=== PATIENT | female | born 1945 | race African-American/Black ===

== ENCOUNTER 2018-11-27 21:03 | Emergency (ER) | payer OTHER, MEDICARE ==
[2018-11-27 21:52] LABS: Urine Blood 3+ (NEG); Urine Glucose NEGATIVE (NEG); Urine Protein 2+ (NEG); Urine Specific Gravity >1.030 (1.005-1.030); Urine pH 6.5 (5.0-7.0)
[2018-11-27 22:09] LABS: Urine Bacteria <20 /HPF (<20); Urine Culture Reflex Order NOT NEEDED; Urine RBC >50 /HPF (NONE SEEN)
--- NOTE | 2018-11-27 22:34 | ER ---
Nurse's Notes [facility] Name: Clara Bucio Age: 73 yrs Sex: Female : 1945 Arrival Date: 11/27/2018 Time: 21:10 Bed 18 Private MD: Diagnosis: Urinary tract infection, site not specified Presentation: 11/27 21:14 Presenting complaint: Patient states: I have been having urinary frequency and urgency, la1 I accidently peed on myself. It feels like something is pressing on my bladder and I cannot control it. Transition of care: patient was not received from another setting of care. Onset of symptoms was November 27, 2018. Risk Assessment: Do you want to hurt yourself or someone else? Patient reports no desire to harm self or others. Initial Sepsis Screen: Does the patient meet any 2 criteria? No. Patient's initial sepsis screen is negative. Does the patient have a suspected source of infection? No. Patient's initial sepsis screen is negative. Care prior to arrival: None. 21:14 Method Of Arrival: Ambulatory la1 21:14 Acuity: DORINA 3 la1 Historical: - Allergies: 21:14 Codeine; la1 21:14 Sulfa (Sulfonamide Antibiotics); la1 - PMHx: 21:14 Hypertension; Cirrhosis; la1 - Immunization history:: Adult Immunizations up to date. - Social history:: Smoking status: Patient/guardian denies using tobacco. - Ebola Screening: : No symptoms or risks identified at this time. Screenin:20 Abuse screen: Denies threats or abuse. Nutritional screening: No deficits noted. tr5 Tuberculosis screening: No symptoms or risk factors identified. Fall Risk None identified. Assessment: 21:20 General: Appears in no apparent distress. Behavior is calm, cooperative. Pain: tr5 Complains of pain in suprapubic area Pain does not radiate. Quality of pain is described as crampy, pressure, Pain began gradually. Neuro: Level of Consciousness is awake, alert, obeys commands, Oriented to person, place, time, Computer Support Technician are equal bilaterally Moves all extremities. Cardiovascular: Heart tones present Bruits absent Capillary refill < 3 seconds Pulses are all present. Edema is absent. Respiratory: Airway is patent Respiratory effort is even, unlabored, Respiratory pattern is regular, symmetrical. GI: Reports cramping. : Reports cramping, inability to void, urinary frequency. EENT: No signs and/or symptoms were reported regarding the EENT system. Derm: No signs and/or symptoms reported regarding the dermatologic system. Musculoskeletal: Capillary refill < 3 seconds, Range of motion: intact in all extremities. Vital Signs: 21:15 BP 137 / 71; Pulse 75; Resp 16; Temp 98.1; Pulse Ox 98% on R/A; Weight 102.51 kg; la1 Height 5 ft. 7 in. (170.18 cm); 22:20 BP 135 / 72; Pulse 72; Resp 17; Pulse Ox 100% on R/A; tr5 21:15 Body Mass Index 35.40 (102.51 kg, 170.18 cm) la1 ED Course: 21:10 Patient arrived in ED. la1 21:15 Triage completed. la1 21:15 Arm band placed on right wrist. la1 21:16 Jesús Flynn RN is Primary Nurse. tr5 21:20 Fall risk band placed. Placed in gown. tr5 21:39 Cameron Shay PA is PHCP. cp 21:39 Vlad Lyon MD is Attending Physician. cp 21:45 Inserted saline lock: 22 gauge in right antecubital area, using aseptic technique. tr5 23:15 No provider procedures requiring assistance completed. IV discontinued. tr5 Administered Medications: 22:51 Drug: Rocephin 1 grams Route: IV; Rate: per protocol; Site: right antecubital; tr5 23:17 Follow up: Response: No adverse reaction; IV Status: Completed infusion tr5 22:52 Drug: Pyridium 200 mg Route: PO; tr5 22:53 Follow up: Response: Medication administered at discharge. tr5 23:17 Follow up: Response: No adverse reaction tr5 22:58 CANCELLED (Physician Discretion): Rocephin (cefTRIAXone) 1 grams IM once tr5 Outcome: 22:33 Discharge ordered by . cp 23:15 Discharged to home ambulatory. tr5 23:15 Condition: stable 23:15 Discharge instructions given to patient. 23:18 Patient left the ED. tr5 Signatures: Lance Gordillo RN RN la1 Cameron Shay PA PA cp Jesús Flynn RN RN tr5 Corrections: (The following items were deleted from the chart) 22:58 22:54 Rocephin (cefTRIAXone) 1 grams IM in right deltoid tr5 tr5
--- NOTE | 2018-11-27 22:34 | EDPHYS ---
Physician Documentation [facility] Name: Clara Bucio Age: 73 yrs Sex: Female : 1945 Arrival Date: 11/27/2018 Time: 21:10 Bed 18 Private MD: ED Physician Vlad Lyon HPI: 11/27 21:45 This 73 yrs old Black Female presents to ER via Ambulatory with complaints of Urinary cp Incontinence. 21:45 The patient presents with urinary symptoms, dysuria, frequency, incontinence, urgency. cp 21:45 Onset: The symptoms/episode began/occurred today. Associated signs and symptoms: cp Pertinent negatives: diarrhea, fever, nausea, vomiting. Severity of symptoms: in the emergency department the symptoms are unchanged, despite home interventions. Historical: - Allergies: 21:14 Codeine; la1 21:14 Sulfa (Sulfonamide Antibiotics); la1 - PMHx: 21:14 Hypertension; Cirrhosis; la1 - Immunization history:: Adult Immunizations up to date. - Social history:: Smoking status: Patient/guardian denies using tobacco. - Ebola Screening: : No symptoms or risks identified at this time. ROS: 21:55 Constitutional: Negative for body aches, chills, fever, poor PO intake. cp 21:55 Eyes: Negative for injury, pain, redness, and discharge. cp 21:55 Cardiovascular: Negative for chest pain, palpitations. 21:55 Respiratory: Negative for cough, wheezing. 21:55 Abdomen/GI: Positive for abdominal pain, of the suprapubic area, Negative for nausea, vomiting, diarrhea, constipation, black/tarry stool, rectal bleeding. 21:55 Back: Negative for pain at rest, pain with movement. 21:55 : Positive for urinary frequency, bladder incontinence urgency, pain with urinating. 21:55 All other systems are negative. Exam: 22:00 Constitutional: The patient appears in no acute distress, alert, non-diaphoretic, cp non-toxic, well developed, well nourished. 22:00 Head/Face: Normocephalic, atraumatic. cp 22:00 Cardiovascular: Rate: normal. 22:00 Respiratory: the patient does not display signs of respiratory distress, Respirations: normal. 22:00 Abdomen/GI: Inspection: abdomen appears normal, Bowel sounds: active, all quadrants, Palpation: soft, in all quadrants, mild abdominal tenderness, in the suprapubic area, voluntary guarding, is elicited in the suprapubic area. 22:00 Back: pain, is absent. Vital Signs: 21:15 BP 137 / 71; Pulse 75; Resp 16; Temp 98.1; Pulse Ox 98% on R/A; Weight 102.51 kg; la1 Height 5 ft. 7 in. (170.18 cm); 22:20 BP 135 / 72; Pulse 72; Resp 17; Pulse Ox 100% on R/A; tr5 21:15 Body Mass Index 35.40 (102.51 kg, 170.18 cm) la1 MDM: 21:43 Patient medically screened. cp 22:32 Data reviewed: vital signs, nurses notes, lab test result(s). Counseling: I had a cp detailed discussion with the patient and/or guardian regarding: the historical points, exam findings, and any diagnostic results supporting the discharge/admit diagnosis, lab results, to return to the emergency department if symptoms worsen or persist or if there are any questions or concerns that arise at home. 11/27 21:40 Order name: Urine Culture lp1 11/27 21:40 Order name: Urine Microscopic Only; Complete Time: 22:27 cp 11/27 22:31 Interpretation: Normal except: UWBC 20-50; URBC >50. cp 11/27 21:41 Order name: Urine Dipstick--Ancillary (enter results); Complete Time: 22:27 ar5 11/27 22:31 Interpretation: Normal except: USPGR >1.030; UBLD 3+; UPROT 2+; UESTR 3+. cp 11/27 21:40 Order name: Urine Dipstick-Ancillary (obtain specimen); Complete Time: 22:57 lp1 11/27 21:40 Order name: Urine Dipstick-Ancillary (obtain specimen); Complete Time: 22:57 cp Administered Medications: 22:51 Drug: Rocephin 1 grams Route: IV; Rate: per protocol; Site: right antecubital; tr5 23:17 Follow up: Response: No adverse reaction; IV Status: Completed infusion tr5 22:52 Drug: Pyridium 200 mg Route: PO; tr5 22:53 Follow up: Response: Medication administered at discharge. tr5 23:17 Follow up: Response: No adverse reaction tr5 22:58 CANCELLED (Physician Discretion): Rocephin (cefTRIAXone) 1 grams IM once tr5 Disposition: 11/28 03:00 Co-signature as Attending Physician, Vlad Lyon MD. pkl Disposition: 11/27/18 22:33 Discharged to Home. Impression: Urinary tract infection, site not specified. - Condition is Stable. - Discharge Instructions: Urinary Tract Infection, Adult. - Prescriptions for Augmentin 875- 125 mg Oral Tablet - take 1 tablet by ORAL route every 12 hours for 10 days; 20 tablet. Pyridium 200 mg Oral Tablet - take 1 tablet by ORAL route every 8 hours for 2 days; 6 tablet. - Medication Reconciliation Form, Thank You Letter, Antibiotic Education, Prescription Opioid Use form. - Follow up: Private Physician; When: 1 - 2 days; Reason: Worsening of condition. - Problem is new. - Symptoms have improved. Signatures: Dispatcher [employer] EDMS Vlad Lyon MD MD pkl Carmella Bruner RN RN lp1 Lance Gordillo RN RN la1 Cameron Shay PA PA cp Rodriguez, Tommie RN RN tr5 Corrections: (The following items were deleted from the chart) 11/27 22:58 22:31 Rocephin (cefTRIAXone) 1 grams IM once ordered. cp tr5 22:58 22:53 Rocephin (cefTRIAXone) 1 grams IM once given. tr5 tr5 22:58 22:58 Rocephin (cefTRIAXone) 1 grams IM once ordered. tr5 tr5 23:18 22:33 11/27/2018 22:33 Discharged to Home. Impression: Urinary tract infection, site tr5 not specified. Condition is Stable. Forms are Medication Reconciliation Form, Thank You Letter, Antibiotic Education, Prescription Opioid Use. Follow up: Private Physician; When: 1 - 2 days; Reason: Worsening of condition. Problem is new. Symptoms have improved. cp
== END 2018-11-27 23:18 | disposition home or self-care (01) ==
LOC: ER 21:03
DX: N39.0 Urinary tract infection, site not specified (principal); Z88.6 Allergy status to analgesic agent; Z88.2 Allergy status to sulfonamides
CPT/HCPCS: 81003; 81015; 87086; 87088

== ENCOUNTER 2023-12-14 11:34 | Emergency (ER) | payer OTHER ==
--- OUTSIDE RECORDS SUMMARY | 2023-12-14 11:47 | XMS REPORT | Continuity of Care Document ---
Author Name Unknown Address [address] [facility] [place] [address] [facility] Address [address] [facility] [address] [place] [address] Care Team Providers Care Die Hardener Name Role Phone ANIRUDH CHAPARRO Primary Care Physician Unavailab CEDRIC Brumfield Attending Clinician Unavailable ANIRUDH CHAPARRO Attending Clinician Unavailable Pob, [facility] Lab Main Attending Clinician UnavailArmond Ceron MD Attending Clinician [phone] ARMOND MEDINA Attending Clinician Unavailable Anirudh Medina Attending Clinician [phone] Andry Santos Attending Clinician [phone] Unknown, Attending Attending Clinician UnavailANDRY Marks Attending Clinician Unavailable MIKHAIL WU Attending Clinician Unavailable MIKHAIL UW Attending Clinician Unavailable GULSHAN YEE Attending Clinician Unavailable Gulshan Yee PA-C Attending Clinician [phone] ATANASOV, STRAHIL T Attending Clinician UnavailNANCY Bustillos Attending Clinician UnavailNancy Bustillos MD Attending Clinician + [phone] [facility] Sleep Lab Bed Attending Clinician Unavail able Doctor Unassigned, [place] Attending Clinician U Marge Ulrich DO Attending Clinician [phone] Lab, Ang - Db Attending Clinician Unavailable Tito NDIAYE, Cedric Attending Clinician [phone] [facility] Sleep Lab Attending Clinician Unavailkaty Winter MD, Ja Hay Attending Clinician [phone] Nurse, Ang Db Urgent Care Attending Clinician Un available Mariusz NDIAYE, Genevieve Attending Clinician [phone] GENEVIEVE VEE Attending Clinician Unavailable Dilcia Sheikh MD Attending Clinician [phone] DILCIA SHEIKH Attending Clinician UnavailMARGE Ortega Attending Clinician Unavailable MARGE CHAVES Attending Clinician Unavailable DAYA PEÑA Attending Clinician Unavailable Daya Thomas Attending Clinician [phone] Provider, Ang [facility] Urgent [facility] Attending Clinician Unavailable Mary VICTOR, Amador Hunter Attending Clinician Unavailabl e Only, Ang Db Test Attending Clinician UnavailUSMAN Cano Attending Clinician Unavailkaty Alan, [facility] Respiratory Attending Clinician U Usman Prakash MD Attending Clinician [phone] NATY MCKINNEY Attending Clinician UnavailLora Noel MD Attending Clinician [phone] LORA EDWARDS Attending Clinician Unavailable Vaccine, [facility] Family Medicine Attending Clinician Unavailable Roberto Buckner DO Attending Clinician [phone] ROBERTO BUCKNER Attending Clinician Unavail able OSCAR MORFIN Attending Clinician Unavailable Oscar Morfin MD Attending Clinician [phone] BASSAM SORTO Attending Clinician Unavailable Bassam Sorto PA-C Attending Clinician +[phone] Alix Cline RN Attending Clinician Unavailab Gail Mcgrath Attending Clinician + [phone] GAIL HILLIARD Attending Clinician Unavailab Michele Christina MD Attending Clinician + [phone] MICHELE SYED A Attending Clinician Unavaila RADHA Hutton Attending Clinician Unavailable Radha Burgess MD Attending Clinician [phone] Arelis Winston Attending Clinician [phone] Only, Adc Pob2 Test Attending Clinician Unavaila ble Nurse, Adc Pob Immunization Attending Clinician Unavailable Radiology Attending Clinician Unavailable DAYANA BAILEY Attending Clinician Unavailable ARMOND MEDINA Admitting Clinician Unavailable ANIRUDH CHAPARRO Admitting Clinician Unavailable CEDRIC FRANCIS Admitting Clinician Unavailable MARGE CHAVES Admitting Clinician Unavailable Payers Payer Name Policy Type Policy Number Effective Date Expirati on Date Source [employer] MEDICARE ADVANTAGE [id number] 2019 00:00:00 Problems Condition Name Condition Details Condition Category Status Onset Date Resolution Date Last Treatment Date Treating Clinician Comments Source Nocturnal enuresis Nocturnal enuresis Disease Active 2- 00:00: 00 [facility] Chronic heart failure with preserved ejection fraction Chronic heart failure with preserved ejection fraction Disease Active 2022-04 00:00: 00 [facility] Obesity (BMI 30-39.9) Obesity (BMI 30-39.9) Disease Active 2022-04 00:00: 00 [facility] Leg edema Leg edema Disease Active 2022-04 00:00: 00 [facility] VHD (valvular heart disease) VHD (valvular heart disease) Disease Active 2022-04 00:00: 00 [facility] Pulmonary hypertensi on Pulmonary hypertensi on Disease Active 2022-04 00:00: 00 [facility] Osteopenia , unspecifie d location Osteopenia , unspecifie d location Disease Active 12-26 00:00: 00 [facility] Anxiety and depression Anxiety and depression Disease Active 12-26 00:00: 00 [facility] Primary osteoarthr itis involving multiple joints Primary osteoarthr itis involving multiple joints Disease Active 12-26 00:00: 00 [facility] Medicare annual wellness visit, subsequent Medicare annual wellness visit, subsequent Disease Active 0 9-19 00:00: 00 [facility] Prediabete s Prediabete s Disease Active 2-16 00:00: 00 [facility] Coronary artery disease involving [place] coronary artery of [place]ct[place] heart without angina 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 of [place] heart without angina pectoris Disease Active 8-16 00:00: 00 [facility] Nonobstruc tive atheroscle rosis of coronary artery Nonobstruc tive atheroscle rosis of coronary artery Disease Active 8-16 00:00: 00 [facility] Essential hypertensi on Essential hypertensi on Disease Active 16 00:00: 00 [facility] Gastroesop hageal reflux disease without esophagiti s Gastroesop hageal reflux disease without esophagiti s Disease Active 16 00:00: 00 [facility] Biliary cirrhosis Biliary cirrhosis Disease Active 16 00:00: 00 [facility] Arrhythmia Arrhythmia Disease Active 16 00:00: 00 [facility] Coronary artery disease involving [place] coronary artery of [place] heart without angina 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 of [place] heart without angina pectoris Disease Active 16 00:00: 00 [facility] Hiatal hernia Hiatal hernia Disease Active 816 00:00: 00 [facility] Rheumatoid arthritis Rheumatoid arthritis Disease Active 16 00:00: 00 [facility] Allergies, Adverse Reactions, Alerts Allergy Name Allergy Type Status Severity Reaction(s) Onset Date Inactive Date Treating Clinician Comments Source Codeine Propensi ty to adverse reaction s Active Nausea and/or Vomiting 16 00:00: 00 [facility] Sulfa (Sulfona mide Antibiot ics) Propensi ty to adverse reaction s Active Nausea and/or Vomiting 16 00:00: 00 [facility] CODEINE DRUG INGREDI Active N/V 11-22 00:00: 00 [facility] SULFA (SULFONA MIDE ANTIBIOT ICS) Drug Class Active N/V 11-22 00:00: 00 [facility] Sulfa (Sulfona mide Antibiot ics) DA Active SV 12-05 00:00: 00 [facility] codeine DA Active SV 12-05 00:00: 00 [facility] Social History Social Habit Start Date Stop Date Quantity Comments Source Gender identity [facility]coh[facility] beverage intake 2023-08-24 00:00:00 2023-08-24 00:00:00 Lifetime non-drinker (finding) [facility] Alcohol intake 2023-07-25 00:00:00 2023-07-25 00:00:00 Lifetime non-drinker (finding) [facility] Tobacco use and exposure 2023-05-16 00:00:00 2023-05-16 00:00:00 Smokeless tobacco non-user [facility] History of Social function 2022-12-26 00:00:00 2022-12-26 00:00:00 [facility] Exposure to SARS-CoV-2 (event) 2022-08-13 00:00:00 2022-08-23 11:25:00 Not sure [facility] Sex assigned at 1945 00:00:00 1945 00:00:00 [facility] Smoking Status Start Date Stop Date Source Never smoked tobacco [facility] Medications Ordered Medication Name Filled Medication Name Start Date Stop Date Current Medication? Ordering Clinician Indication Dosage Frequency Signature (SIG) Comments Components Source iopamidol (ISOVUE 370-500 mL) injection 85 mL 09-24 16:30: 00 09-24 15:31 :00 No [id number] 85mL 85 mL, Intravenou s, ONCE, 1 dose, On Sun09/25/23 at 1130, Routine [facility] amoxicillin -clavulanat e (AUGMENTIN) 875-125 mg per tablet 08-23 00:00: 00 09-03 04:59 :00 No [id number] 1{tbl} Take 1 tablet by mouth in the morning and 1 tablet in the evening. Do all this for 10 days. [facility] predniSONE 20 mg tablet 08-23 00:00: 00 08-29 04:59 :00 No [id number] 40mg Take 2 tablets by mouth in the morning for 5 days. [facility] Guaifenesin 1,200 mg tablet 08-13 00:00: 00 Yes [id number] 1200mg Take 1 tablet by mouth in the morning and 1 tablet in the evening. [facility] vibegron (GEMTESA) 75 mg Tab 07-12 00:00: 00 Yes [id number] 75mg Take 75 mg by mouth at bedtime. [facility] Nitrofurant oin&Nit. Macrocryst (MACROBID) 100 mg capsule 07-01 00:00: 00 07-09 04:59 :00 No [id number] 100mg Take 1 capsule by mouth in the morning and 1 capsule in the evening. Do all this for 7 days. [facility] amLODIPine 5 mg tablet 06-04 00:00: 00 Yes [id number] 5mg Take 1 tablet by mouth in the morning. [facility] metoprolol succinate XL 100 mg 24 hr tablet 06-04 00:00: 00 Yes [id number] 100mg Take 1 tablet by mouth in the morning. [facility] DULoxetine 20 mg capsule 06-04 00:00: 00 Yes [id number] 40mg Take 2 capsules by mouth in the morning. [facility] amLODIPine 5 mg tablet 05-15 00:00: 00 06-04 00:00 :00 No [id number] 5mg Take 1 tablet by mouth in the morning. MUST BE SEEN FOR FURTHER REFILLS [facility] metoprolol succinate XL 100 mg 24 hr tablet - 00:00: 00 06-04 00:00 :00 No [id number] 100mg Take 1 tablet by mouth in the morning. MUST BE SEEN FOR FURTHER REFILLS [facility] furosemide 20 mg tablet 2022-04- 00:00: 00 06-04 00:00 :00 No [id number] As needed for leg swelling, daily [facility] DULoxetine 60 mg capsule 9-19 00:00: 00 01-04 00:00 :00 No [id number] 60mg Take 1 capsule by mouth in the morning. [facility] furosemide 20 mg tablet 12-06 00:00: 00 02-15 00:00 :00 No [id number] 20mg Take 1 tablet by mouth in the morning. [facility] amLODIPine 5 mg tablet 11-27 00:00: 00 05-13 00:00 :00 No [id number] 5mg Take 1 tablet by mouth in the morning. [facility] metoprolol succinate XL 100 mg 24 hr tablet 11-27 00:00: 00 05-13 00:00 :00 No [id number] 100mg Take 1 tablet by mouth in the morning. [facility] methocarbam oL 500 mg tablet 09-29 00:00: 00 Yes [id number] 500mg Take 1 tablet by mouth 3 (three) times daily as needed for Pain (scale 7-10). [facility] furosemide 20 mg tablet 6- 00:00: 00 12-06 00:00 :00 No [id number] 20mg Take 1 tablet by mouth in the morning. [facility] amLODIPine 5 mg tablet 6-22 00:00: 00 11-27 00:00 :00 No [id number] 5mg Take 1 tablet by mouth in the morning. [facility] metoprolol succinate XL 100 mg 24 hr tablet 6-22 00:00: 00 11-27 00:00 :00 No [id number] 100mg Take 1 tablet by mouth in the morning. [facility] metoprolol succinate XL 100 mg 24 hr tablet 2023-0 4-17 00:00: 00 09-28 00:00 :00 No [id number] 100mg Take 1 tablet by mouth in the morning. [facility] furosemide 20 mg tablet 07-24 00:00: 00 09-28 00:00 :00 No [id number] 20mg Take 1 tablet by mouth in the morning. [facility] amLODIPine 5 mg tablet 07-24 00:00: 09-28 00:00 :00 No [id number] 5mg Take 1 tablet by mouth in the morning. [facility] fludeoxyglu cose F-18 (FDG) injection 10.79 millicurie 06-12 20:00: 00 06-12 18:56 :00 No [id number] 10.79mC i 10.79 millicurie , Intravenou s, ONCE, 1 dose, On Sun06/12/22 at 1400, Routine [facility] fluticasone propion-adolfo meteroL (ADVAIR DISKUS) 250-50 mcg/dose inhalation disk 2021-04 00:00: 00 Yes [id number] 1{puff} Inhale 1 Puff every 12 (twelve) hours. [facility] albuterol 90 mcg/actuati on inhaler 2021-04 00:00: 00 Yes [id number] 2{puff} Inhale 2 Puffs every 6 (six) hours as needed for Wheezing or Shortness of Breath. [facility] doxycycline 100 mg EC tablet 2021-04 00:00: 00 01-21 04:59 :00 No [id number] 100mg Take 1 tablet by mouth in the morning and 1 tablet in the evening. Do all this for 7 days. [facility] mecobalamin , vitamin B12, (B12 ACTIVE) 1,000 mcg Chew 12-26 09:32: 23 Yes Take by mouth. [facility] benzonatate 200 mg capsule 12-26 00:00: 00 12-26 00:00 :00 No [id number] 200mg Take 1 capsule by mouth 3 (three) times daily as needed for Cough. [facility] Cholecalcif jennifer, Vitamin D3, (VITAMIN D3) 125 mcg (5,000 unit) tablet 12-01 10:34: 35 Yes Take by mouth. [facility] magnesium oxide 400 mg magnesium capsule 12-01 10:34: 35 Yes Take by mouth. [facility] DULoxetine 20 mg capsule 12-01 00:00: 00 12-26 00:00 :00 No Take 1 capsule po once daily x 2 weeks then increase to 2 capsules po once daily x 2 weeks then increase to 3 capsules po once daily thereafter [facility] furosemide 20 mg tablet 04-29 00:00: 00 07-24 00:00 :00 No [facility] ursodioL 300 mg capsule 05-17 00:00: 00 Yes 300mg Take 300 mg by mouth 3 (three) times daily. [facility] amLODIPine 5 mg tablet 05-09 00:00: 00 07-24 00:00 :00 No 5mg Take 5 mg by mouth daily. [facility] metoprolol succinate XL 100 mg 24 hr tablet 05-09 00:00: 00 07-24 00:00 :00 No Take by mouth daily. [facility] losartan 100 mg tablet 05-09 00:00: 00 02-15 00:00 :00 No 100mg Take 100 mg by mouth daily. [facility] Immunizations Ordered Immunization Name Filled Immunization Name Date Status Comments Source Influenza Virus Vaccine,quad Im,preserve Free 65+ 2022-01-13 00:00:00 Completed [facility] Influenza Virus Vaccine,quad Im,preserve Free + 2022-01-13 00:00:00 Completed [facility] Influenza Virus Vaccine,quad Im,preserve Free 65+ 2022-01-13 00:00:00 Completed [facility] Influenza Virus Vaccine,quad Im,preserve Free 65+ 2022-01-13 00:00:00 Completed [facility] Influenza Virus Vaccine,quad Im,preserve Free [id number] 00:00:00 Completed [facility] Influenza Virus Vaccine,quad Im,preserve Free 2022-01-13 00:00:00 Completed [facility] Influenza Virus Vaccine,quad Im,preserve Free 2022-01-13 00:00:00 Completed [facility] Influenza Virus Vaccine,quad Im,preserve Free 2022-01-13 00:00:00 Completed [facility] Influenza Virus Vaccine,quad Im,preserve Free 2022-01-13 00:00:00 Completed [facility] Influenza Virus Vaccine,quad Im,preserve Free 2022-01-13 00:00:00 Completed [facility] Influenza Virus Vaccine,quad Im,preserve Free 2022-01-13 00:00:00 Completed [facility] Influenza Virus Vaccine,quad Im,preserve Free 2022-01-13 00:00:00 Completed [facility] Influenza Virus Vaccine,quad Im,preserve Free 2022-01-13 00:00:00 Completed [facility] Influenza Virus Vaccine,quad Im,preserve Free 2022-01-13 00:00:00 Completed [facility] Influenza Virus Vaccine,quad Im,preserve Free 2022-01-13 00:00:00 Completed [facility] Influenza Virus Vaccine,quad Im,preserve Free 2022-01-13 00:00:00 Completed [facility] Influenza Virus Vaccine,quad Im,preserve Free 2022-01-13 00:00:00 Completed [facility] Influenza Virus Vaccine,quad Im,preserve Free 2022-01-13 00:00:00 Completed [facility] Influenza Virus Vaccine,quad Im,preserve Free 2022-01-13 00:00:00 Completed [facility] Influenza Virus Vaccine,quad Im,preserve Free 2022-01-13 00:00:00 Completed [facility] Influenza Virus Vaccine,quad Im,preserve Free 2022-01-13 00:00:00 Completed [facility] Influenza Virus Vaccine,quad Im,preserve Free 2022-01-13 00:00:00 Completed [facility] Influenza Virus Vaccine,quad Im,preserve Free 2022-01-13 00:00:00 Completed [facility] Influenza Virus Vaccine,quad Im,preserve Free 2022-01-13 00:00:00 Completed [facility] Influenza Virus Vaccine,quad Im,preserve Free 2022-01-13 00:00:00 Completed [facility] Influenza Virus Vaccine,quad Im,preserve Free 2022-01-13 00:00:00 Completed [facility] Influenza Virus Vaccine,quad Im,preserve Free 2022-01-13 00:00:00 Completed [facility] Influenza Virus Vaccine,quad Im,preserve Free 2022-01-13 00:00:00 Completed [facility] Influenza Virus Vaccine,quad Im,preserve Free 2022-01-13 00:00:00 Completed [facility] Influenza Virus Vaccine,quad Im,preserve Free 2022-01-13 00:00:00 Completed [facility] Influenza Virus Vaccine,quad Im,preserve Free 2022-01-13 00:00:00 Completed [facility] Influenza Virus Vaccine,quad Im,preserve Free 2022-01-13 00:00:00 Completed [facility] Influenza Virus Vaccine,quad Im,preserve Free 2022-01-13 00:00:00 Completed [facility] Influenza Virus Vaccine,quad Im,preserve Free 2022-01-13 00:00:00 Completed [facility] Influenza Virus Vaccine,quad Im,preserve Free 2022-01-13 00:00:00 Completed [facility] Influenza Virus Vaccine,quad Im,preserve Free 2022-01-13 00:00:00 Completed [facility] Influenza Virus Vaccine,quad Im,preserve Free 2022-01-13 00:00:00 Completed [facility] Influenza Virus Vaccine,quad Im,preserve Free 2022-01-13 00:00:00 Completed [facility] Influenza Virus Vaccine,quad Im,preserve Free 2022-01-13 00:00:00 Completed [facility] Influenza Virus Vaccine,quad Im,preserve Free 2022-01-13 00:00:00 Completed [facility] Influenza Virus Vaccine,quad Im,preserve Free 65+ 2022-01-13 00:00:00 Completed [facility] Influenza Virus Vaccine,quad Im,preserve Free 65+ 2022-01-13 00:00:00 Completed [facility] Influenza Virus Vaccine,quad Im,preserve Free 65+ 2022-01-13 00:00:00 Completed [facility] Influenza Virus Vaccine,quad Im,preserve Free 65+ 2022-01-13 00:00:00 Completed [facility] Influenza Virus Vaccine,quad Im,preserve Free 65+ 2022-01-13 00:00:00 Completed [facility] Influenza Virus Vaccine,quad Im,preserve Free 65+ 2022-01-13 00:00:00 Completed [facility] Influenza Virus Vaccine,quad Im,preserve Free 65+ 2022-01-13 00:00:00 Completed [facility] Influenza Virus Vaccine,quad Im,preserve Free 65+ 2022-01-13 00:00:00 Completed [facility] Influenza Virus Vaccine,quad Im,preserve Free 65+ 2022-01-13 00:00:00 Completed [facility] Influenza Virus Vaccine,quad Im,preserve Free 65+ 2022-01-13 00:00:00 Completed [facility] Influenza Virus Vaccine,quad Im,preserve Free 65+ 2022-01-13 00:00:00 Completed [facility] Influenza Virus Vaccine,quad Im,preserve Free 65+ (FLUAD) 2022-01-13 00:00:00 Completed [facility] Influenza Virus Vaccine,quad Im,preserve Free 65+ (FLUAD) 2022-01-13 00:00:00 Completed [facility] Influenza Virus Vaccine,quad Im,preserve Free 65+ (FLUAD) 2022-01-13 00:00:00 Completed [facility] SARS-COV-2 COVID-19 VACCINE 18 YRS+, BIVALENT 0.5ML, IM, (MODERNA BOOSTER) 2022-01-09 00:00:00 Completed [facility] SARS-COV-2 COVID-19 VACCINE 18 YRS+, BIVALENT 0.5ML, IM, (MODERNA BOOSTER) 2022-01-09 00:00:00 Completed [facility] SARS-COV-2 COVID-19 VACCINE 18 YRS+, BIVALENT 0.5ML, IM, (MODERNA BOOSTER) 2022-01-09 00:00:00 Completed [facility] SARS-COV-2 COVID-19 VACCINE 18 YRS+, BIVALENT 0.5ML, IM, (MODERNA BOOSTER) 2022-01-09 00:00:00 Completed [facility] SARS-COV-2 COVID-19 VACCINE 18 YRS+, BIVALENT 0.5ML, IM, (MODERNA BOOSTER) 2022-01-09 00:00:00 Completed [facility] SARS-COV-2 COVID-19 VACCINE 18 YRS+, BIVALENT 0.5ML, IM, (MODERNA BOOSTER) 2022-01-09 00:00:00 Completed [facility] SARS-COV-2 COVID-19 VACCINE 12 YRS+, BIVALENT 0.5ML, IM, (MODERNA BOOSTER) 2022-01-09 00:00:00 Completed [facility] SARS-COV-2 COVID-19 VACCINE 12 YRS+, BIVALENT 0.5ML, IM, (MODERNA BOOSTER) 2022-01-09 00:00:00 Completed [facility] SARS-COV-2 COVID-19 VACCINE 12 YRS+, BIVALENT 0.5ML, IM, (MODERNA BOOSTER) 2022-01-09 00:00:00 Completed [facility] SARS-COV-2 COVID-19 VACCINE 12 YRS+, BIVALENT 0.5ML, IM, (MODERNA BOOSTER) 2022-01-09 00:00:00 Completed [facility] SARS-COV-2 COVID-19 VACCINE 12 YRS+, BIVALENT 0.5ML, IM, (MODERNA BOOSTER) 2022-01-09 00:00:00 Completed [facility] SARS-COV-2 COVID-19 VACCINE 12 YRS+, BIVALENT 0.5ML, IM, (MODERNA BOOSTER) 2022-01-09 00:00:00 Completed [facility] SARS-COV-2 COVID-19 VACCINE 12 YRS+, BIVALENT 0.5ML, IM, (MODERNA BOOSTER) 2022-01-09 00:00:00 Completed [facility] SARS-COV-2 COVID-19 VACCINE 12 YRS+, BIVALENT 0.5ML, IM, (MODERNA BOOSTER) 2022-01-09 00:00:00 Completed [facility] SARS-COV-2 COVID-19 VACCINE 12 YRS+, BIVALENT 0.5ML, IM, (MODERNA BOOSTER) 2022-01-09 00:00:00 Completed [facility] SARS-COV-2 COVID-19 VACCINE 12 YRS+, BIVALENT 0.5ML, IM, (MODERNA BOOSTER) 2022-01-09 00:00:00 Completed [facility] SARS-COV-2 COVID-19 VACCINE 12 YRS+, BIVALENT 0.5ML, IM, (MODERNA BOOSTER) 2022-01-09 00:00:00 Completed [facility] SARS-COV-2 COVID-19 VACCINE 12 YRS+, BIVALENT 0.5ML, IM, (MODERNA BOOSTER) 2022-01-09 00:00:00 Completed [facility] SARS-COV-2 COVID-19 VACCINE 12 YRS+, BIVALENT 0.5ML, IM, (MODERNA BOOSTER) 2022-01-09 00:00:00 Completed [facility] SARS-COV-2 COVID-19 VACCINE 12 YRS+, BIVALENT 0.5ML, IM, (MODERNA BOOSTER) 2022-01-09 00:00:00 Completed [facility] SARS-COV-2 COVID-19 VACCINE 12 YRS+, BIVALENT 0.5ML, IM, (MODERNA BOOSTER) 2022-01-09 00:00:00 Completed [facility] SARS-COV-2 COVID-19 VACCINE 12 YRS+, BIVALENT 0.5ML, IM, (MODERNA BOOSTER) 2022-01-09 00:00:00 Completed [facility] SARS-COV-2 COVID-19 VACCINE 12 YRS+, BIVALENT 0.5ML, IM, (MODERNA BOOSTER) 2022-01-09 00:00:00 Completed [facility] SARS-COV-2 COVID-19 VACCINE 12 YRS+, BIVALENT 0.5ML, IM, (MODERNA BOOSTER) 2022-01-09 00:00:00 Completed [facility] SARS-COV-2 COVID-19 VACCINE 12 YRS+, BIVALENT 0.5ML, IM, (MODERNA BOOSTER) 2022-01-09 00:00:00 Completed [facility] SARS-COV-2 COVID-19 VACCINE 12 YRS+, BIVALENT 0.5ML, IM, (MODERNA BOOSTER) 2022-01-09 00:00:00 Completed [facility] SARS-COV-2 COVID-19 VACCINE 12 YRS+, BIVALENT 0.5ML, IM, (MODERNA BOOSTER) 2022-01-09 00:00:00 Completed [facility] SARS-COV-2 COVID-19 VACCINE 12 YRS+, BIVALENT 0.5ML, IM, (MODERNA BOOSTER) 2022-01-09 00:00:00 Completed [facility] SARS-COV-2 COVID-19 VACCINE 12 YRS+, BIVALENT 0.5ML, IM, (MODERNA BOOSTER) 2022-01-09 00:00:00 Completed [facility] SARS-COV-2 COVID-19 VACCINE 12 YRS+, BIVALENT 0.5ML, IM, (MODERNA BOOSTER) 2022-01-09 00:00:00 Completed [facility] SARS-COV-2 COVID-19 VACCINE 12 YRS+, BIVALENT 0.5ML, IM, (MODERNA BOOSTER) 2022-01-09 00:00:00 Completed [facility] SARS-COV-2 COVID-19 VACCINE 12 YRS+, BIVALENT 0.5ML, IM, (MODERNA BOOSTER) 2022-01-09 00:00:00 Completed [facility] SARS-COV-2 COVID-19 VACCINE 12 YRS+, BIVALENT 0.5ML, IM, (MODERNA BOOSTER) 2022-01-09 00:00:00 Completed [facility] SARS-COV-2 COVID-19 VACCINE 12 YRS+, BIVALENT 0.5ML, IM, (MODERNA BOOSTER) 2022-01-09 00:00:00 Completed [facility] SARS-COV-2 COVID-19 VACCINE 12 YRS+, BIVALENT 0.5ML, IM, (MODERNA BOOSTER) 2022-01-09 00:00:00 Completed [facility] SARS-COV-2 COVID-19 VACCINE 12 YRS+, BIVALENT 0.5ML, IM, (MODERNA BOOSTER) 2022-01-09 00:00:00 Completed [facility] SARS-COV-2 COVID-19 VACCINE 12 YRS+, BIVALENT 0.5ML, IM, (MODERNA BOOSTER) 2022-01-09 00:00:00 Completed [facility] SARS-COV-2 COVID-19 VACCINE 12 YRS+, BIVALENT 0.5ML, IM, (MODERNA BOOSTER) 2022-01-09 00:00:00 Completed [facility] SARS-COV-2 COVID-19 VACCINE 12 YRS+, BIVALENT 0.5ML, IM, (MODERNA BOOSTER) 2022-01-09 00:00:00 Completed [facility] SARS-COV-2 COVID-19 VACCINE 12 YRS+, BIVALENT 0.5ML, IM, (MODERNA) 2022-01-09 00:00:00 Completed [facility] SARS-COV-2 COVID-19 VACCINE 12 YRS+, BIVALENT 0.5ML, IM, (MODERNA) 2022-01-09 00:00:00 Completed [facility] SARS-COV-2 COVID-19 VACCINE 12 YRS+, BIVALENT 0.5ML, IM, (MODERNA-BLUE TOP) 2022-01-09 00:00:00 Completed [facility] SARS-COV-2 COVID-19 VACCINE 12 YRS+, BIVALENT 0.5ML, IM, (MODERNA-BLUE TOP) 2022-01-09 00:00:00 Completed [facility] SARS-COV-2 COVID-19 VACCINE 12 YRS+, BIVALENT 0.5ML, IM, (MODERNA-BLUE TOP) 2022-01-09 00:00:00 Completed [facility] SARS-COV-2 COVID-19 VACCINE 12 YRS+, BIVALENT 0.5ML, IM, (MODERNA-BLUE TOP) 2022-01-09 00:00:00 Completed [facility] SARS-COV-2 COVID-19 VACCINE 12 YRS+, BIVALENT 0.5ML, IM, (MODERNA-BLUE TOP) 2022-01-09 00:00:00 Completed [facility] SARS-COV-2 COVID-19 VACCINE 12 YRS+, BIVALENT 0.5ML, IM, (MODERNA-BLUE TOP) 2022-01-09 00:00:00 Completed [facility] SARS-COV-2 COVID-19 VACCINE 12 YRS+, BIVALENT 0.5ML, IM, (MODERNA-BLUE TOP) 2022-01-09 00:00:00 Completed [facility] SARS-COV-2 COVID-19 VACCINE 12 YRS+, BIVALENT 0.5ML, IM, (MODERNA-BLUE TOP) 2022-01-09 00:00:00 Completed [facility] SARS-COV-2 COVID-19 VACCINE 12 YRS+, BIVALENT 0.5ML, IM, (MODERNA-BLUE TOP) 2022-01-09 00:00:00 Completed [facility] SARS-COV-2 COVID-19 VACCINE 12 YRS+, BIVALENT 0.5ML, IM, (MODERNA-BLUE TOP) 2022-01-09 00:00:00 Completed [facility] SARS-COV-2 COVID-19 VACCINE 12 YRS+, BIVALENT 0.5ML, IM, (MODERNA-BLUE TOP) 2022-01-09 00:00:00 Completed [facility] SARS-COV-2 COVID-19 VACCINE 12 YRS+, BIVALENT 0.5ML, IM, (MODERNA-BLUE TOP) 2022-01-09 00:00:00 Completed [facility] SARS-COV-2 COVID-19 VACCINE 12 YRS+, BIVALENT 0.5ML, IM, (MODERNA-BLUE TOP) 2022-01-09 00:00:00 Completed [facility] SARS-COV-2 COVID-19 VACCINE 12 YRS+, BIVALENT 0.5ML, IM, (MODERNA-BLUE TOP) 2022-01-09 00:00:00 Completed [facility] SARS-COV-2 COVID-19 VACCINE 12 YRS+, BIVALENT 0.5ML, IM, (MODERNA-BLUE TOP) 2022-01-09 00:00:00 Completed [facility] SARS-COV-2 COVID-19 VACCINE 12 YRS+, BIVALENT 0.5ML, IM, (MODERNA-BLUE TOP) 2022-01-09 00:00:00 Completed [facility] SARS-COV-2 COVID-19 VACCINE 12 YRS+, BIVALENT 0.5ML, IM, (MODERNA-BLUE TOP) 2022-01-09 00:00:00 Completed [facility] Pneumococcal 20 Conjugate, PCV20 (Prevnar 20) 2021-11-21 00:00:00 Completed [facility] Pneumococcal 20 Conjugate, PCV20 (Prevnar 20) 2021-11-21 00:00:00 Completed [facility] Pneumococcal 20 Conjugate, PCV20 (Prevnar 20) 2021-11-21 00:00:00 Completed [facility] Pneumococcal 20 Conjugate, PCV20 (Prevnar 20) 2021-11-21 00:00:00 Completed [facility] Pneumococcal 20 Conjugate, PCV20 (Prevnar 20) 2021-11-21 00:00:00 Completed [facility] Pneumococcal 20 Conjugate, PCV20 (Prevnar 20) 2021-11-21 00:00:00 Completed [facility] Pneumococcal 20 Conjugate, PCV20 (Prevnar 20) 2021-11-21 00:00:00 Completed [facility] Pneumococcal 20 Conjugate, PCV20 (Prevnar 20) 2021-11-21 00:00:00 Completed [facility] Pneumococcal 20 Conjugate, PCV20 (Prevnar 20) 2021-11-21 00:00:00 Completed [facility] Pneumococcal 20 Conjugate, PCV20 (Prevnar 20) 2021-11-21 00:00:00 Completed [facility] Pneumococcal 20 Conjugate, PCV20 (Prevnar 20) 2021-11-21 00:00:00 Completed [facility] Pneumococcal 20 Conjugate, PCV20 (Prevnar 20) 2021-11-21 00:00:00 Completed [facility] Pneumococcal 20 Conjugate, PCV20 (Prevnar 20) 2021-11-21 00:00:00 Completed [facility] Pneumococcal 20 Conjugate, PCV20 (Prevnar 20) 2021-11-21 00:00:00 Completed [facility] Pneumococcal 20 Conjugate, PCV20 (Prevnar 20) 2021-11-21 00:00:00 Completed [facility] Pneumococcal 20 Conjugate, PCV20 (Prevnar 20) 2021-11-21 00:00:00 Completed [facility] Pneumococcal 20 Conjugate, PCV20 (Prevnar 20) 2021-11-21 00:00:00 Completed [facility] Pneumococcal 20 Conjugate, PCV20 (Prevnar 20) 2021-11-21 00:00:00 Completed [facility] Pneumococcal 20 Conjugate, PCV20 (Prevnar 20) 2021-11-21 00:00:00 Completed [facility] Pneumococcal 20 Conjugate, PCV20 (Prevnar 20) 2021-11-21 00:00:00 Completed [facility] Pneumococcal 20 Conjugate, PCV20 (Prevnar 20) 2021-11-21 00:00:00 Completed [facility] Pneumococcal 20 Conjugate, PCV20 (Prevnar 20) 2021-11-21 00:00:00 Completed [facility] Pneumococcal 20 Conjugate, PCV20 (Prevnar 20) 2021-11-21 00:00:00 Completed [facility] Pneumococcal 20 Conjugate, PCV20 (Prevnar 20) 2021-11-21 00:00:00 Completed [facility] Pneumococcal 20 Conjugate, PCV20 (Prevnar 20) 2021-11-21 00:00:00 Completed [facility] Pneumococcal 20 Conjugate, PCV20 (Prevnar 20) 2021-11-21 00:00:00 Completed [facility] Pneumococcal 20 Conjugate, PCV20 (Prevnar 20) 2021-11-21 00:00:00 Completed [facility] Pneumococcal 20 Conjugate, PCV20 (Prevnar 20) 2021-11-21 00:00:00 Completed [facility] Pneumococcal 20 Conjugate, PCV20 (Prevnar 20) 2021-11-21 00:00:00 Completed [facility] Pneumococcal 20 Conjugate, PCV20 (Prevnar 20) 2021-11-21 00:00:00 Completed [facility] Pneumococcal 20 Conjugate, PCV20 (Prevnar 20) 2021-11-21 00:00:00 Completed [facility] Pneumococcal 20 Conjugate, PCV20 (Prevnar 20) 2021-11-21 00:00:00 Completed [facility] Pneumococcal 20 Conjugate, PCV20 (Prevnar 20) 2021-11-21 00:00:00 Completed [facility] Pneumococcal 20 Conjugate, PCV20 (Prevnar 20) 2021-11-21 00:00:00 Completed [facility] Pneumococcal 20 Conjugate, PCV20 (Prevnar 20) 2021-11-21 00:00:00 Completed [facility] Pneumococcal 20 Conjugate, PCV20 (Prevnar 20) 2021-11-21 00:00:00 Completed [facility] Pneumococcal 20 Conjugate, PCV20 (Prevnar 20) 2021-11-21 00:00:00 Completed [facility] Pneumococcal 20 Conjugate, PCV20 (Prevnar 20) 2021-11-21 00:00:00 Completed [facility] Pneumococcal 20 Conjugate, PCV20 (Prevnar 20) 2021-11-21 00:00:00 Completed [facility] Pneumococcal 20 Conjugate, PCV20 (Prevnar 20) 2021-11-21 00:00:00 Completed [facility] Pneumococcal 20 Conjugate, PCV20 (Prevnar 20) 2021-11-21 00:00:00 Completed [facility] Pneumococcal 20 Conjugate, PCV20 (Prevnar 20) 2021-11-21 00:00:00 Completed [facility] Pneumococcal 20 Conjugate, PCV20 (Prevnar 20) 2021-11-21 00:00:00 Completed [facility] Pneumococcal 20 Conjugate, PCV20 (Prevnar 20) 2021-11-21 00:00:00 Completed [facility] Pneumococcal 20 Conjugate, PCV20 (Prevnar 20) 2021-11-21 00:00:00 Completed [facility] Pneumococcal 20 Conjugate, PCV20 (Prevnar 20) 2021-11-21 00:00:00 Completed [facility] Pneumococcal 20 Conjugate, PCV20 (Prevnar 20) 2021-11-21 00:00:00 Completed [facility] Pneumococcal 20 Conjugate, PCV20 (Prevnar 20) 2021-11-21 00:00:00 Completed [facility] Pneumococcal 20 Conjugate, PCV20 (Prevnar 20) 2021-11-21 00:00:00 Completed [facility] Pneumococcal 20 Conjugate, PCV20 (Prevnar 20) 2021-11-21 00:00:00 Completed [facility] Pneumococcal 20 Conjugate, PCV20 (Prevnar 20) 2021-11-21 00:00:00 Completed [facility] Pneumococcal 20 Conjugate, PCV20 (Prevnar 20) 2021-11-21 00:00:00 Completed [facility] Pneumococcal 20 Conjugate, PCV20 (Prevnar 20) 2021-11-21 00:00:00 Completed [facility] Pneumococcal 20 Conjugate, PCV20 (Prevnar 20) 2021-11-21 00:00:00 Completed [facility] Pneumococcal 20 Conjugate, PCV20 (Prevnar 20) 2021-11-21 00:00:00 Completed [facility] Pneumococcal 20 Conjugate, PCV20 (Prevnar 20) 2021-11-21 00:00:00 Completed [facility] Pneumococcal 20 Conjugate, PCV20 (Prevnar 20) 2021-11-21 00:00:00 Completed [facility] Pneumococcal 20 Conjugate, PCV20 (Prevnar 20) 2021-11-21 00:00:00 Completed [facility] Pneumococcal 20 Conjugate, PCV20 (Prevnar 20) 2021-11-21 00:00:00 Completed [facility] Pneumococcal 20 Conjugate, PCV20 (Prevnar 20) 2021-11-21 00:00:00 Completed [facility] Pneumococcal 20 Conjugate, PCV20 (Prevnar 20) 2021-11-21 00:00:00 Completed [facility] Pneumococcal 20 Conjugate, PCV20 (Prevnar 20) 2021-11-21 00:00:00 Completed [facility] Pneumococcal 20 Conjugate, PCV20 (Prevnar 20) 2021-11-21 00:00:00 Completed [facility] Pneumococcal 20 Conjugate, PCV20 (Prevnar 20) 2021-11-21 00:00:00 Completed [facility] SARS-COV-2 COVID-19 MODERNA 0.25ML BOOSTER VACCINE 2021-07-14 00:00:00 Completed [facility] SARS-COV-2 COVID-19 MODERNA 0.25ML BOOSTER VACCINE 2021-07-14 00:00:00 Completed [facility] SARS-COV-2 COVID-19 MODERNA 0.25ML BOOSTER VACCINE 2021-07-14 00:00:00 Completed [facility] SARS-COV-2 COVID-19 MODERNA 0.25ML BOOSTER VACCINE 2021-07-14 00:00:00 Completed [facility] SARS-COV-2 COVID-19 MODERNA 0.25ML BOOSTER VACCINE 2021-07-14 00:00:00 Completed [facility] SARS-COV-2 COVID-19 MODERNA 0.25ML BOOSTER VACCINE 2021-07-14 00:00:00 Completed [facility] SARS-COV-2 COVID-19 MODERNA 0.25ML BOOSTER VACCINE 2021-07-14 00:00:00 Completed [facility] SARS-COV-2 COVID-19 MODERNA 0.25ML BOOSTER VACCINE 2021-07-14 00:00:00 Completed [facility] SARS-COV-2 COVID-19 MODERNA 0.25ML BOOSTER VACCINE 2021-07-14 00:00:00 Completed [facility] SARS-COV-2 COVID-19 MODERNA 0.25ML BOOSTER VACCINE 2021-07-14 00:00:00 Completed [facility] SARS-COV-2 COVID-19 MODERNA 0.25ML BOOSTER VACCINE 2021-07-14 00:00:00 Completed [facility] SARS-COV-2 COVID-19 MODERNA 0.25ML BOOSTER VACCINE 2021-07-14 00:00:00 Completed [facility] SARS-COV-2 COVID-19 MODERNA 0.25ML BOOSTER VACCINE 2021-07-14 00:00:00 Completed [facility] SARS-COV-2 COVID-19 MODERNA 0.25ML BOOSTER VACCINE 2021-07-14 00:00:00 Completed [facility] SARS-COV-2 COVID-19 MODERNA 0.25ML BOOSTER VACCINE 2021-07-14 00:00:00 Completed [facility] SARS-COV-2 COVID-19 MODERNA 0.25ML BOOSTER VACCINE 2021-07-14 00:00:00 Completed [facility] SARS-COV-2 COVID-19 MODERNA 0.25ML BOOSTER VACCINE 2021-07-14 00:00:00 Completed [facility] SARS-COV-2 COVID-19 MODERNA 0.25ML BOOSTER VACCINE 2021-07-14 00:00:00 Completed [facility] SARS-COV-2 COVID-19 MODERNA 0.25ML BOOSTER VACCINE 2021-07-14 00:00:00 Completed [facility] SARS-COV-2 COVID-19 MODERNA 0.25ML BOOSTER VACCINE 2021-07-14 00:00:00 Completed [facility] SARS-COV-2 COVID-19 MODERNA 0.25ML BOOSTER VACCINE 2021-07-14 00:00:00 Completed [facility] SARS-COV-2 COVID-19 MODERNA 0.25ML BOOSTER VACCINE 2021-07-14 00:00:00 Completed [facility] SARS-COV-2 COVID-19 MODERNA 0.25ML BOOSTER VACCINE 2021-07-14 00:00:00 Completed [facility] SARS-COV-2 COVID-19 MODERNA 0.25ML BOOSTER VACCINE 2021-07-14 00:00:00 Completed [facility] SARS-COV-2 COVID-19 MODERNA 0.25ML BOOSTER VACCINE 2021-07-14 00:00:00 Completed [facility] SARS-COV-2 COVID-19 MODERNA 0.25ML BOOSTER VACCINE 2021-07-14 00:00:00 Completed [facility] SARS-COV-2 COVID-19 MODERNA 0.25ML BOOSTER VACCINE 2021-07-14 00:00:00 Completed [facility] SARS-COV-2 COVID-19 MODERNA 0.25ML BOOSTER VACCINE 2021-07-14 00:00:00 Completed [facility] SARS-COV-2 COVID-19 MODERNA 0.25ML BOOSTER VACCINE 2021-07-14 00:00:00 Completed [facility] SARS-COV-2 COVID-19 MODERNA 0.25ML BOOSTER VACCINE 2021-07-14 00:00:00 Completed [facility] SARS-COV-2 COVID-19 MODERNA 0.25ML BOOSTER VACCINE 2021-07-14 00:00:00 Completed [facility] SARS-COV-2 COVID-19 MODERNA 0.25ML BOOSTER VACCINE 2021-07-14 00:00:00 Completed [facility] SARS-COV-2 COVID-19 MODERNA 0.25ML BOOSTER VACCINE 2021-07-14 00:00:00 Completed [facility] SARS-COV-2 COVID-19 MODERNA 0.25ML BOOSTER VACCINE 2021-07-14 00:00:00 Completed [facility] SARS-COV-2 COVID-19 MODERNA 0.25ML BOOSTER VACCINE 2021-07-14 00:00:00 Completed [facility] SARS-COV-2 COVID-19 MODERNA 0.25ML BOOSTER VACCINE 2021-07-14 00:00:00 Completed [facility] SARS-COV-2 COVID-19 MODERNA 0.25ML BOOSTER VACCINE 2021-07-14 00:00:00 Completed [facility] SARS-COV-2 COVID-19 MODERNA 0.25ML BOOSTER VACCINE 2021-07-14 00:00:00 Completed [facility] SARS-COV-2 COVID-19 MODERNA 0.25ML BOOSTER VACCINE 2021-07-14 00:00:00 Completed [facility] SARS-COV-2 COVID-19 MODERNA 0.25ML BOOSTER VACCINE 2021-07-14 00:00:00 Completed [facility] SARS-COV-2 COVID-19 MODERNA 0.25ML BOOSTER VACCINE 2021-07-14 00:00:00 Completed [facility] SARS-COV-2 COVID-19 MODERNA 0.25ML BOOSTER VACCINE 2021-07-14 00:00:00 Completed [facility] SARS-COV-2 COVID-19 MODERNA 0.25ML BOOSTER VACCINE 2021-07-14 00:00:00 Completed [facility] SARS-COV-2 COVID-19 MODERNA 0.25ML BOOSTER VACCINE 2021-07-14 00:00:00 Completed [facility] SARS-COV-2 COVID-19 MODERNA 0.25ML BOOSTER VACCINE 2021-07-14 00:00:00 Completed [facility] SARS-COV-2 COVID-19 MODERNA 0.25ML BOOSTER VACCINE 2021-07-14 00:00:00 Completed [facility] SARS-COV-2 COVID-19 MODERNA 0.25ML BOOSTER VACCINE 2021-07-14 00:00:00 Completed [facility] SARS-COV-2 COVID-19 MODERNA 0.25ML BOOSTER VACCINE 2021-07-14 00:00:00 Completed [facility] SARS-COV-2 COVID-19 MODERNA 0.25ML BOOSTER VACCINE 2021-07-14 00:00:00 Completed [facility] SARS-COV-2 COVID-19 MODERNA 0.25ML BOOSTER VACCINE 2021-07-14 00:00:00 Completed [facility] SARS-COV-2 COVID-19 MODERNA 0.25ML BOOSTER VACCINE 2021-07-14 00:00:00 Completed [facility] SARS-COV-2 COVID-19 MODERNA 0.25ML BOOSTER VACCINE 2021-07-14 00:00:00 Completed [facility] SARS-COV-2 COVID-19 MODERNA 0.25ML BOOSTER VACCINE 2021-07-14 00:00:00 Completed [facility] SARS-COV-2 COVID-19 MODERNA 0.25ML BOOSTER VACCINE 2021-07-14 00:00:00 Completed [facility] SARS-COV-2 COVID-19 MODERNA 0.25ML BOOSTER VACCINE 2021-07-14 00:00:00 Completed [facility] SARS-COV-2 COVID-19 MODERNA 0.25ML BOOSTER VACCINE 2021-07-14 00:00:00 Completed [facility] SARS-COV-2 COVID-19 MODERNA 0.25ML BOOSTER VACCINE 2021-07-14 00:00:00 Completed [facility] SARS-COV-2 COVID-19 MODERNA 0.25ML BOOSTER VACCINE 2021-07-14 00:00:00 Completed [facility] SARS-COV-2 COVID-19 MODERNA 0.25ML BOOSTER VACCINE 2021-07-14 00:00:00 Completed [facility] SARS-COV-2 COVID-19 MODERNA 0.25ML BOOSTER VACCINE 2021-07-14 00:00:00 Completed [facility] SARS-COV-2 COVID-19 MODERNA 0.25ML BOOSTER VACCINE 2021-07-14 00:00:00 Completed [facility] SARS-COV-2 COVID-19 MODERNA 0.25ML BOOSTER VACCINE 2021-07-14 00:00:00 Completed [facility] SARS-COV-2 COVID-19 MODERNA 0.25ML BOOSTER VACCINE 2021-07-14 00:00:00 Completed [facility] SARS-COV-2 COVID-19 MODERNA 0.25ML BOOSTER VACCINE 2021-07-14 00:00:00 Completed [facility] SARS-COV-2 COVID-19 MODERNA 12+ YRS VACCINE 2021-01-24 00:00:00 Completed [facility] SARS-COV-2 COVID-19 MODERNA 12+ YRS VACCINE 2021-01-24 00:00:00 Completed [facility] SARS-COV-2 COVID-19 MODERNA 12+ YRS VACCINE 2021-01-24 00:00:00 Completed [facility] SARS-COV-2 COVID-19 MODERNA 12+ YRS VACCINE 2021-01-24 00:00:00 Completed [facility] SARS-COV-2 COVID-19 MODERNA 12+ YRS VACCINE 2021-01-24 00:00:00 Completed [facility] SARS-COV-2 COVID-19 MODERNA 12+ YRS VACCINE 2021-01-24 00:00:00 Completed [facility] SARS-COV-2 COVID-19 MODERNA 12+ YRS VACCINE 2021-01-24 00:00:00 Completed [facility] SARS-COV-2 COVID-19 MODERNA 12+ YRS VACCINE 2021-01-24 00:00:00 Completed [facility] SARS-COV-2 COVID-19 MODERNA 12+ YRS VACCINE 2021-01-24 00:00:00 Completed [facility] SARS-COV-2 COVID-19 MODERNA 12+ YRS VACCINE 2021-01-24 00:00:00 Completed [facility] SARS-COV-2 COVID-19 MODERNA 12+ YRS VACCINE 2021-01-24 00:00:00 Completed [facility] SARS-COV-2 COVID-19 MODERNA 12+ YRS VACCINE 2021-01-24 00:00:00 Completed [facility] SARS-COV-2 COVID-19 MODERNA 12+ YRS VACCINE 2021-01-24 00:00:00 Completed [facility] SARS-COV-2 COVID-19 MODERNA 12+ YRS VACCINE 2021-01-24 00:00:00 Completed [facility] SARS-COV-2 COVID-19 MODERNA 12+ YRS VACCINE 2021-01-24 00:00:00 Completed [facility] SARS-COV-2 COVID-19 MODERNA 12+ YRS VACCINE 2021-01-24 00:00:00 Completed [facility] SARS-COV-2 COVID-19 MODERNA 12+ YRS VACCINE 2021-01-24 00:00:00 Completed [facility] SARS-COV-2 COVID-19 MODERNA 12+ YRS VACCINE 2021-01-24 00:00:00 Completed [facility] SARS-COV-2 COVID-19 MODERNA 12+ YRS VACCINE 2021-01-24 00:00:00 Completed [facility] SARS-COV-2 COVID-19 MODERNA 12+ YRS VACCINE 2021-01-24 00:00:00 Completed [facility] SARS-COV-2 COVID-19 MODERNA 12+ YRS VACCINE 2021-01-24 00:00:00 Completed [facility] SARS-COV-2 COVID-19 MODERNA 12+ YRS VACCINE 2021-01-24 00:00:00 Completed [facility] SARS-COV-2 COVID-19 MODERNA 12+ YRS VACCINE 2021-01-24 00:00:00 Completed [facility] SARS-COV-2 COVID-19 MODERNA 12+ YRS VACCINE 2021-01-24 00:00:00 Completed [facility] SARS-COV-2 COVID-19 MODERNA 12+ YRS VACCINE 2021-01-24 00:00:00 Completed [facility] SARS-COV-2 COVID-19 MODERNA 12+ YRS VACCINE 2021-01-24 00:00:00 Completed [facility] SARS-COV-2 COVID-19 MODERNA 12+ YRS VACCINE 2021-01-24 00:00:00 Completed [facility] SARS-COV-2 COVID-19 MODERNA 12+ YRS VACCINE 2021-01-24 00:00:00 Completed [facility] SARS-COV-2 COVID-19 MODERNA 12+ YRS VACCINE 2021-01-24 00:00:00 Completed [facility] SARS-COV-2 COVID-19 MODERNA 12+ YRS VACCINE 2021-01-24 00:00:00 Completed [facility] SARS-COV-2 COVID-19 MODERNA 12+ YRS VACCINE 2021-01-24 00:00:00 Completed [facility] SARS-COV-2 COVID-19 MODERNA 12+ YRS VACCINE 2021-01-24 00:00:00 Completed [facility] SARS-COV-2 COVID-19 MODERNA 12+ YRS VACCINE 2021-01-24 00:00:00 Completed [facility] SARS-COV-2 COVID-19 MODERNA 12+ YRS VACCINE 2021-01-24 00:00:00 Completed [facility] SARS-COV-2 COVID-19 MODERNA 12+ YRS VACCINE 2021-01-24 00:00:00 Completed [facility] SARS-COV-2 COVID-19 MODERNA 12+ YRS VACCINE 2021-01-24 00:00:00 Completed [facility] SARS-COV-2 COVID-19 MODERNA 12+ YRS VACCINE 2021-01-24 00:00:00 Completed [facility] SARS-COV-2 COVID-19 MODERNA 12+ YRS VACCINE 2021-01-24 00:00:00 Completed [facility] SARS-COV-2 COVID-19 MODERNA 12+ YRS VACCINE 2021-01-24 00:00:00 Completed [facility] SARS-COV-2 COVID-19 MODERNA 12+ YRS VACCINE 2021-01-24 00:00:00 Completed [facility] SARS-COV-2 COVID-19 MODERNA 12+ YRS VACCINE 2021-01-24 00:00:00 Completed [facility] SARS-COV-2 COVID-19 MODERNA 12+ YRS VACCINE 2021-01-24 00:00:00 Completed [facility] SARS-COV-2 COVID-19 MODERNA 12+ YRS VACCINE 2021-01-24 00:00:00 Completed [facility] SARS-COV-2 COVID-19 MODERNA 12+ YRS VACCINE 2021-01-24 00:00:00 Completed [facility] SARS-COV-2 COVID-19 MODERNA 12+ YRS VACCINE 2021-01-24 00:00:00 Completed [facility] SARS-COV-2 COVID-19 MODERNA 12+ YRS VACCINE 2021-01-24 00:00:00 Completed [facility] SARS-COV-2 COVID-19 MODERNA 12+ YRS VACCINE 2021-01-24 00:00:00 Completed [facility] SARS-COV-2 COVID-19 MODERNA 12+ YRS VACCINE 2021-01-24 00:00:00 Completed [facility] SARS-COV-2 COVID-19 MODERNA 12+ YRS VACCINE 2021-01-24 00:00:00 Completed [facility] SARS-COV-2 COVID-19 MODERNA 12+ YRS VACCINE 2021-01-24 00:00:00 Completed [facility] SARS-COV-2 COVID-19 MODERNA 12+ YRS VACCINE 2021-01-24 00:00:00 Completed [facility] SARS-COV-2 COVID-19 MODERNA 12+ YRS VACCINE 2021-01-24 00:00:00 Completed [facility] SARS-COV-2 COVID-19 MODERNA 12+ YRS VACCINE 2021-01-24 00:00:00 Completed [facility] SARS-COV-2 COVID-19 MODERNA 12+ YRS VACCINE 2021-01-24 00:00:00 Completed [facility] SARS-COV-2 COVID-19 MODERNA 12+ YRS VACCINE 2021-01-24 00:00:00 Completed [facility] SARS-COV-2 COVID-19 MODERNA 12+ YRS VACCINE 2021-01-24 00:00:00 Completed [facility] SARS-COV-2 COVID-19 MODERNA 12+ YRS VACCINE 2021-01-24 00:00:00 Completed [facility] SARS-COV-2 COVID-19 MODERNA 12+ YRS VACCINE 2021-01-24 00:00:00 Completed [facility] SARS-COV-2 COVID-19 MODERNA 12+ YRS VACCINE 2021-01-24 00:00:00 Completed [facility] SARS-COV-2 COVID-19 MODERNA 12+ YRS VACCINE 2021-01-24 00:00:00 Completed [facility] SARS-COV-2 COVID-19 MODERNA 12+ YRS VACCINE 2021-01-24 00:00:00 Completed [facility] SARS-COV-2 COVID-19 MODERNA 12+ YRS VACCINE 2021-01-24 00:00:00 Completed [facility] SARS-COV-2 COVID-19 MODERNA 12+ YRS VACCINE 2021-01-24 00:00:00 Completed [facility] SARS-COV-2 COVID-19 MODERNA 12+ YRS VACCINE 2021-01-24 00:00:00 Completed [facility] Influenza High Dose 2021-01-07 00:00:00 Completed [facility] Influenza High Dose 2021-01-07 00:00:00 Completed [facility] Influenza High Dose 2021-01-07 00:00:00 Completed [facility] Influenza High Dose 2021-01-07 00:00:00 Completed [facility] Influenza High Dose 2021-01-07 00:00:00 Completed [facility] Influenza High Dose 2021-01-07 00:00:00 Completed [facility] Influenza High Dose 2021-01-07 00:00:00 Completed [facility] Influenza High Dose 2021-01-07 00:00:00 Completed [facility] Influenza High Dose 2021-01-07 00:00:00 Completed [facility] Influenza High Dose 2021-01-07 00:00:00 Completed [facility] Influenza High Dose 2021-01-07 00:00:00 Completed [facility] Influenza High Dose 2021-01-07 00:00:00 Completed [facility] Influenza High Dose 2021-01-07 00:00:00 Completed [facility] Influenza High Dose 2021-01-07 00:00:00 Completed [facility] Influenza High Dose 2021-01-07 00:00:00 Completed [facility] Influenza High Dose 2021-01-07 00:00:00 Completed [facility] Influenza High Dose 2021-01-07 00:00:00 Completed [facility] Influenza High Dose 2021-01-07 00:00:00 Completed [facility] Influenza High Dose 2021-01-07 00:00:00 Completed [facility] Influenza High Dose 2021-01-07 00:00:00 Completed [facility] Influenza High Dose 2021-01-07 00:00:00 Completed [facility] Influenza High Dose 2021-01-07 00:00:00 Completed [facility] Influenza High Dose 2021-01-07 00:00:00 Completed [facility] Influenza High Dose 2021-01-07 00:00:00 Completed [facility] Influenza High Dose 2021-01-07 00:00:00 Completed [facility] Influenza High Dose 2021-01-07 00:00:00 Completed [facility] Influenza High Dose 2021-01-07 00:00:00 Completed [facility] Influenza High Dose 2021-01-07 00:00:00 Completed [facility] Influenza High Dose 2021-01-07 00:00:00 Completed [facility] Influenza High Dose 2021-01-07 00:00:00 Completed [facility] Influenza High Dose 2021-01-07 00:00:00 Completed [facility] Influenza High Dose 2021-01-07 00:00:00 Completed [facility] Influenza High Dose 2021-01-07 00:00:00 Completed [facility] Influenza High Dose 2021-01-07 00:00:00 Completed [facility] Influenza High Dose 2021-01-07 00:00:00 Completed [facility] Influenza High Dose 2021-01-07 00:00:00 Completed [facility] Influenza High Dose 2021-01-07 00:00:00 Completed [facility] Influenza High Dose 2021-01-07 00:00:00 Completed [facility] Influenza High Dose 2021-01-07 00:00:00 Completed [facility] Influenza High Dose 2021-01-07 00:00:00 Completed [facility] Influenza High Dose 2021-01-07 00:00:00 Completed [facility] Influenza High Dose 2021-01-07 00:00:00 Completed [facility] Influenza High Dose 2021-01-07 00:00:00 Completed [facility] Influenza High Dose 2021-01-07 00:00:00 Completed [facility] Influenza High Dose 2021-01-07 00:00:00 Completed [facility] Influenza High Dose 2021-01-07 00:00:00 Completed [facility] Influenza High Dose 2021-01-07 00:00:00 Completed [facility] Influenza High Dose 2021-01-07 00:00:00 Completed [facility] Influenza High Dose 2021-01-07 00:00:00 Completed [facility] Influenza High Dose 2021-01-07 00:00:00 Completed [facility] Influenza High Dose 2021-01-07 00:00:00 Completed [facility] Influenza High Dose 2021-01-07 00:00:00 Completed [facility] Influenza High Dose 2021-01-07 00:00:00 Completed [facility] Influenza High Dose 2021-01-07 00:00:00 Completed [facility] Influenza High Dose 2021-01-07 00:00:00 Completed [facility] Influenza High Dose 2021-01-07 00:00:00 Completed [facility] Influenza High Dose 2021-01-07 00:00:00 Completed [facility] Influenza High Dose 2021-01-07 00:00:00 Completed [facility] Influenza High Dose 2021-01-07 00:00:00 Completed [facility] Influenza High Dose 2021-01-07 00:00:00 Completed [facility] Influenza High Dose 2021-01-07 00:00:00 Completed [facility] Influenza High Dose 2021-01-07 00:00:00 Completed [facility] Influenza High Dose 2021-01-07 00:00:00 Completed [facility] Influenza High Dose 2021-01-07 00:00:00 Completed [facility] SARS-COV-2 COVID-19 MODERNA 12+ YRS VACCINE 2020-06-02 00:00:00 Completed [facility] SARS-COV-2 COVID-19 MODERNA 12+ YRS VACCINE 2020-06-02 00:00:00 Completed [facility] SARS-COV-2 COVID-19 MODERNA 12+ YRS VACCINE 2020-06-02 00:00:00 Completed [facility] SARS-COV-2 COVID-19 MODERNA 12+ YRS VACCINE 2020-06-02 00:00:00 Completed [facility] SARS-COV-2 COVID-19 MODERNA 12+ YRS VACCINE 2020-06-02 00:00:00 Completed [facility] SARS-COV-2 COVID-19 MODERNA 12+ YRS VACCINE 2020-06-02 00:00:00 Completed [facility] SARS-COV-2 COVID-19 MODERNA 12+ YRS VACCINE 2020-06-02 00:00:00 Completed [facility] SARS-COV-2 COVID-19 MODERNA 12+ YRS VACCINE 2020-06-02 00:00:00 Completed [facility] SARS-COV-2 COVID-19 MODERNA 12+ YRS VACCINE 2020-06-02 00:00:00 Completed [facility] SARS-COV-2 COVID-19 MODERNA 12+ YRS VACCINE 2020-06-02 00:00:00 Completed [facility] SARS-COV-2 COVID-19 MODERNA 12+ YRS VACCINE 2020-06-02 00:00:00 Completed [facility] SARS-COV-2 COVID-19 MODERNA 12+ YRS VACCINE 2020-06-02 00:00:00 Completed [facility] SARS-COV-2 COVID-19 MODERNA 12+ YRS VACCINE 2020-06-02 00:00:00 Completed [facility] SARS-COV-2 COVID-19 MODERNA 12+ YRS VACCINE 2020-06-02 00:00:00 Completed [facility] SARS-COV-2 COVID-19 MODERNA 12+ YRS VACCINE 2020-06-02 00:00:00 Completed [facility] SARS-COV-2 COVID-19 MODERNA 12+ YRS VACCINE 2020-06-02 00:00:00 Completed [facility] SARS-COV-2 COVID-19 MODERNA 12+ YRS VACCINE 2020-06-02 00:00:00 Completed [facility] SARS-COV-2 COVID-19 MODERNA 12+ YRS VACCINE 2020-06-02 00:00:00 Completed [facility] SARS-COV-2 COVID-19 MODERNA 12+ YRS VACCINE 2020-06-02 00:00:00 Completed [facility] SARS-COV-2 COVID-19 MODERNA 12+ YRS VACCINE 2020-06-02 00:00:00 Completed [facility] SARS-COV-2 COVID-19 MODERNA 12+ YRS VACCINE 2020-06-02 00:00:00 Completed [facility] SARS-COV-2 COVID-19 MODERNA 12+ YRS VACCINE 2020-06-02 00:00:00 Completed [facility] SARS-COV-2 COVID-19 MODERNA 12+ YRS VACCINE 2020-06-02 00:00:00 Completed [facility] SARS-COV-2 COVID-19 MODERNA 12+ YRS VACCINE 2020-06-02 00:00:00 Completed [facility] SARS-COV-2 COVID-19 MODERNA 12+ YRS VACCINE 2020-06-02 00:00:00 Completed [facility] SARS-COV-2 COVID-19 MODERNA 12+ YRS VACCINE 2020-06-02 00:00:00 Completed [facility] SARS-COV-2 COVID-19 MODERNA 12+ YRS VACCINE 2020-06-02 00:00:00 Completed [facility] SARS-COV-2 COVID-19 MODERNA 12+ YRS VACCINE 2020-06-02 00:00:00 Completed [facility] SARS-COV-2 COVID-19 MODERNA 12+ YRS VACCINE 2020-06-02 00:00:00 Completed [facility] SARS-COV-2 COVID-19 MODERNA 12+ YRS VACCINE 2020-06-02 00:00:00 Completed [facility] SARS-COV-2 COVID-19 MODERNA 12+ YRS VACCINE 2020-06-02 00:00:00 Completed [facility] SARS-COV-2 COVID-19 MODERNA 12+ YRS VACCINE 2020-06-02 00:00:00 Completed [facility] SARS-COV-2 COVID-19 MODERNA 12+ YRS VACCINE 2020-06-02 00:00:00 Completed [facility] SARS-COV-2 COVID-19 MODERNA 12+ YRS VACCINE 2020-06-02 00:00:00 Completed [facility] SARS-COV-2 COVID-19 MODERNA 12+ YRS VACCINE 2020-06-02 00:00:00 Completed [facility] SARS-COV-2 COVID-19 MODERNA 12+ YRS VACCINE 2020-06-02 00:00:00 Completed [facility] SARS-COV-2 COVID-19 MODERNA 12+ YRS VACCINE 2020-06-02 00:00:00 Completed [facility] SARS-COV-2 COVID-19 MODERNA 12+ YRS VACCINE 2020-06-02 00:00:00 Completed [facility] SARS-COV-2 COVID-19 MODERNA 12+ YRS VACCINE 2020-06-02 00:00:00 Completed [facility] SARS-COV-2 COVID-19 MODERNA 12+ YRS VACCINE 2020-06-02 00:00:00 Completed [facility] SARS-COV-2 COVID-19 MODERNA 12+ YRS VACCINE 2020-06-02 00:00:00 Completed [facility] SARS-COV-2 COVID-19 MODERNA 12+ YRS VACCINE 2020-06-02 00:00:00 Completed [facility] SARS-COV-2 COVID-19 MODERNA 12+ YRS VACCINE 2020-06-02 00:00:00 Completed [facility] SARS-COV-2 COVID-19 MODERNA 12+ YRS VACCINE 2020-06-02 00:00:00 Completed [facility] SARS-COV-2 COVID-19 MODERNA 12+ YRS VACCINE 2020-06-02 00:00:00 Completed [facility] SARS-COV-2 COVID-19 MODERNA 12+ YRS VACCINE 2020-06-02 00:00:00 Completed [facility] SARS-COV-2 COVID-19 MODERNA 12+ YRS VACCINE 2020-06-02 00:00:00 Completed [facility] SARS-COV-2 COVID-19 MODERNA 12+ YRS VACCINE 2020-06-02 00:00:00 Completed [facility] SARS-COV-2 COVID-19 MODERNA 12+ YRS VACCINE 2020-06-02 00:00:00 Completed [facility] SARS-COV-2 COVID-19 MODERNA 12+ YRS VACCINE 2020-06-02 00:00:00 Completed [facility] SARS-COV-2 COVID-19 MODERNA 12+ YRS VACCINE 2020-06-02 00:00:00 Completed [facility] SARS-COV-2 COVID-19 MODERNA 12+ YRS VACCINE 2020-06-02 00:00:00 Completed [facility] SARS-COV-2 COVID-19 MODERNA 12+ YRS VACCINE 2020-06-02 00:00:00 Completed [facility] SARS-COV-2 COVID-19 MODERNA 12+ YRS VACCINE 2020-06-02 00:00:00 Completed [facility] SARS-COV-2 COVID-19 MODERNA 12+ YRS VACCINE 2020-06-02 00:00:00 Completed [facility] SARS-COV-2 COVID-19 MODERNA 12+ YRS VACCINE 2020-06-02 00:00:00 Completed [facility] SARS-COV-2 COVID-19 MODERNA 12+ YRS VACCINE 2020-06-02 00:00:00 Completed [facility] SARS-COV-2 COVID-19 MODERNA 12+ YRS VACCINE 2020-06-02 00:00:00 Completed [facility] SARS-COV-2 COVID-19 MODERNA 12+ YRS VACCINE 2020-06-02 00:00:00 Completed [facility] SARS-COV-2 COVID-19 MODERNA 12+ YRS VACCINE 2020-06-02 00:00:00 Completed [facility] SARS-COV-2 COVID-19 MODERNA 12+ YRS VACCINE 2020-06-02 00:00:00 Completed [facility] SARS-COV-2 COVID-19 MODERNA 12+ YRS VACCINE 2020-06-02 00:00:00 Completed [facility] SARS-COV-2 COVID-19 MODERNA 12+ YRS VACCINE 2020-06-02 00:00:00 Completed [facility] SARS-COV-2 COVID-19 MODERNA 12+ YRS VACCINE 2020-06-02 00:00:00 Completed [facility] SARS-COV-2 COVID-19 MODERNA 12+ YRS VACCINE 2020-05-05 00:00:00 Completed [facility] SARS-COV-2 COVID-19 MODERNA 12+ YRS VACCINE 2020-05-05 00:00:00 Completed [facility] SARS-COV-2 COVID-19 MODERNA 12+ YRS VACCINE 2020-05-05 00:00:00 Completed [facility] SARS-COV-2 COVID-19 MODERNA 12+ YRS VACCINE 2020-05-05 00:00:00 Completed [facility] SARS-COV-2 COVID-19 MODERNA 12+ YRS VACCINE 2020-05-05 00:00:00 Completed [facility] SARS-COV-2 COVID-19 MODERNA 12+ YRS VACCINE 2020-05-05 00:00:00 Completed [facility] SARS-COV-2 COVID-19 MODERNA 12+ YRS VACCINE 2020-05-05 00:00:00 Completed [facility] SARS-COV-2 COVID-19 MODERNA 12+ YRS VACCINE 2020-05-05 00:00:00 Completed [facility] SARS-COV-2 COVID-19 MODERNA 12+ YRS VACCINE 2020-05-05 00:00:00 Completed [facility] SARS-COV-2 COVID-19 MODERNA 12+ YRS VACCINE 2020-05-05 00:00:00 Completed [facility] SARS-COV-2 COVID-19 MODERNA 12+ YRS VACCINE 2020-05-05 00:00:00 Completed [facility] SARS-COV-2 COVID-19 MODERNA 12+ YRS VACCINE 2020-05-05 00:00:00 Completed [facility] SARS-COV-2 COVID-19 MODERNA 12+ YRS VACCINE 2020-05-05 00:00:00 Completed [facility] SARS-COV-2 COVID-19 MODERNA 12+ YRS VACCINE 2020-05-05 00:00:00 Completed [facility] SARS-COV-2 COVID-19 MODERNA 12+ YRS VACCINE 2020-05-05 00:00:00 Completed [facility] SARS-COV-2 COVID-19 MODERNA 12+ YRS VACCINE 2020-05-05 00:00:00 Completed [facility] SARS-COV-2 COVID-19 MODERNA 12+ YRS VACCINE 2020-05-05 00:00:00 Completed [facility] SARS-COV-2 COVID-19 MODERNA 12+ YRS VACCINE 2020-05-05 00:00:00 Completed [facility] SARS-COV-2 COVID-19 MODERNA 12+ YRS VACCINE 2020-05-05 00:00:00 Completed [facility] SARS-COV-2 COVID-19 MODERNA 12+ YRS VACCINE 2020-05-05 00:00:00 Completed [facility] SARS-COV-2 COVID-19 MODERNA 12+ YRS VACCINE 2020-05-05 00:00:00 Completed [facility] SARS-COV-2 COVID-19 MODERNA 12+ YRS VACCINE 2020-05-05 00:00:00 Completed [facility] SARS-COV-2 COVID-19 MODERNA 12+ YRS VACCINE 2020-05-05 00:00:00 Completed [facility] SARS-COV-2 COVID-19 MODERNA 12+ YRS VACCINE 2020-05-05 00:00:00 Completed [facility] SARS-COV-2 COVID-19 MODERNA 12+ YRS VACCINE 2020-05-05 00:00:00 Completed [facility] SARS-COV-2 COVID-19 MODERNA 12+ YRS VACCINE 2020-05-05 00:00:00 Completed [facility] SARS-COV-2 COVID-19 MODERNA 12+ YRS VACCINE 2020-05-05 00:00:00 Completed [facility] SARS-COV-2 COVID-19 MODERNA 12+ YRS VACCINE 2020-05-05 00:00:00 Completed [facility] SARS-COV-2 COVID-19 MODERNA 12+ YRS VACCINE 2020-05-05 00:00:00 Completed [facility] SARS-COV-2 COVID-19 MODERNA 12+ YRS VACCINE 2020-05-05 00:00:00 Completed [facility] SARS-COV-2 COVID-19 MODERNA 12+ YRS VACCINE 2020-05-05 00:00:00 Completed [facility] SARS-COV-2 COVID-19 MODERNA 12+ YRS VACCINE 2020-05-05 00:00:00 Completed [facility] SARS-COV-2 COVID-19 MODERNA 12+ YRS VACCINE 2020-05-05 00:00:00 Completed [facility] SARS-COV-2 COVID-19 MODERNA 12+ YRS VACCINE 2020-05-05 00:00:00 Completed [facility] SARS-COV-2 COVID-19 MODERNA 12+ YRS VACCINE 2020-05-05 00:00:00 Completed [facility] SARS-COV-2 COVID-19 MODERNA 12+ YRS VACCINE 2020-05-05 00:00:00 Completed [facility] SARS-COV-2 COVID-19 MODERNA 12+ YRS VACCINE 2020-05-05 00:00:00 Completed [facility] SARS-COV-2 COVID-19 MODERNA 12+ YRS VACCINE 2020-05-05 00:00:00 Completed [facility] SARS-COV-2 COVID-19 MODERNA 12+ YRS VACCINE 2020-05-05 00:00:00 Completed [facility] SARS-COV-2 COVID-19 MODERNA 12+ YRS VACCINE 2020-05-05 00:00:00 Completed [facility] SARS-COV-2 COVID-19 MODERNA 12+ YRS VACCINE 2020-05-05 00:00:00 Completed [facility] SARS-COV-2 COVID-19 MODERNA 12+ YRS VACCINE 2020-05-05 00:00:00 Completed [facility] SARS-COV-2 COVID-19 MODERNA 12+ YRS VACCINE 2020-05-05 00:00:00 Completed [facility] SARS-COV-2 COVID-19 MODERNA 12+ YRS VACCINE 2020-05-05 00:00:00 Completed [facility] SARS-COV-2 COVID-19 MODERNA 12+ YRS VACCINE 2020-05-05 00:00:00 Completed [facility] SARS-COV-2 COVID-19 MODERNA 12+ YRS VACCINE 2020-05-05 00:00:00 Completed [facility] SARS-COV-2 COVID-19 MODERNA 12+ YRS VACCINE 2020-05-05 00:00:00 Completed [facility] SARS-COV-2 COVID-19 MODERNA 12+ YRS VACCINE 2020-05-05 00:00:00 Completed [facility] SARS-COV-2 COVID-19 MODERNA 12+ YRS VACCINE 2020-05-05 00:00:00 Completed [facility] SARS-COV-2 COVID-19 MODERNA 12+ YRS VACCINE 2020-05-05 00:00:00 Completed [facility] SARS-COV-2 COVID-19 MODERNA 12+ YRS VACCINE 2020-05-05 00:00:00 Completed [facility] SARS-COV-2 COVID-19 MODERNA 12+ YRS VACCINE 2020-05-05 00:00:00 Completed [facility] SARS-COV-2 COVID-19 MODERNA 12+ YRS VACCINE 2020-05-05 00:00:00 Completed [facility] SARS-COV-2 COVID-19 MODERNA 12+ YRS VACCINE 2020-05-05 00:00:00 Completed [facility] SARS-COV-2 COVID-19 MODERNA 12+ YRS VACCINE 2020-05-05 00:00:00 Completed [facility] SARS-COV-2 COVID-19 MODERNA 12+ YRS VACCINE 2020-05-05 00:00:00 Completed [facility] SARS-COV-2 COVID-19 MODERNA 12+ YRS VACCINE 2020-05-05 00:00:00 Completed [facility] SARS-COV-2 COVID-19 MODERNA 12+ YRS VACCINE 2020-05-05 00:00:00 Completed [facility] SARS-COV-2 COVID-19 MODERNA 12+ YRS VACCINE 2020-05-05 00:00:00 Completed [facility] SARS-COV-2 COVID-19 MODERNA 12+ YRS VACCINE 2020-05-05 00:00:00 Completed [facility] SARS-COV-2 COVID-19 MODERNA 12+ YRS VACCINE 2020-05-05 00:00:00 Completed [facility] SARS-COV-2 COVID-19 MODERNA 12+ YRS VACCINE 2020-05-05 00:00:00 Completed [facility] SARS-COV-2 COVID-19 MODERNA 12+ YRS VACCINE 2020-05-05 00:00:00 Completed [facility] SARS-COV-2 COVID-19 MODERNA 12+ YRS VACCINE 2020-05-05 00:00:00 Completed [facility] Influenza High Dose Quad 2020-01-14 00:00:00 Completed [facility] Influenza High Dose Quad 2020-01-14 00:00:00 Completed [facility] Influenza High Dose Quad 2020-01-14 00:00:00 Completed [facility] Influenza High Dose Quad 2020-01-14 00:00:00 Completed [facility] Influenza High Dose Quad 2020-01-14 00:00:00 Completed [facility] Influenza High Dose Quad 2020-01-14 00:00:00 Completed [facility] Influenza High Dose Quad 2020-01-14 00:00:00 Completed [facility] Influenza High Dose Quad 2020-01-14 00:00:00 Completed [facility] Influenza High Dose Quad 2020-01-14 00:00:00 Completed [facility] Influenza High Dose Quad 2020-01-14 00:00:00 Completed [facility] Influenza High Dose Quad 2020-01-14 00:00:00 Completed [facility] Influenza High Dose Quad 2020-01-14 00:00:00 Completed [facility] Influenza High Dose Quad 2020-01-14 00:00:00 Completed [facility] Influenza High Dose Quad 2020-01-14 00:00:00 Completed [facility] Influenza High Dose Quad 2020-01-14 00:00:00 Completed [facility] Influenza High Dose Quad 2020-01-14 00:00:00 Completed [facility] Influenza High Dose Quad 2020-01-14 00:00:00 Completed [facility] Influenza High Dose Quad 2020-01-14 00:00:00 Completed [facility] Influenza High Dose Quad 2020-01-14 00:00:00 Completed [facility] Influenza High Dose Quad 2020-01-14 00:00:00 Completed [facility] Influenza High Dose Quad 2020-01-14 00:00:00 Completed [facility] Influenza High Dose Quad 2020-01-14 00:00:00 Completed [facility] Influenza High Dose Quad 2020-01-14 00:00:00 Completed [facility] Influenza High Dose Quad 2020-01-14 00:00:00 Completed [facility] Influenza High Dose Quad 2020-01-14 00:00:00 Completed [facility] Influenza High Dose Quad 2020-01-14 00:00:00 Completed [facility] Influenza High Dose Quad 2020-01-14 00:00:00 Completed [facility] Influenza High Dose Quad 2020-01-14 00:00:00 Completed [facility] Influenza High Dose Quad 2020-01-14 00:00:00 Completed [facility] Influenza High Dose Quad 2020-01-14 00:00:00 Completed [facility] Influenza High Dose Quad 2020-01-14 00:00:00 Completed [facility] Influenza High Dose Quad 2020-01-14 00:00:00 Completed [facility] Influenza High Dose Quad 2020-01-14 00:00:00 Completed [facility] Influenza High Dose Quad 2020-01-14 00:00:00 Completed [facility] Influenza High Dose Quad 2020-01-14 00:00:00 Completed [facility] Influenza High Dose Quad 2020-01-14 00:00:00 Completed [facility] Influenza High Dose Quad 2020-01-14 00:00:00 Completed [facility] Influenza High Dose Quad 2020-01-14 00:00:00 Completed [facility] Influenza High Dose Quad 2020-01-14 00:00:00 Completed [facility] Influenza High Dose Quad 2020-01-14 00:00:00 Completed [facility] Influenza High Dose Quad 2020-01-14 00:00:00 Completed [facility] Influenza High Dose Quad 2020-01-14 00:00:00 Completed [facility] Influenza High Dose Quad 2020-01-14 00:00:00 Completed [facility] Influenza High Dose Quad 2020-01-14 00:00:00 Completed [facility] Influenza High Dose Quad 2020-01-14 00:00:00 Completed [facility] Influenza High Dose Quad 2020-01-14 00:00:00 Completed [facility] Influenza High Dose Quad 2020-01-14 00:00:00 Completed [facility] Influenza High Dose Quad 2020-01-14 00:00:00 Completed [facility] Influenza High Dose Quad 2020-01-14 00:00:00 Completed [facility] Influenza High Dose Quad 2020-01-14 00:00:00 Completed [facility] Influenza High Dose Quad 2020-01-14 00:00:00 Completed [facility] Influenza High Dose Quad 2020-01-14 00:00:00 Completed [facility] Influenza High Dose Quad 2020-01-14 00:00:00 Completed [facility] Influenza High Dose Quad 2020-01-14 00:00:00 Completed [facility] Influenza High Dose Quad 2020-01-14 00:00:00 Completed [facility] Influenza High Dose Quad 2020-01-14 00:00:00 Completed [facility] Influenza High Dose Quad 2020-01-14 00:00:00 Completed [facility] Influenza High Dose Quad 2020-01-14 00:00:00 Completed [facility] Influenza High Dose Quad 2020-01-14 00:00:00 Completed [facility] Influenza High Dose Quad 2020-01-14 00:00:00 Completed [facility] Influenza High Dose Quad 2020-01-14 00:00:00 Completed [facility] Influenza High Dose Quad 2020-01-14 00:00:00 Completed [facility] Influenza High Dose Quad 2020-01-14 00:00:00 Completed [facility] Influenza High Dose Quad 2020-01-14 00:00:00 Completed [facility] Pneumococcal Polysaccharide, PPSV23 (PNEUMOVAX) 2019-04-09 00:00:00 Completed [facility] Pneumococcal Polysaccharide, PPSV23 (PNEUMOVAX) 2019-04-09 00:00:00 Completed [facility] Pneumococcal Polysaccharide, PPSV23 (PNEUMOVAX) 2019-04-09 00:00:00 Completed [facility] Pneumococcal Polysaccharide, PPSV23 (PNEUMOVAX) 2019-04-09 00:00:00 Completed [facility] Pneumococcal Polysaccharide, PPSV23 (PNEUMOVAX) 2019-04-09 00:00:00 Completed [facility] Pneumococcal Polysaccharide, PPSV23 (PNEUMOVAX) 2019-04-09 00:00:00 Completed [facility] Pneumococcal Polysaccharide, PPSV23 (PNEUMOVAX) 2019-04-09 00:00:00 Completed [facility] Pneumococcal Polysaccharide, PPSV23 (PNEUMOVAX) 2019-04-09 00:00:00 Completed [facility] Pneumococcal Polysaccharide, PPSV23 (PNEUMOVAX) 2019-04-09 00:00:00 Completed [facility] Pneumococcal Polysaccharide, PPSV23 (PNEUMOVAX) 2019-04-09 00:00:00 Completed [facility] Pneumococcal Polysaccharide, PPSV23 (PNEUMOVAX) 2019-04-09 00:00:00 Completed [facility] Pneumococcal Polysaccharide, PPSV23 (PNEUMOVAX) 2019-04-09 00:00:00 Completed [facility] Pneumococcal Polysaccharide, PPSV23 (PNEUMOVAX) 2019-04-09 00:00:00 Completed [facility] Pneumococcal Polysaccharide, PPSV23 (PNEUMOVAX) 2019-04-09 00:00:00 Completed [facility] Pneumococcal Polysaccharide, PPSV23 (PNEUMOVAX) 2019-04-09 00:00:00 Completed [facility] Pneumococcal Polysaccharide, PPSV23 (PNEUMOVAX) 2019-04-09 00:00:00 Completed [facility] Pneumococcal Polysaccharide, PPSV23 (PNEUMOVAX) 2019-04-09 00:00:00 Completed [facility] Pneumococcal Polysaccharide, PPSV23 (PNEUMOVAX) 2019-04-09 00:00:00 Completed [facility] Pneumococcal Polysaccharide, PPSV23 (PNEUMOVAX) 2019-04-09 00:00:00 Completed [facility] Pneumococcal Polysaccharide, PPSV23 (PNEUMOVAX) 2019-04-09 00:00:00 Completed [facility] Pneumococcal Polysaccharide, PPSV23 (PNEUMOVAX) 2019-04-09 00:00:00 Completed [facility] Pneumococcal Polysaccharide, PPSV23 (PNEUMOVAX) 2019-04-09 00:00:00 Completed [facility] Pneumococcal Polysaccharide, PPSV23 (PNEUMOVAX) 2019-04-09 00:00:00 Completed [facility] Pneumococcal Polysaccharide, PPSV23 (PNEUMOVAX) 2019-04-09 00:00:00 Completed [facility] Pneumococcal Polysaccharide, PPSV23 (PNEUMOVAX) 2019-04-09 00:00:00 Completed [facility] Pneumococcal Polysaccharide, PPSV23 (PNEUMOVAX) 2019-04-09 00:00:00 Completed [facility] Pneumococcal Polysaccharide, PPSV23 (PNEUMOVAX) 2019-04-09 00:00:00 Completed [facility] Pneumococcal Polysaccharide, PPSV23 (PNEUMOVAX) 2019-04-09 00:00:00 Completed [facility] Pneumococcal Polysaccharide, PPSV23 (PNEUMOVAX) 2019-04-09 00:00:00 Completed [facility] Pneumococcal Polysaccharide, PPSV23 (PNEUMOVAX) 2019-04-09 00:00:00 Completed [facility] Pneumococcal Polysaccharide, PPSV23 (PNEUMOVAX) 2019-04-09 00:00:00 Completed [facility] Pneumococcal Polysaccharide, PPSV23 (PNEUMOVAX) 2019-04-09 00:00:00 Completed [facility] Pneumococcal Polysaccharide, PPSV23 (PNEUMOVAX) 2019-04-09 00:00:00 Completed [facility] Pneumococcal Polysaccharide, PPSV23 (PNEUMOVAX) 2019-04-09 00:00:00 Completed [facility] Pneumococcal Polysaccharide, PPSV23 (PNEUMOVAX) 2019-04-09 00:00:00 Completed [facility] Pneumococcal Polysaccharide, PPSV23 (PNEUMOVAX) 2019-04-09 00:00:00 Completed [facility] Pneumococcal Polysaccharide, PPSV23 (PNEUMOVAX) 2019-04-09 00:00:00 Completed [facility] Pneumococcal Polysaccharide, PPSV23 (PNEUMOVAX) 2019-04-09 00:00:00 Completed [facility] Pneumococcal Polysaccharide, PPSV23 (PNEUMOVAX) 2019-04-09 00:00:00 Completed [facility] Pneumococcal Polysaccharide, PPSV23 (PNEUMOVAX) 2019-04-09 00:00:00 Completed [facility] Pneumococcal Polysaccharide, PPSV23 (PNEUMOVAX) 2019-04-09 00:00:00 Completed [facility] Pneumococcal Polysaccharide, PPSV23 (PNEUMOVAX) 2019-04-09 00:00:00 Completed [facility] Pneumococcal Polysaccharide, PPSV23 (PNEUMOVAX) 2019-04-09 00:00:00 Completed [facility] Pneumococcal Polysaccharide, PPSV23 (PNEUMOVAX) 2019-04-09 00:00:00 Completed [facility] Pneumococcal Polysaccharide, PPSV23 (PNEUMOVAX) 2019-04-09 00:00:00 Completed [facility] Pneumococcal Polysaccharide, PPSV23 (PNEUMOVAX) 2019-04-09 00:00:00 Completed [facility] Pneumococcal Polysaccharide, PPSV23 (PNEUMOVAX) 2019-04-09 00:00:00 Completed [facility] Pneumococcal Polysaccharide, PPSV23 (PNEUMOVAX) 2019-04-09 00:00:00 Completed [facility] Pneumococcal Polysaccharide, PPSV23 (PNEUMOVAX) 2019-04-09 00:00:00 Completed [facility] Pneumococcal Polysaccharide, PPSV23 (PNEUMOVAX) 2019-04-09 00:00:00 Completed [facility] Pneumococcal Polysaccharide, PPSV23 (PNEUMOVAX) 2019-04-09 00:00:00 Completed [facility] Pneumococcal Polysaccharide, PPSV23 (PNEUMOVAX) 2019-04-09 00:00:00 Completed [facility] Pneumococcal Polysaccharide, PPSV23 (PNEUMOVAX) 2019-04-09 00:00:00 Completed [facility] Pneumococcal Polysaccharide, PPSV23 (PNEUMOVAX) 2019-04-09 00:00:00 Completed [facility] Pneumococcal Polysaccharide, PPSV23 (PNEUMOVAX) 2019-04-09 00:00:00 Completed [facility] Pneumococcal Polysaccharide, PPSV23 (PNEUMOVAX) 2019-04-09 00:00:00 Completed [facility] Pneumococcal Polysaccharide, PPSV23 (PNEUMOVAX) 2019-04-09 00:00:00 Completed [facility] Pneumococcal Polysaccharide, PPSV23 (PNEUMOVAX) 2019-04-09 00:00:00 Completed [facility] Pneumococcal Polysaccharide, PPSV23 (PNEUMOVAX) 2019-04-09 00:00:00 Completed [facility] Pneumococcal Polysaccharide, PPSV23 (PNEUMOVAX) 2019-04-09 00:00:00 Completed [facility] Pneumococcal Polysaccharide, PPSV23 (PNEUMOVAX) 2019-04-09 00:00:00 Completed [facility] Pneumococcal Polysaccharide, PPSV23 (PNEUMOVAX) 2019-04-09 00:00:00 Completed [facility] Pneumococcal Polysaccharide, PPSV23 (PNEUMOVAX) 2019-04-09 00:00:00 Completed [facility] Pneumococcal Polysaccharide, PPSV23 (PNEUMOVAX) 2019-04-09 00:00:00 Completed [facility] TDAP 2016-12-08 00:00:00 Completed [facility] TDAP 2016-12-08 00:00:00 Completed [facility] TDAP 2016-12-08 00:00:00 Completed [facility] TDAP 2016-12-08 00:00:00 Completed [facility] TDAP 2016-12-08 00:00:00 Completed [facility] TDAP 2016-12-08 00:00:00 Completed [facility] TDAP 2016-12-08 00:00:00 Completed [facility] TDAP 2016-12-08 00:00:00 Completed [facility] TDAP 2016-12-08 00:00:00 Completed [facility] TDAP 2016-12-08 00:00:00 Completed [facility] TDAP 2016-12-08 00:00:00 Completed [facility] TDAP 2016-12-08 00:00:00 Completed [facility] TDAP 2016-12-08 00:00:00 Completed [facility] TDAP 2016-12-08 00:00:00 Completed [facility] TDAP 2016-12-08 00:00:00 Completed [facility] TDAP 2016-12-08 00:00:00 Completed [facility] TDAP 2016-12-08 00:00:00 Completed [facility] TDAP 2016-12-08 00:00:00 Completed [facility] TDAP 2016-12-08 00:00:00 Completed [facility] TDAP 2016-12-08 00:00:00 Completed [facility] TDAP 2016-12-08 00:00:00 Completed [facility] TDAP 2016-12-08 00:00:00 Completed [facility] TDAP 2016-12-08 00:00:00 Completed [facility] TDAP 2016-12-08 00:00:00 Completed [facility] TDAP 2016-12-08 00:00:00 Completed [facility] TDAP 2016-12-08 00:00:00 Completed [facility] TDAP 2016-12-08 00:00:00 Completed [facility] TDAP 2016-12-08 00:00:00 Completed [facility] TDAP 2016-12-08 00:00:00 Completed [facility] TDAP 2016-12-08 00:00:00 Completed [facility] TDAP 2016-12-08 00:00:00 Completed [facility] TDAP 2016-12-08 00:00:00 Completed [facility] TDAP 2016-12-08 00:00:00 Completed [facility] TDAP 2016-12-08 00:00:00 Completed [facility] TDAP 2016-12-08 00:00:00 Completed [facility] TDAP 2016-12-08 00:00:00 Completed [facility] TDAP 2016-12-08 00:00:00 Completed [facility] TDAP 2016-12-08 00:00:00 Completed [facility] TDAP 2016-12-08 00:00:00 Completed [facility] TDAP 2016-12-08 00:00:00 Completed [facility] TDAP 2016-12-08 00:00:00 Completed [facility] TDAP 2016-12-08 00:00:00 Completed [facility] TDAP 2016-12-08 00:00:00 Completed [facility] TDAP 2016-12-08 00:00:00 Completed [facility] TDAP 2016-12-08 00:00:00 Completed [facility] TDAP 2016-12-08 00:00:00 Completed [facility] TDAP 2016-12-08 00:00:00 Completed [facility] TDAP 2016-12-08 00:00:00 Completed [facility] TDAP 2016-12-08 00:00:00 Completed [facility] TDAP 2016-12-08 00:00:00 Completed [facility] TDAP 2016-12-08 00:00:00 Completed [facility] TDAP 2016-12-08 00:00:00 Completed [facility] TDAP 2016-12-08 00:00:00 Completed [facility] TDAP 2016-12-08 00:00:00 Completed [facility] TDAP 2016-12-08 00:00:00 Completed [facility] TDAP 2016-12-08 00:00:00 Completed [facility] TDAP 2016-12-08 00:00:00 Completed [facility] TDAP 2016-12-08 00:00:00 Completed [facility] TDAP 2016-12-08 00:00:00 Completed [facility] TDAP 2016-12-08 00:00:00 Completed [facility] TDAP 2016-12-08 00:00:00 Completed [facility] TDAP 2016-12-08 00:00:00 Completed [facility] TDAP 2016-12-08 00:00:00 Completed [facility] TDAP 2016-12-08 00:00:00 Completed [facility] SARS-COV-2 COVID-19 MODERNA 12+ YRS VACCINE Unknown Completed [facility] SARS-COV-2 COVID-19 MODERNA 12+ YRS VACCINE Unknown Completed [facility] Influenza High Dose Quad Unknown Completed [facility] Pneumococcal Polysaccharide, PPSV23 (PNEUMOVAX) Unknown Completed [facility] TDAP Unknown Completed [facility] SARS-COV-2 COVID-19 MODERNA 12+ YRS VACCINE Unknown Completed [facility] Influenza High Dose Unknown Completed [facility] SARS-COV-2 COVID-19 MODERNA 0.25ML BOOSTER VACCINE Unknown Completed [facility] Pneumococcal 20 Conjugate, PCV20 (Prevnar 20) Unknown Completed [facility] SARS-COV-2 COVID-19 VACCINE 12 YRS+, BIVALENT 0.5ML, IM, (MODERNA-BLUE TOP) Unknown Completed [facility] Influenza Virus Vaccine,quad Im,preserve Free 65+ (FLUAD) Unknown Completed [facility] SARS-COV-2 COVID-19 MODERNA 12+ YRS VACCINE Unknown Completed [facility] SARS-COV-2 COVID-19 MODERNA 12+ YRS VACCINE Unknown Completed [facility] Influenza High Dose Quad Unknown Completed [facility] Pneumococcal Polysaccharide, PPSV23 (PNEUMOVAX) Unknown Completed [facility] TDAP Unknown Completed [facility] SARS-COV-2 COVID-19 MODERNA 12+ YRS VACCINE Unknown Completed [facility] Influenza High Dose Unknown Completed [facility] SARS-COV-2 COVID-19 MODERNA 0.25ML BOOSTER VACCINE Unknown Completed [facility] Pneumococcal 20 Conjugate, PCV20 (Prevnar 20) Unknown Completed [facility] SARS-COV-2 COVID-19 VACCINE 12 YRS+, BIVALENT 0.5ML, IM, (MODERNA-BLUE TOP) Unknown Completed [facility] Influenza Virus Vaccine,quad Im,preserve Free 65+ (FLUAD) Unknown Completed [facility] SARS-COV-2 COVID-19 MODERNA 12+ YRS VACCINE Unknown Completed [facility] SARS-COV-2 COVID-19 MODERNA 12+ YRS VACCINE Unknown Completed [facility] Influenza High Dose Quad Unknown Completed [facility] Pneumococcal Polysaccharide, PPSV23 (PNEUMOVAX) Unknown Completed [facility] TDAP Unknown Completed [facility] SARS-COV-2 COVID-19 MODERNA 12+ YRS VACCINE Unknown Completed [facility] Influenza High Dose Unknown Completed [facility] SARS-COV-2 COVID-19 MODERNA 0.25ML BOOSTER VACCINE Unknown Completed [facility] Pneumococcal 20 Conjugate, PCV20 (Prevnar 20) Unknown Completed [facility] SARS-COV-2 COVID-19 VACCINE 12 YRS+, BIVALENT 0.5ML, IM, (MODERNA-BLUE TOP) Unknown Completed [facility] Influenza Virus Vaccine,quad Im,preserve Free 65+ (FLUAD) Unknown Completed [facility] SARS-COV-2 COVID-19 MODERNA 12+ YRS VACCINE Unknown Completed [facility] SARS-COV-2 COVID-19 MODERNA 12+ YRS VACCINE Unknown Completed [facility] Influenza High Dose Quad Unknown Completed [facility] Pneumococcal Polysaccharide, PPSV23 (PNEUMOVAX) Unknown Completed [facility] TDAP Unknown Completed [facility] SARS-COV-2 COVID-19 MODERNA 12+ YRS VACCINE Unknown Completed [facility] Influenza High Dose Unknown Completed [facility] SARS-COV-2 COVID-19 MODERNA 0.25ML BOOSTER VACCINE Unknown Completed [facility] Pneumococcal 20 Conjugate, PCV20 (Prevnar 20) Unknown Completed [facility] SARS-COV-2 COVID-19 VACCINE 12 YRS+, BIVALENT 0.5ML, IM, (MODERNA-BLUE TOP) Unknown Completed [facility] Influenza Virus Vaccine,quad Im,preserve Free 65+ (FLUAD) Unknown Completed [facility] SARS-COV-2 COVID-19 MODERNA 12+ YRS VACCINE Unknown Completed [facility] SARS-COV-2 COVID-19 MODERNA 12+ YRS VACCINE Unknown Completed [facility] Influenza High Dose Quad Unknown Completed [facility] Pneumococcal Polysaccharide, PPSV23 (PNEUMOVAX) Unknown Completed [facility] TDAP Unknown Completed [facility] SARS-COV-2 COVID-19 MODERNA 12+ YRS VACCINE Unknown Completed [facility] Influenza High Dose Unknown Completed [facility] SARS-COV-2 COVID-19 MODERNA 0.25ML BOOSTER VACCINE Unknown Completed [facility] Pneumococcal 20 Conjugate, PCV20 (Prevnar 20) Unknown Completed [facility] SARS-COV-2 COVID-19 VACCINE 12 YRS+, BIVALENT 0.5ML, IM, (MODERNA-BLUE TOP) Unknown Completed [facility] Influenza Virus Vaccine,quad Im,preserve Free 65+ (FLUAD) Unknown Completed [facility] SARS-COV-2 COVID-19 MODERNA 12+ YRS VACCINE Unknown Completed [facility] SARS-COV-2 COVID-19 MODERNA 12+ YRS VACCINE Unknown Completed [facility] Influenza High Dose Quad Unknown Completed [facility] Pneumococcal Polysaccharide, PPSV23 (PNEUMOVAX) Unknown Completed [facility] TDAP Unknown Completed [facility] SARS-COV-2 COVID-19 MODERNA 12+ YRS VACCINE Unknown Completed [facility] Influenza High Dose Unknown Completed [facility] SARS-COV-2 COVID-19 MODERNA 0.25ML BOOSTER VACCINE Unknown Completed [facility] Pneumococcal 20 Conjugate, PCV20 (Prevnar 20) Unknown Completed [facility] SARS-COV-2 COVID-19 VACCINE 12 YRS+, BIVALENT 0.5ML, IM, (MODERNA-BLUE TOP) Unknown Completed [facility] Influenza Virus Vaccine,quad Im,preserve Free 65+ (FLUAD) Unknown Completed [facility] SARS-COV-2 COVID-19 MODERNA 12+ YRS VACCINE Unknown Completed [facility] SARS-COV-2 COVID-19 MODERNA 12+ YRS VACCINE Unknown Completed [facility] Influenza High Dose Quad Unknown Completed [facility] Pneumococcal Polysaccharide, PPSV23 (PNEUMOVAX) Unknown Completed [facility] TDAP Unknown Completed [facility] SARS-COV-2 COVID-19 MODERNA 12+ YRS VACCINE Unknown Completed [facility] Influenza High Dose Unknown Completed [facility] SARS-COV-2 COVID-19 MODERNA 0.25ML BOOSTER VACCINE Unknown Completed [facility] Pneumococcal 20 Conjugate, PCV20 (Prevnar 20) Unknown Completed [facility] SARS-COV-2 COVID-19 VACCINE 12 YRS+, BIVALENT 0.5ML, IM, (MODERNA-BLUE TOP) Unknown Completed [facility] Influenza Virus Vaccine,quad Im,preserve Free 65+ (FLUAD) Unknown Completed [facility] SARS-COV-2 COVID-19 MODERNA 12+ YRS VACCINE Unknown Completed [facility] SARS-COV-2 COVID-19 MODERNA 12+ YRS VACCINE Unknown Completed [facility] Influenza High Dose Quad Unknown Completed [facility] Pneumococcal Polysaccharide, PPSV23 (PNEUMOVAX) Unknown Completed [facility] TDAP Unknown Completed [facility] SARS-COV-2 COVID-19 MODERNA 12+ YRS VACCINE Unknown Completed [facility] Influenza High Dose Unknown Completed [facility] SARS-COV-2 COVID-19 MODERNA 0.25ML BOOSTER VACCINE Unknown Completed [facility] Pneumococcal 20 Conjugate, PCV20 (Prevnar 20) Unknown Completed [facility] SARS-COV-2 COVID-19 VACCINE 12 YRS+, BIVALENT 0.5ML, IM, (MODERNA-BLUE TOP) Unknown Completed [facility] Influenza Virus Vaccine,quad Im,preserve Free 65+ (FLUAD) Unknown Completed [facility] SARS-COV-2 COVID-19 MODERNA 12+ YRS VACCINE Unknown Completed [facility] SARS-COV-2 COVID-19 MODERNA 12+ YRS VACCINE Unknown Completed [facility] Influenza High Dose Quad Unknown Completed [facility] Pneumococcal Polysaccharide, PPSV23 (PNEUMOVAX) Unknown Completed [facility] TDAP Unknown Completed [facility] SARS-COV-2 COVID-19 MODERNA 12+ YRS VACCINE Unknown Completed [facility] Influenza High Dose Unknown Completed [facility] SARS-COV-2 COVID-19 MODERNA 0.25ML BOOSTER VACCINE Unknown Completed [facility] Pneumococcal 20 Conjugate, PCV20 (Prevnar 20) Unknown Completed [facility] SARS-COV-2 COVID-19 VACCINE 12 YRS+, BIVALENT 0.5ML, IM, (MODERNA-BLUE TOP) Unknown Completed [facility] Influenza Virus Vaccine,quad Im,preserve Free 65+ (FLUAD) Unknown Completed [facility] SARS-COV-2 COVID-19 MODERNA 12+ YRS VACCINE Unknown Completed [facility] SARS-COV-2 COVID-19 MODERNA 12+ YRS VACCINE Unknown Com[facility] [place] Influenza High Dose Quad Unknown Completed [facility] [place] Pneumococcal Polysaccharide, PPSV23 (PNEUMOVAX) Unknown Completed [facility] TDAP Unknown Completed [facility] [place] SARS-COV-2 COVID-19 MODERNA 12+ YRS VACCINE Unknown Completed [facility] [place] Influenza High Dose Unknown Completed [facility] [place] SARS-COV-2 COVID-19 MODERNA 0.25ML BOOSTER VACCINE Unknown Completed [facility] Pneumococcal 20 Conjugate, PCV20 (Prevnar 20) Unknown Completed [facility] [place] SARS-COV-2 COVID-19 VACCINE 12 YRS+, BIVALENT 0.5ML, IM, (MODERNA-BLUE TOP) Unknown Completed [facility] Influenza Virus Vaccine,quad Im,preserve Free 65+ (FLUAD) Unknown Completed [facility] [place] SARS-COV-2 COVID-19 MODERNA 12+ YRS VACCINE Unknown Completed [facility] [place] SARS-COV-2 COVID-19 MODERNA 12+ YRS VACCINE Unknown Completed [facility] [place] Influenza High Dose Quad Unknown Completed [facility] [place] Pneumococcal Polysaccharide, PPSV23 (PNEUMOVAX) Unknown Completed [facility] TDAP Unknown Completed [facility] [place] SARS-COV-2 COVID-19 MODERNA 12+ YRS VACCINE Unknown Completed [facility] [place] Influenza High Dose Unknown Completed [facility] [place] SARS-COV-2 COVID-19 MODERNA 0.25ML BOOSTER VACCINE Unknown Completed [facility] Pneumococcal 20 Conjugate, PCV20 (Prevnar 20) Unknown Completed [facility] [place] SARS-COV-2 COVID-19 VACCINE 12 YRS+, BIVALENT 0.5ML, IM, (MODERNA-BLUE TOP) Unknown Completed [facility] Influenza Virus Vaccine,quad Im,preserve Free 65+ (FLUAD) Unknown Completed [facility] [place] SARS-COV-2 COVID-19 MODERNA 12+ YRS VACCINE Unknown Completed [facility] [place] SARS-COV-2 COVID-19 MODERNA 12+ YRS VACCINE Unknown Completed [facility] [place] Influenza High Dose Quad Unknown Completed [facility] [place] Pneumococcal Polysaccharide, PPSV23 (PNEUMOVAX) Unknown Completed [facility] TDAP Unknown Completed [facility] [place] SARS-COV-2 COVID-19 MODERNA 12+ YRS VACCINE Unknown Completed [facility] [place] Influenza High Dose Unknown Completed [facility] [place] SARS-COV-2 COVID-19 MODERNA 0.25ML BOOSTER VACCINE Unknown Completed [facility] Pneumococcal 20 Conjugate, PCV20 (Prevnar 20) Unknown Completed [facility] [place] SARS-COV-2 COVID-19 VACCINE 12 YRS+, BIVALENT 0.5ML, IM, (MODERNA-BLUE TOP) Unknown Completed [facility] Influenza Virus Vaccine,quad Im,preserve Free 65+ (FLUAD) Unknown Completed [facility] [place] SARS-COV-2 COVID-19 MODERNA 12+ YRS VACCINE Unknown Completed [facility] [place] SARS-COV-2 COVID-19 MODERNA 12+ YRS VACCINE Unknown Completed [facility] [place] Influenza High Dose Quad Unknown Completed [facility] [place] Pneumococcal Polysaccharide, PPSV23 (PNEUMOVAX) Unknown Completed [facility] TDAP Unknown Completed [facility] [place] SARS-COV-2 COVID-19 MODERNA 12+ YRS VACCINE Unknown Completed [facility] [place] Influenza High Dose Unknown Completed [facility] [place] SARS-COV-2 COVID-19 MODERNA 0.25ML BOOSTER VACCINE Unknown Completed [facility] Pneumococcal 20 Conjugate, PCV20 (Prevnar 20) Unknown Completed [facility] [place] SARS-COV-2 COVID-19 VACCINE 12 YRS+, BIVALENT 0.5ML, IM, (MODERNA-BLUE TOP) Unknown Completed [facility] Influenza Virus Vaccine,quad Im,preserve Free 65+ (FLUAD) Unknown Completed [facility] [place] SARS-COV-2 COVID-19 MODERNA 12+ YRS VACCINE Unknown Completed [facility] [place] SARS-COV-2 COVID-19 MODERNA 12+ YRS VACCINE Unknown Completed [facility] [place] Influenza High Dose Quad Unknown Completed [facility] [place] Pneumococcal Polysaccharide, PPSV23 (PNEUMOVAX) Unknown Completed [facility] TDAP Unknown Completed [facility] [place] SARS-COV-2 COVID-19 MODERNA 12+ YRS VACCINE Unknown Completed [facility] [place] Influenza High Dose Unknown Completed [facility] [place] SARS-COV-2 COVID-19 MODERNA 0.25ML BOOSTER VACCINE Unknown Completed [facility] Pneumococcal 20 Conjugate, PCV20 (Prevnar 20) Unknown Completed [facility] [place] SARS-COV-2 COVID-19 VACCINE 12 YRS+, BIVALENT 0.5ML, IM, (MODERNA-BLUE TOP) Unknown Completed [facility] Influenza Virus Vaccine,quad Im,preserve Free 65+ (FLUAD) Unknown Completed [facility] [place] SARS-COV-2 COVID-19 MODERNA 12+ YRS VACCINE Unknown Completed [facility] [place] SARS-COV-2 COVID-19 MODERNA 12+ YRS VACCINE Unknown Completed [facility] [place] Influenza High Dose Quad Unknown Completed [facility] [place] Pneumococcal Polysaccharide, PPSV23 (PNEUMOVAX) Unknown Completed [facility] TDAP Unknown Completed [facility] [place] SARS-COV-2 COVID-19 MODERNA 12+ YRS VACCINE Unknown Completed [facility] [place] Influenza High Dose Unknown Completed [facility] [place] SARS-COV-2 COVID-19 MODERNA 0.25ML BOOSTER VACCINE Unknown Completed [facility] Pneumococcal 20 Conjugate, PCV20 (Prevnar 20) Unknown Completed [facility] [place] SARS-COV-2 COVID-19 VACCINE 12 YRS+, BIVALENT 0.5ML, IM, (MODERNA-BLUE TOP) Unknown Completed [facility] Influenza Virus Vaccine,quad Im,preserve Free 65+ (FLUAD) Unknown Completed [facility] [place] SARS-COV-2 COVID-19 MODERNA 12+ YRS VACCINE Unknown Completed [facility] [place] SARS-COV-2 COVID-19 MODERNA 12+ YRS VACCINE Unknown Completed [facility] [place] Influenza High Dose Quad Unknown Completed [facility] [place] Pneumococcal Polysaccharide, PPSV23 (PNEUMOVAX) Unknown Completed [facility] TDAP Unknown Completed [facility] [place] SARS-COV-2 COVID-19 MODERNA 12+ YRS VACCINE Unknown Completed [facility] [place] Influenza High Dose Unknown Completed [facility] [place] SARS-COV-2 COVID-19 MODERNA 0.25ML BOOSTER VACCINE Unknown Completed [facility] Pneumococcal 20 Conjugate, PCV20 (Prevnar 20) Unknown Completed [facility] [place] SARS-COV-2 COVID-19 VACCINE 12 YRS+, BIVALENT 0.5ML, IM, (MODERNA-BLUE TOP) Unknown Completed [facility] Influenza Virus Vaccine,quad Im,preserve Free 65+ (FLUAD) Unknown Completed [facility] [place] SARS-COV-2 COVID-19 MODERNA 12+ YRS VACCINE Unknown Completed [facility] [place] SARS-COV-2 COVID-19 MODERNA 12+ YRS VACCINE Unknown Completed [facility] [place] Influenza High Dose Quad Unknown Completed [facility] [place] Pneumococcal Polysaccharide, PPSV23 (PNEUMOVAX) Unknown Completed [facility] TDAP Unknown Completed [facility] [place] SARS-COV-2 COVID-19 MODERNA 12+ YRS VACCINE Unknown Completed [facility] [place] Influenza High Dose Unknown Completed [facility] [place] SARS-COV-2 COVID-19 MODERNA 0.25ML BOOSTER VACCINE Unknown Completed [facility] Pneumococcal 20 Conjugate, PCV20 (Prevnar 20) Unknown Completed [facility] [place] SARS-COV-2 COVID-19 VACCINE 12 YRS+, BIVALENT 0.5ML, IM, (MODERNA-BLUE TOP) Unknown Completed [facility] Influenza Virus Vaccine,quad Im,preserve Free 65+ (FLUAD) Unknown Completed [facility] [place] SARS-COV-2 COVID-19 MODERNA 12+ YRS VACCINE Unknown Completed [facility] [place] SARS-COV-2 COVID-19 MODERNA 12+ YRS VACCINE Unknown Completed [facility] [place] Influenza High Dose Quad Unknown Completed [facility] [place] Pneumococcal Polysaccharide, PPSV23 (PNEUMOVAX) Unknown Completed [facility] TDAP Unknown Completed [facility] [place] SARS-COV-2 COVID-19 MODERNA 12+ YRS VACCINE Unknown Completed [facility] [place] Influenza High Dose Unknown Completed [facility] [place] SARS-COV-2 COVID-19 MODERNA 0.25ML BOOSTER VACCINE Unknown Completed [facility] Pneumococcal 20 Conjugate, PCV20 (Prevnar 20) Unknown Completed [facility] [place] SARS-COV-2 COVID-19 VACCINE 12 YRS+, BIVALENT 0.5ML, IM, (MODERNA-BLUE TOP) Unknown Completed [facility] Influenza Virus Vaccine,quad Im,preserve Free 65+ (FLUAD) Unknown Completed [facility] [place] SARS-COV-2 COVID-19 MODERNA 12+ YRS VACCINE Unknown Completed [facility] [place] SARS-COV-2 COVID-19 MODERNA 12+ YRS VACCINE Unknown Completed [facility] [place] Influenza High Dose Quad Unknown Completed [facility] [place] Pneumococcal Polysaccharide, PPSV23 (PNEUMOVAX) Unknown Completed [facility] TDAP Unknown Completed [facility] [place] SARS-COV-2 COVID-19 MODERNA 12+ YRS VACCINE Unknown Completed [facility] [place] Influenza High Dose Unknown Completed [facility] [place] SARS-COV-2 COVID-19 MODERNA 0.25ML BOOSTER VACCINE Unknown Completed [facility] Pneumococcal 20 Conjugate, PCV20 (Prevnar 20) Unknown Completed [facility] [place] SARS-COV-2 COVID-19 VACCINE 12 YRS+, BIVALENT 0.5ML, IM, (MODERNA-BLUE TOP) Unknown Completed [facility] Influenza Virus Vaccine,quad Im,preserve Free 65+ (FLUAD) Unknown Completed [facility] [place] SARS-COV-2 COVID-19 MODERNA 12+ YRS VACCINE Unknown Completed [facility] [place] SARS-COV-2 COVID-19 MODERNA 12+ YRS VACCINE Unknown Completed [facility] [place] Influenza High Dose Quad Unknown Completed [facility] [place] Pneumococcal Polysaccharide, PPSV23 (PNEUMOVAX) Unknown Completed [facility] TDAP Unknown Completed [facility] [place] SARS-COV-2 COVID-19 MODERNA 12+ YRS VACCINE Unknown Completed [facility] [place] Influenza High Dose Unknown Completed [facility] [place] SARS-COV-2 COVID-19 MODERNA 0.25ML BOOSTER VACCINE Unknown Completed [facility] Pneumococcal 20 Conjugate, PCV20 (Prevnar 20) Unknown Completed [facility] [place] SARS-COV-2 COVID-19 VACCINE 12 YRS+, BIVALENT 0.5ML, IM, (MODERNA-BLUE TOP) Unknown Completed [facility] Influenza Virus Vaccine,quad Im,preserve Free 65+ (FLUAD) Unknown Completed [facility] [place] SARS-COV-2 COVID-19 MODERNA 12+ YRS VACCINE Unknown Completed [facility] [place] SARS-COV-2 COVID-19 MODERNA 12+ YRS VACCINE Unknown Completed [facility] [place] Influenza High Dose Quad Unknown Completed [facility] [place] Pneumococcal Polysaccharide, PPSV23 (PNEUMOVAX) Unknown Completed [facility] TDAP Unknown Completed [facility] [place] SARS-COV-2 COVID-19 MODERNA 12+ YRS VACCINE Unknown Completed [facility] [place] Influenza High Dose Unknown Completed [facility] [place] SARS-COV-2 COVID-19 MODERNA 0.25ML BOOSTER VACCINE Unknown Completed [facility] Pneumococcal 20 Conjugate, PCV20 (Prevnar 20) Unknown Completed [facility] [place] SARS-COV-2 COVID-19 VACCINE 12 YRS+, BIVALENT 0.5ML, IM, (MODERNA-BLUE TOP) Unknown Completed [facility] Influenza Virus Vaccine,quad Im,preserve Free 65+ (FLUAD) Unknown Completed [facility] [place] SARS-COV-2 COVID-19 MODERNA 12+ YRS VACCINE Unknown Completed [facility] [place] SARS-COV-2 COVID-19 MODERNA 12+ YRS VACCINE Unknown Completed [facility] [place] Influenza High Dose Quad Unknown Completed [facility] [place] Pneumococcal Polysaccharide, PPSV23 (PNEUMOVAX) Unknown Completed [facility] TDAP Unknown Completed [facility] [place] SARS-COV-2 COVID-19 MODERNA 12+ YRS VACCINE Unknown Completed [facility] [place] Influenza High Dose Unknown Completed [facility] [place] SARS-COV-2 COVID-19 MODERNA 0.25ML BOOSTER VACCINE Unknown Completed [facility] Pneumococcal 20 Conjugate, PCV20 (Prevnar 20) Unknown Completed [facility] [place] SARS-COV-2 COVID-19 VACCINE 12 YRS+, BIVALENT 0.5ML, IM, (MODERNA-BLUE TOP) Unknown Completed [facility] Influenza Virus Vaccine,quad Im,preserve Free 65+ (FLUAD) Unknown Completed [facility] [place] SARS-COV-2 COVID-19 MODERNA 12+ YRS VACCINE Unknown Completed [facility] [place] SARS-COV-2 COVID-19 MODERNA 12+ YRS VACCINE Unknown Completed [facility] [place] Influenza High Dose Quad Unknown Completed [facility] [place] Pneumococcal Polysaccharide, PPSV23 (PNEUMOVAX) Unknown Completed [facility] TDAP Unknown Completed [facility] [place] SARS-COV-2 COVID-19 MODERNA 12+ YRS VACCINE Unknown Completed [facility] [place] Influenza High Dose Unknown Completed [facility] [place] SARS-COV-2 COVID-19 MODERNA 0.25ML BOOSTER VACCINE Unknown Completed [facility] Pneumococcal 20 Conjugate, PCV20 (Prevnar 20) Unknown Completed [facility] [place] SARS-COV-2 COVID-19 VACCINE 12 YRS+, BIVALENT 0.5ML, IM, (MODERNA-BLUE TOP) Unknown Completed [facility] Influenza Virus Vaccine,quad Im,preserve Free 65+ (FLUAD) Unknown Completed [facility] [place] SARS-COV-2 COVID-19 MODERNA 12+ YRS VACCINE Unknown Completed [facility] [place] SARS-COV-2 COVID-19 MODERNA 12+ YRS VACCINE Unknown Completed [facility] [place] Influenza High Dose Quad Unknown Completed [facility] [place] Pneumococcal Polysaccharide, PPSV23 (PNEUMOVAX) Unknown Completed [facility] TDAP Unknown Completed [facility] [place] SARS-COV-2 COVID-19 MODERNA 12+ YRS VACCINE Unknown Completed [facility] [place] Influenza High Dose Unknown Completed [facility] [place] SARS-COV-2 COVID-19 MODERNA 0.25ML BOOSTER VACCINE Unknown Completed [facility] Pneumococcal 20 Conjugate, PCV20 (Prevnar 20) Unknown Completed [facility] [place] SARS-COV-2 COVID-19 VACCINE 12 YRS+, BIVALENT 0.5ML, IM, (MODERNA-BLUE TOP) Unknown Completed [facility] Influenza Virus Vaccine,quad Im,preserve Free 65+ (FLUAD) Unknown Completed [facility] [place] SARS-COV-2 COVID-19 MODERNA 12+ YRS VACCINE Unknown Completed [facility] [place] SARS-COV-2 COVID-19 MODERNA 12+ YRS VACCINE Unknown Completed [facility] [place] Influenza High Dose Quad Unknown Completed [facility] [place] Pneumococcal Polysaccharide, PPSV23 (PNEUMOVAX) Unknown Completed [facility] TDAP Unknown Completed [facility] [place] SARS-COV-2 COVID-19 MODERNA 12+ YRS VACCINE Unknown Completed [facility] [place] Influenza High Dose Unknown Completed [facility] [place] SARS-COV-2 COVID-19 MODERNA 0.25ML BOOSTER VACCINE Unknown Completed [facility] Pneumococcal 20 Conjugate, PCV20 (Prevnar 20) Unknown Completed [facility] [place] SARS-COV-2 COVID-19 VACCINE 12 YRS+, BIVALENT 0.5ML, IM, (MODERNA-BLUE TOP) Unknown Completed [facility] Influenza Virus Vaccine,quad Im,preserve Free 65+ (FLUAD) Unknown Completed [facility] [place] SARS-COV-2 COVID-19 MODERNA 12+ YRS VACCINE Unknown Completed [facility] [place] SARS-COV-2 COVID-19 MODERNA 12+ YRS VACCINE Unknown Completed [facility] [place] Influenza High Dose Quad Unknown Completed [facility] [place] Pneumococcal Polysaccharide, PPSV23 (PNEUMOVAX) Unknown Completed [facility] TDAP Unknown Completed [facility] [place] SARS-COV-2 COVID-19 MODERNA 12+ YRS VACCINE Unknown Completed [facility] [place] Influenza High Dose Unknown Completed [facility] [place] SARS-COV-2 COVID-19 MODERNA 0.25ML BOOSTER VACCINE Unknown Completed [facility] Pneumococcal 20 Conjugate, PCV20 (Prevnar 20) Unknown Completed [facility] [place] SARS-COV-2 COVID-19 VACCINE 12 YRS+, BIVALENT 0.5ML, IM, (MODERNA-BLUE TOP) Unknown Completed [facility] Influenza Virus Vaccine,quad Im,preserve Free 65+ (FLUAD) Unknown Completed [facility] [place] SARS-COV-2 COVID-19 MODERNA 12+ YRS VACCINE Unknown Completed [facility] [place] SARS-COV-2 COVID-19 MODERNA 12+ YRS VACCINE Unknown Completed [facility] [place] Influenza High Dose Quad Unknown Completed [facility] [place] Pneumococcal Polysaccharide, PPSV23 (PNEUMOVAX) Unknown Completed [facility] TDAP Unknown Completed [facility] [place] SARS-COV-2 COVID-19 MODERNA 12+ YRS VACCINE Unknown Completed [facility] [place] Influenza High Dose Unknown Completed [facility] [place] SARS-COV-2 COVID-19 MODERNA 0.25ML BOOSTER VACCINE Unknown Completed [facility] Pneumococcal 20 Conjugate, PCV20 (Prevnar 20) Unknown Completed [facility] [place] SARS-COV-2 COVID-19 VACCINE 12 YRS+, BIVALENT 0.5ML, IM, (MODERNA-BLUE TOP) Unknown Completed [facility] Influenza Virus Vaccine,quad Im,preserve Free 65+ (FLUAD) Unknown Completed [facility] [place] SARS-COV-2 COVID-19 MODERNA 12+ YRS VACCINE Unknown Completed [facility] [place] SARS-COV-2 COVID-19 MODERNA 12+ YRS VACCINE Unknown Completed [facility] [place] Influenza High Dose Quad Unknown Completed [facility] [place] Pneumococcal Polysaccharide, PPSV23 (PNEUMOVAX) Unknown Completed [facility] TDAP Unknown Completed [facility] [place] SARS-COV-2 COVID-19 MODERNA 12+ YRS VACCINE Unknown Completed [facility] [place] Influenza High Dose Unknown Completed [facility] [place] SARS-COV-2 COVID-19 MODERNA 0.25ML BOOSTER VACCINE Unknown Completed [facility] Pneumococcal 20 Conjugate, PCV20 (Prevnar 20) Unknown Completed [facility] [place] SARS-COV-2 COVID-19 VACCINE 12 YRS+, BIVALENT 0.5ML, IM, (MODERNA-BLUE TOP) Unknown Completed [facility] Influenza Virus Vaccine,quad Im,preserve Free 65+ (FLUAD) Unknown Completed [facility] [place] SARS-COV-2 COVID-19 MODERNA 12+ YRS VACCINE Unknown Completed [facility] [place] SARS-COV-2 COVID-19 MODERNA 12+ YRS VACCINE Unknown Completed [facility] [place] Influenza High Dose Quad Unknown Completed [facility] [place] Pneumococcal Polysaccharide, PPSV23 (PNEUMOVAX) Unknown Completed [facility] TDAP Unknown Completed [facility] [place] SARS-COV-2 COVID-19 MODERNA 12+ YRS VACCINE Unknown Completed [facility] [place] Influenza High Dose Unknown Completed [facility] [place] SARS-COV-2 COVID-19 MODERNA 0.25ML BOOSTER VACCINE Unknown Completed [facility] Pneumococcal 20 Conjugate, PCV20 (Prevnar 20) Unknown Completed [facility] [place] SARS-COV-2 COVID-19 VACCINE 12 YRS+, BIVALENT 0.5ML, IM, (MODERNA-BLUE TOP) Unknown Completed [facility] Influenza Virus Vaccine,quad Im,preserve Free 65+ (FLUAD) Unknown Completed [facility] [place] SARS-COV-2 COVID-19 MODERNA 12+ YRS VACCINE Unknown Completed [facility] [place] SARS-COV-2 COVID-19 MODERNA 12+ YRS VACCINE Unknown Completed [facility] [place] Influenza High Dose Quad Unknown Completed [facility] [place] Pneumococcal Polysaccharide, PPSV23 (PNEUMOVAX) Unknown Completed [facility] TDAP Unknown Completed [facility] [place] SARS-COV-2 COVID-19 MODERNA 12+ YRS VACCINE Unknown Completed [facility] [place] Influenza High Dose Unknown Completed [facility] [place] SARS-COV-2 COVID-19 MODERNA 0.25ML BOOSTER VACCINE Unknown Completed [facility] Pneumococcal 20 Conjugate, PCV20 (Prevnar 20) Unknown Completed [facility] [place] SARS-COV-2 COVID-19 VACCINE 12 YRS+, BIVALENT 0.5ML, IM, (MODERNA-BLUE TOP) Unknown Completed [facility] Influenza Virus Vaccine,quad Im,preserve Free 65+ (FLUAD) Unknown Completed [facility] [place] SARS-COV-2 COVID-19 MODERNA 12+ YRS VACCINE Unknown Completed [facility] [place] SARS-COV-2 COVID-19 MODERNA 12+ YRS VACCINE Unknown Completed [facility] [place] Influenza High Dose Quad Unknown Completed [facility] [place] Pneumococcal Polysaccharide, PPSV23 (PNEUMOVAX) Unknown Completed [facility] TDAP Unknown Completed [facility] [place] SARS-COV-2 COVID-19 MODERNA 12+ YRS VACCINE Unknown Completed [facility] [place] Influenza High Dose Unknown Completed [facility] [place] SARS-COV-2 COVID-19 MODERNA 0.25ML BOOSTER VACCINE Unknown Completed [facility] Pneumococcal 20 Conjugate, PCV20 (Prevnar 20) Unknown Completed [facility] [place] SARS-COV-2 COVID-19 VACCINE 12 YRS+, BIVALENT 0.5ML, IM, (MODERNA-BLUE TOP) Unknown Completed [facility] Influenza Virus Vaccine,quad Im,preserve Free 65+ (FLUAD) Unknown Completed [facility] [place] SARS-COV-2 COVID-19 MODERNA 12+ YRS VACCINE Unknown Completed [facility] [place] SARS-COV-2 COVID-19 MODERNA 12+ YRS VACCINE Unknown Completed [facility] [place] Influenza High Dose Quad Unknown Completed [facility] [place] Pneumococcal Polysaccharide, PPSV23 (PNEUMOVAX) Unknown Completed [facility] TDAP Unknown Completed [facility] [place] SARS-COV-2 COVID-19 MODERNA 12+ YRS VACCINE Unknown Completed [facility] [place] Influenza High Dose Unknown Completed [facility] [place] SARS-COV-2 COVID-19 MODERNA 0.25ML BOOSTER VACCINE Unknown Completed [facility] Pneumococcal 20 Conjugate, PCV20 (Prevnar 20) Unknown Completed [facility] [place] SARS-COV-2 COVID-19 VACCINE 12 YRS+, BIVALENT 0.5ML, IM, (MODERNA-BLUE TOP) Unknown Completed [facility] Influenza Virus Vaccine,quad Im,preserve Free 65+ (FLUAD) Unknown Completed [facility] [place] SARS-COV-2 COVID-19 MODERNA 12+ YRS VACCINE Unknown Completed [facility] [place] SARS-COV-2 COVID-19 MODERNA 12+ YRS VACCINE Unknown Completed [facility] [place] Influenza High Dose Quad Unknown Completed [facility] [place] Pneumococcal Polysaccharide, PPSV23 (PNEUMOVAX) Unknown Completed [facility] TDAP Unknown Completed [facility] [place] SARS-COV-2 COVID-19 MODERNA 12+ YRS VACCINE Unknown Completed [facility] [place] Influenza High Dose Unknown Completed [facility] [place] SARS-COV-2 COVID-19 MODERNA 0.25ML BOOSTER VACCINE Unknown Completed [facility] Pneumococcal 20 Conjugate, PCV20 (Prevnar 20) Unknown Completed [facility] [place] SARS-COV-2 COVID-19 VACCINE 12 YRS+, BIVALENT 0.5ML, IM, (MODERNA-BLUE TOP) Unknown Completed [facility] Influenza Virus Vaccine,quad Im,preserve Free 65+ (FLUAD) Unknown Completed [facility] SARS-COV-2 COVID-19 MODERNA 12+ YRS VACCINE Unknown Completed [facility] SARS-COV-2 COVID-19 MODERNA 12+ YRS VACCINE Unknown Completed [facility] Influenza High Dose Quad Unknown Completed [facility] Pneumococcal Polysaccharide, PPSV23 (PNEUMOVAX) Unknown Completed [facility] TDAP Unknown Completed [facility] SARS-COV-2 COVID-19 MODERNA 12+ YRS VACCINE Unknown Completed [facility] Influenza High Dose Unknown Completed [facility] SARS-COV-2 COVID-19 MODERNA 0.25ML BOOSTER VACCINE Unknown Completed [facility] Pneumococcal 20 Conjugate, PCV20 (Prevnar 20) Unknown Completed [facility] SARS-COV-2 COVID-19 VACCINE 12 YRS+, BIVALENT 0.5ML, IM, (MODERNA-BLUE TOP) Unknown Completed [facility] Influenza Virus Vaccine,quad Im,preserve Free 65+ (FLUAD) Unknown Completed [facility] SARS-COV-2 COVID-19 MODERNA 12+ YRS VACCINE Unknown Completed [facility] SARS-COV-2 COVID-19 MODERNA 12+ YRS VACCINE Unknown Completed [facility] Influenza High Dose Quad Unknown Completed [facility] Pneumococcal Polysaccharide, PPSV23 (PNEUMOVAX) Unknown Completed [facility] TDAP Unknown Completed [facility] SARS-COV-2 COVID-19 MODERNA 12+ YRS VACCINE Unknown Completed [facility] Influenza High Dose Unknown Completed [facility] SARS-COV-2 COVID-19 MODERNA 0.25ML BOOSTER VACCINE Unknown Completed [facility] Pneumococcal 20 Conjugate, PCV20 (Prevnar 20) Unknown Completed [facility] SARS-COV-2 COVID-19 VACCINE 12 YRS+, BIVALENT 0.5ML, IM, (MODERNA-BLUE TOP) Unknown Completed [facility] Influenza Virus Vaccine,quad Im,preserve Free 65+ (FLUAD) Unknown Completed [facility] SARS-COV-2 COVID-19 MODERNA 12+ YRS VACCINE Unknown Completed [facility] SARS-COV-2 COVID-19 MODERNA 12+ YRS VACCINE Unknown Completed [facility] Influenza High Dose Quad Unknown Completed [facility] Pneumococcal Polysaccharide, PPSV23 (PNEUMOVAX) Unknown Completed [facility] TDAP Unknown Completed [facility] SARS-COV-2 COVID-19 MODERNA 12+ YRS VACCINE Unknown Completed [facility] Influenza High Dose Unknown Completed [facility] SARS-COV-2 COVID-19 MODERNA 0.25ML BOOSTER VACCINE Unknown Completed [facility] Pneumococcal 20 Conjugate, PCV20 (Prevnar 20) Unknown Completed [facility] SARS-COV-2 COVID-19 VACCINE 12 YRS+, BIVALENT 0.5ML, IM, (MODERNA-BLUE TOP) Unknown Completed [facility] Influenza Virus Vaccine,quad Im,preserve Free 65+ (FLUAD) Unknown Completed [facility] SARS-COV-2 COVID-19 MODERNA 12+ YRS VACCINE Unknown Completed [facility] SARS-COV-2 COVID-19 MODERNA 12+ YRS VACCINE Unknown Completed [facility] Influenza High Dose Quad Unknown Completed [facility] Pneumococcal Polysaccharide, PPSV23 (PNEUMOVAX) Unknown Completed [facility] TDAP Unknown Completed [facility] SARS-COV-2 COVID-19 MODERNA 12+ YRS VACCINE Unknown Completed [facility] Influenza High Dose Unknown Completed [facility] SARS-COV-2 COVID-19 MODERNA 0.25ML BOOSTER VACCINE Unknown Completed [facility] Pneumococcal 20 Conjugate, PCV20 (Prevnar 20) Unknown Completed [facility] SARS-COV-2 COVID-19 VACCINE 12 YRS+, BIVALENT 0.5ML, IM, (MODERNA-BLUE TOP) Unknown Completed [facility] Influenza Virus Vaccine,quad Im,preserve Free 65+ (FLUAD) Unknown Completed [facility] SARS-COV-2 COVID-19 MODERNA 12+ YRS VACCINE Unknown Completed [facility] SARS-COV-2 COVID-19 MODERNA 12+ YRS VACCINE Unknown Completed [facility] Influenza High Dose Quad Unknown Completed [facility] Pneumococcal Polysaccharide, PPSV23 (PNEUMOVAX) Unknown Completed [facility] TDAP Unknown Completed [facility] SARS-COV-2 COVID-19 MODERNA 12+ YRS VACCINE Unknown Completed [facility] Influenza High Dose Unknown Completed [facility] SARS-COV-2 COVID-19 MODERNA 0.25ML BOOSTER VACCINE Unknown Completed [facility] Pneumococcal 20 Conjugate, PCV20 (Prevnar 20) Unknown Completed [facility] SARS-COV-2 COVID-19 VACCINE 12 YRS+, BIVALENT 0.5ML, IM, (MODERNA-BLUE TOP) Unknown Completed [facility] Influenza Virus Vaccine,quad Im,preserve Free 65+ (FLUAD) Unknown Completed [facility] SARS-COV-2 COVID-19 MODERNA 12+ YRS VACCINE Unknown Completed [facility] SARS-COV-2 COVID-19 MODERNA 12+ YRS VACCINE Unknown Completed [facility] Influenza High Dose Quad Unknown Completed [facility] Pneumococcal Polysaccharide, PPSV23 (PNEUMOVAX) Unknown Completed [facility] TDAP Unknown Completed [facility] SARS-COV-2 COVID-19 MODERNA 12+ YRS VACCINE Unknown Completed [facility] Influenza High Dose Unknown Completed [facility] SARS-COV-2 COVID-19 MODERNA 0.25ML BOOSTER VACCINE Unknown Completed [facility] Pneumococcal 20 Conjugate, PCV20 (Prevnar 20) Unknown Completed [facility] SARS-COV-2 COVID-19 VACCINE 12 YRS+, BIVALENT 0.5ML, IM, (MODERNA-BLUE TOP) Unknown Completed [facility] Influenza Virus Vaccine,quad Im,preserve Free 65+ (FLUAD) Unknown Completed [facility] SARS-COV-2 COVID-19 MODERNA 12+ YRS VACCINE Unknown Completed [facility] SARS-COV-2 COVID-19 MODERNA 12+ YRS VACCINE Unknown Completed [facility] Influenza High Dose Quad Unknown Completed [facility] Pneumococcal Polysaccharide, PPSV23 (PNEUMOVAX) Unknown Completed [facility] TDAP Unknown Completed [facility] SARS-COV-2 COVID-19 MODERNA 12+ YRS VACCINE Unknown Completed [facility] Influenza High Dose Unknown Completed [facility] SARS-COV-2 COVID-19 MODERNA 0.25ML BOOSTER VACCINE Unknown Completed [facility] Pneumococcal 20 Conjugate, PCV20 (Prevnar 20) Unknown Completed [facility] SARS-COV-2 COVID-19 VACCINE 12 YRS+, BIVALENT 0.5ML, IM, (MODERNA-BLUE TOP) Unknown Completed [facility] Influenza Virus Vaccine,quad Im,preserve Free 65+ (FLUAD) Unknown Completed [facility] SARS-COV-2 COVID-19 MODERNA 12+ YRS VACCINE Unknown Completed [facility] SARS-COV-2 COVID-19 MODERNA 12+ YRS VACCINE Unknown Completed [facility] Influenza High Dose Quad Unknown Completed [facility] Pneumococcal Polysaccharide, PPSV23 (PNEUMOVAX) Unknown Completed [facility] TDAP Unknown Completed [facility] SARS-COV-2 COVID-19 MODERNA 12+ YRS VACCINE Unknown Completed [facility] Influenza High Dose Unknown Completed [facility] SARS-COV-2 COVID-19 MODERNA 0.25ML BOOSTER VACCINE Unknown Completed [facility] Pneumococcal 20 Conjugate, PCV20 (Prevnar 20) Unknown Completed [facility] SARS-COV-2 COVID-19 VACCINE 12 YRS+, BIVALENT 0.5ML, IM, (MODERNA-BLUE TOP) Unknown Completed [facility] Influenza Virus Vaccine,quad Im,preserve Free 65+ (FLUAD) Unknown Completed [facility] SARS-COV-2 COVID-19 MODERNA 12+ YRS VACCINE Unknown Completed [facility] SARS-COV-2 COVID-19 MODERNA 12+ YRS VACCINE Unknown Completed [facility] Influenza High Dose Quad Unknown Completed [facility] Pneumococcal Polysaccharide, PPSV23 (PNEUMOVAX) Unknown Completed [facility] TDAP Unknown Completed [facility] SARS-COV-2 COVID-19 MODERNA 12+ YRS VACCINE Unknown Completed [facility] Influenza High Dose Unknown Completed [facility] SARS-COV-2 COVID-19 MODERNA 0.25ML BOOSTER VACCINE Unknown Completed [facility] Pneumococcal 20 Conjugate, PCV20 (Prevnar 20) Unknown Completed [facility] SARS-COV-2 COVID-19 VACCINE 12 YRS+, BIVALENT 0.5ML, IM, (MODERNA-BLUE TOP) Unknown Completed [facility] Influenza Virus Vaccine,quad Im,preserve Free 65+ (FLUAD) Unknown Completed [facility] Vital Signs Vital Name Observation Time Observation Value Comments S ource Systolic blood pressure 2023-08-24 22:03:00 122 mm[Hg] [facility] Diastolic blood pressure 2023-08-24 22:03:00 66 mm[Hg] [facility] Heart rate 2023-08-24 22:03:00 68 /min [facility] Body temperature 2023-08-24 22:03:00 36.83 Yaneth [facility] Respiratory rate 2023-08-24 22:03:00 19 /min [facility] Body height 2023-08-24 22:03:00 172.7 cm [facility] Body weight 2023-08-24 22:03:00 101.152 kg [facility] BMI 2023-08-24 22:03:00 33.91 kg/m2 [facility] Oxygen saturation in Arterial blood by Pulse oximetry 2023-08-24 22:03:00 97 /min [facility] Systolic blood pressure 2023-08-14 15:11:00 135 mm[Hg] [facility] Diastolic blood pressure 2023-08-14 15:11:00 76 mm[Hg] [facility] Heart rate 2023-08-14 15:11:00 70 /min [facility] Body temperature 2023-08-14 15:11:00 36.67 Yaneth [facility] Respiratory rate 2023-08-14 15:11:00 18 /min [facility] Body height 2023-08-14 15:11:00 172.7 cm [facility] Body weight 2023-08-14 15:11:00 101.606 kg [facility] BMI 2023-08-14 15:11:00 34.06 kg/m2 [facility] Oxygen saturation in Arterial blood by Pulse oximetry 2023-08-14 15:11:00 93 /min [facility] Systolic blood pressure 2023-07-25 19:11:00 116 mm[Hg] [facility] Diastolic blood pressure 2023-07-25 19:11:00 70 mm[Hg] [facility] Heart rate 2023-07-25 19:11:00 75 /min [facility] Respiratory rate 2023-07-25 19:11:00 18 /min [facility] Body height 2023-07-25 19:11:00 172.7 cm [facility] Body weight 2023-07-25 19:11:00 103.193 kg [facility] BMI 2023-07-25 19:11:00 34.59 kg/m2 [facility] Oxygen saturation in Arterial blood by Pulse oximetry 2023-07-25 19:11:00 93 /min [facility] Systolic blood pressure 2023-07-13 20:29:00 133 mm[Hg] [facility] Diastolic blood pressure 2023-07-13 20:29:00 66 mm[Hg] [facility] Heart rate 2023-07-13 20:29:00 69 /min [facility] Respiratory rate 2023-07-13 20:29:00 18 /min [facility] Body height 2023-07-13 20:29:00 172.7 cm [facility] Body weight 2023-07-13 20:29:00 102.967 kg [facility] BMI 2023-07-13 20:29:00 34.52 kg/m2 [facility] Systolic blood pressure 2023-06-29 21:11:00 126 mm[Hg] [facility] Diastolic blood pressure 2023-06-29 21:11:00 59 mm[Hg] [facility] Heart rate 2023-06-29 21:11:00 72 /min [facility] Body temperature 2023-06-29 21:11:00 36.89 Yaneth [facility] Respiratory rate 2023-06-29 21:11:00 18 /min [facility] Body height 2023-06-29 21:11:00 172.7 cm [facility] Body weight 2023-06-29 21:11:00 103.602 kg [facility] BMI 2023-06-29 21:11:00 34.73 kg/m2 [facility] Systolic blood pressure 2023-06-04 15:11:00 125 mm[Hg] [facility] Diastolic blood pressure 2023-06-04 15:11:00 70 mm[Hg] [facility] Heart rate 2023-06-04 15:11:00 82 /min [facility] Body height 2023-06-04 15:11:00 172.7 cm [facility] Body weight 2023-06-04 15:11:00 104.554 kg [facility] BMI 2023-06-04 15:11:00 35.05 kg/m2 [facility] Oxygen saturation in Arterial blood by Pulse oximetry 2023-06-04 15:11:00 98 /min [facility] Systolic blood pressure 2023-05-16 16:09:00 134 mm[Hg] [facility] Diastolic blood pressure 2023-05-16 16:09:00 67 mm[Hg] [facility] Heart rate 2023-05-16 16:09:00 76 /min [facility] Respiratory rate 2023-05-16 16:09:00 18 /min [facility] Body height 2023-05-16 16:09:00 172.7 cm [facility] Body weight 2023-05-16 16:09:00 105.597 kg [facility] BMI 2023-05-16 16:09:00 35.40 kg/m2 [facility] Oxygen saturation in Arterial blood by Pulse oximetry 2023-05-16 16:09:00 97 /min [facility] Systolic blood pressure 2023-02-15 15:59:00 130 mm[Hg] [facility] Diastolic blood pressure 2023-02-15 15:59:00 63 mm[Hg] [facility] Heart rate 2023-02-15 15:59:00 74 /min [facility] Body height 2023-02-15 15:59:00 172.7 cm [facility] Body weight 2023-02-15 15:59:00 103.647 kg [facility] BMI 2023-02-15 15:59:00 34.74 kg/m2 [facility] Oxygen saturation in Arterial blood by Pulse oximetry 2023-02-15 15:59:00 95 /min [facility] Systolic blood pressure 2023-01-04 21:40:00 129 mm[Hg] [facility] Diastolic blood pressure 2023-01-04 21:40:00 70 mm[Hg] [facility] Heart rate 2023-01-04 21:40:00 68 /min [facility] Body temperature 2023-01-04 21:40:00 36.89 Yaneth [facility] Respiratory rate 2023-01-04 21:40:00 14 /min [facility] Body height 2023-01-04 21:40:00 172.7 cm [facility] Body weight 2023-01-04 21:40:00 102.286 kg [facility] BMI 2023-01-04 21:40:00 34.29 kg/m2 [facility] Oxygen saturation in Arterial blood by Pulse oximetry 2023-01-04 21:40:00 97 /min [facility] Systolic blood pressure 2022-12-26 13:12:00 146 mm[Hg] [facility] Diastolic blood pressure 2022-12-26 13:12:00 74 mm[Hg] [facility] Systolic blood pressure 2022-12-26 13:12:00 146 mm[Hg] [facility] Diastolic blood pressure 2022-12-26 13:12:00 74 mm[Hg] [facility] Heart rate 2022-12-26 13:07:00 69 /min [facility] Body height 2022-12-26 13:07:00 172.7 cm [facility] Body weight 2022-12-26 13:07:00 104.645 kg [facility] BMI 2022-12-26 13:07:00 35.08 kg/m2 [facility] Oxygen saturation in Arterial blood by Pulse oximetry 2022-12-26 13:07:00 97 /min [facility] Heart rate 2022-12-26 13:07:00 69 /min [facility] Body height 2022-12-26 13:07:00 172.7 cm [facility] Body weight 2022-12-26 13:07:00 104.645 kg [facility] BMI 2022-12-26 13:07:00 35.08 kg/m2 [facility] Oxygen saturation in Arterial blood by Pulse oximetry 2022-12-26 13:07:00 97 /min [facility] Systolic blood pressure 2022-11-27 14:56:00 126 mm[Hg] [facility] Diastolic blood pressure 2022-11-27 14:56:00 66 mm[Hg] [facility] Heart rate 2022-11-27 14:56:00 70 /min [facility] Body height 2022-11-27 14:56:00 172.7 cm [facility] Body weight 2022-11-27 14:56:00 102.967 kg [facility] BMI 2022-11-27 14:56:00 34.52 kg/m2 [facility] Oxygen saturation in Arterial blood by Pulse oximetry 2022-11-27 14:56:00 97 /min [facility] Systolic blood pressure 2022-09-29 18:47:00 141 mm[Hg] [facility] Diastolic blood pressure 2022-09-29 18:47:00 76 mm[Hg] [facility] Heart rate 2022-09-29 18:47:00 65 /min [facility] Body temperature 2022-09-29 18:47:00 37.11 Yaneth [facility] Respiratory rate 2022-09-29 18:47:00 20 /min [facility] Body height 2022-09-29 18:47:00 172.7 cm [facility] Body weight 2022-09-29 18:47:00 101.152 kg [facility] BMI 2022-09-29 18:47:00 33.91 kg/m2 [facility] Oxygen saturation in Arterial blood by Pulse oximetry 2022-09-29 18:47:00 98 /min [facility] Systolic blood pressure 2022-09-29 18:19:00 133 mm[Hg] [facility] Diastolic blood pressure 2022-09-29 18:19:00 73 mm[Hg] [facility] Heart rate 2022-09-29 18:19:00 62 /min [facility] Body temperature 2022-09-29 18:19:00 36.33 Yaneth [facility] Respiratory rate 2022-09-29 18:19:00 16 /min [facility] Body weight 2022-09-29 18:19:00 101.152 kg [facility] BMI 2022-09-29 18:19:00 33.91 kg/m2 [facility] Oxygen saturation in Arterial blood by Pulse oximetry 2022-09-29 18:19:00 97 /min [facility] Systolic blood pressure 2022-08-15 14:36:00 117 mm[Hg] [facility] Diastolic blood pressure 2022-08-15 14:36:00 67 mm[Hg] [facility] Heart rate 2022-08-15 14:36:00 67 /min [facility] Body height 2022-08-15 14:36:00 172.7 cm [facility] Body weight 2022-08-15 14:36:00 101.787 kg [facility] BMI 2022-08-15 14:36:00 34.12 kg/m2 [facility] Oxygen saturation in Arterial blood by Pulse oximetry 2022-08-15 14:36:00 94 /min [facility] Systolic blood pressure 2022-06-22 16:28:00 109 mm[Hg] [facility] Diastolic blood pressure 2022-06-22 16:28:00 65 mm[Hg] [facility] Heart rate 2022-06-22 16:28:00 76 /min [facility] Body temperature 2022-06-22 16:28:00 37 Yaneth [facility] Body height 2022-06-22 16:28:00 172.7 cm [facility] Body weight 2022-06-22 16:28:00 101.606 kg [facility] BMI 2022-06-22 16:28:00 34.06 kg/m2 [facility] Oxygen saturation in Arterial blood by Pulse oximetry 2022-06-22 16:28:00 97 /min [facility] Systolic blood pressure 2022-05-26 15:37:00 116 mm[Hg] [facility] Diastolic blood pressure 2022-05-26 15:37:00 70 mm[Hg] [facility] Heart rate 2022-05-26 15:37:00 83 /min [facility] Body height 2022-05-26 15:37:00 172.7 cm [facility] Body weight 2022-05-26 15:37:00 101.878 kg [facility] BMI 2022-05-26 15:37:00 34.15 kg/m2 [facility] Oxygen saturation in Arterial blood by Pulse oximetry 2022-05-26 15:37:00 94 /min [facility] Systolic blood pressure 2022-04-14 15:09:00 138 mm[Hg] [facility] Diastolic blood pressure 2022-04-14 15:09:00 74 mm[Hg] [facility] Heart rate 2022-04-14 15:09:00 72 /min [facility] Respiratory rate 2022-04-14 15:09:00 19 /min [facility] Body height 2022-04-14 15:09:00 172.7 cm [facility] Body weight 2022-04-14 15:09:00 101.969 kg [facility] BMI 2022-04-14 15:09:00 34.18 kg/m2 [facility] Oxygen saturation in Arterial blood by Pulse oximetry 2022-04-14 15:09:00 94 /min [facility] Systolic blood pressure 2022-02-15 21:27:00 111 mm[Hg] [facility] Diastolic blood pressure 2022-02-15 21:27:00 59 mm[Hg] [facility] Heart rate 2022-02-15 21:27:00 75 /min [facility] Body temperature 2022-02-15 21:27:00 37.11 Yaneth [facility] Respiratory rate 2022-02-15 21:27:00 18 /min [facility] Body height 2022-02-15 21:27:00 172.7 cm [facility] Body weight 2022-02-15 21:27:00 101.923 kg [facility] BMI 2022-02-15 21:27:00 34.17 kg/m2 [facility] Oxygen saturation in Arterial blood by Pulse oximetry 2022-02-15 21:27:00 96 /min [facility] Systolic blood pressure 2022-01-13 16:05:00 136 mm[Hg] [facility] Diastolic blood pressure 2022-01-13 16:05:00 69 mm[Hg] [facility] Heart rate 2022-01-13 16:05:00 84 /min [facility] Respiratory rate 2022-01-13 16:05:00 21 /min [facility] Body height 2022-01-13 16:05:00 165.1 cm [facility] Body weight 2022-01-13 16:05:00 102.468 kg [facility] BMI 2022-01-13 16:05:00 37.59 kg/m2 [facility] Oxygen saturation in Arterial blood by Pulse oximetry 2022-01-13 16:05:00 96 /min [facility] Systolic blood pressure 2022-01-12 18:12:00 123 mm[Hg] [facility] Diastolic blood pressure 2022-01-12 18:12:00 74 mm[Hg] [facility] Heart rate 2022-01-12 18:12:00 74 /min [facility] Body temperature 2022-01-12 18:04:00 35.61 Yaneth [facility] Respiratory rate 2022-01-12 18:04:00 16 /min [facility] Body height 2022-01-12 18:04:00 165.3 cm verified ht & wt with Hannah Bruner MA [facility] Body weight 2022-01-12 18:04:00 101.515 kg verified ht & wt with Hannah Bruner MA [facility] BMI 2022-01-12 18:04:00 37.15 kg/m2 [facility] Oxygen saturation in Arterial blood by Pulse oximetry 2022-01-12 18:04:00 98 /min [facility] Systolic blood pressure 2021-12-29 20:00:00 134 mm[Hg] [facility] Diastolic blood pressure 2021-12-29 20:00:00 77 mm[Hg] [facility] Heart rate 2021-12-29 20:00:00 75 /min [facility] Body temperature 2021-12-29 20:00:00 36.83 Yaneth [facility] Body height 2021-12-29 20:00:00 170.2 cm [facility] Body weight 2021-12-29 20:00:00 102.513 kg [facility] BMI 2021-12-29 20:00:00 35.40 kg/m2 [facility] Oxygen saturation in Arterial blood by Pulse oximetry 2021-12-29 20:00:00 95 /min [facility] Systolic blood pressure 2021-12-26 14:40:00 143 mm[Hg] [facility] Diastolic blood pressure 2021-12-26 14:40:00 74 mm[Hg] [facility] Heart rate 2021-12-26 14:32:00 102 /min [facility] Body height 2021-12-26 14:32:00 170.2 cm [facility] Body weight 2021-12-26 14:32:00 103.193 kg [facility] BMI 2021-12-26 14:32:00 35.63 kg/m2 [facility] Oxygen saturation in Arterial blood by Pulse oximetry 2021-12-26 14:32:00 94 /min [facility] Procedures Procedure Date / Time Performed Performing Clinician Source CT ABDOMEN PELVIS W CONTRAST 2023-09-25 15:38:10 Requisition, Paper [facility] HB CREATININE SERUM/BLOOD FOR IMAGING 2023-09-25 15:28:00 Armond Medina [facility] EYAL,POST-VOID RES,US,NON-IMAGING 2023-06-29 00:00:00 Mikhail Wu [facility] POCT URINALYSIS W/O SPECIFIC GRAVITY 2023-06-29 00:00:00 Mikhail Wu [facility] DME/SUPPLY JUSTIFICATION 2023-06-25 05:01:00 Doc tor Unassigned, [place] [facility] US ABDOMEN LIMITED 2023-04-20 19:49:26 Requisition, Pa per [facility] CBC WITH DIFF 2023-04-17 15:40:00 Armond Medina [facility] BI SCREENING TOMOSYNTHESIS BILATERAL 2023-03-15 16:55:53 Shankar [facility]udh [facility] TRANSTHORACIC ECHO (TTE) COMPLETE 2023-03-07 22:25:56 Cedric Francis [facility] INSURANCE CORRESPONDENCE 2023-02-26 06:01:00 Doc tor Unassigned, [place] [facility] XR CHEST 2 VW 2023-01-04 22:20:14 Andry Juárez [facility] POCT MOLECULAR FLU 2023-01-04 22:00:00 Unknown, Attend ing [facility] POCT SARS-COV-2 ANTIGEN (BINAX NOW) 2023-01-04 21:59:00 Andry Juárez [facility] POCT MOLECULAR STREP 2023-01-04 21:57:00 Unknown, Atte nding [facility] CBC WITH DIFF 2022-10-30 14:23:00 [facility] 2022-10-30 05:01:00 Doctor Brock signed, [place] [facility] ASSIGNMENT OF BENEFITS 2022-09-29 22:14:17 Docto r Unassigned, [place] [facility] XR CHEST 2 VW 2022-09-29 21:30:00 Ja Winter [facility] NOTICE OF PRIVACY PRACTICES 2022-09-29 18:33:03 Doctor Unassigned, [place] [facility] CONSENT/REFUSAL FOR DIAGNOSIS AND TREATMENT 2022-09-29 18:31:59 Doctor Unassigned, [place] [facility] US ABDOMEN LIMITED 2022-08-24 16:36:38 Anirudh Chaparro [facility] PATIENT FINANCIAL POLICY 2022-07-24 19:00:26 Doctor Unassigned, [place] [facility] EXTERNAL PROVIDER RECORDS 2022-07-07 05:01:00 Do ctor Unassigned, [place] [facility] POCT GLUCOSE (AUTOMATED) 2022-06-12 18:52:00 Naseem Chaparrohikaty [facility] ASSIGNMENT OF BENEFITS 2022-05-26 15:19:23 Docto r Unassigned, [place] [facility] CT LOW DOSE LUNG NODULE 2022-04-20 20:14:00 Jorge Chaves [facility] EXTERNAL PROVIDER - ADC CARDIOLOGY 2022-02-16 06:01:00 Doctor Unassigned, [place] [facility] PULMONARY FUNCTION TEST (RESULTS) 2022-02-02 19:09:05 Marge Chaves [facility] FLU VACC(),65+YR,0.5 ML,IM,ADJUVANTED,QUAD(FLU AD) 2022-01-13 16:09:02 Marge Chaves [facility] EXTERNAL PROVIDER RECORDS 2022-01-10 05:01:00 Do ctor Unassigned, [place] [facility] SARS-COV-2 COVID-19 VACCINE 18 YRS+, BIVALENT 0.5ML, IM (MODERNA BOOSTER) 2022-01-09 19:46:45 Doctor Unassigned, [place] [facility] AUTHORIZATION TO RELEASE PHI TO [facility] 2021-12-13 05:01:00 Doctor Unassigned, [place] [facility] Encounters Start Date/Time End Date/Time Encounter Type Admission Type Attending Clinicians Care Facility Care Department Encounter ID Source 2024-02-14 10:20:00 2024-02-14 10:20:00 Outpatient CEDRIC JO [facility] [id number] [facility] 2023-12-03 13:30:00 2023-12-03 13:30:00 Outpatient R ANIRUDH CHAPARRO [facility] [id number] [facility] 2023-10-29 10:15:00 2023-10-29 10:30:00 Pull Socket Assembler Visit Pob, Adc Lab Main Armond Medina [facility] NAL BUILD[facility] 1..840.114 350.1.13.10 4.2.7.2.686 [id number] [facility] 2023-10-29 10:15:00 2023-10-29 10:15:00 Outpatient ARMOND HYDE [facility] [id number] [facility] 2023-09-25 09:56:24 2023-09-25 23:59:00 Outpatient ARMOND HYDE [facility] [id number] [facility] 2023-09-25 09:56:24 2023-09-25 23:59:00 Hospital Encounter Armnod Medina [facility] 1.840.114 350.1.13.10 4.2.7.2.686 [id number] [facility] 2023-08-24 00:00:00 2023-08-28 09:15:11 Telephone Daysi Chaparrothia [facility] 1..840.114 350.1.13.10 4.2.7.2.686 [id number] [facility] 2023-08-24 17:00:00 2023-08-24 17:20:00 Urgent Care Andry Juárez Unknown, Attending [facility] 1.2.840.114 350.1.13.10 4.2.7.2.686 [id number] [facility] 2023-08-24 17:00:00 2023-08-24 17:00:00 Outpatient ANDRY PRIETO [facility] [id number] [facility] 2023-08-14 10:00:00 2023-08-14 10:48:09 Outpatient R GULSHAN YEE [facility] [id number] [facility] 2023-08-14 10:00:00 2023-08-14 10:48:09 Urgent Care Gulshan Yee Unknown, Attending [facility] 1.2.840.114 350.1.13.10 4.2.7.2.686 [id number] [facility] 2023-07-25 14:30:00 2023-07-25 14:30:00 Office Visit Nancy Reyes [facility] 1.2.840.114 350.1.13.10 4.2.7.2.686 [id number] [facility] 2023-07-25 14:30:00 2023-07-25 14:23:41 Outpatient R NANCY REYES STRAMTBucky [facility] [id number] [facility] 2023-07-23 00:00:00 2023-07-23 00:00:00 Telephone Bryce Mikhail [facility] 1.2.840.114 350.1.13.10 4.2.7.2.686 [id number] [facility] 2023-07-13 15:00:00 2023-07-13 16:18:54 Outpatient R MIKHAIL WU ELISHA [facility] [id number] [facility] 2023-07-13 15:00:00 2023-07-13 16:18:54 Office Visit Bryce Mikhail [facility] 1.2.840.114 350.1.13.10 4.2.7.2.686 [id number] [facility] 2023-07-04 20:00:00 2023-07-04 22:30:00 Pull Socket Assembler Visit 1, [facility] Sleep Lab Bed Nancy Reyes [facility] 1..114 350.1.13.10 4.2.7.2.686 [id number] [facility] 2023-07-04 20:00:00 2023-07-04 20:00:00 Outpatient R NARDA REYESBucky PEREZJOSEFA JOANAMTBucky [facility] [id number] [facility] 2023-06-29 15:30:00 2023-06-29 17:02:15 Outpatient R MIKHAIL WU [facility] [id number] [facility] 2023-06-29 15:30:00 2023-06-29 17:02:15 Office Visit Mikhail Wu [facility] NAL BUILDING 1..114 350.1.13.10 4.2.7.2.686 [id number] [facility] 2023-06-25 00:00:00 2023-06-25 00:00:00 Orders Only Doctor Unassigned, [place] [facility] 1..114 350.1.13.10 4.2.7.2.686 [id number] [facility] 2023-06-21 00:00:00 2023-06-21 00:00:00 Telephone [facility] 1..114 350.1.13.10 4.2.7.2.686 [id number] [facility] 2023-06-04 10:45:00 2023-06-04 11:00:00 Pull Socket Assembler Visit Lab, [facility] 1.114 350.1.13.10 4.2.7.2.686 [id number] [facility] 2023-06-04 09:30:00 2023-06-04 09:37:19 Outpatient R ANIRUDH CHAPARRO [facility] [id number] [facility] 2023-06-04 09:30:00 2023-06-04 09:37:19 [facility] 1..840.114 350.1.13.10 4.2.7.2.686 [id number] [facility] 2023-05-16 10:00:00 2023-05-16 10:30:00 Office Visit Nancy Reyes [facility] 1..840.114 350.1.13.10 4.2.7.2.686 [id number] [facility] 2023-05-16 10:00:00 2023-05-16 10:28:41 [facility] [id number] [facility] 2023-05-13 00:00:00 2023-05-13 00:00:00 [facility] 1..840.114 350.1.13.10 4.2.7.2.686 [id number] [facility] 2023-04-25 00:00:00 2023-04-25 00:00:00 Telephone Cedric Francis [facility] 1..840.114 350.1.13.10 4.2.7.2.686 [id number] [facility] 2023-04-20 13:16:36 2023-04-20 23:59:00 Outpatient R ARMOND MEDINA [facility] [id number] Univlionel s [facility] 2023-04-20 13:16:36 2023-04-20 23:59:00 Hospital Encounter Armond Medina [facility] 1.2.840.114 350.1.13.10 4.2.7.2.686 [id number] [facility] 2023-04-17 10:00:00 2023-04-17 10:15:00 Pull Socket Assembler Visit Pob, Adc Lab Main Armond Medina [facility] PROF[facility] NAL BUILDING 1.20.114 350.1.13.10 4.2.7.2.686 [id number] [facility] 2023-04-17 09:30:00 2023-04-17 09:45:00 Pull Socket Assembler Visit Karis, Adc Sleep Lab Nancy Reyes [facility] 1.20.114 350.1.13.10 4.2.7.2.686 [id number] [facility] 2023-04-17 09:30:00 2023-04-17 09:30:00 Outpatient R NANCY REYES STRAMTBucky [facility] [id number] [facility] 2023-03-15 10:32:54 2023-03-15 23:59:00 Outpatient R SHANKAR ANIRUDH [facility] [id number] [facility] 2023-03-15 10:20:00 2023-03-15 23:59:00 Hospital Encounter Anirudh Chaparro [facility] 1.2840.114 350.1.13.10 4.2.7.2.686 [id number] [facility] 2023-03-08 00:00:00 2023-03-08 00:00:00 Telephone Cedric Francis [facility] NAL [facility]ILD[facility] 1.2840.114 350.1.13.10 4.2.7.2.686 [id number] [facility] 2023-03-07 15:38:21 2023-03-07 23:59:00 [facility] [id number] 2023-03-07 15:38:21 2023-03-07 23:59:00 Hospital Encounter Tito [facility] BUILDING 1..114 350.1.13.10 4.2.7.2.686 [id number] [facility] 2023-02-26 00:00:00 2023-02-26 00:00:00 Orders Only Doctor Unassigned, [place] [facility] 1.114 350.1.13.10 4.2.7.2.686 [id number] [facility] 2023-02-15 10:00:00 2023-02-15 10:13:20 [facility] [id number] [facility] 2023-02-15 10:00:00 2023-02-15 10:13:20 Office Visit Tito [facility] BUILDING 1.114 350.1.13.10 4.2.7.2.686 [id number] [facility] 2023-01-26 00:00:00 2023-01-26 00:00:00 Telephone [facility] 1..114 350.1.13.10 4.2.7.2.686 [id number] [facility] 2023-01-05 00:00:00 2023-01-05 00:00:00 Telephone [facility] 1.2.114 350.1.13.10 4.2.7.2.686 [id number] [facility] 2023-01-04 17:11:36 2023-01-04 23:59:00 Hospital En[facility] 1.2.840.114 350.1.13.10 4.2.7.2.686 [id number] [facility] 2023-01-04 16:20:00 2023-01-04 17:18:41 Outpatient R ANDRY JUÁREZ [facility] [id number] [facility] 2023-01-04 16:20:00 2023-01-04 17:18:41 Urgent Care Andry Juárez Unknown, Attending [facility] 1.2.840.114 350.1.13.10 4.2.7.2.686 [id number] [facility] 2022-12-30 00:00:00 2022-12-30 00:00:00 [facility]phone [facility] 1.2.840.114 350.1.13.10 4.2.7.2.686 [id number] [facility] 2022-12-26 09:30:00 2022-12-26 09:45:00 Pull Socket Assembler Visit Lab, Mik RobbinsDaysi felicianoCentral [facility] Hospital[facility] 1..840.114 350.1.13.10 4.2.7.2.686 [id number] [facility] 2022-12-26 08:00:00 2022-12-26 09:04:03 Outpatient R ITZELFELIPE ANIRUDH [facility] [id number] [facility] 2022-12-26 08:00:00 2022-12-26 09:04:03 [facility] OFFICE BUILDING 1.84.114 350.1.13.10 4.2.7.2.686 [id number] [facility] 2022-12-06 00:00:00 2022-12-06 00:00:00 Refill TitoCedric [facility] 1..114 350.1.13.10 4.2.7.2.686 [id number] [facility] 2022-11-27 09:30:00 2022-11-27 10:42:27 [facility] [id number] [facility] 2022-11-27 09:30:00 2022-11-27 10:42:27 [facility] 1.84.114 350.1.13.10 4.2.7.2.686 [id number] [facility] 2022-10-30 09:15:00 2022-10-30 09:30:00 Pull Socket Assembler Visit Pob, Adc Lab Main Armond Medina Dionicio [facility] 1.84.114 350.1.13.10 4.2.7.2.686 [id number] [facility] 2022-10-30 09:15:00 2022-10-30 09:15:00 Outpatient R ARMOND MEDINA [facility] [id number] [facility] 2022-10-30 00:00:00 2022-10-30 00:00:00 Orders Only Doctor Unassigned, [place] [facility] 1.84.114 350.1.13.10 4.2.7.2.686 [id number] [facility] 2022-09-29 13:49:00 2022-09-29 17:38:00 Emergency Ja Winter [facility] 1..840.114 350.1.13.10 4.2.7.2.686 [id number] [facility] 2022-09-29 13:00:00 2022-09-29 13:22:43 Nurse Visit Nurse, Mik Kaba [facility] Unknown, Attending Genevieve Vee [facility] 1..840.114 350.1.13.10 4.2.7.2.686 [id number] [facility] 2022-09-29 13:00:00 2022-09-29 13:22:43 Outpatient Elsa VEE [facility] E[facility] [id number] [facility] 2022-09-29 13:00:00 2022-09-29 13:00:00 Outpatient Elsa VEE GENEVIEVE [facility] [id number] [facility] 2022-09-28 00:00:00 2022-09-28 00:00:00 Telephone Cedric Francis [facility] NAL [facility] 1..840.114 350.1.13.10 4.2.7.2.686 [id number] [facility] 2022-08-24 10:47:38 2022-08-24 23:59:00 Outpatient R ARMOND MEDINA [facility] RAD [id number] Univer s [facility] 2022-08-24 10:47:38 2022-08-24 23:59:00 Hospital Encounter Armond Medina Dionicio [facility] 1..840.114 350.1.13.10 4.2.7.2.686 [id number] [facility] 2022-08-23 11:30:00 2022-08-23 11:45:00 Pull Socket Assembler Visit Pob, Adc Lab Main Dilcia Sehikh [facility] NAL BUILD[facility] 1.2.840.114 350.1.13.10 4.2.7.2.686 [id number] [facility] 2022-08-23 11:30:00 2022-08-23 11:30:00 Outpatient DILCIA PETTY [facility] [id number] [facility] 2022-08-23 00:00:00 2022-08-23 00:00:00 Telephone [facility] 1.2.840.114 350.1.13.10 4.2.7.2.686 [id number] [facility] 2022-08-21 10:30:00 2022-08-21 10:45:00 Pull Socket Assembler Visit Pob, Adc Lab Main Armond Medina [facility] 1.2.840.114 350.1.13.10 4.2.7.2.686 [id number] [facility] 2022-08-21 10:30:00 2022-08-21 10:30:00 Outpatient R ADAM ARMOND [facility] [id number] [facility] 2022-08-15 09:30:00 2022-08-15 10:06:38 Outpatient R MARGE CHAVES SHINVLynn [facility] [id number] [facility] 2022-08-15 09:30:00 2022-08-15 10:06:38 Office Visit Marge Chaves [facility] 1.2.840.114 350.1.13.10 4.2.7.2.686 [id number] [facility] 2022-07-24 13:30:00 2022-07-24 13:30:00 Outpatient CEDRIC JO [facility] [id number] [facility] 2022-07-24 00:00:00 2022-07-24 00:00:00 [facility] 1.2840.114 350.1.13.10 4.2.7.2.686 [id number] [facility] 2022-07-24 00:00:00 2022-07-24 00:00:00 Orders Only Doctor Unassigned, [place] [facility] 1.2840.114 350.1.13.10 4.2.7.2.686 [id number] [facility] 2022-07-24 00:00:00 2022-07-24 00:00:00 [facility] 1.2840.114 350.1.13.10 4.2.7.2.686 [id number] [facility] 2022-07-20 00:00:00 2022-07-20 00:00:00 [facility]ill [facility] 1.2840.114 350.1.13.10 4.2.7.2.686 [id number] [facility] 2022-07-07 00:00:00 2022-07-07 00:00:00 Orders Only Doctor Unassigned, [place] [facility] 1.2840.114 350.1.13.10 4.2.7.2.686 [id number] [facility] 2022-06-22 11:30:00 2022-06-22 12:50:10 Outpatient R DAYA PEÑA [facility] [id number] [facility] 2022-06-22 11:30:00 2022-06-22 12:50:10 Office Visit Daya Peña [facility] 1.2840.114 350.1.13.10 4.2.7.2.686 [id number] [facility] 2022-06-22 00:00:00 2022-06-22 00:00:00 [facility] 1.2.840.114 350.1.13.10 4.2.7.2.686 [id number] [facility] 2022-06-15 00:00:00 2022-06-15 00:00:00 Telephone [facility] 1.840.114 350.1.13.10 4.2.7.2.686 [id number] [facility] 2022-06-12 11:57:55 2022-06-12 23:59:00 [facility] [id number] [facility] 2022-06-12 11:57:55 2022-06-12 23:59:00 Hospital Encounter Shankar [facility] 1.840.114 350.1.13.10 4.2.7.2.686 [id number] [facility] 2022-06-12 11:57:27 2022-06-12 23:59:00 Hospital Encounter Shankar [facility] 1.2.840.114 350.1.13.10 4.2.7.2.686 [id number] [facility] 2022-05-31 00:00:00 2022-05-31 00:00:00 Telephone Provider, Mik Kaba [facility] 1.2.840.114 350.1.13.10 4.2.7.2.686 [id number] [facility] 2022-05-31 00:00:00 2022-05-31 00:00:00 Letter (Out) Amador Hernandez [facility] 1.114 350.1.13.10 4.2.7.2.686 [id number] [facility] 2022-05-30 09:15:00 2022-05-30 09:35:50 Outpatient R GENEVIEVE VEE [facility] [id number] [facility] 2022-05-30 09:15:00 2022-05-30 09:30:00 Laboratory Only Only, Ang Db Test Unknown, Attending [facility] 1.84114 350.1.13.10 4.2.7.2.686 [id number] [facility] 2022-05-30 00:00:00 2022-05-30 00:00:00 Telephone Daysi [facility] 1.114 350.1.13.10 4.2.7.2.686 [id number] [facility] 2022-05-26 09:30:00 2022-05-26 10:19:49 Outpatient R DAYSI CHAPARROTHIA [facility] [id number] [facility] 2022-05-26 09:30:00 2022-05-26 10:19:49 Office [facility] 1.84114 350.1.13.10 4.2.7.2.686 [id number] [facility] 2022-05-26 00:00:00 2022-05-26 00:00:00 Orders Only Doctor Unassigned, [place] [facility] 1.114 350.1.13.10 4.2.7.2.686 [id number] [facility] 2022-04-21 00:00:00 2022-04-21 00:00:00 Telephone Jose Raul Chaveslynn [facility] 1.2.840.114 350.1.13.10 4.2.7.2.686 [id number] [facility] 2022-04-20 13:47:57 2022-04-20 23:59:00 Outpatient R [facility] [id number] [facility] 2022-04-20 13:47:57 2022-04-20 23:59:00 Hospital Encounter Tamy Chaveswvlynn [facility] 1.2.840.114 350.1.13.10 4.2.7.2.686 [id number] [facility] 2022-04-14 09:00:00 2022-04-14 09:40:35 Outpatient R CHAVES MARGE CHAVES [facility] [id number] [facility] 2022-04-14 09:00:00 2022-04-14 09:40:35 Office Visit ChavesJose Raullynn [facility] 1.2.840.114 350.1.13.10 4.2.7.2.686 [id number] [facility] 2022-02-16 00:00:00 2022-02-16 00:00:00 Orders Only Doctor Unassigned, [place] [facility] 1.2.840.114 350.1.13.10 4.2.7.2.686 [id number] [facility] 2022-02-15 15:20:00 2022-02-15 15:52:32 [facility]patient R [facility] [id number] [facility] 2022-02-15 15:20:00 2022-02-15 15:52:32 [facility] 1.2.840.114 350.1.13.10 4.2.7.2.686 [id number] [facility] 2022-02-02 14:30:00 2022-02-02 15:34:15 Pull Socket Assembler Visit Therapist, Magdiel Gold Usman Wilfredo [facility] 1.2840.114 350.1.13.10 4.2.7.2.686 [id number] [facility] 2022-02-02 14:30:00 2022-02-02 14:30:00 Outpatient R USMAN GOLD [facility] [id number] [facility] 2022-02-02 00:00:00 2022-02-02 00:00:00 Orders Only Marge Chaves [facility] 1.2840.114 350.1.13.10 4.2.7.2.686 [id number] [facility] 2022-01-30 00:00:00 2022-01-30 00:00:00 Telephone Marge Chaves [facility] 1.2840.114 350.1.13.10 4.2.7.2.686 [id number] [facility] 2022-01-17 14:40:00 2022-01-17 14:40:00 Outpatient R CEDRIC FRANCIS [facility] [id number] [facility] 2022-01-13 11:00:00 2022-01-13 11:28:23 Outpatient R MARGE CHAVES SHINVLynn [facility] [id number] [facility] 2022-01-13 11:00:00 2022-01-13 11:28:23 Office Visit Marge Chaves [facility] 1.2.840.114 350.1.13.10 4.2.7.2.686 [id number] [id number] [facility] 2022-01-12 13:00:00 2022-01-12 14:00:00 Office Visit Lora Edwards BUILDING 1.2.840.114 350.1.13.10 4.2.7.2.686 [id number] [facility] 2022-01-12 13:00:00 2022-01-12 13:00:00 Outpatient LORA RUIZ [facility] [facility] [id number] [facility] 2022-01-12 13:00:00 2022-01-12 13:00:00 Outpatient LORA RUIZ [facility] [id number] [facility] 2022-01-10 00:00:00 2022-01-10 00:00:00 Orders Only Doctor Unassigned, [place] [facility] 1..840.114 350.1.13.10 4.2.7.2.686 [id number] [facility] 2022-01-09 13:00:00 2022-01-09 14:45:30 Imm/Inj Visit Vaccine, Adc Family Medicine Roberto Buckner [facility] 1.2.840.114 350.1.13.10 4.2.7.2.686 [id number] [facility] 2022-01-09 13:00:00 2022-01-09 13:00:00 Outpatient ROBERTO PALMA [facility] [id number] [facility] 2022-01-05 00:00:00 2022-01-05 00:00:00 [facility] 1.2.840.114 350.1.13.10 4.2.7.2.686 [id number] [facility] 2021-12-30 00:00:00 2021-12-30 00:00:00 [facility] 1.2.840.114 350.1.13.10 4.2.7.2.686 [id number] [facility] 2021-12-29 15:30:00 2021-12-29 16:03:37 Outpatient R OSCAR MORFIN [facility] [id number] [facility] 2021-12-29 15:30:00 2021-12-29 16:03:[address] [facility] 1.840.114 350.1.13.10 4.2.7.2.686 [id number] [facility] 2021-12-26 09:30:00 2021-12-26 11:02:10 Outpatient R ANIRUDH CHAPARRO [facility] [id number] [facility] 2021-12-26 09:30:00 2021-12-26 11:02:10 [facility] 1..840.114 350.1.13.10 4.2.7.2.686 [id number] [facility] 2021-12-19 00:00:00 2021-12-19 00:00:00 Telephone [facility] 1..840.114 350.1.13.10 4.2.7.2.686 [id number] [facility] 2021-12-14 13:53:08 2021-12-14 23:59:00 Hospital Encounter Anirudh Chaparro [facility] 1..840.114 350.1.13.10 4.2.7.2.686 [id number] [facility] 2021-12-14 13:52:52 2021-12-14 13:52:52 Outpatient R ANIRUDH CHAPARRO [facility] [id number] [facility] 2021-12-14 13:52:52 2021-12-14 13:52:52 Hospital Encounter Anirudh Chaparro [facility] 1.840.114 350.1.13.10 4.2.7.2.686 [id number] [facility] 2021-12-14 00:00:00 2021-12-14 00:00:00 Outpatient ANIRUDH BRADEN [facility] [id number] [facility] 2021-12-13 00:00:00 2021-12-13 00:00:00 Orders Only Doctor Unassigned, [place] [facility] 1.840.114 350.1.13.10 4.2.7.2.686 [id number] [facility] 2021-12-01 10:15:00 2021-12-01 10:53:32 Outpatient BASSAM JACOBO [facility] [id number] [facility] 2021-12-01 10:15:00 2021-12-01 10:53:32 Office Visit Bassam Sorto [facility] 1.840.114 350.1.13.10 4.2.7.2.686 [id number] [facility] 2021-12-01 10:15:00 2021-12-01 10:15:00 Outpatient BASSAM JACOBO [facility] [id number] [facility] 2021-11-21 11:00:00 2021-11-21 11:15:00 Pull Socket Assembler [facility] 1.840.114 350.1.13.10 4.2.7.2.686 [id number] [facility] 2021-11-21 10:00:00 2021-11-21 10:54:37 Outpatient ANIRUDH BRADEN [facility] [id number] [facility] 2021-11-21 10:00:00 2021-11-21 10:54:37 Office Visit Daysi Chaparrothia [facility] 1.840.114 350.1.13.10 4.2.7.2.686 [id number] [facility] 2021-11-21 10:00:00 2021-11-21 10:00:00 Outpatient R ANIRUDH CHAPARRO [facility] [id number] [facility] 2021-11-14 00:00:00 2021-11-14 00:00:00 Orders Only Doctor Unassigned, [place] [facility] 1.84.114 350.1.13.10 4.2.7.2.686 [id number] [facility] 2021-11-05 00:00:00 2021-11-05 00:00:00 Letter (Out) Alix Cline [facility] 1.84.114 350.1.13.10 4.2.7.2.686 [id number] [facility] 2021-11-04 16:30:00 2021-11-04 16:45:00 Laboratory Only Only, Ang Db Test Gail Hilliard [facility] 1.840.114 350.1.13.10 4.2.7.2.686 [id number] [facility] 2021-11-04 16:30:00 2021-11-04 16:30:00 Outpatient R GAIL HILLIARD [facility] [id number] [facility] 2021-11-04 00:00:00 2021-11-04 00:00:00 Letter (Out) Doctor Unassigned, [place] [facility] 1.84.114 350.1.13.10 4.2.7.2.686 [id number] [facility] 2021-07-14 16:00:00 2021-07-14 16:10:00 Imm/Inj Visit Vaccine, Adc Family Medicine Dudley Roberto [place] [facility] 1.840.114 350.1.13.10 4.2.7.2.686 [id number] [facility] 2021-07-14 16:00:00 2021-07-14 16:00:00 Outpatient R ROBERTO BUCKNER [facility] [id number] [facility] 2021-05-23 10:30:00 2021-05-23 10:45:00 Pull Socket Assembler Visit Lab, Michele Brito [facility] J[facility] 1.840.114 350.1.13.10 4.2.7.2.686 [id number] [facility] 2021-05-23 10:30:00 2021-05-23 10:30:00 Outpatient R KUNAL JUANMARTIN [facility] [id number] [facility] 2021-05-23 10:00:00 2021-05-23 10:24:55 Outpatient R KUNAL JUANMARTIN [facility] [id number] [facility] 2021-05-23 10:00:00 2021-05-23 10:24:55 Office [facility] 1.840.114 350.1.13.10 4.2.7.2.686 [id number] [facility] 2021-05-23 00:00:00 2021-05-23 00:00:00 Orders Only Doctor Unassigned, [place] [facility] 1..840.114 350.1.13.10 4.2.7.2.686 [id number] [facility] 2021-04-16 16:58:00 2021-04-16 21:49:00 Emergency X RADHA BURGESS [facility] ERT [id number] [facility] 2021-04-16 16:58:00 2021-04-16 21:49:00 Emergency Radha Burgess S [facility] 1.2.840.114 350.1.13.10 4.2.7.2.686 [id number] [facility] 2021-04-16 16:00:00 2021-04-16 16:22:38 Outpatient R MARIUSZ GENEVIEVE [facility] [id number] [facility] 2021-04-16 16:00:00 2021-04-16 16:22:38 Urgent Care Arelis Dickey [facility] 1..840.114 350.1.13.10 4.2.7.2.686 [id number] [facility] 2021-04-13 00:00:00 2021-04-13 00:00:00 Telephone Michele Syed [facility] 1.2.840.114 350.1.13.10 4.2.7.2.686 [id number] [facility] 2021-04-11 15:45:00 2021-04-11 15:45:00 Outpatient R ROBERTO BUCKNER [facility] [id number] [facility] 2021-04-11 15:45:00 2021-04-11 15:45:00 Laboratory Only Only, Adc Pob2 Test Roberto Buckner [facility] 1.2.840.114 350.1.13.10 4.2.7.2.686 [id number] [facility] 2021-03-14 00:00:00 2021-03-14 00:00:00 Telephone [facility] 1.2.840.114 350.1.13.10 4.2.7.2.686 [id number] [facility] 2021-03-10 00:00:00 2021-03-10 00:00:00 Case Management Michele Syed [facility] 1.2.840.114 350.1.13.10 4.2.7.2.686 [id number] [facility] 2021-03-08 11:50:00 2021-03-08 23:59:00 Outpatient R MICHELE SYED [facility] [id number] [facility] 2021-03-08 11:50:00 2021-03-08 23:59:00 Hospital Encounter Michele Syed [facility] 1.2.840.114 350.1.13.10 4.2.7.2.686 [id number] [facility] 2021-03-08 11:15:00 2021-03-08 11:59:26 Outpatient R MICHELE SYED [facility] [id number] [facility] 2021-03-08 11:11:33 2021-03-08 11:59:26 Office Visit Mic[facility]ed [facility] 1.2.840.114 350.1.13.10 4.2.7.2.686 [id number] [facility] 2021-01-24 09:40:00 2021-01-24 09:40:00 Outpatient ROBERTO PALMA [facility] [id number] [facility] 2021-01-24 09:38:09 2021-01-24 09:38:16 Imm/Inj Visit Nurse, Magdiel Pob Immunizatio Roberto Rico [facility] 1..840.114 350.1.13.10 4.2.7.2.686 [id number] [facility] 2021-01-04 00:00:00 2021-01-04 00:00:00 Telephone KunalJuan worthingtonchana Katy [facility] Jono?[facility] 1..840.114 350.1.13.10 4.2.7.2.686 [id number] [facility] 2021-01-03 10:19:57 2021-01-03 10:34:57 Pull Socket Assembler Visit Therapist, Usman Ash [facility] 1..840.114 350.1.13.10 4.2.7.2.686 [id number] [facility] 2021-01-03 10:00:00 2021-01-03 10:00:00 Outpatient USMAN TAY [facility] [id number] [facility] 2021-01-03 00:00:00 2021-01-03 00:00:00 Case Management [facility]hele [facility]ed [facility] 1..840.114 350.1.13.10 4.2.7.2.686 [id number] [facility] 2020-12-31 14:00:00 2020-12-31 14:00:00 Outpatient R KUNAL JUANCHANA [facility] [id number] [facility] 2020-12-31 00:00:00 2020-12-31 00:00:00 Orders Only Doctor Unassigned, [place] [facility] 1.84.114 350.1.13.10 4.2.7.2.686 [id number] [facility] 2020-12-08 00:00:00 2020-12-08 00:00:00 Case Management Michele Syed [facility] 1.2.840.114 350.1.13.10 4.2.7.2.686 [id number] [facility] 2020-11-29 09:00:00 2020-11-29 09:00:00 Outpatient R JUAN SYEDTIMMYMARTIN [facility] [id number] [facility] 2020-11-24 00:00:00 2020-11-24 00:00:00 Orders Only Doctor Unassigned, [place] [facility] 1.2840.114 350.1.13.10 4.2.7.2.686 [id number] [facility] 2020-11-22 09:00:00 2020-11-22 09:00:00 Outpatient R JUAN SYEDTIMMYMARTIN [facility] [id number] [facility] 2020-11-02 12:23:40 2020-11-02 23:59:00 Hospital Encounter Unknown, Attending [facility] 1.2840.114 350.1.13.10 4.2.7.2.686 [id number] [facility] 2020-11-02 12:22:53 2020-11-02 12:22:53 Hospital Encounter Unknown, Attending [facility] 1.2840.114 350.1.13.10 4.2.7.2.686 [id number] [facility] 2020-11-02 00:00:00 2020-11-02 00:00:00 Outpatient R [facility] [id number] [facility] 2020-09-15 11:59:28 2020-09-15 23:59:00 Hospital Encounter Radiology [facility] 1.2840.114 350.1.13.10 4.2.7.2.686 [id number] [facility] 2020-09-15 00:00:00 2020-09-15 00:00:00 Outpatient R [facility] [id number] [facility] 2020-09-15 00:00:00 2020-09-15 00:00:00 Orders Only Doctor Unassigned, [place] [facility] 1.2.840.114 350.1.13.10 4.2.7.2.686 [id number] [facility] 2020-06-02 10:20:00 2020-06-02 10:20:00 Outpatient DAYANA BELLE [facility] [id number] [facility] 2020-06-02 10:20:00 2020-06-02 10:18:44 Outpatient DAYANA BELLE [facility] [id number] [facility] 2020-05-05 09:50:00 2020-05-05 09:50:00 Outpatient DAYANA BELLE [facility] [id number] [facility] Results Test Description Test Time Test Comments Results Result Comments Source CT ABDOMEN PELVIS W CONTRAST 22:09:19 ORDERING PHYSICIAN: ARMOND MEDINA CLINICAL HISTORY: Abdominal pain COMPARISON: PET CT 06/12/2022 TECHNIQUE: Helical CT images of the abdomen and pelvis obtained with IVcontrast. CT scan performed according to ALARA (As low as reasonablyachievable) principles. FINDINGS: Heart size is normal. Lower lungs are clear. Liver is fatty infiltrated.Gallbladder , pancreas, spleen, and adrenals are unremarkable. Small hiatalhernia is identified. 1 cm cyst is in the upper pole of the right kidney.There is no hydronephrosis bilaterally. Bladder is unremarkable. Appendixis nonvisualized. Mild mesenteric stranding is identified with prominentmesenteric lymph nodes and upper abdominal lymph nodes, measuring up to 1cm. Emphysema is identified in the lower lungs. There are no acute bonyabnormalities. Multilevel degenerative disc disease is seen in the spine. [facility],US,[id number] 21:26:00* Test Item Value Reference Range Interpretation Comme nts PVR (URINE VOLUME) (test code = 5193) 0 ml 0-100 [facility],POST-VOID RES,US,[id number] 21:26:00* Test Item Value Reference Range Interpretation Comme nts PVR (URINE VOLUME) (test code = 5193) 0 ml 0-100 [facility],POST-VOID RES,US,[id number] 21:26:00* Test Item Value Reference Range Interpretation Comme nts PVR (URINE VOLUME) (test code = 5193) 0 ml 0-100 [facility] w/o Specific [id number] 21:24:00* Test Item Value Reference Range Interpretation Comme nts POCT PH U (test code = 3254) 5 mg/dl 5-8 POCT U LEUK EST (test code = 3263) trace Negative - Negative POCT U NIT (test code = 3262) positive Negative - Negati ve POCT U PROT (test code = 3259) trace Negative - Negat shelby POCT U GLU (test code = 3256) normal Negative - Negati ve POCT U KETONE (test code = 3258) negative Negative - Neg ative POCT U BLD (test code = 3257) 50 Negative - Negati ve [facility] Urinalysis w/o Specific [id number] 21:24:00* Test Item Value Reference Range Interpretation Comme nts POCT PH U (test code = 3254) 5 mg/dl 5-8 POCT U LEUK EST (test code = 3263) trace Negative - Negative POCT U NIT (test code = 3262) positive Negative - Negati ve POCT U PROT (test code = 3259) trace Negative - Negat shelby POCT U GLU (test code = 3256) normal Negative - Negati ve POCT U KETONE (test code = 3258) negative Negative - Neg ative POCT U BLD (test code = 3257) 50 Negative - Negati ve [facility] Urinal[facility] w/o Specific [id number] 21:24:00* Test Item Value Reference Range Interpretation Comme nts POCT PH U (test code = 3254) 5 mg/dl 5-8 POCT U LEUK EST (test code = 3263) trace Negative - Negative POCT U NIT (test code = 3262) positive Negative - Negati ve POCT U PROT (test code = 3259) trace Negative - Negat shelby POCT U GLU (test code = 3256) normal Negative - Negati ve POCT U KETONE (test code = 3258) negative Negative - Neg ative POCT U BLD (test code = 3257) 50 Negative - Negati ve [facility] ABDOMEN [id number] 20:34:50EXAM: US ABDOMEN LIMITED HISTORY: 77 years-old Female with Biliary cirrhosis . TECHNIQUE: Abdomen ultrasound was performed focused on the right upperquadrant. Main portal vein was evaluated with color Doppler imaging.Pipeline Maintenance Supervisor images were obtained for the record. COMPARISON: Ultrasound dated 08/24/2022. FINDINGS: LIVER: Length: 12.7 cm.Parenchyma: Coarse echotexture of the liver with nodular outline is noted.6 mm calcified granuloma seen at the right hepatic lobe.Portal vein: Hepatopetal flow present in the main portal vein with velocityof 42 cm/s. MPV diameter measures 1.2 cm. GALLBLADDER:Contracted gallbladder.Normal gallbladder wall thickness, 3 mm.Negative Sorto's sign.. BILE DUCTS:No intra- or extrahepatic biliary dilatation..Common Duct diameter: 4 mm. PANCREAS: Limited visualization due to shadowing from bowel gas.. SPLEEN:No definite focal lesion. It measures 9.8 cm in craniocaudal dimension. AORTA:Abdominal aorta is normal in caliber where visualized. Diameter of theproximal abdominal aorta is 2.4 cm. IVC:IVC is normal in appearance where visualized. OTHER: None.[facility] with [id number] 15:44:00* Test Item Value Reference Range Interpretation Comme nts WBC (test code = 6690-2) 5.98 See_Comment [Automated [employer]] The system which generated this result transmitted reference range: 4.30 - 11.10 10*3/?L. The reference range was not used to interpret this result as normal/abnormal. RBC (test code = 789-8) 4.24 See_Comment [Automated [employer]] The system which generated this result transmitted reference range: 3.93 - 5.25 10*6/?L. The reference range was not used to interpret this result as normal/abnormal. HGB (test code = 718-7) 12.6 g/dL 11.6-15.0 HCT (test code = 4544-3) 38.5 % 35.7-45.2 MCV (test code = 787-2) 90.8 fL 80.6-95.5 MCH (test code = 785-6) 29.7 pg 25.9-32.8 MCHC (test code = 786-4) 32.7 g/dL 31.6-35.1 RDW-SD (test code = 95680-1) 47.0 fL 39.0-49.9 RDW-CV (test code = 788-0) 14.1 % 12.0-15.5 PLT (test code = 777-3) 155 See_Comment L [Automated messa ge] The system which generated this result transmitted reference range: 166 - 358 10*3/?L. The reference range was not used to interpret this result as normal/abnormal. MPV (test code = 47350-9) 10.5 fL 9.5-12.9 NRBC/100 WBC (test code = 1319948819) 0.0 See_Comment [Automated me ssage] The system which generated this result transmitted reference range: 0.0 - 10.0 /100 WBCs. The reference range was not used to interpret this result as normal/abnormal. NRBC x10^3 (test code = 7145807551) See_Comment [Automated messa ge] The system which generated this result transmitted reference range: 10*3/?L. The reference range was not used to interpret this result as normal/abnormal. GRAN MAT (NEUT) % (test code = 770-8) 50.6 % IMM GRAN % (test code = 5527597904) 0.50 % LYMPH % (test code = 736-9) 34.1 % MONO % (test code = 5905-5) 11.2 % EOS % (test code = 713-8) 2.3 % BASO % (test code = 706-2) 1.3 % GRAN MAT x10^3(ANC) (test code = 3760772466) 3.02 10*3/uL 1.88-7.09 IMM GRAN x10^3 (test code = 3587900113) 0.03 10*3/uL 0.00-0.06 LYMPH x10^3 (test code = 731-0) 2.04 10*3/uL 1.32-3.29 MONO x10^3 (test code = 742-7) 0.67 10*3/uL 0.33-0.92 EOS x10^3 (test code = 711-2) 0.14 10*3/uL 0.03-0.39 BASO x10^3 (test code = 704-7) 0.08 10*3/uL 0.01-0.07 H Lab Interpretation (test code = 71187-6) Abnormal [facility]an[facility] (TTE)2023-03-08 03:27:49* Test Item Value Reference Range Interpretation Comme nts Height (test code = 7702880797) 68 in Weight (test code = 4200468166) 228 lbs Systolic BP (test code = 3104065674) 163 mmHg Diastolic BP (test code = 5136457046) 72 mmHg Heart Rate (test code = 0925495493) 90 bpm BSA (test code = 1908956018) 2.16 m2 LVIDD (test code = 7128991666) 4.80 cm Left Ventricular End Diastolic Volume by Teichholz Method (test code = 1723064) 106.6 mL IVS (test code = 9913863951) 1.36 cm Interventricular Septum Diastolic Thickness by 2D (test code = 9844883) 1.36 cm LVPWD (test code = 6254007143) 1.27 cm PW (test code = 1101758734) 1.27 cm 0.6-1.1 EF(Teich) (test code = 3485170098) 59.80 % LVIDS (test code = 1518197099) 3.30 cm Left Ventricular End Systolic Volume by Teichholz Method (test code = 2450610) 42.9 mL FS (test code = 4858313184) 32 % EF - 2D (test code = 95094434) 59.80 % LVOT diameter (test code = 5988816598) 1.98 cm LVOT area (test code = 8253284017) 3.10 cm2 TR Peak Bunny (test code = 0591111704) 320.8 cm/s Triscuspid Valve Regurgitation Peak Gradient (test code = 0925125568) 41.2 mmHg ACS (test code = 5319933644) 1.83 cm Ao root diam (test code = 3271913387) 3.10 cm Aortic root (test code = 6515351676) 3.1 cm Ao root annulus (test code = 4791145637) 3.1 cm LA size (test code = 8115056544) 5.2 cm Pulmonic Regurgitant End Max Velocity (test code = 2460353454) 125.5 cm/s E wave decelartion time (test code = 9788098468) 0.25 s MV Peak E Bunny (test code = 1973683364) 89.6 cm/s MV Peak A Bunny (test code = 7944857344) 88.0 cm/s E/A ratio (test code = 5366542798) 1.02 ratio MV Prop V (test code = 9978651074) 30.40 cm/s Tapse (test code = 7993461526) 2.8 cm LVOT stroke volume (test code = 1295882106) 88.50 cm3 LVOT peak bunny (test code = 6409668814) 109.0 cm/s LVOT mn grad (test code = 0665512802) 2.2 mmHg AV LVOT peak gradient (test code = 6873915150) 4.8 mmHg LVOT peak VTI (test code = 8278546227) 28.7 cm LV V1 mean (test code = 7883750570) 67.40 cm/s MR max PG (test code = 8899947883) 45.60 mm[Hg] MR max bunny (test code = 1419369149) 337.60 cm/s Mr max bunny (test code = 8976424638) 337.6 m/s AV regurgitation pressure 1/2 time (test code = 2517312106) 490.9 ms AI dec slope (test code = 4194008055) 241.80 cm/s2 AI max bunny (test code = 8700782891) 405.30 cm/s AI max PG (test code = 8955413262) 65.70 mm[Hg] Aortic valve mean velocity (test code = 4377933275) 120.8 cm/s Ao peak bunny (test code = 2141115053) 200.4 cm/s Ao VTI (test code = 2760411345) 47.2 cm AV area by cont VTI (test code = 2181532782) 1.9 cm2 AV area peak bunny (test code = 4184549939) 1.7 cm2 Ao max PG (test code = 5380335830) 16.10 mm[Hg] AV peak gradient (test code = 7900432828) 16.1 mmHg AV valve area (test code = 6537941314) 1.88 cm2 AV mean gradient (test code = 3739616009) 7.1 mmHg LAV(MOD-sp4) (test code = 1634869289) 86.50 mL LA Volume Index (BP) (test code = 0163237491) 42.7 mL/m2 LA volume (BP) (test code = 7805916946) 92.4 mL LAV(MOD-sp2) (test code = 1732707250) 93.80 mL Radiology Study observation (narrative) (test code = 08949-4) FEDERICO (test code = FEDERICO) ?Left?Ventricle: Left ventricle size is normal. Mildly increased wall thickness. Normal wall motion. Normal systolic function with a visually estimated EF of 55 - 60%. There is impaired relaxation. ?Right?Ventricle: Right ventricle size is normal. Normal systolic function. ?Tricuspid?Valve: Mild transvalvular regurgitation. Right ventricular systolic pressure is 40-45 mmHg. ?RA pressure is 0-5 mmHg. ?Aortic?Valve: Mild transvalvular regurgitation. ?Aorta: Mildly enlarged ascending aorta 3.5cm. Left VentricleLeft ventricle size is normal. Mildly increased wall thickness. Normal wall motion. Normal systolic function with a visually estimated EF of 55 - 60%. There is impaired relaxation.Right VentricleRight ventricle size is normal. Normal systolic function.Left AtriumLeft atrium size is normal.Right AtriumRight atrium size is normal.IVC/SVCRA pressure is 0-5 mmHg.Mitral ValveMitral valve structure is grossly normal. Trace transvalvular regurgitation.Tricusp id ValveTricuspid valve structure is grossly normal. Mild transvalvular regurgitation. Right ventricular systolic pressure is 40-45 mmHg. RA pressure is 0-5 mmHg.Aortic ValveTricuspid. Mildly calcified cusps. Mild transvalvular regurgitation.Pulmoni c ValveNot well visualized. Trace transvalvular regurgitation.Ascendi ng AortaMildly enlarged ascending aorta 3.5cm.PericardiumNo pericardial effusion.Study DetailsStudy quality was adequate. A complete echocardiogram was performed using 2D, color flow Doppler and spectral Doppler. The apical, parasternal, subcostal and suprasternal views were obtained. [facility] MOLECULAR [id number] 22:12:19* Test Item Value Reference Range Interpretation Comme nts POCT Molecular FluA (test co de = 16783-0) Negative Negative POCT Molecular FluB (test co de = 92534-1) Negative Negative Lab Interpretation (test cod e = 13882-4) Normal [facility] MOLECULAR [id number] 22:05:27* Test Item Value Reference Range Interpretation Comme nts POCT Molecular Strep (test c ode = 55187-6) Negative Negative Lab Interpretation (test cod e = 88236-5) Normal [facility] SARS-COV-2 ANTIGEN (BINAX NOW)2023-01-04 22:00:00* Test Item Value Reference Range Interpretation Comme nts POCT SARS-COV-2 ANTIGEN (selina t code = 39596-9) Not Detected Not Detected On board controls acceptable with C Line (test code = 3574) Yes [facility] WITH [id number] 14:26:20* Test Item Value Reference Range Interpretation Comme nts WBC (test code = 6690-2) 6.23 See_Comment [Automated [employer]] The system which generated this result transmitted reference range: 4.30 - 11.10 10*3/?L. The reference range was not used to interpret this result as normal/abnormal. RBC (test code = 789-8) 4.31 See_Comment [Automated [employer]] The system which generated this result transmitted reference range: 3.93 - 5.25 10*6/?L. The reference range was not used to interpret this result as normal/abnormal. HGB (test code = 718-7) 12.8 g/dL 11.6-15.0 HCT (test code = 4544-3) 38.6 % 35.7-45.2 MCV (test code = 787-2) 89.6 fL 80.6-95.5 MCH (test code = 785-6) 29.7 pg 25.9-32.8 MCHC (test code = 786-4) 33.2 g/dL 31.6-35.1 RDW-SD (test code = 41938-6) 45.5 fL 39.0-49.9 RDW-CV (test code = 788-0) 13.9 % 12.0-15.5 PLT (test code = 777-3) 149 See_Comment L [Automated messa ge] The system which generated this result transmitted reference range: 166 - 358 10*3/?L. The reference range was not used to interpret this result as normal/abnormal. MPV (test code = 03395-9) 9.7 fL 9.5-12.9 NRBC/100 WBC (test code = 9231892175) 0.0 See_Comment [Automated Hers ssage] The system which generated this result transmitted reference range: 0.0 - 10.0 /100 WBCs. The reference range was not used to interpret this result as normal/abnormal. NRBC x10^3 (test code = 3076108970) See_Comment [Automated messa ge] The system which generated this result transmitted reference range: 10*3/?L. The reference range was not used to interpret this result as normal/abnormal. GRAN MAT (NEUT) % (test code = 770-8) 46.7 % IMM GRAN % (test code = 5318914680) 0.30 % LYMPH % (test code = 736-9) 37.9 % MONO % (test code = 5905-5) 11.1 % EOS % (test code = 713-8) 2.2 % BASO % (test code = 706-2) 1.8 % GRAN MAT x10^3(ANC) (test code = 6147984067) 2.91 10*3/uL 1.88-7.09 IMM GRAN x10^3 (test code = 7205600630) 0.00-0.06 LYMPH x10^3 (test code = 731-0) 2.36 10*3/uL 1.32-3.29 MONO x10^3 (test code = 742-7) 0.69 10*3/uL 0.33-0.92 EOS x10^3 (test code = 711-2) 0.14 10*3/uL 0.03-0.39 BASO x10^3 (test code = 704-7) 0.11 10*3/uL 0.01-0.07 H Lab Interpretation (test code = 40104-6) Abnormal [facility] WITH [id number] 14:26:20* Test Item Value Reference Range Interpretation Comme nts WBC (test code = 6690-2) 6.23 See_Comment [Automated [employer]] The system which generated this result transmitted reference range: 4.30 - 11.10 10*3/?L. The reference range was not used to interpret this result as normal/abnormal. RBC (test code = 789-8) 4.31 See_Comment [Automated [employer]] The system which generated this result transmitted reference range: 3.93 - 5.25 10*6/?L. The reference range was not used to interpret this result as normal/abnormal. HGB (test code = 718-7) 12.8 g/dL 11.6-15.0 HCT (test code = 4544-3) 38.6 % 35.7-45.2 MCV (test code = 787-2) 89.6 fL 80.6-95.5 MCH (test code = 785-6) 29.7 pg 25.9-32.8 MCHC (test code = 786-4) 33.2 g/dL 31.6-35.1 RDW-SD (test code = 75738-7) 45.5 fL 39.0-49.9 RDW-CV (test code = 788-0) 13.9 % 12.0-15.5 PLT (test code = 777-3) 149 See_Comment L [Automated messa ge] The system which generated this result transmitted reference range: 166 - 358 10*3/?L. The reference range was not used to interpret this result as normal/abnormal. MPV (test code = 84333-1) 9.7 fL 9.5-12.9 NRBC/100 WBC (test code = 3770194767) 0.0 See_Comment [Automated Hers ssage] The system which generated this result transmitted reference range: 0.0 - 10.0 /100 WBCs. The reference range was not used to interpret this result as normal/abnormal. NRBC x10^3 (test code = 6764316068) See_Comment [Automated messa ge] The system which generated this result transmitted reference range: 10*3/?L. The reference range was not used to interpret this result as normal/abnormal. GRAN MAT (NEUT) % (test code = 770-8) 46.7 % IMM GRAN % (test code = 4934169473) 0.30 % LYMPH % (test code = 736-9) 37.9 % MONO % (test code = 5905-5) 11.1 % EOS % (test code = 713-8) 2.2 % BASO % (test code = 706-2) 1.8 % GRAN MAT x10^3(ANC) (test code = 0800276119) 2.91 10*3/uL 1.88-7.09 IMM GRAN x10^3 (test code = 3138255032) 0.00-0.06 LYMPH x10^3 (test code = 731-0) 2.36 10*3/uL 1.32-3.29 MONO x10^3 (test code = 742-7) 0.69 10*3/uL 0.33-0.92 EOS x10^3 (test code = 711-2) 0.14 10*3/uL 0.03-0.39 BASO x10^3 (test code = 704-7) 0.11 10*3/uL 0.01-0.07 H Lab Interpretation (test code = 13109-0) [facility] 19:03:26* Test Item Value Reference Range Interpretation Comme nts POCT GLU (test code = 3862789750) 85 mg/dL 70-110 Lab Interpretation (test cod e = 62213-5) [facility]2022-02-02 19:09:05* Test Item Value Reference Range Interpretation Comme nts FVC Actual (test code = 3994) 2.40 L FEV1 Actual (test code = 3993) 1.88 L FEV1/FVC Actual (test code = 3995) 79 % [facility] [place] PELVIS [id number] 08:43:00Patient Name: YUNIELCLARA MORENA Unit No: [id number] EXAMS: CPT CODE: [id number] US PELVIS COMPLETE 75513 Pelvic US performed June 06, 2018. COMPARISON: None. CLINICAL HISTORY: Right lower quadrant pain. Status post hysterectomy 30 years ago. DISCUSSION: Real-time kelley scale sonography performed of the pelvis via the transabdominal and transvaginal approach. The uterus is surgically absent. The ovaries are surgically absent. No focal fluid collection or mass is seen. IMPRESSION: 1. Status post hysterectomy and bilateral oophorectomy at 0843 Reported and signed by: Leanne Shetty MD CC: Eliot Gray III, MD; Ld Jolly MD Technologist: Nalini Hensley RDMS Probe: Trnscrbd D/ (0843) t.WILLIANR.NMG Orig Print D/T: S: 06/06/2018 (0846) [facility] NAME: CLARA BRICE MORENA Radiology Department PHYS: Eliot Shah III, MD [address] : 1945 AGE: 73 SEX: F [place] [address] LOC: Jerica.RAD PHONE #: [phone] EXAM DATE: 06/06/2018 STATUS: REG CLI FAX #: [phone] RAD NO: [id number] Page 1 Signed Report Patient Name: CLARA BRICE Unit No: [id number] EXAMS: CPT CODE: [id number] US PELVIS COMPLETE 40704 (Continued) [facility] NAME:CLARA BRICE MORENA Radiology Department PHYS: Eliot Shah III, MD [address] : 1945 AGE: 73 SEX: F [place] [address] LOC: Jerica.RAD PHONE #: [phone] EXAM DATE: 06/06/2018 STATUS: REG CLI FAX #: [phone] RAD NO: [id number] Page 2 Signed Report- US TRANSVAGINAL [id number] 08:43:00Patient Name: CLARA BRICE Unit No: [id number] EXAMS: CPT CODE: [id number] US TRANSVAGINAL W/PELVIS 09786 Pelvic US performed June 06, 2018. COMPARISON: None. CLINICAL HISTORY: Right lower quadrant pain. Status post hysterectomy 30 years ago. DISCUSSION: Real-time kelley scale sonography performed of the pelvis via the transabdominal and transvaginal approach. The uterus is surgically absent. The ovaries are surgically absent. No focal fluid collection or mass is seen. IMPRESSION: 1. Status post hysterectomy and bilateral oophorectomy at 0843 Reported and signed by: Leanne Shetty MD CC: Eliot Gray III, MD; Ld Jolly MD Technologist: Nalini Hensley RDMS Probe: [id number] Trnscrbd D/ (0843) t.NMG OrigPrint D/T: S: 06/06/2018 (0846) [facility] NAME: CLARA BRICE RadiologyDepartment PHYS: Eliot Shah III, MD [address] : 1945 AGE: 73 SEX: F [place] [address] LOC: MehdiRAD PHONE #: [phone] EXAM DATE: 06/06/2018 STATUS: REG CLI FAX #: [phone] RAD NO: [id number] Page 1 Signed Report Patient Name: CLARA BRICE UnitNo: [id number] EXAMS: CPT CODE: [id number] US TRANSVAGINAL W/PELVIS 70122 (Continued) [facility] NAME: CRISTOPHER BRICEOTHY MORENA Radiology Department PHYS: Eliot Shah III, MD [address] : 1945 AGE: 73 SEX: F [place] [address] LOC: MehdiRAD PHONE #: [phone] EXAM DATE: 06/06/2018 STATUS: REG CLI FAX #: [phone] RAD NO: [id number] Page 2 Signed Report- US ABDOMEN COMPLETE 2018-06-06 08:42:00Patient Name: CLARA BRICE Unit No: [id number] EXAMS: CPT CODE: [id number] US ABDOMEN COMPLETE 85981 US of the abdomen performed June 06, 2018 . CLINICAL HISTORY: Biliary cirrhosis. Rightlower quadrant pain . COMPARISON: None available . DISCUSSION: Real time kelley scale sonography was performed of the abdomen. The liver is normal in size, measuring 13.4 cm. Coarse echogenicity to theliver without focal mass seen. There is no evidence of intra or extra hepatic ductal dilatation. Common bile duct measures 4 mm. No sonographic evidence of cholelithiasis. There is no gallbladder wall thickening or pericholecystic fluid. Gallbladder wall measures 2 mm. The spleen is normal in size and echogenicity, measuring 9.8 cm . The body and proximal tail of the pancreas are sonographically normal in appearance. The remainder is poorly seen due to overlying bowel gas. The visualized portion of the IVC and aorta are within normal limits. The kidneys are sonographically normal in appearance. The right measures 11.1 cm in length and the left measures 10.9 cm. There is no sonographic evidence of hydronephrosis, mass or calculi. IMPRESSION: Slightly coarse echotexture of the liver, otherwise unremarkable ultrasound of the abdomen. at 0842 Reported and signed by: Leanne Shetty MD CC: Eliot Gray III, MD; Ld Jolly MD Technologist: Nalini Hensley RDMS Probe: Trnscrbd D/ (0842) t.AAMIR.NMG Orig Print D/T: S: 06/06/2018 (0845) [facility] NAME: CLARA BRICE Radiology Department PHYS: Eliot Shah III, MD [address] : 1945 AGE: 73 SEX: F [place], [place] [address] ACCT NO: [id number] LOC: MehdiRAD PHONE #: [phone] EXAM DATE: 06/06/2018 STATUS: REG CLI FAX #: [phone] RAD NO: [id number] Page 1 Signed Report Patient Name: CLARA BRICE Unit No: [id number] EXAMS: CPT CODE: [id number] US ABDOMEN COMPLETE 29718 (Continued) [facility] NAME: CLARA BRICE Radiology Department PHYS: Eliot Shah III, MD [address] : 1945 AGE: 73 SEX: F [place], [place] [address] LOC: CHANTAL PHONE #: [phone] EXAM DATE: 06/06/2018 STATUS: REG CLI FAX #: [phone] RAD NO: [id number] Page 2 Signed Report Notes Date/Time Note Provider Source 2023-10-29 10:15:00 Images from the original note were not included. Venipuncture collection performed by clean technique on the left anticubitus. Total of 1 attempts were made. Slight pressure and a bandage/dressing were applied to the site(s). The patient experienced no complications. The following specimens were processed according to instructions and sent to [facility] laboratories per lab order on 10/29/2023 : LT BLUE 1 SST 2 RED LAV 1 PPT DK GREEN (LiHep) DK GREEN (SodH) KELLEY DK BLUE (K2) DK BLUE (S) ACD Blood Culture NIPT/NTD [facility] 2023-08-28 09:14:35 Patient stated that UC already taken care of this Closing encounter Nika Harrison [facility] 2023-08-27 11:15:30 Please assist with scheduling. Thank you DIAT Rebekah Trejo LVN [facility] 2023-08-25 07:24:11 Please f/u in clinic T [facility] 2023-08-24 13:50:28 Please review and advise. - visit 08/14/23 Patient reports cont dry cough, chest congestion, and chest soreness r/t coughing. She has cont to take Mucinex and uses the albuterol via nebulizer as needed. Please review and advise. [facility] 2023-08-24 13:29:41 Clara Brice is a 78 year old female Patient is calling to request chest xray to see if Pneumonia or fluid is present. Please contact when available Sandrine Clayton [facility] 2023-07-23 16:06:01 Spoke with pharmacy. Pharmacy states patient did not greens picker medication. Cost will be 100$. Attempted to contact patient. No answer, VM left. Damon Titus RN 07/23/2023 4:06 PM T [facility] 2023-07-23 16:05:27 Images from the original note were not included. Mikhail Wu MD Collins, Kinsley, RN; P Adc Pob Womens Nurse Recommend Myrbetriq 50 mg if unable to get Gemtessa due to costs. Please send prescription if needed. Pt advised to check bps daily while taking Myrbetriq Thank you! T [facility] 2023-07-13 15:00:00 Addended by: MIKHAIL WU MD on: 07/13/2023 06:08 PM Modules accepted: Orders T [facility] 2023-06-21 10:32:26 Forms from specialty pharmacy received. Placed in MDs inbox folder for review and signature. [facility] 2023-06-04 10:45:00 Images from the original note were not included. Venipuncture collection performed by clean technique on the left anticubitus. Total of 1 attempts were made. Slight pressure and a bandage/dressing were applied to the site(s). The patient experienced no complications. The following specimens were processed according to instructions and sent to [facility] laboratories per lab order on 06/04/2023 : LT BLUE SST 1 RED LAV 2 PPT DK GREEN (LiHep) DK GREEN (SodH) KELLEY DK BLUE (K2) DK BLUE (S) ACD Blood Culture NIPT/NTD [employer] [facility] 2023-05-15 11:22:21 Images from the original note were not included. Notes: Per : Hypertension-her blood pressure has been well controlled based on office readings. Continue metoprolol and amlodipine. Last Refilled: amLODIPine 5 mg tablet Sig: Take 1 tablet by mouth in the morning. Disp: 90 tablet Refills: 1 Start: 05/13/2023 Class: eRX For: Essential hypertension Last ordered: 5 months ago (11/27/2022) by SUSU Solorio Calcium Channel Blockers Pthuny6205/13/2023 09:37 AM Protocol Details Valid encounter within last 12 months metoprolol succinate XL 100 mg 24 hr tablet Sig: Take 1 tablet by mouth in the morning. Disp: 90 tablet Refills: 1 Start: 05/13/2023 Class: eRX For: Essential hypertension Last ordered: 5 months ago (11/27/2022) by SUSU Solorio Cardiovascular: Beta Blockers Mpamif0205/13/2023 09:37 AM Protocol Details Valid encounter within last 12 months Heart rate within normal limits and completed in the last 12 months To be filled at: [facility] [address] Recent Visits Date Type Provider Dept 12/26/22 Office Visit Anene, Anirudh, COMMUNICATIONS BILLING ANALYST [facility] 11/27/22 Office Visit Anirudh Chaparro COMMUNICATIONS BILLING ANALYST [facility] 06/22/22 Office Visit Daya Peña PA [facility] 05/26/22 Office Visit Anirudh Chaparro COMMUNICATIONS BILLING ANALYST [facility] 12/26/21 Office Visit Anirudh Chaparro COMMUNICATIONS BILLING ANALYST [facility] 11/21/21 Office Visit Anirudh Chaparro COMMUNICATIONS BILLING ANALYST [facility] Showing recent visits within past 540 days with a meds authorizing provider and meeting all other requirements Future Appointments Date Type Provider Dept 06/04/23 Appointment Anirudh Chaparro FNP [facility] Showing future appointments within next 150 days with a meds authorizing provider and meeting all other requirements [facility] 2023-04-25 16:37:32 Patient notified of results. She verbalized understanding of results/recommendations via teach back. No further questions or concerns at this time. She is scheduled with Dr. Reyes 05/16/23 [facility] Viji Bishop RN [facility] 2023-04-17 10:00:00 Images from the original note were not included. Venipuncture collection performed by clean technique on the right anticubitus. Total of 1 attempts were made. Slight pressure and a bandage/dressing were applied to the site(s). The patient experienced no complications. The following specimens were processed according to instructions and sent to [facility] laboratories per lab order on 04/17/2023: LT BLUE 1 SST 2 RED LAV 1 PPT DK GREEN (LiHep) DK GREEN (SodH) KELLEY DK BLUE (K2) DK BLUE (S) ACD Blood Culture NIPT/NTD [facility] 2023-02-15 10:00:00 Addended by: CEDRIC FRANCIS MD on: 04/24/2023 04:17 PM Modules accepted: Orders [facility] 2023-01-05 09:01:05 Called patient in regards to XR patient verified by name and informed patient of results. Felix Dietz MA [facility] 2022-12-26 09:30:00 Formatting of this n ote is different from the original. Images from the original note were not included. Venipuncture collection performed by clean technique on the left anticubitus. Total of 1 attempts were made. Slight pressure and a bandage/dressing were applied to the site(s). The patient experienced no complications. The following specimens were processed according to instructions and sent to [facility] laboratories per lab order on 12/26/2022 : LT BLUE SST 2 RED LAV 2 PPT DK GREEN (LiHep) DK GREEN (SodH) KELLEY DK BLUE (K2) DK BLUE (S) ACD Blood Culture NIPT/NTD [facility] 2022-12-06 08:16:05 Formatting of this n ote is different from the original. Images from the original note were not included. Refill approved per cardiology protocol: Cardiovascular: ?Loop Diuretics Passed 12/06/2022 08:13 AM Protocol Details Valid encounter within last 12 months K in normal range and within 180 days Cr in normal range and within 180 days Wandy Alonso MA [facility] 2022-10-30 09:15:00 Formatting of this n ote is different from the original. Images from the original note were not included. Venipuncture collection performed by clean technique on the right anticubitus. Total of 1 attempts were made. Slight pressure and a bandage/dressing were applied to the site(s). The patient experienced no complications. The following specimens were processed according to instructions and sent to [facility] laboratories per lab order on 10/30/2022: LT BLUE SST RED LAV 1 PPT DK GREEN (LiHep) DK GREEN (SodH) KELLEY DK BLUE (K2) DK BLUE (S) ACD Blood Culture NIPT/NTD [facility]
[2023-12-14] MEDS ORDERED: ONDANSETRON 4 MG/2 ML VIAL ONE (12:10)
[2023-12-14] MEDS ORDERED: FENTANYL CITR 100 MCG/2 ML ONE (12:10)
[2023-12-14] MEDS ORDERED: FAMOTIDINE 20 MG/2 ML VIAL IV ONE (12:10)
[2023-12-14] MEDS ORDERED: NA CHLORIDE 0.9% 1,000 ML ONE (12:11)
[2023-12-14 12:34] LABS: Absolute Eosinophils 0.1 K/uL (0-0.5); Absolute Lymphocytes (CBC) 1.8 K/uL (0.7-4.9); Absolute Monocytes 0.8 K/uL (0.1-1.3); Absolute Neutrophil 3.1 K/uL (1.8-8.0); Basophils % 0.6 % (0-1.3); Eosinophils % 1.6 % (0-4.4); Lymphocytes % 30.9 % (15.3-44.8); MCH 29.4 pg (27.0-35.0); MCHC 32.5 g/dL (32.0-36.0); MCV 90.5 fL (80-100); Monocytes % 13.6 % (3.3-12.3); Neutrophils % 53.3 % (41.7-73.7); Nucleated Red Blood Cells % 0.1 % (0-0); Platelets 156 thou/uL (152-406); RBC Red Blood Cell Count 4.42 M/uL (3.86-4.86); Red Cell Distribution Width 13.6 % (12.1-15.2)
[2023-12-14 12:46] LABS: Specific Gravity 1.017 (1.005-1.030); Sqamous Epithelial <5 /HPF (None Seen); Urine Bacteria None Seen /HPF (<20); Urine Bilirubin NEGATIVE (Negative); Urine Blood Negative (Negative); Urine Clarity Turbid (Clear); Urine Color Light-Yellow (Yellow); Urine Culture Reflex Order NOT NEEDED; Urine Glucose NEGATIVE (Negative); Urine Ketones NEGATIVE (Negative); Urine Microscopic Reflex YN ORDER UMIC; Urine Nitrite NEGATIVE (Negative); Urine Protein NEGATIVE (Negative); Urine RBC None Seen /HPF (None Seen); Urine Urobilinogen Normal (Normal); Urine WBC <5 /HPF (<5); Urine Yeast (Budding) Trace /HPF (None Seen); Urine pH 6.5 (5.0-7.0)
[2023-12-14 12:50] LABS: Albumin 3.2 g/dL (3.4-5.0); Albumin/Globulin Ratio 0.8 (1.1-1.8); Bilirubin Total 0.8 mg/dL (0.2-1.0); Protein, Total 7.2 g/dL (6.4-8.2)
--- NOTE | 2023-12-14 14:59 | RAD REPORT ---
EXAM DESCRIPTION: CT - Abdomen Pelvis W Contrast - 12/14/2023 1:47 pm CLINICAL HISTORY: ABD PAIN COMPARISON: Abdomen Pelvis W Contrast dated 11/04/2020; Abdomen Exam Complete dated 01/16/2022; Abd omen Exam Complete dated 07/05/2021 TECHNIQUE: Thin cut axial CT imaging of the abdomen and pelvis was performed following intravenous a dministration of iodinated contrast. Multiplanar reformats were generated and reviewed. All CT scans are performed using dose optimization technique as appropriate and may include automated exposure control or mA/KV adjustment according to patient size. FINDINGS: No suspicious findings in the lung bases. The liver, spleen, adrenal glands, and pancreas show no suspicious findings apart from stable promine nce of the main pancreatic duct measuring up to 5 mm in caliber. Gallbladder and biliary tree are als o without suspicious finding. Symmetric renal function is seen with no hydronephrosis or suspicious renal mass. No dilated bowel loops or bowel wall thickening. No free air, free fluid or fluid collections. Stable mild fat stranding in the central mesentery, nonspecific. No hernia, mass or bulky lymphadenopathy. Status post hysterectomy. The urinary bladder is without significant finding. No suspicious bony findings. Partial lumbarization at S1, with enlargement of the right transverse pr ocess. IMPRESSION: No acute intra-abdominal process. Stable incidental findings as above, including mild prominence of the main pancreatic duct, and nonsp ecific mild fat stranding in the central mesentery.
--- NOTE | 2023-12-14 15:51 | ER ---
Nurse's Notes [facility] Name: Clara Bucio Age: 78 yrs Sex: Female : 1945 Arrival Date: 12/14/2023 Time: 11:34 Bed 13 Private MD: Diagnosis: Abdominal tenderness;Unspecified cirrhosis of liver;Obesity, unspecified;Other cholelithiasis without obstruction-Sludge Presentation: 12/13 11:54 Chief complaint: Patient states: Right sided abdominal pain X 2-3 days. Coronavirus ld1 screen: At this time, the client does not indicate any symptoms associated with coronavirus-19. Ebola Screen: No symptoms or risks identified at this time. Initial Sepsis Screen: Does the patient meet any 2 criteria? No. Patient's initial sepsis screen is negative. Does the patient have a suspected source of infection? No. Patient's initial sepsis screen is negative. Risk Assessment: Do you want to hurt yourself or someone else? Patient reports no desire to harm self or others. Onset of symptoms was December 14, 2023. 11:54 Method Of Arrival: Ambulatory ld1 11:54 Acuity: DORINA 3 ld1 Triage Assessment: 12:00 General: Appears in no apparent distress. uncomfortable, Behavior is calm, cooperative. kj2 Pain: Complains of pain in right side of abdomen Pain does not radiate. 16:15 GI: Abdomen is non-distended. kj2 Historical: - Allergies: 12:00 Codeine; cm10 12:00 Sulfa (Sulfonamide Antibiotics); cm10 - PMHx: 12:00 Cirrhosis; Hypertension; cm10 - Immunization history:: Adult Immunizations up to date. - Infectious Disease History:: Denies. - Family history:: not pertinent. - Social history:: Smoking status: unknown. Screenin:00 [facility] ED Fall Risk Assessment (Adult) History of falling in the last 3 months, kj2 including since admission No falls in past 3 months (0 pts) Confusion or Disorientation No (0 pts) Intoxicated or Sedated No (0 pts) Impaired Gait No (0 pts) Mobility Assist Device Used No (0 pt) Altered Elimination No (0 pt) Score/Fall Risk Level 0 - 2 = Low Risk Maintained a safe environment, Educated pt \T\ family on fall prevention, incl call for assistance when getting out of bed, Hourly rounding (assess needs \T\ fall precautionary measures) done. Abuse screen: Denies threats or abuse. Denies injuries from another. Nutritional screening: No deficits noted. Tuberculosis screening: No symptoms or risk factors identified. Assessment: 15:03 Reassessment: Patient appears in no apparent distress at this time. Patient and/or kj2 family updated on plan of care and expected duration. Pain level reassessed. Patient is alert, oriented x 3, equal unlabored respirations, skin warm/dry/pink. 16:16 GI: Bowel sounds present X 4 quads. Abd is non tender X 4 quads. kj2 Vital Signs: 11:54 Weight 102.06 kg; Height 5 ft. 8 in. ; Pain 8/10; ld1 11:59 BP 160 / 70; Pulse 58; Resp 16; Pulse Ox 100% ; cm10 15:02 BP 139 / 79; Pulse 60; Resp 18; Temp 98; Pulse Ox 100% on R/A; kj2 11:54 Body Mass Index 34.21 (102.06 kg, 172.72 cm) ld1 11:54 Pain Scale: Adult ld1 ED Course: 11:39 Patient arrived in ED. sj2 11:44 Cameron Ferreira MD is Attending Physician. sang 11:54 Triage completed. ld1 12:00 Patient has correct armband on for positive identification. Bed in low position. Call kj2 light in reach. Adult w/ patient. Provided Education on: call light, fall precautions. 12:03 Naty Ribeiro, RN is Primary Nurse. kj2 12:42 Urinalysis w/ reflexes Sent. kj2 13:48 CT Abd/Pelvis - IV Contrast Only In Process Unspecified. EDMS 15:09 Assisted to bathroom. kj2 15:49 US Abdomen Limited In Process Unspecified. EDMS 15:50 Armond Badillo MD is Referral Physician. sang 15:52 Sreedhar Alfred MD is Referral Physician. sang 16:14 No provider procedures requiring assistance completed. IV discontinued, intact, kj2 bleeding controlled, No redness/swelling at site. Pressure dressing applied. 16:16 Arm band placed on. kj2 Administered Medications: 12:25 Drug: fentaNYL (PF) IVP 25 mcg IVP once Route: IVP; Site: right antecubital; kj2 13:00 Follow up: Response: No adverse reaction; Pain is decreased kj2 12:28 Drug: Famotidine IVP 20 mg IVP once; dilute with 10 mL 0.9% NaCl; give over 2 minutes kj2 Route: IVP; Site: right antecubital; 15:10 Follow up: Response: No adverse reaction kj2 12:30 Drug: NS 0.9% IV 1000 ml IV at 1 bolus Per protocol; 1000 mL bolus Route: IV; Rate: 1 kj2 bolus; Site: right antecubital; 16:40 Follow up: Response: No adverse reaction; IV Status: Completed infusion kj2 12:35 Drug: Ondansetron IVP 4 mg IVP once; over 2 minutes Route: IVP; Site: right antecubital;kj2 15:11 Follow up: Response: No adverse reaction kj2 16:39 Drug: LevOfloxacin PO 500 mg PO once Route: PO; kj2 16:40 Follow up: Response: No adverse reaction; Medication administered at discharge. kj2 Medication: 14:01 VIS not applicable for this client. kj2 Outcome: 15:51 Discharge ordered by MD. domínguez 16:15 Discharged to home ambulatory, with family, kj2 16:15 Condition: stable 16:15 Discharge instructions given to patient, family, Instructed on discharge instructions, follow up and referral plans. medication usage, Demonstrated understanding of instructions, follow-up care, medications, Prescriptions given X 4, 16:38 Patient left the ED. kj2 Signatures: Dispatcher [employer] EDCameron Pang MD MD cha Sims, Lauren, RN RN ld1 Katie Arechiga RN RN cm10 Naty Ribeiro RN RN kj2 Miles Taylor 2
--- NOTE | 2023-12-14 15:51 | EDPHYS ---
Physician Documentation [facility] Name: Clara Bucio Age: 78 yrs Sex: Female : 1945 Arrival Date: 12/14/2023 Time: 11:34 Bed 13 Private MD: ED Physician Cameron Ferreira HPI: 12/13 15:25 This 78 yrs old Black Female presents to ER via Ambulatory with complaints of Abdominal sang Pain. 15:25 The patient presents with abdominal pain in the lower abdomen, abdominal distention in sang the upper abdomen, in the lower abdomen. Onset: The symptoms/episode began/occurred yesterday. The symptoms do not radiate. Associated signs and symptoms: none. Modifying factors: The symptoms are alleviated by nothing, the symptoms are aggravated by nothing. Severity of pain: At its worst the pain was moderate in the emergency department the pain is unchanged. The patient has experienced similar episodes in the past, multiple times. Historical: - Allergies: 12:00 Codeine; cm10 12:00 Sulfa (Sulfonamide Antibiotics); cm10 - PMHx: 12:00 Cirrhosis; Hypertension; cm10 - Immunization history:: Adult Immunizations up to date. - Infectious Disease History:: Denies. - Family history:: not pertinent. - Social history:: Smoking status: unknown. ROS: 15:25 Constitutional: Negative for fever, chills, and weight loss, Eyes: Negative for injury, sang pain, redness, and discharge, ENT: Negative for injury, pain, and discharge, Neck: Negative for injury, pain, and swelling, Cardiovascular: Negative for chest pain, palpitations, and edema, Respiratory: Negative for shortness of breath, cough, wheezing, and pleuritic chest pain, Back: Negative for injury and pain, : Negative for injury, bleeding, discharge, and swelling, MS/Extremity: Negative for injury and deformity, Skin: Negative for injury, rash, and discoloration, Neuro: Negative for headache, weakness, numbness, tingling, and seizure, Psych: Negative for depression, anxiety, suicide ideation, homicidal ideation, and hallucinations, Allergy/Immunology: Negative for hives, rash, and allergies, Endocrine: Negative for neck swelling, polydipsia, polyuria, polyphagia, and marked weight changes, Hematologic/Lymphatic: Negative for swollen nodes, abnormal bleeding, and unusual bruising, 15:25 Abdomen/GI: Positive for abdominal pain, abdominal distension, of the right upper quadrant and right lower quadrant, 15:25 MS/extremity: Negative for acute changes, injury or acute deformity, swelling, tenderness, Exam: 15:25 Constitutional: This is a well developed, well nourished patient who is awake, alert, sang and in no acute distress. Head/Face: Normocephalic, atraumatic. Eyes: Pupils equal round and reactive to light, extra-ocular motions intact. Lids and lashes normal. Conjunctiva and sclera are non-icteric and not injected. Cornea within normal limits. Periorbital areas with no swelling, redness, or edema. ENT: Nares patent. No nasal discharge, no septal abnormalities noted. Tympanic membranes are normal and external auditory canals are clear. Oropharynx with no redness, swelling, or masses, exudates, or evidence of obstruction, uvula midline. Mucous membranes moist. Neck: Trachea midline, no thyromegaly or masses palpated, and no cervical lymphadenopathy. Supple, full range of motion without nuchal rigidity, or vertebral point tenderness. No Meningismus. Chest/axilla: Normal chest wall appearance and motion. Nontender with no deformity. No lesions are appreciated. Cardiovascular: Regular rate and rhythm with a normal S1 and S2. No gallops, murmurs, or rubs. Normal PMI, no JVD. No pulse deficits. Respiratory: Lungs have equal breath sounds bilaterally, clear to auscultation and percussion. No rales, rhonchi or wheezes noted. No increased work of breathing, no retractions or nasal flaring. Back: No spinal tenderness. No costovertebral tenderness. Full range of motion. Female : Normal external genitalia. Skin: Warm, dry with normal turgor. Normal color with no rashes, no lesions, and no evidence of cellulitis. MS/ Extremity: Pulses equal, no cyanosis. Neurovascular intact. Full, normal range of motion. Neuro: Awake and alert, GCS 15, oriented to person, place, time, and situation. Cranial nerves II-XII grossly intact. Motor strength 5/5 in all extremities. Sensory grossly intact. Cerebellar exam normal. Normal gait. Psych: Awake, alert, with orientation to person, place and time. Behavior, mood, and affect are within normal limits. 15:25 ECG was reviewed by the Attending Physician. 15:25 Abdomen/GI: Inspection: distension, Bowel sounds: normal, Palpation: mild abdominal tenderness, in the right lower quadrant, Liver: no appreciated palpable abnormalities, Hernia: not appreciated, 15:25 Musculoskeletal/extremity: DVT Exam: No signs of deep vein thrombosis. no pain, no swelling, no tenderness, negative Homans' sign noted on exam, no appreciated bluish discoloration, no erythema, no increased warmth, Vital Signs: 11:54 Weight 102.06 kg; Height 5 ft. 8 in. ; Pain 8/10; ld1 11:59 BP 160 / 70; Pulse 58; Resp 16; Pulse Ox 100% ; cm10 15:02 BP 139 / 79; Pulse 60; Resp 18; Temp 98; Pulse Ox 100% on R/A; kj2 11:54 Body Mass Index 34.21 (102.06 kg, 172.72 cm) ld1 11:54 Pain Scale: Adult ld1 MDM: 11:45 Patient medically screened. [facility] 15:27 Differential diagnosis: bowel obstruction, cholecystitis, Cholelithiasis, sang diverticulitis, gastritis, gastroesophageal reflux disease, non-specific abd pain, pancreatitis, Peptic Ulcer Disease, Peritonitis, Pyelonephritis, Ureterolithiasis, urinary tract infection. Data reviewed: vital signs, nurses notes, lab test result(s), EKG, radiologic studies, CT scan, ultrasound. Consideration of Admission/Observation Escalation of care including admission/observation considered. I considered the following discharge prescriptions or medication management in the emergency department Medications were administered in the Emergency Department. See MAR. Independent interpretation of the following test(s) in the Emergency Department EKG: See my EKG interpretation above. Test considered but Not performed: MRI: no mrcp available. Historians other than the Patient: Spouse/Significant Other: well informed. Care significantly affected by the following chronic conditions: Hypertension, Obesity, Liver Disease, cirrhosis. Counseling: I had a detailed discussion with the patient and/or guardian regarding the historical points, exam findings, and any diagnostic results supporting the discharge/admit diagnosis, lab results, radiology results, the need for outpatient follow up, for definitive care, a family practitioner, a elevator constructor. 12/13 11:46 Order name: CBC with Diff; Complete Time: 14:11 sang 12/13 11:46 Order name: CMP; Complete Time: 14:11 [facility] 12/13 11:46 Order name: Lipase; Complete Time: 14:11 [facility] 12/13 11:46 Order name: Urinalysis w/ reflexes; Complete Time: 14:11 [facility] 12/13 11:46 Order name: CT Abd/Pelvis - IV Contrast Only; Complete Time: 15:18 [facility] 12/13 15:22 Order name: US Abdomen Limited [facility] 12/13 11:46 Order name: IV Saline Lock; Complete Time: 12:42 [facility] 12/13 11:46 Order name: Labs collected and sent; Complete Time: 12:42 [facility] EC:25 Rate is 58 beats/min. Rhythm is regular. QRS [place] is Normal. MI interval is normal. QRS sang interval is normal. QT interval is normal. No Q waves. T waves are Normal. No ST changes noted. Clinical impression: Sinus bradycardia and No evidence of ischemia. Interpreted by me. Reviewed by me. Administered Medications: 12:25 Drug: fentaNYL (PF) IVP 25 mcg IVP once Route: IVP; Site: right antecubital; kj2 13:00 Follow up: Response: No adverse reaction; Pain is decreased kj2 12:28 Drug: Famotidine IVP 20 mg IVP once; dilute with 10 mL 0.9% NaCl; give over 2 minutes kj2 Route: IVP; Site: right antecubital; 15:10 Follow up: Response: No adverse reaction kj2 12:30 Drug: NS 0.9% IV 1000 ml IV at 1 bolus Per protocol; 1000 mL bolus Route: IV; Rate: 1 kj2 bolus; Site: right antecubital; 16:40 Follow up: Response: No adverse reaction; IV Status: Completed infusion kj2 12:35 Drug: Ondansetron IVP 4 mg IVP once; over 2 minutes Route: IVP; Site: right antecubital;kj2 15:11 Follow up: Response: No adverse reaction kj2 16:39 Drug: LevOfloxacin PO 500 mg PO once Route: PO; kj2 16:40 Follow up: Response: No adverse reaction; Medication administered at discharge. kj2 Disposition Summary: 12/14/23 15:51 Discharge Ordered Notes: Location: Home sang Problem: new sang Symptoms: have improved sang Condition: Stable sang Diagnosis - Abdominal tenderness sang - Unspecified cirrhosis of liver sang - Obesity, unspecified sang - Other cholelithiasis without obstruction - Sludge [facility] Followup: sang - With: Private Physician - When: 2 - 3 days - Reason: Recheck today's complaints, Continuance of care, Re-evaluation by your physician Followup: sang - With: Armond Badillo MD - When: 2 - 3 days - Reason: Recheck today's complaints, Continuance of care, Re-evaluation by your physician Followup: sang - With: Sreedhar Alfred MD - When: 2 - 3 days - Reason: Recheck today's complaints, Re-evaluation by your physician Discharge Instructions: - Discharge Summary Sheet sang - Abdominal Pain, Adult sang - Cirrhosis sang - Obesity, Adult sang - Cholelithiasis sang - Cholelithiasis, [id number] sang - Abdominal Pain, Adult, [id number] sang - Obesity, Adult, [id number] [facility] Forms: - Medication Reconciliation Form [facility] - Antibiotic Education sang - Prescription Opioid Use sang - Patient Portal Instructions [facility] - Leadership Thank You Letter [facility] Prescriptions: - ondansetron 4 mg Oral Tablet,disintegrating - take 1 tablet ORAL route every 8-10 hours for 5 days; 20 tablet; Refills: 0, [facility] Product Selection Permitted - Pepcid 20 mg Oral Tablet - take 1 tablet ORAL route every 12 hours for 10 days; 20 tablet; Refills: 0, [facility] Product Selection Permitted - dicyclomine 20 mg Oral tablet - take 1 tablet ORAL route 4 times per day; 28 tablet; Refills: 0, Product [facility] Selection Permitted - levofloxacin 250 mg Oral tablet - take 1 tablet ORAL route once daily; 7 tablet; Refills: 0, Product Selection sang Permitted Signatures: Dispatcher [employer] EDMS Cameron Ferreira MD MD cha Martinez, Clarissa, RN RN cm10 Naty Ribeiro, RN RN kj2 Corrections: (The following items were deleted from the chart) 11:46 11:46 CBC+H.LAB.BRZ ordered. EDMS EDMS 11:46 11:46 COMPREHENSIVE METABOLIC PANEL+C.LAB.BRZ ordered. EDMS EDMS 11:46 11:46 LIPASE+C.LAB.BRZ ordered. EDMS EDMS 11:46 11:46 Urinalysis+U.LAB.BRZ ordered. EDMS EDMS
--- NOTE | 2023-12-14 16:32 | RAD REPORT ---
EXAM DESCRIPTION: US - Abdomen Exam Limited - 12/14/2023 3:49 pm CLINICAL HISTORY: ABD PAIN COMPARISON: Abdomen Pelvis W Contrast dated 12/14/2023 TECHNIQUE: Sonographic grayscale and color flow images of the right upper abdominal quadrant were o btained. FINDINGS: The gallbladder demonstrates mild sludge. No gallstones are identified. No pericholecystic fluid or gallbladder wall thickening. The common bile duct is normal measuring 5 mm. The liver demonstrates no findings of intrahepatic biliary dilatation. IMPRESSION: Mild gallbladder sludge. Otherwise no acute findings.
[2023-12-14] MEDS ORDERED: levoFLOXacin 250 MG TAB ONE (16:42)
[2023-12-14 16:44] VITALS: O2SAT 100
[2023-12-14 16:45] VITALS: BP 139/79; TEMP 98
== END 2023-12-14 16:38 | disposition home or self-care (01) ==
LOC: ER 11:34
DX: K80.80 Other cholelithiasis without obstruction (principal); K74.60 Unspecified cirrhosis of liver; E66.9 Obesity, unspecified; Z68.34 Body mass index [BMI] 34.0-34.9, adult; I10 Essential (primary) hypertension
CPT/HCPCS: 96361; 85025; 81001; 36415; 83690; 80053; 74177; 76705; 96375; 96374; 99284; Q9967; J3010; J2405; J7030

== ENCOUNTER 2024-12-30 13:41 | Observation (INO) | payer OTHER ==
--- OUTSIDE RECORDS SUMMARY | 2024-12-30 13:57 | XMS REPORT | Continuity of Care Document ---
Author Name Unknown Address [address] [place] [address] [facility] Address [address] [place] [address] Care Team Providers Care Electronic Assembly Name Role Phone Anirudh Medina Primary Care Physician [phone] ANIRUDH CHAPARRO Attending Clinician Unavailable CEDRIC FRANCIS Attending Clinician Unavailable Tito NDIAYE, Cedric Attending Clinician [phone] P[facility], [facility] Main Attending Clinician Dilcia Rutherford MD Attending Clinician [phone] Gloria Tomlin MD Attending Clinician [phone] Anirudh Medina Attending Clinician [phone] Armond Medina MD Attending Clinician [phone] Lab, Ang - Db Attending Clinician Unavailable ARMOND MEDINA Attending Clinician Unavailable Doctor Unassigned, [place] Attending Clinician U Indiana Alba MD Attending Clinician IND[place] CRESPO Attending Clinician Roxanna MARGE Reagan Attending Clinician UnavailMARGE Clemente Attending Clinician UnavailMarge Clemente DO Attending Clinician [phone] Po, [facility] Lab Main Attending Clinician Unavailamanda Medina MD, Armond Greenberg Attending Clinician [phone] Anene PROGRAM MANAGER RN, Anirudh Attending Clinician [phone] Ebcandie PROGRAM MANAGER RN, Andry Attending Clinician [phone] Unknown, Attending Attending Clinician Unavailab ANDRY De La Torre Attending Clinician Unavailable MIKHAIL WU Attending Clinician Unavailable MIKHAIL WU Attending Clinician Unavailable GULSHAN YEE Attending Clinician Unavailable Gulshan Yee PA-C Attending Clinician [phone] NANCY REYES Attending Clinician Unavaila NANCY Gregory Attending Clinician UnavailNancy Yost MD Attending Clinician + [phone] , [facility] Sleep Lab Bed Attending Clinician Unavail able Doctor Unassigned, [place] Attending Clinician U Marge Ulrich DO Attending Clinician [phone] Lab, Ang - Sesar Attending Clinician Unavailable Tito NDIAYE, Cedric Attending Clinician [phone] [facility] Sleep Lab Attending Clinician UnavailaJ Browning MD Attending Clinician [phone] Nurse, [facility] Attending Clinician Un available Genevieve Vee MD Attending Clinician [phone] GENEVIEVE VEE Attending Clinician Unavailable Dilcia Sheikh MD Attending Clinician [phone] DILCIA SHEIKH Attending Clinician UnavailDAYA Shea Attending Clinician Unavailable Daya Thomas Attending Clinician [phone] Provider, [facility] Attending Clinician Unavailable Mary VICTOR, Amador Hunter Attending Clinician Unavailamanda tamayo Only, Ang Sesar Test Attending Clinician UnavailUSMAN Cano Attending Clinician Unavaila miguel Therapist, [facility] Respiratory Attending Clinician U robert Gold MD, Usman Villalobos Attending Clinician [phone] NATY MCKINNEY Attending Clinician Unavaila Lora Ling MD Attending Clinician [phone] LORA EDWARDS Attending Clinician Unavailable Vaccine, [facility] Attending Clinician Unavailable Roberto Buckner DO Attending Clinician [phone] ROBERTO BUCKNER Attending Clinician Unavail able OSCAR MORFIN Attending Clinician Unavailable Oscar Morfin MD Attending Clinician [phone] BASSAM SORTO Attending Clinician Unavailable Macario DAMON, Bassam Burns Attending Clinician [phone] Marlyn VICTOR, Alix Barkley Attending Clinician Unavailab Gail Mcgrath Attending Clinician + [phone] GAIL HILLIARD Attending Clinician Unavailab Michele Christina MD Attending Clinician [phone] MICHELE SYED Attending Clinician Unavaila RADHA Hutton Attending Clinician Unavailable Radha Burgess MD Attending Clinician [phone] KeliArelis Comer Attending Clinician [phone] Only, [facility] Pob2 Test Attending Clinician Unavaila miguel Nurse, [facility] Pob Immunization Attending Clinician Unavailable Radiology Attending Clinician Unavailable DAYANA BAILEY Attending Clinician Unavailable ARMOND MEDINA Admitting Clinician Unavailable CEDRIC FRANCIS Admitting Clinician Unavailable ANIRUDH CHAPARRO Admitting Clinician Unavailable MARGE CHAVES Admitting Clinician Unavailable Payers Payer Name Policy Type Policy Number Effective Date Expirati on Date Source [employer] MEDICARE ADVANTAGE HMO/POS [id number] 2019 00:00:00 Problems Condition Name Condition Details Condition Category Status Onset Date Resolution Date Last Treatment Date Treating Clinician Comments Source Irritable bowel syndrome, unspecifie d type Irritable bowel syndrome, unspecifie d type Disease Active 08-14 00:00: 00 [facility] Chronic abdominal pain Chronic abdominal pain Disease Active 08-14 00:00: 00 [facility] Chronic venous insufficie ncy Chronic venous insufficie ncy Disease Active 2023-04 2-16 00:00: 00 [facility] Lymphedema Lymphedema Disease Active 2023-04 00:00: 00 [facility] ROSE (obstructi ve sleep apnea) ROSE (obstructi ve sleep apnea) Disease Active 2023-04- 00:00: 00 [facility] Nocturnal enuresis Nocturnal enuresis Disease Active 06-04 00:00: 00 [facility] Chronic heart failure with preserved ejection fraction Chronic heart failure with preserved ejection fraction Disease Active 2022-04 00:00: 00 [facility] Obesity (BMI 30-39.9) Obesity (BMI 30-39.9) Disease Active 2022-04 00:00: 00 [facility] Leg edema Leg edema Disease Active 2022-04 00:00: 00 [facility] VHD (valvular heart disease) VHD (valvular heart disease) Disease Active 2022-04 00:00: 00 [facility] Pulmonary hypertensi on Pulmonary hypertensi on Disease Active 2022-04 00:00: 00 [facility] Osteopenia , unspecifie d location Osteopenia , unspecifie d location Disease Active 12-26 00:00: 00 [facility] Anxiety and depression Anxiety and depression Disease Active 12-26 00:00: 00 [facility] Primary osteoarthr itis involving multiple joints Primary osteoarthr itis involving multiple joints Disease Active 12-26 00:00: 00 [facility] Medicare annual wellness visit, subsequent Medicare annual wellness visit, subsequent Disease Active 12-26 00:00: 00 [facility] Prediabete s Prediabete s Disease Active 05-25 00:00: 00 [facility] 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 pectoris Disease Active 11-22 00:00: 00 [facility] Nonobstruc tive atheroscle rosis of coronary artery Nonobstruc tive atheroscle rosis of coronary artery Disease Active 816 00:00: 00 [facility] Essential hypertensi on Essential hypertensi on Disease Active 816 00:00: 00 [facility] Gastroesop hageal reflux disease without esophagiti s Gastroesop hageal reflux disease without esophagiti s Disease Active 8-16 00:00: 00 [facility] Biliary cirrhosis Biliary cirrhosis Disease Active 816 00:00: 00 [facility] Arrhythmia Arrhythmia Disease Active 816 00:00: 00 [facility] 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 pectoris Disease Active 816 00:00: 00 [facility] Hiatal hernia Hiatal hernia Disease Active 8 00:00: 00 [facility] Rheumatoid arthritis Rheumatoid arthritis Disease Active 816 00:00: 00 [facility] Allergies, Adverse Reactions, Alerts Allergy Name Allergy Type Status Severity Reaction(s) Onset Date Inactive Date Treating Clinician Comments Source Codeine Propensi ty to adverse reaction s Active Nausea and/or Vomiting 816 00:00: 00 [facility] Sulfa (Sulfona mide Antibiot ics) Propensi ty to adverse reaction s Active Nausea and/or Vomiting 8 00:00: 00 [facility] CODEINE DRUG INGREDI Active N/V 8 00:00: 00 [facility] SULFA (SULFONA MIDE ANTIBIOT ICS) Drug Class Active N/V 8 00:00: 00 [facility] Sulfa (Sulfona mide Antibiot ics) DA Active SV 12-05 00:00: [address] [facility] codeine DA Active SV 12-05 00:00: [address] [facility] Social History Social Habit Start Date Stop Date Quantity Comments Source [facility]ION Not [facility] Alcoholic beverage intake 2024-12-10 00:00:00 2024-12-10 00:00:00 Lifetime non-drinker (finding) [facility] History of Social function 2024-02-12 00:00:00 2024-02-12 00:00:00 [facility] Alcohol intake 2023-07-25 00:00:00 2023-07-25 00:00:00 Lifetime non-drinker (finding) [facility] Tobacco use and exposure 2023-05-16 00:00:00 2023-05-16 00:00:00 Smokeless tobacco non-user [facility] Exposure to SARS-CoV-2 (event) 2022-08-13 00:00:00 2022-08-23 11:25:00 Not sure [facility] Sex assigned at 1945 00:00:00 1945 00:00:00 [facility] Smoking Status Start Date Stop Date Source Never smoked tobacco [facility] Medications Ordered Medication Name Filled Medication Name Start Date Stop Date Current Medication? Ordering Clinician Indication Dosage Frequency Signature (SIG) Comments Components Source dicyclomine 20 mg tablet 08-14 11:54: 10 Yes 20mg Take 1 tablet by mouth 4 times daily as needed for Abdominal pain. [facility] amLODIPine 5 mg tablet 08-14 00:00: 00 Yes [id number] 5mg Take 1 tablet by mouth in the morning. [facility] metoprolol succinate XL 100 mg 24 hr tablet 08-14 00:00: 00 Yes [id number] 100mg Take 1 tablet by mouth in the morning. [facility] metoprolol succinate XL 100 mg 24 hr tablet 08-06 00:00: 00 08-14 00:00 :00 No [id number] 100mg Take 1 tablet by mouth in the morning. [facility] amLODIPine 5 mg tablet 08-06 00:00: 08-14 00:00 :00 No [id number] 5mg Take 1 tablet by mouth in the morning. [facility] diatrizoate meglumine (CYSTOGRAFI N) 300 mL injection 120 mL 07-30 13:30: 00 07-30 16:06 :00 No [id number] 120mL 120 mL, Urethral, ONCE, 1 dose, On Sun07/30/24 at 0830, Routine [facility] barium sulfate (LIQUID E-Z PAQUE) 60 % (w/v) oral suspension 680 g 07-30 13:30: 00 07-30 16:06 :00 No [id number] 680g 680 g, Oral, ONCE, 1 dose, On Sun07/30/24 at 0830, Routine [facility] amLODIPine 5 mg tablet 2023-04 00:00: 00 08-05 00:00 :00 No [id number] 5mg Take 1 tablet by mouth in the morning. [facility] metoprolol succinate XL 100 mg 24 hr tablet 2023-04 00:00: 00 08-05 00:00 :00 No [id number] 100mg Take 1 tablet by mouth in the morning. [facility] pantoprazol e 40 mg EC tablet 2023-04 00:00: 00 Yes 40mg Take 1 tablet by mouth in the morning. [facility] metoprolol succinate XL 100 mg 24 hr tablet 12-30 00:00: 00 02-11 00:00 :00 No [id number] 100mg Take 1 tablet by mouth in the morning. [facility] amLODIPine 5 mg tablet 12-30 00:00: 00 02-11 00:00 :00 No [id number] 5mg Take 1 tablet by mouth in the morning. [facility] iopamidol (ISOVUE 370-500 mL) injection 85 mL 09-24 16:30: 00 09-24 15:31 :00 No [id number] 85mL 85 mL, Intravenou s, ONCE, 1 dose, On Sun09/25/23 at 1130, Routine [facility] amoxicillin -clavulanat e (AUGMENTIN) 875-125 mg per tablet - 00:00: 00 09-03 04:59 :00 No [id number] 1{tbl} Take 1 tablet by mouth in the morning and 1 tablet in the evening. Do all this for 10 days. [facility] predniSONE 20 mg tablet 08-23 00:00: 00 08-29 04:59 :00 No [id number] 40mg Take 2 tablets by mouth in the morning for 5 days. [facility] Guaifenesin 1,200 mg tablet - 00:00: 00 02-11 00:00 :00 No [id number] 1200mg Take 1 tablet by mouth in the morning and 1 tablet in the evening. [facility] vibegron (GEMTESA) 75 mg Tab -05 00:00: 00 Yes [id number] 75mg Take 75 mg by mouth at bedtime. [facility] Nitrofurant oin&Nit. Macrocryst (MACROBID) 100 mg capsule 3-25 00:00: 00 07-09 04:59 :00 No [id number] 100mg Take 1 capsule by mouth in the morning and 1 capsule in the evening. Do all this for 7 days. [facility] DULoxetine 20 mg capsule - 00:00: 00 Yes [id number] 40mg Take 2 capsules by mouth in the morning. [facility] amLODIPine 5 mg tablet - 00:00: 00 12-28 00:00 :00 No [id number] 5mg Take 1 tablet by mouth in the morning. [facility] metoprolol succinate XL 100 mg 24 hr tablet -26 00:00: 00 12-28 00:00 :00 No [id number] 100mg Take 1 tablet by mouth in the morning. [facility] amLODIPine 5 mg tablet 2-06 00:00: 00 06-04 00:00 :00 No [id number] 5mg Take 1 tablet by mouth in the morning. MUST BE SEEN FOR FURTHER REFILLS [facility] metoprolol succinate XL 100 mg 24 hr tablet 2-06 00:00: 00 06-04 00:00 :00 No [id number] 100mg Take 1 tablet by mouth in the morning. MUST BE SEEN FOR FURTHER REFILLS [facility] furosemide 20 mg tablet 2022-04 1-09 00:00: 00 06-04 00:00 :00 No [id number] As needed for leg swelling, daily [facility] DULoxetine 60 mg capsule 9-19 00:00: 00 01-04 00:00 :00 No [id number] 60mg Take 1 capsule by mouth in the morning. [facility] furosemide 20 mg tablet 830 00:00: 00 02-15 00:00 :00 No [id number] 20mg Take 1 tablet by mouth in the morning. [facility] amLODIPine 5 mg tablet 8- 00:00: 00 05-13 00:00 :00 No [id number] 5mg Take 1 tablet by mouth in the morning. [facility] metoprolol succinate XL 100 mg 24 hr tablet 8- 00:00: 00 05-13 00:00 :00 No [id number] 100mg Take 1 tablet by mouth in the morning. [facility] methocarbam oL 500 mg tablet 6-23 00:00: 00 Yes [id number] 500mg Take 1 tablet by mouth 3 (three) times daily as needed for Pain (scale 7-10). [facility] furosemide 20 mg tablet 0 6-22 00:00: 00 12-06 00:00 :00 No [id number] 20mg Take 1 tablet by mouth in the morning. [facility] amLODIPine 5 mg tablet 6-22 00:00: 00 11-27 00:00 :00 No [id number] 5mg Take 1 tablet by mouth in the morning. [facility] metoprolol succinate XL 100 mg 24 hr tablet 09-28 00:00: 00 11-27 00:00 :00 No [id number] 100mg Take 1 tablet by mouth in the morning. [facility] metoprolol succinate XL 100 mg 24 hr tablet 07-24 00:00: 00 09-28 00:00 :00 No [id number] 100mg Take 1 tablet by mouth in the morning. [facility] furosemide 20 mg tablet 07-24 00:00: 00 09-28 00:00 :00 No [id number] 20mg Take 1 tablet by mouth in the morning. [facility] amLODIPine 5 mg tablet 07-24 00:00: 00 09-28 00:00 :00 No [id number] 5mg Take 1 tablet by mouth in the morning. [facility] fludeoxyglu cose F-18 (FDG) injection 10.79 millicurie 06-12 20:00: 00 06-12 18:56 :00 No [id number] 10.79mC i 10.79 millicurie , Intravenou s, ONCE, 1 dose, On Sun06/12/22 at 1400, Routine [facility] fluticasone propion-adolfo meteroL (ADVAIR DISKUS) 250-50 mcg/dose inhalation disk 2021-04 0 00:00: 00 Yes [id number] 1{puff} Inhale 1 Puff every 12 (twelve) hours. [facility] albuterol 90 mcg/actuati on inhaler 2021-04 0 00:00: 00 Yes [id number] 2{puff} Inhale 2 Puffs every 6 (six) hours as needed for Wheezing or Shortness of Breath. [facility] doxycycline 100 mg EC tablet 2021-04 0 00:00: 00 01-21 04:59 :00 No [id number] 100mg Take 1 tablet by mouth in the morning and 1 tablet in the evening. Do all this for 7 days. [facility] mecobalamin , vitamin B12, (B12 ACTIVE) 1,000 mcg Chew 12-26 09:32: 23 Yes 1000ug Take 1,000 mcg by mouth in the morning. [facility] benzonatate 200 mg capsule 12-26 00:00: 00 12-26 00:00 :00 No [id number] 200mg Take 1 capsule by mouth 3 (three) times daily as needed for Cough. [facility] Cholecalcif jennifer, Vitamin D3, (VITAMIN D3) 125 mcg (5,000 unit) tablet 12-01 10:34: 35 Yes 5000U Take 1 tablet by mouth in the morning. [facility] magnesium oxide 400 mg magnesium capsule 12-01 10:34: 35 Yes 400mg Take 1 capsule by mouth in the morning. [facility] DULoxetine 20 mg capsule 12-01 00:00: 00 12-26 00:00 :00 No [id number] Take 1 capsule po once daily x 2 weeks then increase to 2 capsules po once daily x 2 weeks then increase to 3 capsules po once daily thereafter [facility] furosemide 20 mg tablet 04-29 00:00: 00 07-24 00:00 :00 No [facility] ursodioL 300 mg capsule 05-17 00:00: 00 Yes 300mg Take 1 capsule by mouth in the morning and 1 capsule at noon and 1 capsule in the evening. [facility] amLODIPine 5 mg tablet 05-09 00:00: 00 07-24 00:00 :00 No 5mg Take 5 mg by mouth daily. [facility] metoprolol succinate XL 100 mg 24 hr tablet 05-09 00:00: 00 07-24 00:00 :00 No Take by mouth daily. [facility] losartan 100 mg tablet 05-09 00:00: 00 02-15 00:00 :00 No 100mg Take 100 mg by mouth daily. [facility] Immunizations Ordered Immunization Name Filled Immunization Name Date Status Comments Source Influenza, adjuvanted, trivalent, PF (FLUAD) 2024-02-12 00:00:00 Completed [facility] SARS-COV-2 COVID 19 MATT SUCROSE VACCINE 12+, 0.3 ML (30 MCG), IM PFIZER (KELLEY TOP) 2024-02-12 00:00:00 Completed Influenza Virus Vaccine,quad Im,preserve Free 2022-01-13 00:00:00 Completed [facility] Influenza Virus Vaccine,quad Im,preserve Free 2022-01-13 00:00:00 Completed [facility] Influenza Virus Vaccine,quad Im,preserve Free 2022-01-13 00:00:00 Completed [facility] Influenza Virus Vaccine,quad Im,preserve Free 2022-01-13 00:00:00 Completed [facility] Influenza Virus Vaccine,quad Im,preserve Free 2022-01-13 00:00:00 Completed [facility] Influenza Virus Vaccine,quad Im,preserve Free 2022-01-13 00:00:00 Completed [facility] Influenza Virus Vaccine,quad Im,preserve Free 2022-01-13 00:00:00 Completed [facility] Influenza Virus Vaccine,quad Im,preserve Free 2022-01-13 00:00:00 Completed [facility] Influenza Virus Vaccine,quad Im,preserve Free 2022-01-13 00:00:00 Completed [facility] Influenza Virus Vaccine,quad Im,preserve Free 2022-01-13 00:00:00 Completed [facility] Influenza Virus Vaccine,quad Im,preserve Free 2022-01-13 00:00:00 Completed [facility] Influenza Virus Vaccine,quad Im,preserve Free 2022-01-13 00:00:00 Completed [facility] Influenza Virus Vaccine,quad Im,preserve Free 2022-01-13 00:00:00 Completed [facility] Influenza Virus Vaccine,quad Im,preserve Free 2022-01-13 00:00:00 Completed [facility] Influenza Virus Vaccine,quad Im,preserve Free 2022-01-13 00:00:00 Completed [facility] Influenza Virus Vaccine,quad Im,preserve Free 2022-01-13 00:00:00 Completed [facility] Influenza Virus Vaccine,quad Im,preserve Free 2022-01-13 00:00:00 Completed [facility] Influenza Virus Vaccine,quad Im,preserve Free 2022-01-13 00:00:00 Completed [facility] Influenza Virus Vaccine,quad Im,preserve Free 2022-01-13 00:00:00 Completed [facility] Influenza Virus Vaccine,quad Im,preserve Free 2022-01-13 00:00:00 Completed [facility] Influenza Virus Vaccine,quad Im,preserve Free 2022-01-13 00:00:00 Completed [facility] Influenza Virus Vaccine,quad Im,preserve Free 2022-01-13 00:00:00 Completed [facility] Influenza Virus Vaccine,quad Im,preserve Free 2022-01-13 00:00:00 Completed [facility] Influenza Virus Vaccine,quad Im,preserve Free 2022-01-13 00:00:00 Completed [facility] Influenza Virus Vaccine,quad Im,preserve Free 2022-01-13 00:00:00 Completed [facility] Influenza Virus Vaccine,quad Im,preserve Free 2022-01-13 00:00:00 Completed [facility] Influenza Virus Vaccine,quad Im,preserve Free 2022-01-13 00:00:00 Completed [facility] Influenza Virus Vaccine,quad Im,preserve Free 2022-01-13 00:00:00 Completed [facility] Influenza Virus Vaccine,quad Im,preserve Free 2022-01-13 00:00:00 Completed [facility] Influenza Virus Vaccine,quad Im,preserve Free 2022-01-13 00:00:00 Completed [facility] Influenza Virus Vaccine,quad Im,preserve Free 2022-01-13 00:00:00 Completed [facility] Influenza Virus Vaccine,quad Im,preserve Free 2022-01-13 00:00:00 Completed [facility] Influenza Virus Vaccine,quad Im,preserve Free 2022-01-13 00:00:00 Completed [facility] Influenza Virus Vaccine,quad Im,preserve Free 2022-01-13 00:00:00 Completed [facility] Influenza Virus Vaccine,quad Im,preserve Free 65+ 2022-01-13 00:00:00 Completed [facility] Influenza Virus Vaccine,quad Im,preserve Free 65+ 2022-01-13 00:00:00 Completed [facility] Influenza Virus Vaccine,quad Im,preserve Free 65+ 2022-01-13 00:00:00 Completed [facility] Influenza Virus Vaccine,quad Im,preserve Free 65+ (FLUAD) 2022-01-13 00:00:00 Completed [facility] Influenza Virus Vaccine,quad Im,preserve Free 65+ (FLUAD) 2022-01-13 00:00:00 Completed [facility] SARS-COV-2 COVID-19 VACCINE 18 YRS+, BIVALENT 0.5ML, IM, (MODERNA BOOSTER) 2022-01-09 00:00:00 Completed [facility] SARS-COV-2 COVID-19 VACCINE 18 YRS+, BIVALENT 0.5ML, IM, (MODERNA BOOSTER) 2022-01-09 00:00:00 Completed [facility] SARS-COV-2 COVID-19 VACCINE 18 YRS+, BIVALENT 0.5ML, IM, (MODERNA BOOSTER) 2022-01-09 00:00:00 Completed [facility] SARS-COV-2 COVID-19 VACCINE 18 YRS+, BIVALENT 0.5ML, IM, (MODERNA BOOSTER) 2022-01-09 00:00:00 Completed [facility] SARS-COV-2 COVID-19 VACCINE 12 YRS+, BIVALENT 0.5ML, IM, (MODERNA BOOSTER) 2022-01-09 00:00:00 Completed [facility] SARS-COV-2 COVID-19 VACCINE 12 YRS+, BIVALENT 0.5ML, IM, (MODERNA BOOSTER) 2022-01-09 00:00:00 Completed [facility] SARS-COV-2 COVID-19 VACCINE 12 YRS+, BIVALENT 0.5ML, IM, (MODERNA BOOSTER) 2022-01-09 00:00:00 Completed [facility] SARS-COV-2 COVID-19 VACCINE 12 YRS+, BIVALENT 0.5ML, IM, (MODERNA BOOSTER) 2022-01-09 00:00:00 Completed [facility] SARS-COV-2 COVID-19 VACCINE 12 YRS+, BIVALENT 0.5ML, IM, (MODERNA BOOSTER) 2022-01-09 00:00:00 Completed [facility] SARS-COV-2 COVID-19 VACCINE 12 YRS+, BIVALENT 0.5ML, IM, (MODERNA BOOSTER) 2022-01-09 00:00:00 Completed [facility] SARS-COV-2 COVID-19 VACCINE 12 YRS+, BIVALENT 0.5ML, IM, (MODERNA BOOSTER) 2022-01-09 00:00:00 Completed [facility] SARS-COV-2 COVID-19 VACCINE 12 YRS+, BIVALENT 0.5ML, IM, (MODERNA BOOSTER) 2022-01-09 00:00:00 Completed [facility] SARS-COV-2 COVID-19 VACCINE 12 YRS+, BIVALENT 0.5ML, IM, (MODERNA BOOSTER) 2022-01-09 00:00:00 Completed [facility] SARS-COV-2 COVID-19 VACCINE 12 YRS+, BIVALENT 0.5ML, IM, (MODERNA BOOSTER) 2022-01-09 00:00:00 Completed [facility] SARS-COV-2 COVID-19 VACCINE 12 YRS+, BIVALENT 0.5ML, IM, (MODERNA BOOSTER) 2022-01-09 00:00:00 Completed [facility] SARS-COV-2 COVID-19 VACCINE 12 YRS+, BIVALENT 0.5ML, IM, (MODERNA BOOSTER) 2022-01-09 00:00:00 Completed [facility] SARS-COV-2 COVID-19 VACCINE 12 YRS+, BIVALENT 0.5ML, IM, (MODERNA BOOSTER) 2022-01-09 00:00:00 Completed [facility] SARS-COV-2 COVID-19 VACCINE 12 YRS+, BIVALENT 0.5ML, IM, (MODERNA BOOSTER) 2022-01-09 00:00:00 Completed [facility] SARS-COV-2 COVID-19 VACCINE 12 YRS+, BIVALENT 0.5ML, IM, (MODERNA BOOSTER) 2022-01-09 00:00:00 Completed [facility] SARS-COV-2 COVID-19 VACCINE 12 YRS+, BIVALENT 0.5ML, IM, (MODERNA BOOSTER) 2022-01-09 00:00:00 Completed [facility] SARS-COV-2 COVID-19 VACCINE 12 YRS+, BIVALENT 0.5ML, IM, (MODERNA BOOSTER) 2022-01-09 00:00:00 Completed [facility] SARS-COV-2 COVID-19 VACCINE 12 YRS+, BIVALENT 0.5ML, IM, (MODERNA BOOSTER) 2022-01-09 00:00:00 Completed [facility] SARS-COV-2 COVID-19 VACCINE 12 YRS+, BIVALENT 0.5ML, IM, (MODERNA BOOSTER) 2022-01-09 00:00:00 Completed [facility] SARS-COV-2 COVID-19 VACCINE 12 YRS+, BIVALENT 0.5ML, IM, (MODERNA BOOSTER) 2022-01-09 00:00:00 Completed [facility] SARS-COV-2 COVID-19 VACCINE 12 YRS+, BIVALENT 0.5ML, IM, (MODERNA BOOSTER) 2022-01-09 00:00:00 Completed [facility] SARS-COV-2 COVID-19 VACCINE 12 YRS+, BIVALENT 0.5ML, IM, (MODERNA BOOSTER) 2022-01-09 00:00:00 Completed [facility] SARS-COV-2 COVID-19 VACCINE 12 YRS+, BIVALENT 0.5ML, IM, (MODERNA BOOSTER) 2022-01-09 00:00:00 Completed [facility] SARS-COV-2 COVID-19 VACCINE 12 YRS+, BIVALENT 0.5ML, IM, (MODERNA BOOSTER) 2022-01-09 00:00:00 Completed [facility] SARS-COV-2 COVID-19 VACCINE 12 YRS+, BIVALENT 0.5ML, IM, (MODERNA) 2022-01-09 00:00:00 Completed [facility] SARS-COV-2 COVID-19 VACCINE 12 YRS+, BIVALENT 0.5ML, IM, (MODERNA-BLUE TOP) 2022-01-09 00:00:00 Completed [facility] SARS-COV-2 COVID-19 VACCINE 12 YRS+, BIVALENT 0.5ML, IM, (MODERNA-BLUE TOP) 2022-01-09 00:00:00 Completed [facility] SARS-COV-2 COVID-19 VACCINE 12 YRS+, BIVALENT 0.5ML, IM, (MODERNABLUE TOP) 2022-01-09 00:00:00 Completed [facility] SARS-COV-2 COVID-19 VACCINE 12 YRS+, BIVALENT 0.5ML, IM, (MODERNABLUE TOP) 2022-01-09 00:00:00 Completed [facility] SARS-COV-2 COVID-19 VACCINE 12 YRS+, BIVALENT 0.5ML, IM, (MODERNA-BLUE TOP) 2022-01-09 00:00:00 Completed [facility] SARS-COV-2 COVID-19 VACCINE 12 YRS+, BIVALENT 0.5ML, IM, (MODERNABLUE TOP) 2022-01-09 00:00:00 Completed [facility] SARS-COV-2 COVID-19 VACCINE 12 YRS+, BIVALENT 0.5ML, IM, (MODERNABLUE TOP) 2022-01-09 00:00:00 Completed [facility] SARS-COV-2 COVID-19 VACCINE 12 YRS+, BIVALENT 0.5ML, IM, (MODERNA-BLUE TOP) 2022-01-09 00:00:00 Completed [facility] SARS-COV-2 COVID-19 VACCINE 12 YRS+, BIVALENT 0.5ML, IM, (MODERNABLUE TOP) 2022-01-09 00:00:00 Completed [facility] SARS-COV-2 COVID-19 VACCINE 12 YRS+, BIVALENT 0.5ML, IM, (MODERNABLUE TOP) 2022-01-09 00:00:00 Completed [facility] SARS-COV-2 COVID-19 VACCINE 12 YRS+, BIVALENT 0.5ML, IM, (MODERNA-BLUE TOP) 2022-01-09 00:00:00 Completed [facility] SARS-COV-2 COVID-19 VACCINE 12 YRS+, BIVALENT 0.5ML, IM, (MODERNA-BLUE TOP) 2022-01-09 00:00:00 Completed [facility] SARS-COV-2 COVID-19 VACCINE 12 YRS+, BIVALENT 0.5ML, IM, (MODERNA-BLUE TOP) 2022-01-09 00:00:00 Completed [facility] Pneumococcal 20 Conjugate, PCV20 (Prevnar 20) 2021-11-21 00:00:00 Completed [facility] Pneumococcal 20 Conjugate, PCV20 (Prevnar 20) 2021-11-21 00:00:00 Completed [facility] Pneumococcal 20 Conjugate, PCV20 (Prevnar 20) 2021-11-21 00:00:00 Completed [facility] Pneumococcal 20 Conjugate, PCV20 (Prevnar 20) 2021-11-21 00:00:00 Completed [facility] Pneumococcal 20 Conjugate, PCV20 (Prevnar 20) 2021-11-21 00:00:00 Completed [facility] Pneumococcal 20 Conjugate, PCV20 (Prevnar 20) 2021-11-21 00:00:00 Completed [facility] Pneumococcal 20 Conjugate, PCV20 (Prevnar 20) 2021-11-21 00:00:00 Completed [facility] Pneumococcal 20 Conjugate, PCV20 (Prevnar 20) 2021-11-21 00:00:00 Completed [facility] Pneumococcal 20 Conjugate, PCV20 (Prevnar 20) 2021-11-21 00:00:00 Completed [facility] Pneumococcal 20 Conjugate, PCV20 (Prevnar 20) 2021-11-21 00:00:00 Completed [facility] Pneumococcal 20 Conjugate, PCV20 (Prevnar 20) 2021-11-21 00:00:00 Completed [facility] Pneumococcal 20 Conjugate, PCV20 (Prevnar 20) 2021-11-21 00:00:00 Completed [facility] Pneumococcal 20 Conjugate, PCV20 (Prevnar 20) 2021-11-21 00:00:00 Completed [facility] Pneumococcal 20 Conjugate, PCV20 (Prevnar 20) 2021-11-21 00:00:00 Completed [facility] Pneumococcal 20 Conjugate, PCV20 (Prevnar 20) 2021-11-21 00:00:00 Completed [facility] Pneumococcal 20 Conjugate, PCV20 (Prevnar 20) 2021-11-21 00:00:00 Completed [facility] Pneumococcal 20 Conjugate, PCV20 (Prevnar 20) 2021-11-21 00:00:00 Completed [facility] Pneumococcal 20 Conjugate, PCV20 (Prevnar 20) 2021-11-21 00:00:00 Completed [facility] Pneumococcal 20 Conjugate, PCV20 (Prevnar 20) 2021-11-21 00:00:00 Completed [facility] Pneumococcal 20 Conjugate, PCV20 (Prevnar 20) 2021-11-21 00:00:00 Completed [facility] Pneumococcal 20 Conjugate, PCV20 (Prevnar 20) 2021-11-21 00:00:00 Completed [facility] Pneumococcal 20 Conjugate, PCV20 (Prevnar 20) 2021-11-21 00:00:00 Completed [facility] Pneumococcal 20 Conjugate, PCV20 (Prevnar 20) 2021-11-21 00:00:00 Completed [facility] Pneumococcal 20 Conjugate, PCV20 (Prevnar 20) 2021-11-21 00:00:00 Completed [facility] Pneumococcal 20 Conjugate, PCV20 (Prevnar 20) 2021-11-21 00:00:00 Completed [facility] Pneumococcal 20 Conjugate, PCV20 (Prevnar 20) 2021-11-21 00:00:00 Completed [facility] Pneumococcal 20 Conjugate, PCV20 (Prevnar 20) 2021-11-21 00:00:00 Completed [facility] Pneumococcal 20 Conjugate, PCV20 (Prevnar 20) 2021-11-21 00:00:00 Completed [facility] Pneumococcal 20 Conjugate, PCV20 (Prevnar 20) 2021-11-21 00:00:00 Completed [facility] Pneumococcal 20 Conjugate, PCV20 (Prevnar 20) 2021-11-21 00:00:00 Completed [facility] Pneumococcal 20 Conjugate, PCV20 (Prevnar 20) 2021-11-21 00:00:00 Completed [facility] Pneumococcal 20 Conjugate, PCV20 (Prevnar 20) 2021-11-21 00:00:00 Completed [facility] Pneumococcal 20 Conjugate, PCV20 (Prevnar 20) 2021-11-21 00:00:00 Completed [facility] Pneumococcal 20 Conjugate, PCV20 (Prevnar 20) 2021-11-21 00:00:00 Completed [facility] Pneumococcal 20 Conjugate, PCV20 (Prevnar 20) 2021-11-21 00:00:00 Completed [facility] Pneumococcal 20 Conjugate, PCV20 (Prevnar 20) 2021-11-21 00:00:00 Completed [facility] Pneumococcal 20 Conjugate, PCV20 (Prevnar 20) 2021-11-21 00:00:00 Completed [facility] Pneumococcal 20 Conjugate, PCV20 (Prevnar 20) 2021-11-21 00:00:00 Completed [facility] Pneumococcal 20 Conjugate, PCV20 (Prevnar 20) 2021-11-21 00:00:00 Completed [facility] Pneumococcal 20 Conjugate, PCV20 (Prevnar 20) 2021-11-21 00:00:00 Completed [facility] Pneumococcal 20 Conjugate, PCV20 (Prevnar 20) 2021-11-21 00:00:00 Completed [facility] Pneumococcal 20 Conjugate, PCV20 (Prevnar 20) 2021-11-21 00:00:00 Completed [facility] Pneumococcal 20 Conjugate, PCV20 (Prevnar 20) 2021-11-21 00:00:00 Completed [facility] Pneumococcal 20 Conjugate, PCV20 (Prevnar 20) 2021-11-21 00:00:00 Completed [facility] Pneumococcal 20 Conjugate, PCV20 (Prevnar 20) 2021-11-21 00:00:00 Completed [facility] Pneumococcal 20 Conjugate, PCV20 (Prevnar 20) 2021-11-21 00:00:00 Completed [facility] Pneumococcal 20 Conjugate, PCV20 (Prevnar 20) 2021-11-21 00:00:00 Completed [facility] SARS-COV-2 COVID-19 MODERNA 0.25ML BOOSTER VACCINE 2021-07-14 00:00:00 Completed [facility] SARS-COV-2 COVID-19 MODERNA 0.25ML BOOSTER VACCINE 2021-07-14 00:00:00 Completed [facility] SARS-COV-2 COVID-19 MODERNA 0.25ML BOOSTER VACCINE 2021-07-14 00:00:00 Completed [facility] SARS-COV-2 COVID-19 MODERNA 0.25ML BOOSTER VACCINE 2021-07-14 00:00:00 Completed [facility] SARS-COV-2 COVID-19 MODERNA 0.25ML BOOSTER VACCINE 2021-07-14 00:00:00 Completed [facility] SARS-COV-2 COVID-19 MODERNA 0.25ML BOOSTER VACCINE 2021-07-14 00:00:00 Completed [facility] SARS-COV-2 COVID-19 MODERNA 0.25ML BOOSTER VACCINE 2021-07-14 00:00:00 Completed [facility] SARS-COV-2 COVID-19 MODERNA 0.25ML BOOSTER VACCINE 2021-07-14 00:00:00 Completed [facility] SARS-COV-2 COVID-19 MODERNA 0.25ML BOOSTER VACCINE 2021-07-14 00:00:00 Completed [facility] SARS-COV-2 COVID-19 MODERNA 0.25ML BOOSTER VACCINE 2021-07-14 00:00:00 Completed [facility] SARS-COV-2 COVID-19 MODERNA 0.25ML BOOSTER VACCINE 2021-07-14 00:00:00 Completed [facility] SARS-COV-2 COVID-19 MODERNA 0.25ML BOOSTER VACCINE 2021-07-14 00:00:00 Completed [facility] SARS-COV-2 COVID-19 MODERNA 0.25ML BOOSTER VACCINE 2021-07-14 00:00:00 Completed [facility] SARS-COV-2 COVID-19 MODERNA 0.25ML BOOSTER VACCINE 2021-07-14 00:00:00 Completed [facility] SARS-COV-2 COVID-19 MODERNA 0.25ML BOOSTER VACCINE 2021-07-14 00:00:00 Completed [facility] SARS-COV-2 COVID-19 MODERNA 0.25ML BOOSTER VACCINE 2021-07-14 00:00:00 Completed [facility] SARS-COV-2 COVID-19 MODERNA 0.25ML BOOSTER VACCINE 2021-07-14 00:00:00 Completed [facility] SARS-COV-2 COVID-19 MODERNA 0.25ML BOOSTER VACCINE 2021-07-14 00:00:00 Completed [facility] SARS-COV-2 COVID-19 MODERNA 0.25ML BOOSTER VACCINE 2021-07-14 00:00:00 Completed [facility] SARS-COV-2 COVID-19 MODERNA 0.25ML BOOSTER VACCINE 2021-07-14 00:00:00 Completed [facility] SARS-COV-2 COVID-19 MODERNA 0.25ML BOOSTER VACCINE 2021-07-14 00:00:00 Completed [facility] SARS-COV-2 COVID-19 MODERNA 0.25ML BOOSTER VACCINE 2021-07-14 00:00:00 Completed [facility] SARS-COV-2 COVID-19 MODERNA 0.25ML BOOSTER VACCINE 2021-07-14 00:00:00 Completed [facility] SARS-COV-2 COVID-19 MODERNA 0.25ML BOOSTER VACCINE 2021-07-14 00:00:00 Completed [facility] SARS-COV-2 COVID-19 MODERNA 0.25ML BOOSTER VACCINE 2021-07-14 00:00:00 Completed [facility] SARS-COV-2 COVID-19 MODERNA 0.25ML BOOSTER VACCINE 2021-07-14 00:00:00 Completed [facility] SARS-COV-2 COVID-19 MODERNA 0.25ML BOOSTER VACCINE 2021-07-14 00:00:00 Completed [facility] SARS-COV-2 COVID-19 MODERNA 0.25ML BOOSTER VACCINE 2021-07-14 00:00:00 Completed [facility] SARS-COV-2 COVID-19 MODERNA 0.25ML BOOSTER VACCINE 2021-07-14 00:00:00 Completed [facility] SARS-COV-2 COVID-19 MODERNA 0.25ML BOOSTER VACCINE 2021-07-14 00:00:00 Completed [facility] SARS-COV-2 COVID-19 MODERNA 0.25ML BOOSTER VACCINE 2021-07-14 00:00:00 Completed [facility] SARS-COV-2 COVID-19 MODERNA 0.25ML BOOSTER VACCINE 2021-07-14 00:00:00 Completed [facility] SARS-COV-2 COVID-19 MODERNA 0.25ML BOOSTER VACCINE 2021-07-14 00:00:00 Completed [facility] SARS-COV-2 COVID-19 MODERNA 0.25ML BOOSTER VACCINE 2021-07-14 00:00:00 Completed [facility] SARS-COV-2 COVID-19 MODERNA 0.25ML BOOSTER VACCINE 2021-07-14 00:00:00 Completed [facility] SARS-COV-2 COVID-19 MODERNA 0.25ML BOOSTER VACCINE 2021-07-14 00:00:00 Completed [facility] SARS-COV-2 COVID-19 MODERNA 0.25ML BOOSTER VACCINE 2021-07-14 00:00:00 Completed [facility] SARS-COV-2 COVID-19 MODERNA 0.25ML BOOSTER VACCINE 2021-07-14 00:00:00 Completed [facility] SARS-COV-2 COVID-19 MODERNA 0.25ML BOOSTER VACCINE 2021-07-14 00:00:00 Completed [facility] SARS-COV-2 COVID-19 MODERNA 0.25ML BOOSTER VACCINE 2021-07-14 00:00:00 Completed [facility] SARS-COV-2 COVID-19 MODERNA 0.25ML BOOSTER VACCINE 2021-07-14 00:00:00 Completed [facility] SARS-COV-2 COVID-19 MODERNA 0.25ML BOOSTER VACCINE 2021-07-14 00:00:00 Completed [facility] SARS-COV-2 COVID-19 MODERNA 0.25ML BOOSTER VACCINE 2021-07-14 00:00:00 Completed [facility] SARS-COV-2 COVID-19 MODERNA 0.25ML BOOSTER VACCINE 2021-07-14 00:00:00 Completed [facility] SARS-COV-2 COVID-19 MODERNA 0.25ML BOOSTER VACCINE 2021-07-14 00:00:00 Completed [facility] SARS-COV-2 COVID-19 MODERNA 0.25ML BOOSTER VACCINE 2021-07-14 00:00:00 Completed [facility] SARS-COV-2 COVID-19 MODERNA 0.25ML BOOSTER VACCINE 2021-07-14 00:00:00 Completed [facility] SARS-COV-2 COVID-19 MODERNA 12+ YRS VACCINE 2021-01-24 00:00:00 Completed [facility] SARS-COV-2 COVID-19 MODERNA 12+ YRS VACCINE 2021-01-24 00:00:00 Completed [facility] SARS-COV-2 COVID-19 MODERNA 12+ YRS VACCINE 2021-01-24 00:00:00 Completed [facility] SARS-COV-2 COVID-19 MODERNA 12+ YRS VACCINE 2021-01-24 00:00:00 Completed [facility] SARS-COV-2 COVID-19 MODERNA 12+ YRS VACCINE 2021-01-24 00:00:00 Completed [facility] SARS-COV-2 COVID-19 MODERNA 12+ YRS VACCINE 2021-01-24 00:00:00 Completed [facility] SARS-COV-2 COVID-19 MODERNA 12+ YRS VACCINE 2021-01-24 00:00:00 Completed [facility] SARS-COV-2 COVID-19 MODERNA 12+ YRS VACCINE 2021-01-24 00:00:00 Completed [facility] SARS-COV-2 COVID-19 MODERNA 12+ YRS VACCINE 2021-01-24 00:00:00 Completed [facility] SARS-COV-2 COVID-19 MODERNA 12+ YRS VACCINE 2021-01-24 00:00:00 Completed [facility] SARS-COV-2 COVID-19 MODERNA 12+ YRS VACCINE 2021-01-24 00:00:00 Completed [facility] SARS-COV-2 COVID-19 MODERNA 12+ YRS VACCINE 2021-01-24 00:00:00 Completed [facility] SARS-COV-2 COVID-19 MODERNA 12+ YRS VACCINE 2021-01-24 00:00:00 Completed [facility] SARS-COV-2 COVID-19 MODERNA 12+ YRS VACCINE 2021-01-24 00:00:00 Completed [facility] SARS-COV-2 COVID-19 MODERNA 12+ YRS VACCINE 2021-01-24 00:00:00 Completed [facility] SARS-COV-2 COVID-19 MODERNA 12+ YRS VACCINE 2021-01-24 00:00:00 Completed [facility] SARS-COV-2 COVID-19 MODERNA 12+ YRS VACCINE 2021-01-24 00:00:00 Completed [facility] SARS-COV-2 COVID-19 MODERNA 12+ YRS VACCINE 2021-01-24 00:00:00 Completed [facility] SARS-COV-2 COVID-19 MODERNA 12+ YRS VACCINE 2021-01-24 00:00:00 Completed [facility] SARS-COV-2 COVID-19 MODERNA 12+ YRS VACCINE 2021-01-24 00:00:00 Completed [facility] SARS-COV-2 COVID-19 MODERNA 12+ YRS VACCINE 2021-01-24 00:00:00 Completed [facility] SARS-COV-2 COVID-19 MODERNA 12+ YRS VACCINE 2021-01-24 00:00:00 Completed [facility] SARS-COV-2 COVID-19 MODERNA 12+ YRS VACCINE 2021-01-24 00:00:00 Completed [facility] SARS-COV-2 COVID-19 MODERNA 12+ YRS VACCINE 2021-01-24 00:00:00 Completed [facility] SARS-COV-2 COVID-19 MODERNA 12+ YRS VACCINE 2021-01-24 00:00:00 Completed [facility] SARS-COV-2 COVID-19 MODERNA 12+ YRS VACCINE 2021-01-24 00:00:00 Completed [facility] SARS-COV-2 COVID-19 MODERNA 12+ YRS VACCINE 2021-01-24 00:00:00 Completed [facility] SARS-COV-2 COVID-19 MODERNA 12+ YRS VACCINE 2021-01-24 00:00:00 Completed [facility] SARS-COV-2 COVID-19 MODERNA 12+ YRS VACCINE 2021-01-24 00:00:00 Completed [facility] SARS-COV-2 COVID-19 MODERNA 12+ YRS VACCINE 2021-01-24 00:00:00 Completed [facility] SARS-COV-2 COVID-19 MODERNA 12+ YRS VACCINE 2021-01-24 00:00:00 Completed [facility] SARS-COV-2 COVID-19 MODERNA 12+ YRS VACCINE 2021-01-24 00:00:00 Completed [facility] SARS-COV-2 COVID-19 MODERNA 12+ YRS VACCINE 2021-01-24 00:00:00 Completed [facility] SARS-COV-2 COVID-19 MODERNA 12+ YRS VACCINE 2021-01-24 00:00:00 Completed [facility] SARS-COV-2 COVID-19 MODERNA 12+ YRS VACCINE 2021-01-24 00:00:00 Completed [facility] SARS-COV-2 COVID-19 MODERNA 12+ YRS VACCINE 2021-01-24 00:00:00 Completed [facility] SARS-COV-2 COVID-19 MODERNA 12+ YRS VACCINE 2021-01-24 00:00:00 Completed [facility] SARS-COV-2 COVID-19 MODERNA 12+ YRS VACCINE 2021-01-24 00:00:00 Completed [facility] SARS-COV-2 COVID-19 MODERNA 12+ YRS VACCINE 2021-01-24 00:00:00 Completed [facility] SARS-COV-2 COVID-19 MODERNA 12+ YRS VACCINE 2021-01-24 00:00:00 Completed [facility] SARS-COV-2 COVID-19 MODERNA 12+ YRS VACCINE 2021-01-24 00:00:00 Completed [facility] SARS-COV-2 COVID-19 MODERNA 12+ YRS VACCINE 2021-01-24 00:00:00 Completed [facility] SARS-COV-2 COVID-19 MODERNA 12+ YRS VACCINE 2021-01-24 00:00:00 Completed [facility] SARS-COV-2 COVID-19 MODERNA 12+ YRS VACCINE 2021-01-24 00:00:00 Completed [facility] SARS-COV-2 COVID-19 MODERNA 12+ YRS VACCINE 2021-01-24 00:00:00 Completed [facility] SARS-COV-2 COVID-19 MODERNA 12+ YRS VACCINE 2021-01-24 00:00:00 Completed [facility] SARS-COV-2 COVID-19 MODERNA 12+ YRS VACCINE 2021-01-24 00:00:00 Completed [facility] SARS-COV-2 COVID-19 MODERNA 12+ YRS VACCINE 2021-01-24 00:00:00 Completed [facility] Influenza High Dose 2021-01-07 00:00:00 Completed [facility] Influenza High Dose 2021-01-07 00:00:00 Completed [facility] Influenza High Dose 2021-01-07 00:00:00 Completed [facility] Influenza High Dose 2021-01-07 00:00:00 Completed [facility] Influenza High Dose 2021-01-07 00:00:00 Completed [facility] Influenza High Dose 2021-01-07 00:00:00 Completed [facility] Influenza High Dose 2021-01-07 00:00:00 Completed [facility] Influenza High Dose 2021-01-07 00:00:00 Completed [facility] Influenza High Dose 2021-01-07 00:00:00 Completed [facility] Influenza High Dose 2021-01-07 00:00:00 Completed [facility] Influenza High Dose 2021-01-07 00:00:00 Completed [facility] Influenza High Dose 2021-01-07 00:00:00 Completed [facility] Influenza High Dose 2021-01-07 00:00:00 Completed [facility] Influenza High Dose 2021-01-07 00:00:00 Completed [facility] Influenza High Dose 2021-01-07 00:00:00 Completed [facility] Influenza High Dose 2021-01-07 00:00:00 Completed [facility] Influenza High Dose 2021-01-07 00:00:00 Completed [facility] Influenza High Dose 2021-01-07 00:00:00 Completed [facility] Influenza High Dose 2021-01-07 00:00:00 Completed [facility] Influenza High Dose 2021-01-07 00:00:00 Completed [facility] Influenza High Dose 2021-01-07 00:00:00 Completed [facility] Influenza High Dose 2021-01-07 00:00:00 Completed [facility] Influenza High Dose 2021-01-07 00:00:00 Completed [facility] Influenza High Dose 2021-01-07 00:00:00 Completed [facility] Influenza High Dose 2021-01-07 00:00:00 Completed [facility] Influenza High Dose 2021-01-07 00:00:00 Completed [facility] Influenza High Dose 2021-01-07 00:00:00 Completed [facility] Influenza High Dose 2021-01-07 00:00:00 Completed [facility] Influenza High Dose 2021-01-07 00:00:00 Completed [facility] Influenza High Dose 2021-01-07 00:00:00 Completed [facility] Influenza High Dose 2021-01-07 00:00:00 Completed [facility] Influenza High Dose 2021-01-07 00:00:00 Completed [facility] Influenza High Dose 2021-01-07 00:00:00 Completed [facility] Influenza High Dose 2021-01-07 00:00:00 Completed [facility] Influenza High Dose 2021-01-07 00:00:00 Completed [facility] Influenza High Dose 2021-01-07 00:00:00 Completed [facility] Influenza High Dose 2021-01-07 00:00:00 Completed [facility] Influenza High Dose 2021-01-07 00:00:00 Completed [facility] Influenza High Dose 2021-01-07 00:00:00 Completed [facility] Influenza High Dose 2021-01-07 00:00:00 Completed [facility] Influenza High Dose 2021-01-07 00:00:00 Completed [facility] Influenza High Dose 2021-01-07 00:00:00 Completed [facility] Influenza High Dose 2021-01-07 00:00:00 Completed [facility] Influenza High Dose 2021-01-07 00:00:00 Completed [facility] Influenza High Dose 2021-01-07 00:00:00 Completed [facility] Influenza, High-Dose, Trivalent, PF (FLUZONE) 2021-01-07 00:00:00 Completed Influenza High Dose 2021-01-07 00:00:00 Completed [facility] SARS-COV-2 COVID-19 MODERNA 12+ YRS VACCINE 2020-06-02 00:00:00 Completed [facility] SARS-COV-2 COVID-19 MODERNA 12+ YRS VACCINE 2020-06-02 00:00:00 Completed [facility] SARS-COV-2 COVID-19 MODERNA 12+ YRS VACCINE 2020-06-02 00:00:00 Completed [facility] SARS-COV-2 COVID-19 MODERNA 12+ YRS VACCINE 2020-06-02 00:00:00 Completed [facility] SARS-COV-2 COVID-19 MODERNA 12+ YRS VACCINE 2020-06-02 00:00:00 Completed [facility] SARS-COV-2 COVID-19 MODERNA 12+ YRS VACCINE 2020-06-02 00:00:00 Completed [facility] SARS-COV-2 COVID-19 MODERNA 12+ YRS VACCINE 2020-06-02 00:00:00 Completed [facility] SARS-COV-2 COVID-19 MODERNA 12+ YRS VACCINE 2020-06-02 00:00:00 Completed [facility] SARS-COV-2 COVID-19 MODERNA 12+ YRS VACCINE 2020-06-02 00:00:00 Completed [facility] SARS-COV-2 COVID-19 MODERNA 12+ YRS VACCINE 2020-06-02 00:00:00 Completed [facility] SARS-COV-2 COVID-19 MODERNA 12+ YRS VACCINE 2020-06-02 00:00:00 Completed [facility] SARS-COV-2 COVID-19 MODERNA 12+ YRS VACCINE 2020-06-02 00:00:00 Completed [facility] SARS-COV-2 COVID-19 MODERNA 12+ YRS VACCINE 2020-06-02 00:00:00 Completed [facility] SARS-COV-2 COVID-19 MODERNA 12+ YRS VACCINE 2020-06-02 00:00:00 Completed [facility] SARS-COV-2 COVID-19 MODERNA 12+ YRS VACCINE 2020-06-02 00:00:00 Completed [facility] SARS-COV-2 COVID-19 MODERNA 12+ YRS VACCINE 2020-06-02 00:00:00 Completed [facility] SARS-COV-2 COVID-19 MODERNA 12+ YRS VACCINE 2020-06-02 00:00:00 Completed [facility] SARS-COV-2 COVID-19 MODERNA 12+ YRS VACCINE 2020-06-02 00:00:00 Completed [facility] SARS-COV-2 COVID-19 MODERNA 12+ YRS VACCINE 2020-06-02 00:00:00 Completed [facility] SARS-COV-2 COVID-19 MODERNA 12+ YRS VACCINE 2020-06-02 00:00:00 Completed [facility] SARS-COV-2 COVID-19 MODERNA 12+ YRS VACCINE 2020-06-02 00:00:00 Completed [facility] SARS-COV-2 COVID-19 MODERNA 12+ YRS VACCINE 2020-06-02 00:00:00 Completed [facility] SARS-COV-2 COVID-19 MODERNA 12+ YRS VACCINE 2020-06-02 00:00:00 Completed [facility] SARS-COV-2 COVID-19 MODERNA 12+ YRS VACCINE 2020-06-02 00:00:00 Completed [facility] SARS-COV-2 COVID-19 MODERNA 12+ YRS VACCINE 2020-06-02 00:00:00 Completed [facility] SARS-COV-2 COVID-19 MODERNA 12+ YRS VACCINE 2020-06-02 00:00:00 Completed [facility] SARS-COV-2 COVID-19 MODERNA 12+ YRS VACCINE 2020-06-02 00:00:00 Completed [facility] SARS-COV-2 COVID-19 MODERNA 12+ YRS VACCINE 2020-06-02 00:00:00 Completed [facility] SARS-COV-2 COVID-19 MODERNA 12+ YRS VACCINE 2020-06-02 00:00:00 Completed [facility] SARS-COV-2 COVID-19 MODERNA 12+ YRS VACCINE 2020-06-02 00:00:00 Completed [facility] SARS-COV-2 COVID-19 MODERNA 12+ YRS VACCINE 2020-06-02 00:00:00 Completed [facility] SARS-COV-2 COVID-19 MODERNA 12+ YRS VACCINE 2020-06-02 00:00:00 Completed [facility] SARS-COV-2 COVID-19 MODERNA 12+ YRS VACCINE 2020-06-02 00:00:00 Completed [facility] SARS-COV-2 COVID-19 MODERNA 12+ YRS VACCINE 2020-06-02 00:00:00 Completed [facility] SARS-COV-2 COVID-19 MODERNA 12+ YRS VACCINE 2020-06-02 00:00:00 Completed [facility] SARS-COV-2 COVID-19 MODERNA 12+ YRS VACCINE 2020-06-02 00:00:00 Completed [facility] SARS-COV-2 COVID-19 MODERNA 12+ YRS VACCINE 2020-06-02 00:00:00 Completed [facility] SARS-COV-2 COVID-19 MODERNA 12+ YRS VACCINE 2020-06-02 00:00:00 Completed [facility] SARS-COV-2 COVID-19 MODERNA 12+ YRS VACCINE 2020-06-02 00:00:00 Completed [facility] SARS-COV-2 COVID-19 MODERNA 12+ YRS VACCINE 2020-06-02 00:00:00 Completed [facility] SARS-COV-2 COVID-19 MODERNA 12+ YRS VACCINE 2020-06-02 00:00:00 Completed [facility] SARS-COV-2 COVID-19 MODERNA 12+ YRS VACCINE 2020-06-02 00:00:00 Completed [facility] SARS-COV-2 COVID-19 MODERNA 12+ YRS VACCINE 2020-06-02 00:00:00 Completed [facility] SARS-COV-2 COVID-19 MODERNA 12+ YRS VACCINE 2020-06-02 00:00:00 Completed [facility] SARS-COV-2 COVID-19 MODERNA 12+ YRS VACCINE 2020-06-02 00:00:00 Completed [facility] SARS-COV-2 COVID-19 MODERNA 12+ YRS VACCINE 2020-06-02 00:00:00 Completed [facility] SARS-COV-2 COVID-19 MODERNA 12+ YRS VACCINE 2020-06-02 00:00:00 Completed [facility] SARS-COV-2 COVID-19 MODERNA 12+ YRS VACCINE 2020-05-05 00:00:00 Completed [facility] SARS-COV-2 COVID-19 MODERNA 12+ YRS VACCINE 2020-05-05 00:00:00 Completed [facility] SARS-COV-2 COVID-19 MODERNA 12+ YRS VACCINE 2020-05-05 00:00:00 Completed [facility] SARS-COV-2 COVID-19 MODERNA 12+ YRS VACCINE 2020-05-05 00:00:00 Completed [facility] SARS-COV-2 COVID-19 MODERNA 12+ YRS VACCINE 2020-05-05 00:00:00 Completed [facility] SARS-COV-2 COVID-19 MODERNA 12+ YRS VACCINE 2020-05-05 00:00:00 Completed [facility] SARS-COV-2 COVID-19 MODERNA 12+ YRS VACCINE 2020-05-05 00:00:00 Completed [facility] SARS-COV-2 COVID-19 MODERNA 12+ YRS VACCINE 2020-05-05 00:00:00 Completed [facility] SARS-COV-2 COVID-19 MODERNA 12+ YRS VACCINE 2020-05-05 00:00:00 Completed [facility] SARS-COV-2 COVID-19 MODERNA 12+ YRS VACCINE 2020-05-05 00:00:00 Completed [facility] SARS-COV-2 COVID-19 MODERNA 12+ YRS VACCINE 2020-05-05 00:00:00 Completed [facility] SARS-COV-2 COVID-19 MODERNA 12+ YRS VACCINE 2020-05-05 00:00:00 Completed [facility] SARS-COV-2 COVID-19 MODERNA 12+ YRS VACCINE 2020-05-05 00:00:00 Completed [facility] SARS-COV-2 COVID-19 MODERNA 12+ YRS VACCINE 2020-05-05 00:00:00 Completed [facility] SARS-COV-2 COVID-19 MODERNA 12+ YRS VACCINE 2020-05-05 00:00:00 Completed [facility] SARS-COV-2 COVID-19 MODERNA 12+ YRS VACCINE 2020-05-05 00:00:00 Completed [facility] SARS-COV-2 COVID-19 MODERNA 12+ YRS VACCINE 2020-05-05 00:00:00 Completed [facility] SARS-COV-2 COVID-19 MODERNA 12+ YRS VACCINE 2020-05-05 00:00:00 Completed [facility] SARS-COV-2 COVID-19 MODERNA 12+ YRS VACCINE 2020-05-05 00:00:00 Completed [facility] SARS-COV-2 COVID-19 MODERNA 12+ YRS VACCINE 2020-05-05 00:00:00 Completed [facility] SARS-COV-2 COVID-19 MODERNA 12+ YRS VACCINE 2020-05-05 00:00:00 Completed [facility] SARS-COV-2 COVID-19 MODERNA 12+ YRS VACCINE 2020-05-05 00:00:00 Completed [facility] SARS-COV-2 COVID-19 MODERNA 12+ YRS VACCINE 2020-05-05 00:00:00 Completed [facility] SARS-COV-2 COVID-19 MODERNA 12+ YRS VACCINE 2020-05-05 00:00:00 Completed [facility] SARS-COV-2 COVID-19 MODERNA 12+ YRS VACCINE 2020-05-05 00:00:00 Completed [facility] SARS-COV-2 COVID-19 MODERNA 12+ YRS VACCINE 2020-05-05 00:00:00 Completed [facility] SARS-COV-2 COVID-19 MODERNA 12+ YRS VACCINE 2020-05-05 00:00:00 Completed [facility] SARS-COV-2 COVID-19 MODERNA 12+ YRS VACCINE 2020-05-05 00:00:00 Completed [facility] SARS-COV-2 COVID-19 MODERNA 12+ YRS VACCINE 2020-05-05 00:00:00 Completed [facility] SARS-COV-2 COVID-19 MODERNA 12+ YRS VACCINE 2020-05-05 00:00:00 Completed [facility] SARS-COV-2 COVID-19 MODERNA 12+ YRS VACCINE 2020-05-05 00:00:00 Completed [facility] SARS-COV-2 COVID-19 MODERNA 12+ YRS VACCINE 2020-05-05 00:00:00 Completed [facility] SARS-COV-2 COVID-19 MODERNA 12+ YRS VACCINE 2020-05-05 00:00:00 Completed [facility] SARS-COV-2 COVID-19 MODERNA 12+ YRS VACCINE 2020-05-05 00:00:00 Completed [facility] SARS-COV-2 COVID-19 MODERNA 12+ YRS VACCINE 2020-05-05 00:00:00 Completed [facility] SARS-COV-2 COVID-19 MODERNA 12+ YRS VACCINE 2020-05-05 00:00:00 Completed [facility] SARS-COV-2 COVID-19 MODERNA 12+ YRS VACCINE 2020-05-05 00:00:00 Completed [facility] SARS-COV-2 COVID-19 MODERNA 12+ YRS VACCINE 2020-05-05 00:00:00 Completed [facility] SARS-COV-2 COVID-19 MODERNA 12+ YRS VACCINE 2020-05-05 00:00:00 Completed [facility] SARS-COV-2 COVID-19 MODERNA 12+ YRS VACCINE 2020-05-05 00:00:00 Completed [facility] SARS-COV-2 COVID-19 MODERNA 12+ YRS VACCINE 2020-05-05 00:00:00 Completed [facility] SARS-COV-2 COVID-19 MODERNA 12+ YRS VACCINE 2020-05-05 00:00:00 Completed [facility] SARS-COV-2 COVID-19 MODERNA 12+ YRS VACCINE 2020-05-05 00:00:00 Completed [facility] SARS-COV-2 COVID-19 MODERNA 12+ YRS VACCINE 2020-05-05 00:00:00 Completed [facility] SARS-COV-2 COVID-19 MODERNA 12+ YRS VACCINE 2020-05-05 00:00:00 Completed [facility] SARS-COV-2 COVID-19 MODERNA 12+ YRS VACCINE 2020-05-05 00:00:00 Completed [facility] SARS-COV-2 COVID-19 MODERNA 12+ YRS VACCINE 2020-05-05 00:00:00 Completed [facility] Influenza High Dose Quad 2020-01-14 00:00:00 Completed [facility] Influenza High Dose Quad 2020-01-14 00:00:00 Completed [facility] Influenza High Dose Quad 2020-01-14 00:00:00 Completed [facility] Influenza High Dose Quad 2020-01-14 00:00:00 Completed [facility] Influenza High Dose Quad 2020-01-14 00:00:00 Completed [facility] Influenza High Dose Quad 2020-01-14 00:00:00 Completed [facility] Influenza High Dose Quad 2020-01-14 00:00:00 Completed [facility] Influenza High Dose Quad 2020-01-14 00:00:00 Completed [facility] Influenza High Dose Quad 2020-01-14 00:00:00 Completed [facility] Influenza High Dose Quad 2020-01-14 00:00:00 Completed [facility] Influenza High Dose Quad 2020-01-14 00:00:00 Completed [facility] Influenza High Dose Quad 2020-01-14 00:00:00 Completed [facility] Influenza High Dose Quad 2020-01-14 00:00:00 Completed [facility] Influenza High Dose Quad 2020-01-14 00:00:00 Completed [facility] Influenza High Dose Quad 2020-01-14 00:00:00 Completed [facility] Influenza High Dose Quad 2020-01-14 00:00:00 Completed [facility] Influenza High Dose Quad 2020-01-14 00:00:00 Completed [facility] Influenza High Dose Quad 2020-01-14 00:00:00 Completed [facility] Influenza High Dose Quad 2020-01-14 00:00:00 Completed [facility] Influenza High Dose Quad 2020-01-14 00:00:00 Completed [facility] Influenza High Dose Quad 2020-01-14 00:00:00 Completed [facility] Influenza High Dose Quad 2020-01-14 00:00:00 Completed [facility] Influenza High Dose Quad 2020-01-14 00:00:00 Completed [facility] Influenza High Dose Quad 2020-01-14 00:00:00 Completed [facility] Influenza High Dose Quad 2020-01-14 00:00:00 Completed [facility] Influenza High Dose Quad 2020-01-14 00:00:00 Completed [facility] Influenza High Dose Quad 2020-01-14 00:00:00 Completed [facility] Influenza High Dose Quad 2020-01-14 00:00:00 Completed [facility] Influenza High Dose Quad 2020-01-14 00:00:00 Completed [facility] Influenza High Dose Quad 2020-01-14 00:00:00 Completed [facility] Influenza High Dose Quad 2020-01-14 00:00:00 Completed [facility] Influenza High Dose Quad 2020-01-14 00:00:00 Completed [facility] Influenza High Dose Quad 2020-01-14 00:00:00 Completed [facility] Influenza High Dose Quad 2020-01-14 00:00:00 Completed [facility] Influenza High Dose Quad 2020-01-14 00:00:00 Completed [facility] Influenza High Dose Quad 2020-01-14 00:00:00 Completed [facility] Influenza High Dose Quad 2020-01-14 00:00:00 Completed [facility] Influenza High Dose Quad 2020-01-14 00:00:00 Completed [facility] Influenza High Dose Quad 2020-01-14 00:00:00 Completed [facility] Influenza High Dose Quad 2020-01-14 00:00:00 Completed [facility] Influenza High Dose Quad 2020-01-14 00:00:00 Completed [facility] Influenza High Dose Quad 2020-01-14 00:00:00 Completed [facility] Influenza High Dose Quad 2020-01-14 00:00:00 Completed [facility] Influenza High Dose Quad 2020-01-14 00:00:00 Completed [facility] Influenza High Dose Quad 2020-01-14 00:00:00 Completed Influenza High Dose Quad 2020-01-14 00:00:00 Completed [facility] Influenza High Dose Quad 2020-01-14 00:00:00 Completed [facility] Pneumococcal Polysaccharide, PPSV23 (PNEUMOVAX) 2019-04-09 00:00:00 Completed [facility] Pneumococcal Polysaccharide, PPSV23 (PNEUMOVAX) 2019-04-09 00:00:00 Completed [facility] Pneumococcal Polysaccharide, PPSV23 (PNEUMOVAX) 2019-04-09 00:00:00 Completed [facility] Pneumococcal Polysaccharide, PPSV23 (PNEUMOVAX) 2019-04-09 00:00:00 Completed [facility] Pneumococcal Polysaccharide, PPSV23 (PNEUMOVAX) 2019-04-09 00:00:00 Completed [facility] Pneumococcal Polysaccharide, PPSV23 (PNEUMOVAX) 2019-04-09 00:00:00 Completed [facility] Pneumococcal Polysaccharide, PPSV23 (PNEUMOVAX) 2019-04-09 00:00:00 Completed [facility] Pneumococcal Polysaccharide, PPSV23 (PNEUMOVAX) 2019-04-09 00:00:00 Completed [facility] Pneumococcal Polysaccharide, PPSV23 (PNEUMOVAX) 2019-04-09 00:00:00 Completed [facility] Pneumococcal Polysaccharide, PPSV23 (PNEUMOVAX) 2019-04-09 00:00:00 Completed [facility] Pneumococcal Polysaccharide, PPSV23 (PNEUMOVAX) 2019-04-09 00:00:00 Completed [facility] Pneumococcal Polysaccharide, PPSV23 (PNEUMOVAX) 2019-04-09 00:00:00 Completed [facility] Pneumococcal Polysaccharide, PPSV23 (PNEUMOVAX) 2019-04-09 00:00:00 Completed [facility] Pneumococcal Polysaccharide, PPSV23 (PNEUMOVAX) 2019-04-09 00:00:00 Completed [facility] Pneumococcal Polysaccharide, PPSV23 (PNEUMOVAX) 2019-04-09 00:00:00 Completed [facility] Pneumococcal Polysaccharide, PPSV23 (PNEUMOVAX) 2019-04-09 00:00:00 Completed [facility] Pneumococcal Polysaccharide, PPSV23 (PNEUMOVAX) 2019-04-09 00:00:00 Completed [facility] Pneumococcal Polysaccharide, PPSV23 (PNEUMOVAX) 2019-04-09 00:00:00 Completed [facility] Pneumococcal Polysaccharide, PPSV23 (PNEUMOVAX) 2019-04-09 00:00:00 Completed [facility] Pneumococcal Polysaccharide, PPSV23 (PNEUMOVAX) 2019-04-09 00:00:00 Completed [facility] Pneumococcal Polysaccharide, PPSV23 (PNEUMOVAX) 2019-04-09 00:00:00 Completed [facility] Pneumococcal Polysaccharide, PPSV23 (PNEUMOVAX) 2019-04-09 00:00:00 Completed [facility] Pneumococcal Polysaccharide, PPSV23 (PNEUMOVAX) 2019-04-09 00:00:00 Completed [facility] Pneumococcal Polysaccharide, PPSV23 (PNEUMOVAX) 2019-04-09 00:00:00 Completed [facility] Pneumococcal Polysaccharide, PPSV23 (PNEUMOVAX) 2019-04-09 00:00:00 Completed [facility] Pneumococcal Polysaccharide, PPSV23 (PNEUMOVAX) 2019-04-09 00:00:00 Completed [facility] Pneumococcal Polysaccharide, PPSV23 (PNEUMOVAX) 2019-04-09 00:00:00 Completed [facility] Pneumococcal Polysaccharide, PPSV23 (PNEUMOVAX) 2019-04-09 00:00:00 Completed [facility] Pneumococcal Polysaccharide, PPSV23 (PNEUMOVAX) 2019-04-09 00:00:00 Completed [facility] Pneumococcal Polysaccharide, PPSV23 (PNEUMOVAX) 2019-04-09 00:00:00 Completed [facility] Pneumococcal Polysaccharide, PPSV23 (PNEUMOVAX) 2019-04-09 00:00:00 Completed [facility] Pneumococcal Polysaccharide, PPSV23 (PNEUMOVAX) 2019-04-09 00:00:00 Completed [facility] Pneumococcal Polysaccharide, PPSV23 (PNEUMOVAX) 2019-04-09 00:00:00 Completed [facility] Pneumococcal Polysaccharide, PPSV23 (PNEUMOVAX) 2019-04-09 00:00:00 Completed [facility] Pneumococcal Polysaccharide, PPSV23 (PNEUMOVAX) 2019-04-09 00:00:00 Completed [facility] Pneumococcal Polysaccharide, PPSV23 (PNEUMOVAX) 2019-04-09 00:00:00 Completed [facility] Pneumococcal Polysaccharide, PPSV23 (PNEUMOVAX) 2019-04-09 00:00:00 Completed [facility] Pneumococcal Polysaccharide, PPSV23 (PNEUMOVAX) 2019-04-09 00:00:00 Completed [facility] Pneumococcal Polysaccharide, PPSV23 (PNEUMOVAX) 2019-04-09 00:00:00 Completed [facility] Pneumococcal Polysaccharide, PPSV23 (PNEUMOVAX) 2019-04-09 00:00:00 Completed [facility] Pneumococcal Polysaccharide, PPSV23 (PNEUMOVAX) 2019-04-09 00:00:00 Completed [facility] Pneumococcal Polysaccharide, PPSV23 (PNEUMOVAX) 2019-04-09 00:00:00 Completed [facility] Pneumococcal Polysaccharide, PPSV23 (PNEUMOVAX) 2019-04-09 00:00:00 Completed [facility] Pneumococcal Polysaccharide, PPSV23 (PNEUMOVAX) 2019-04-09 00:00:00 Completed [facility] Pneumococcal Polysaccharide, PPSV23 (PNEUMOVAX) 2019-04-09 00:00:00 Completed Pneumococcal Polysaccharide, PPSV23 (PNEUMOVAX) 2019-04-09 00:00:00 Completed [facility] Pneumococcal Polysaccharide, PPSV23 (PNEUMOVAX) 2019-04-09 00:00:00 Completed [facility] TDAP 2016-12-08 00:00:00 Completed [facility] TDAP 2016-12-08 00:00:00 Completed [facility] TDAP 2016-12-08 00:00:00 Completed [facility] TDAP 2016-12-08 00:00:00 Completed [facility] TDAP 2016-12-08 00:00:00 Completed [facility] TDAP 2016-12-08 00:00:00 Completed [facility] TDAP 2016-12-08 00:00:00 Completed [facility] TDAP 2016-12-08 00:00:00 Completed [facility] TDAP 2016-12-08 00:00:00 Completed [facility] TDAP 2016-12-08 00:00:00 Completed [facility] TDAP 2016-12-08 00:00:00 Completed [facility] TDAP 2016-12-08 00:00:00 Completed [facility] TDAP 2016-12-08 00:00:00 Completed [facility] TDAP 2016-12-08 00:00:00 Completed [facility] TDAP 2016-12-08 00:00:00 Completed [facility] TDAP 2016-12-08 00:00:00 Completed [facility] TDAP 2016-12-08 00:00:00 Completed [facility] TDAP 2016-12-08 00:00:00 Completed [facility] TDAP 2016-12-08 00:00:00 Completed [facility] TDAP 2016-12-08 00:00:00 Completed [facility] TDAP 2016-12-08 00:00:00 Completed [facility] TDAP 2016-12-08 00:00:00 Completed [facility] TDAP 2016-12-08 00:00:00 Completed [facility] TDAP 2016-12-08 00:00:00 Completed [facility] TDAP 2016-12-08 00:00:00 Completed [facility] TDAP 2016-12-08 00:00:00 Completed [facility] TDAP 2016-12-08 00:00:00 Completed [facility] TDAP 2016-12-08 00:00:00 Completed [facility] TDAP 2016-12-08 00:00:00 Completed [facility] TDAP 2016-12-08 00:00:00 Completed [facility] TDAP 2016-12-08 00:00:00 Completed [facility] TDAP 2016-12-08 00:00:00 Completed [facility] TDAP 2016-12-08 00:00:00 Completed [facility] TDAP 2016-12-08 00:00:00 Completed [facility] TDAP 2016-12-08 00:00:00 Completed [facility] TDAP 2016-12-08 00:00:00 Completed [facility] TDAP 2016-12-08 00:00:00 Completed [facility] TDAP 2016-12-08 00:00:00 Completed [facility] TDAP 2016-12-08 00:00:00 Completed [facility] TDAP 2016-12-08 00:00:00 Completed [facility] TDAP 2016-12-08 00:00:00 Completed [facility] TDAP 2016-12-08 00:00:00 Completed [facility] TDAP 2016-12-08 00:00:00 Completed [facility] TDAP 2016-12-08 00:00:00 Completed [facility] TDAP 2016-12-08 00:00:00 Completed [facility] TDAP 2016-12-08 00:00:00 Completed [facility] 2016-12-08 00:00:00 Completed [facility] SARS-COV-2 COVID-19 MODERNA 12+ YRS VACCINE Unknown Completed [facility] Influenza High Dose Quad Unknown Completed [facility] Pneumococcal Polysaccharide, PPSV23 (PNEUMOVAX) Unknown Completed [facility] TDAP Unknown Completed [facility] Influenza High Dose Unknown Completed [facility] SARS-COV-2 COVID-19 MODERNA 0.25ML BOOSTER VACCINE Unknown Completed [facility] Pneumococcal 20 Conjugate, PCV20 (Prevnar 20) Unknown Completed [facility] SARS-COV-2 COVID-19 VACCINE 12 YRS+, BIVALENT 0.5ML, IM, (MODERNA-BLUE TOP) Unknown Completed [facility] Influenza Virus Vaccine,quad Im,preserve Free 65+ (FLUAD) Unknown Completed [facility] Influenza High Dose Quad Unknown Completed [facility] Pneumococcal Polysaccharide, PPSV23 (PNEUMOVAX) Unknown Completed [facility] TDAP Unknown Completed [facility] Influenza High Dose Unknown Completed [facility] SARS-COV-2 COVID-19 MODERNA 0.25ML BOOSTER VACCINE Unknown Completed [facility] Pneumococcal 20 Conjugate, PCV20 (Prevnar 20) Unknown Completed [facility] SARS-COV-2 COVID-19 VACCINE 12 YRS+, BIVALENT 0.5ML, IM, (MODERNA-BLUE TOP) Unknown Completed [facility] Influenza Virus Vaccine,quad Im,preserve Free 65+ (FLUAD) Unknown Completed [facility] SARS-COV-2 COVID-19 MODERNA 12+ YRS VACCINE Unknown Completed [facility] Influenza High Dose Quad Unknown Completed [facility] Pneumococcal Polysaccharide, PPSV23 (PNEUMOVAX) Unknown Completed [facility] TDAP Unknown Completed [facility] Influenza High Dose Unknown Completed [facility] SARS-COV-2 COVID-19 MODERNA 0.25ML BOOSTER VACCINE Unknown Completed [facility] Pneumococcal 20 Conjugate, PCV20 (Prevnar 20) Unknown Completed [facility] SARS-COV-2 COVID-19 VACCINE 12 YRS+, BIVALENT 0.5ML, IM, (MODERNA-BLUE TOP) Unknown Completed [facility] Influenza Virus Vaccine,quad Im,preserve Free 65+ (FLUAD) Unknown Completed [facility] SARS-COV-2 COVID-19 MODERNA 12+ YRS VACCINE Unknown Completed [facility] Influenza High Dose Quad Unknown Completed [facility] Pneumococcal Polysaccharide, PPSV23 (PNEUMOVAX) Unknown Completed [facility] TDAP Unknown Completed [facility] Influenza High Dose Unknown Completed [facility] SARS-COV-2 COVID-19 MODERNA 0.25ML BOOSTER VACCINE Unknown Completed [facility] Pneumococcal 20 Conjugate, PCV20 (Prevnar 20) Unknown Completed [facility] SARS-COV-2 COVID-19 VACCINE 12 YRS+, BIVALENT 0.5ML, IM, (MODERNA-BLUE TOP) Unknown Completed [facility] Influenza Virus Vaccine,quad Im,preserve Free 65+ (FLUAD) Unknown Completed [facility] SARS-COV-2 COVID-19 MODERNA 12+ YRS VACCINE Unknown Completed [facility] Influenza High Dose Quad Unknown Completed [facility] Pneumococcal Polysaccharide, PPSV23 (PNEUMOVAX) Unknown Completed [facility] TDAP Unknown Completed [facility] Influenza High Dose Unknown Completed [facility] SARS-COV-2 COVID-19 MODERNA 0.25ML BOOSTER VACCINE Unknown Completed [facility] Pneumococcal 20 Conjugate, PCV20 (Prevnar 20) Unknown Completed [facility] SARS-COV-2 COVID-19 VACCINE 12 YRS+, BIVALENT 0.5ML, IM, (MODERNA-BLUE TOP) Unknown Completed [facility] Influenza Virus Vaccine,quad Im,preserve Free 65+ (FLUAD) Unknown Completed [facility] SARS-COV-2 COVID-19 MODERNA 12+ YRS VACCINE Unknown Completed [facility] Influenza High Dose Quad Unknown Completed [facility] Pneumococcal Polysaccharide, PPSV23 (PNEUMOVAX) Unknown Completed [facility] TDAP Unknown Completed [facility] Influenza High Dose Unknown Completed [facility] SARS-COV-2 COVID-19 MODERNA 0.25ML BOOSTER VACCINE Unknown Completed [facility] Pneumococcal 20 Conjugate, PCV20 (Prevnar 20) Unknown Completed [facility] SARS-COV-2 COVID-19 VACCINE 12 YRS+, BIVALENT 0.5ML, IM, (MODERNA-BLUE TOP) Unknown Completed [facility] Influenza Virus Vaccine,quad Im,preserve Free 65+ (FLUAD) Unknown Completed [facility] SARS-COV-2 COVID-19 MODERNA 12+ YRS VACCINE Unknown Completed [facility] Influenza High Dose Quad Unknown Completed [facility] Pneumococcal Polysaccharide, PPSV23 (PNEUMOVAX) Unknown Completed [facility] TDAP Unknown Completed [facility] Influenza High Dose Unknown Completed [facility] SARS-COV-2 COVID-19 MODERNA 0.25ML BOOSTER VACCINE Unknown Completed [facility] Pneumococcal 20 Conjugate, PCV20 (Prevnar 20) Unknown Completed [facility] SARS-COV-2 COVID-19 VACCINE 12 YRS+, BIVALENT 0.5ML, IM, (MODERNA-BLUE TOP) Unknown Completed [facility] Influenza Virus Vaccine,quad Im,preserve Free 65+ (FLUAD) Unknown Completed [facility] SARS-COV-2 COVID-19 MODERNA 12+ YRS VACCINE Unknown Completed [facility] Influenza High Dose Quad Unknown Completed [facility] Pneumococcal Polysaccharide, PPSV23 (PNEUMOVAX) Unknown Completed [facility] TDAP Unknown Completed [facility] Influenza High Dose Unknown Completed [facility] SARS-COV-2 COVID-19 MODERNA 0.25ML BOOSTER VACCINE Unknown Completed [facility] Pneumococcal 20 Conjugate, PCV20 (Prevnar 20) Unknown Completed [facility] SARS-COV-2 COVID-19 VACCINE 12 YRS+, BIVALENT 0.5ML, IM, (MODERNA-BLUE TOP) Unknown Completed [facility] Influenza Virus Vaccine,quad Im,preserve Free 65+ (FLUAD) Unknown Completed [facility] SARS-COV-2 COVID-19 MODERNA 12+ YRS VACCINE Unknown Completed [facility] Influenza High Dose Quad Unknown Completed [facility] Pneumococcal Polysaccharide, PPSV23 (PNEUMOVAX) Unknown Completed [facility] TDAP Unknown Completed [facility] Influenza High Dose Unknown Completed [facility] SARS-COV-2 COVID-19 MODERNA 0.25ML BOOSTER VACCINE Unknown Completed [facility] Pneumococcal 20 Conjugate, PCV20 (Prevnar 20) Unknown Completed [facility] SARS-COV-2 COVID-19 VACCINE 12 YRS+, BIVALENT 0.5ML, IM, (MODERNA-BLUE TOP) Unknown Completed [facility] Influenza Virus Vaccine,quad Im,preserve Free 65+ (FLUAD) Unknown Completed [facility] SARS-COV-2 COVID-19 MODERNA 12+ YRS VACCINE Unknown Completed [facility] Influenza High Dose Quad Unknown Completed [facility] Pneumococcal Polysaccharide, PPSV23 (PNEUMOVAX) Unknown Completed [facility] TDAP Unknown Completed [facility] Influenza High Dose Unknown Completed [facility] SARS-COV-2 COVID-19 MODERNA 0.25ML BOOSTER VACCINE Unknown Completed [facility] Pneumococcal 20 Conjugate, PCV20 (Prevnar 20) Unknown Completed [facility] SARS-COV-2 COVID-19 VACCINE 12 YRS+, BIVALENT 0.5ML, IM, (MODERNA-BLUE TOP) Unknown Completed [facility] Influenza Virus Vaccine,quad Im,preserve Free 65+ (FLUAD) Unknown Completed [facility] SARS-COV-2 COVID-19 MODERNA 12+ YRS VACCINE Unknown Completed [facility] Influenza High Dose Quad Unknown Completed [facility] Pneumococcal Polysaccharide, PPSV23 (PNEUMOVAX) Unknown Completed [facility] TDAP Unknown Completed [facility] Influenza High Dose Unknown Completed [facility] SARS-COV-2 COVID-19 MODERNA 0.25ML BOOSTER VACCINE Unknown Completed [facility] Pneumococcal 20 Conjugate, PCV20 (Prevnar 20) Unknown Completed [facility] SARS-COV-2 COVID-19 VACCINE 12 YRS+, BIVALENT 0.5ML, IM, (MODERNA-BLUE TOP) Unknown Completed [facility] Influenza Virus Vaccine,quad Im,preserve Free 65+ (FLUAD) Unknown Completed [facility] SARS-COV-2 COVID-19 MODERNA 12+ YRS VACCINE Unknown Completed [facility] Influenza High Dose Quad Unknown Completed [facility] Pneumococcal Polysaccharide, PPSV23 (PNEUMOVAX) Unknown Completed [facility] TDAP Unknown Completed [facility] Influenza High Dose Unknown Completed [facility] SARS-COV-2 COVID-19 MODERNA 0.25ML BOOSTER VACCINE Unknown Completed [facility] Pneumococcal 20 Conjugate, PCV20 (Prevnar 20) Unknown Completed [facility] SARS-COV-2 COVID-19 VACCINE 12 YRS+, BIVALENT 0.5ML, IM, (MODERNA-BLUE TOP) Unknown Completed [facility] Influenza Virus Vaccine,quad Im,preserve Free 65+ (FLUAD) Unknown Completed [facility] SARS-COV-2 COVID-19 MODERNA 12+ YRS VACCINE Unknown Completed [facility] Influenza High Dose Quad Unknown Completed [facility] Pneumococcal Polysaccharide, PPSV23 (PNEUMOVAX) Unknown Completed [facility] TDAP Unknown Completed [facility] Influenza High Dose Unknown Completed [facility] SARS-COV-2 COVID-19 MODERNA 0.25ML BOOSTER VACCINE Unknown Completed [facility] Pneumococcal 20 Conjugate, PCV20 (Prevnar 20) Unknown Completed [facility] SARS-COV-2 COVID-19 VACCINE 12 YRS+, BIVALENT 0.5ML, IM, (MODERNA-BLUE TOP) Unknown Completed [facility] Influenza Virus Vaccine,quad Im,preserve Free 65+ (FLUAD) Unknown Completed [facility] SARS-COV-2 COVID-19 MODERNA 12+ YRS VACCINE Unknown Completed [facility] Influenza High Dose Quad Unknown Completed [facility] Pneumococcal Polysaccharide, PPSV23 (PNEUMOVAX) Unknown Completed [facility] TDAP Unknown Completed [facility] Influenza High Dose Unknown Completed [facility] SARS-COV-2 COVID-19 MODERNA 0.25ML BOOSTER VACCINE Unknown Completed [facility] Pneumococcal 20 Conjugate, PCV20 (Prevnar 20) Unknown Completed [facility] SARS-COV-2 COVID-19 VACCINE 12 YRS+, BIVALENT 0.5ML, IM, (MODERNA-BLUE TOP) Unknown Completed [facility] Influenza Virus Vaccine,quad Im,preserve Free 65+ (FLUAD) Unknown Completed [facility] SARS-COV-2 COVID-19 MODERNA 12+ YRS VACCINE Unknown Completed [facility] Influenza High Dose Quad Unknown Completed [facility] Pneumococcal Polysaccharide, PPSV23 (PNEUMOVAX) Unknown Completed [facility] TDAP Unknown Completed [facility] Influenza High Dose Unknown Completed [facility] SARS-COV-2 COVID-19 MODERNA 0.25ML BOOSTER VACCINE Unknown Completed [facility] Pneumococcal 20 Conjugate, PCV20 (Prevnar 20) Unknown Completed [facility] SARS-COV-2 COVID-19 VACCINE 12 YRS+, BIVALENT 0.5ML, IM, (MODERNA-BLUE TOP) Unknown Completed [facility] Influenza Virus Vaccine,quad Im,preserve Free 65+ (FLUAD) Unknown Completed [facility] SARS-COV-2 COVID-19 MODERNA 12+ YRS VACCINE Unknown Completed [facility] Influenza High Dose Quad Unknown Completed [facility] Pneumococcal Polysaccharide, PPSV23 (PNEUMOVAX) Unknown Completed [facility] TDAP Unknown Completed [facility] Influenza High Dose Unknown Completed [facility] SARS-COV-2 COVID-19 MODERNA 0.25ML BOOSTER VACCINE Unknown Completed [facility] Pneumococcal 20 Conjugate, PCV20 (Prevnar 20) Unknown Completed [facility] SARS-COV-2 COVID-19 VACCINE 12 YRS+, BIVALENT 0.5ML, IM, (MODERNA-BLUE TOP) Unknown Completed [facility] Influenza Virus Vaccine,quad Im,preserve Free 65+ (FLUAD) Unknown Completed [facility] SARS-COV-2 COVID-19 MODERNA 12+ YRS VACCINE Unknown Completed [facility] Influenza High Dose Quad Unknown Completed [facility] Pneumococcal Polysaccharide, PPSV23 (PNEUMOVAX) Unknown Completed [facility] TDAP Unknown Completed [facility] Influenza High Dose Unknown Completed [facility] SARS-COV-2 COVID-19 MODERNA 0.25ML BOOSTER VACCINE Unknown Completed [facility] Pneumococcal 20 Conjugate, PCV20 (Prevnar 20) Unknown Completed [facility] SARS-COV-2 COVID-19 VACCINE 12 YRS+, BIVALENT 0.5ML, IM, (MODERNA-BLUE TOP) Unknown Completed [facility] Influenza Virus Vaccine,quad Im,preserve Free 65+ (FLUAD) Unknown Completed [facility] SARS-COV-2 COVID-19 MODERNA 12+ YRS VACCINE Unknown Completed [facility] Influenza High Dose Quad Unknown Completed [facility] Pneumococcal Polysaccharide, PPSV23 (PNEUMOVAX) Unknown Completed [facility] TDAP Unknown Completed [facility] Influenza High Dose Unknown Completed [facility] SARS-COV-2 COVID-19 MODERNA 0.25ML BOOSTER VACCINE Unknown Completed [facility] Pneumococcal 20 Conjugate, PCV20 (Prevnar 20) Unknown Completed [facility] SARS-COV-2 COVID-19 VACCINE 12 YRS+, BIVALENT 0.5ML, IM, (MODERNA-BLUE TOP) Unknown Completed [facility] Influenza Virus Vaccine,quad Im,preserve Free 65+ (FLUAD) Unknown Completed [facility] SARS-COV-2 COVID-19 MODERNA 12+ YRS VACCINE Unknown Completed [facility] Influenza High Dose Quad Unknown Completed [facility] Pneumococcal Polysaccharide, PPSV23 (PNEUMOVAX) Unknown Completed [facility] TDAP Unknown Completed [facility] Influenza High Dose Unknown Completed [facility] SARS-COV-2 COVID-19 MODERNA 0.25ML BOOSTER VACCINE Unknown Completed [facility] Pneumococcal 20 Conjugate, PCV20 (Prevnar 20) Unknown Completed [facility] SARS-COV-2 COVID-19 VACCINE 12 YRS+, BIVALENT 0.5ML, IM, (MODERNA-BLUE TOP) Unknown Completed [facility] Influenza Virus Vaccine,quad Im,preserve Free 65+ (FLUAD) Unknown Completed [facility] SARS-COV-2 COVID-19 MODERNA 12+ YRS VACCINE Unknown Completed [facility] Influenza High Dose Quad Unknown Completed [facility] Pneumococcal Polysaccharide, PPSV23 (PNEUMOVAX) Unknown Completed [facility] TDAP Unknown Completed [facility] Influenza High Dose Unknown Completed [facility] SARS-COV-2 COVID-19 MODERNA 0.25ML BOOSTER VACCINE Unknown Completed [facility] Pneumococcal 20 Conjugate, PCV20 (Prevnar 20) Unknown Completed [facility] SARS-COV-2 COVID-19 VACCINE 12 YRS+, BIVALENT 0.5ML, IM, (MODERNA-BLUE TOP) Unknown Completed [facility] Influenza Virus Vaccine,quad Im,preserve Free 65+ (FLUAD) Unknown Completed [facility] SARS-COV-2 COVID-19 MODERNA 12+ YRS VACCINE Unknown Completed [facility] Influenza High Dose Quad Unknown Completed [facility] Pneumococcal Polysaccharide, PPSV23 (PNEUMOVAX) Unknown Completed [facility] TDAP Unknown Completed [facility] Influenza High Dose Unknown Completed [facility] SARS-COV-2 COVID-19 MODERNA 0.25ML BOOSTER VACCINE Unknown Completed [facility] Pneumococcal 20 Conjugate, PCV20 (Prevnar 20) Unknown Completed [facility] SARS-COV-2 COVID-19 VACCINE 12 YRS+, BIVALENT 0.5ML, IM, (MODERNA-BLUE TOP) Unknown Completed [facility] Influenza Virus Vaccine,quad Im,preserve Free 65+ (FLUAD) Unknown Completed [facility] SARS-COV-2 COVID-19 MODERNA 12+ YRS VACCINE Unknown Completed [facility] Influenza High Dose Quad Unknown Completed [facility] Pneumococcal Polysaccharide, PPSV23 (PNEUMOVAX) Unknown Completed [facility] TDAP Unknown Completed [facility] Influenza High Dose Unknown Completed [facility] SARS-COV-2 COVID-19 MODERNA 0.25ML BOOSTER VACCINE Unknown Completed [facility] Pneumococcal 20 Conjugate, PCV20 (Prevnar 20) Unknown Completed [facility] SARS-COV-2 COVID-19 VACCINE 12 YRS+, BIVALENT 0.5ML, IM, (MODERNA-BLUE TOP) Unknown Completed [facility] Influenza Virus Vaccine,quad Im,preserve Free 65+ (FLUAD) Unknown Completed [facility] SARS-COV-2 COVID-19 MODERNA 12+ YRS VACCINE Unknown Completed [facility] Influenza High Dose Quad Unknown Completed [facility] Pneumococcal Polysaccharide, PPSV23 (PNEUMOVAX) Unknown Completed [facility] TDAP Unknown Completed [facility] Influenza High Dose Unknown Completed [facility] SARS-COV-2 COVID-19 MODERNA 0.25ML BOOSTER VACCINE Unknown Completed [facility] Pneumococcal 20 Conjugate, PCV20 (Prevnar 20) Unknown Completed [facility] SARS-COV-2 COVID-19 VACCINE 12 YRS+, BIVALENT 0.5ML, IM, (MODERNA-BLUE TOP) Unknown Completed [facility] Influenza Virus Vaccine,quad Im,preserve Free 65+ (FLUAD) Unknown Completed [facility] SARS-COV-2 COVID-19 MODERNA 12+ YRS VACCINE Unknown Completed [facility] Influenza High Dose Quad Unknown Completed [facility] Pneumococcal Polysaccharide, PPSV23 (PNEUMOVAX) Unknown Completed [facility] TDAP Unknown Completed [facility] Influenza High Dose Unknown Completed [facility] SARS-COV-2 COVID-19 MODERNA 0.25ML BOOSTER VACCINE Unknown Completed [facility] Pneumococcal 20 Conjugate, PCV20 (Prevnar 20) Unknown Completed [facility] SARS-COV-2 COVID-19 VACCINE 12 YRS+, BIVALENT 0.5ML, IM, (MODERNA-BLUE TOP) Unknown Completed [facility] Influenza Virus Vaccine,quad Im,preserve Free 65+ (FLUAD) Unknown Completed [facility] SARS-COV-2 COVID-19 MODERNA 12+ YRS VACCINE Unknown Completed [facility] Influenza High Dose Quad Unknown Completed [facility] Pneumococcal Polysaccharide, PPSV23 (PNEUMOVAX) Unknown Completed [facility] TDAP Unknown Completed [facility] Influenza High Dose Unknown Completed [facility] SARS-COV-2 COVID-19 MODERNA 0.25ML BOOSTER VACCINE Unknown Completed [facility] Pneumococcal 20 Conjugate, PCV20 (Prevnar 20) Unknown Completed [facility] SARS-COV-2 COVID-19 VACCINE 12 YRS+, BIVALENT 0.5ML, IM, (MODERNA-BLUE TOP) Unknown Completed [facility] Influenza Virus Vaccine,quad Im,preserve Free 65+ (FLUAD) Unknown Completed [facility] SARS-COV-2 COVID-19 MODERNA 12+ YRS VACCINE Unknown Completed [facility] Influenza High Dose Quad Unknown Completed [facility] Pneumococcal Polysaccharide, PPSV23 (PNEUMOVAX) Unknown Completed [facility] TDAP Unknown Completed [facility] Influenza High Dose Unknown Completed [facility] SARS-COV-2 COVID-19 MODERNA 0.25ML BOOSTER VACCINE Unknown Completed [facility] Pneumococcal 20 Conjugate, PCV20 (Prevnar 20) Unknown Completed [facility] SARS-COV-2 COVID-19 VACCINE 12 YRS+, BIVALENT 0.5ML, IM, (MODERNA-BLUE TOP) Unknown Completed [facility] Influenza Virus Vaccine,quad Im,preserve Free 65+ (FLUAD) Unknown Completed [facility] SARS-COV-2 COVID-19 MODERNA 12+ YRS VACCINE Unknown Completed [facility] Influenza High Dose Quad Unknown Completed [facility] Pneumococcal Polysaccharide, PPSV23 (PNEUMOVAX) Unknown Completed [facility] TDAP Unknown Completed [facility] Influenza High Dose Unknown Completed [facility] SARS-COV-2 COVID-19 MODERNA 0.25ML BOOSTER VACCINE Unknown Completed [facility] Pneumococcal 20 Conjugate, PCV20 (Prevnar 20) Unknown Completed [facility] SARS-COV-2 COVID-19 VACCINE 12 YRS+, BIVALENT 0.5ML, IM, (MODERNA-BLUE TOP) Unknown Completed [facility] Influenza Virus Vaccine,quad Im,preserve Free 65+ (FLUAD) Unknown Completed [facility] SARS-COV-2 COVID-19 MODERNA 12+ YRS VACCINE Unknown Completed [facility] Influenza High Dose Quad Unknown Completed [facility] Pneumococcal Polysaccharide, PPSV23 (PNEUMOVAX) Unknown Completed [facility] TDAP Unknown Completed [facility] Influenza High Dose Unknown Completed [facility] SARS-COV-2 COVID-19 MODERNA 0.25ML BOOSTER VACCINE Unknown Completed [facility] Pneumococcal 20 Conjugate, PCV20 (Prevnar 20) Unknown Completed [facility] SARS-COV-2 COVID-19 VACCINE 12 YRS+, BIVALENT 0.5ML, IM, (MODERNA-BLUE TOP) Unknown Completed [facility] Influenza Virus Vaccine,quad Im,preserve Free 65+ (FLUAD) Unknown Completed [facility] SARS-COV-2 COVID-19 MODERNA 12+ YRS VACCINE Unknown Completed [facility] Influenza High Dose Quad Unknown Completed [facility] Pneumococcal Polysaccharide, PPSV23 (PNEUMOVAX) Unknown Completed [facility] TDAP Unknown Completed [facility] Influenza High Dose Unknown Completed [facility] SARS-COV-2 COVID-19 MODERNA 0.25ML BOOSTER VACCINE Unknown Completed [facility] Pneumococcal 20 Conjugate, PCV20 (Prevnar 20) Unknown Completed [facility] SARS-COV-2 COVID-19 VACCINE 12 YRS+, BIVALENT 0.5ML, IM, (MODERNA-BLUE TOP) Unknown Completed [facility] Influenza Virus Vaccine,quad Im,preserve Free 65+ (FLUAD) Unknown Completed [facility] SARS-COV-2 COVID-19 MODERNA 12+ YRS VACCINE Unknown Completed [facility] Influenza High Dose Quad Unknown Completed [facility] Pneumococcal Polysaccharide, PPSV23 (PNEUMOVAX) Unknown Completed [facility] TDAP Unknown Completed [facility] Influenza High Dose Unknown Completed [facility] SARS-COV-2 COVID-19 MODERNA 0.25ML BOOSTER VACCINE Unknown Completed [facility] Pneumococcal 20 Conjugate, PCV20 (Prevnar 20) Unknown Completed [facility] SARS-COV-2 COVID-19 VACCINE 12 YRS+, BIVALENT 0.5ML, IM, (MODERNA-BLUE TOP) Unknown Completed [facility] Influenza Virus Vaccine,quad Im,preserve Free 65+ (FLUAD) Unknown Completed [facility] SARS-COV-2 COVID-19 MODERNA 12+ YRS VACCINE Unknown Completed [facility] Influenza High Dose Quad Unknown Completed [facility] Pneumococcal Polysaccharide, PPSV23 (PNEUMOVAX) Unknown Completed [facility] TDAP Unknown Completed [facility] Influenza High Dose Unknown Completed [facility] SARS-COV-2 COVID-19 MODERNA 0.25ML BOOSTER VACCINE Unknown Completed [facility] Pneumococcal 20 Conjugate, PCV20 (Prevnar 20) Unknown Completed [facility] SARS-COV-2 COVID-19 VACCINE 12 YRS+, BIVALENT 0.5ML, IM, (MODERNA-BLUE TOP) Unknown Completed [facility] Influenza Virus Vaccine,quad Im,preserve Free 65+ (FLUAD) Unknown Completed [facility] SARS-COV-2 COVID-19 MODERNA 12+ YRS VACCINE Unknown Completed [facility] Influenza High Dose Quad Unknown Completed [facility] Pneumococcal Polysaccharide, PPSV23 (PNEUMOVAX) Unknown Completed [facility] TDAP Unknown Completed [facility] Influenza High Dose Unknown Completed [facility] SARS-COV-2 COVID-19 MODERNA 0.25ML BOOSTER VACCINE Unknown Completed [facility] Pneumococcal 20 Conjugate, PCV20 (Prevnar 20) Unknown Completed [facility] SARS-COV-2 COVID-19 VACCINE 12 YRS+, BIVALENT 0.5ML, IM, (MODERNA-BLUE TOP) Unknown Completed [facility] Influenza Virus Vaccine,quad Im,preserve Free 65+ (FLUAD) Unknown Completed [facility] SARS-COV-2 COVID-19 MODERNA 12+ YRS VACCINE Unknown Completed [facility] Influenza High Dose Quad Unknown Completed [facility] Pneumococcal Polysaccharide, PPSV23 (PNEUMOVAX) Unknown Completed [facility] TDAP Unknown Completed [facility] Influenza, High-Dose, Trivalent, PF (FLUZONE) Unknown Completed [facility] SARS-COV-2 COVID-19 MODERNA 0.25ML BOOSTER VACCINE Unknown Completed [facility] Pneumococcal 20 Conjugate, PCV20 (Prevnar 20) Unknown Completed [facility] SARS-COV-2 COVID-19 VACCINE 12 YRS+, BIVALENT 0.5ML, IM, (MODERNA-BLUE TOP) Unknown Completed [facility] Influenza Virus Vaccine,quad Im,preserve Free 65+ (FLUAD) Unknown Completed [facility] Vital Signs Vital Name Observation Time Observation Value Comments S ource Systolic blood pressure 2024-12-10 20:08:00 119 mm[Hg] [facility] Diastolic blood pressure 2024-12-10 20:08:00 52 mm[Hg] [facility] Heart rate 2024-12-10 20:08:00 68 /min [facility] Respiratory rate 2024-12-10 20:08:00 18 /min [facility] Body height 2024-12-10 20:08:00 172.7 cm [facility] Body weight 2024-12-10 20:08:00 100.154 kg [facility] BMI 2024-12-10 20:08:00 33.57 kg/m2 [facility] Oxygen saturation in Arterial blood by Pulse oximetry 2024-12-10 20:08:00 94 /min [facility] Systolic blood pressure 2024-10-24 13:30:00 138 mm[Hg] [facility] Diastolic blood pressure 2024-10-24 13:30:00 72 mm[Hg] [facility] Heart rate 2024-10-24 13:30:00 73 /min [facility] Body height 2024-10-24 13:30:00 171.5 cm [facility] Body weight 2024-10-24 13:30:00 101.107 kg [facility] BMI 2024-10-24 13:30:00 34.40 kg/m2 [facility] Oxygen saturation in Arterial blood by Pulse oximetry 2024-10-24 13:30:00 97 /min [facility] Systolic blood pressure 2024-08-14 16:17:00 120 mm[Hg] [facility] Diastolic blood pressure 2024-08-14 16:17:00 71 mm[Hg] [facility] Heart rate 2024-08-14 16:17:00 87 /min [facility] Body height 2024-08-14 16:17:00 172.7 cm [facility] Body weight 2024-08-14 16:17:00 101.833 kg [facility] BMI 2024-08-14 16:17:00 34.14 kg/m2 [facility] Oxygen saturation in Arterial blood by Pulse oximetry 2024-08-14 16:17:00 95 /min [facility] Systolic blood pressure 2024-03-24 22:05:00 135 mm[Hg] [facility] Diastolic blood pressure 2024-03-24 22:05:00 71 mm[Hg] [facility] Heart rate 2024-03-24 22:05:00 65 /min [facility] Body temperature 2024-03-24 22:05:00 36.61 Yaneth [facility] Respiratory rate 2024-03-24 22:05:00 20 /min [facility] Body height 2024-03-24 22:05:00 172.7 cm [facility] Body weight 2024-03-24 22:05:00 101.606 kg [facility] BMI 2024-03-24 22:05:00 34.06 kg/m2 [facility] Oxygen saturation in Arterial blood by Pulse oximetry 2024-03-24 22:05:00 96 /min [facility] Systolic blood pressure 2024-03-11 20:04:00 132 mm[Hg] [facility] Diastolic blood pressure 2024-03-11 20:04:00 72 mm[Hg] [facility] Heart rate 2024-03-11 20:04:00 84 /min [facility] Respiratory rate 2024-03-11 20:04:00 19 /min [facility] Body height 2024-03-11 20:04:00 172.7 cm [facility] Body weight 2024-03-11 20:04:00 101.787 kg [facility] BMI 2024-03-11 20:04:00 34.12 kg/m2 [facility] Oxygen saturation in Arterial blood by Pulse oximetry 2024-03-11 20:04:00 95 /min [facility] Systolic blood pressure 2024-02-14 16:11:00 130 mm[Hg] [facility] Diastolic blood pressure 2024-02-14 16:11:00 60 mm[Hg] [facility] Heart rate 2024-02-14 16:11:00 75 /min [facility] Respiratory rate 2024-02-14 16:11:00 18 /min [facility] Body height 2024-02-14 16:11:00 172.7 cm [facility] Body weight 2024-02-14 16:11:00 101.56 kg [facility] BMI 2024-02-14 16:11:00 34.04 kg/m2 [facility] Oxygen saturation in Arterial blood by Pulse oximetry 2024-02-14 16:11:00 92 /min [facility] Systolic blood pressure 2024-02-12 15:52:00 122 mm[Hg] [facility] Diastolic blood pressure 2024-02-12 15:52:00 69 mm[Hg] [facility] Heart rate 2024-02-12 15:51:00 70 /min [facility] Body temperature 2024-02-12 15:51:00 36.89 Yaneth [facility] Respiratory rate 2024-02-12 15:51:00 18 /min [facility] Body height 2024-02-12 15:51:00 172.7 cm [facility] Body weight 2024-02-12 15:51:00 101.696 kg [facility] BMI 2024-02-12 15:51:00 34.09 kg/m2 [facility] Oxygen saturation in Arterial blood by Pulse oximetry 2024-02-12 15:51:00 98 /min [facility] Systolic blood pressure 2023-08-24 22:03:00 122 mm[Hg] [facility] Diastolic blood pressure 2023-08-24 22:03:00 66 mm[Hg] [facility] Heart rate 2023-08-24 22:03:00 68 /min [facility] Body temperature 2023-08-24 22:03:00 36.83 Yaneth [facility] Respiratory rate 2023-08-24 22:03:00 19 /min [facility] Body height 2023-08-24 22:03:00 172.7 cm [facility] Body weight 2023-08-24 22:03:00 101.152 kg [facility] BMI 2023-08-24 22:03:00 33.91 kg/m2 [facility] Oxygen saturation in Arterial blood by Pulse oximetry 2023-08-24 22:03:00 97 /min [facility] Systolic blood pressure 2023-08-14 15:11:00 135 mm[Hg] [facility] Diastolic blood pressure 2023-08-14 15:11:00 76 mm[Hg] [facility] Heart rate 2023-08-14 15:11:00 70 /min [facility] Body temperature 2023-08-14 15:11:00 36.67 Yaneth [facility] Respiratory rate 2023-08-14 15:11:00 18 /min [facility] Body height 2023-08-14 15:11:00 172.7 cm [facility] Body weight 2023-08-14 15:11:00 101.606 kg [facility] BMI 2023-08-14 15:11:00 34.06 kg/m2 [facility] Oxygen saturation in Arterial blood by Pulse oximetry 2023-08-14 15:11:00 93 /min [facility] Systolic blood pressure 2023-07-25 19:11:00 116 mm[Hg] [facility] Diastolic blood pressure 2023-07-25 19:11:00 70 mm[Hg] [facility] Heart rate 2023-07-25 19:11:00 75 /min [facility] Respiratory rate 2023-07-25 19:11:00 18 /min [facility] Body height 2023-07-25 19:11:00 172.7 cm [facility] Body weight 2023-07-25 19:11:00 103.193 kg [facility] BMI 2023-07-25 19:11:00 34.59 kg/m2 [facility] Oxygen saturation in Arterial blood by Pulse oximetry 2023-07-25 19:11:00 93 /min [facility] Systolic blood pressure 2023-07-13 20:29:00 133 mm[Hg] [facility] Diastolic blood pressure 2023-07-13 20:29:00 66 mm[Hg] [facility] Heart rate 2023-07-13 20:29:00 69 /min [facility] Respiratory rate 2023-07-13 20:29:00 18 /min [facility] Body height 2023-07-13 20:29:00 172.7 cm [facility] Body weight 2023-07-13 20:29:00 102.967 kg [facility] BMI 2023-07-13 20:29:00 34.52 kg/m2 [facility] Systolic blood pressure 2023-06-29 21:11:00 126 mm[Hg] [facility] Diastolic blood pressure 2023-06-29 21:11:00 59 mm[Hg] [facility] Heart rate 2023-06-29 21:11:00 72 /min [facility] Body temperature 2023-06-29 21:11:00 36.89 Yaneth [facility] Respiratory rate 2023-06-29 21:11:00 18 /min [facility] Body height 2023-06-29 21:11:00 172.7 cm [facility] Body weight 2023-06-29 21:11:00 103.602 kg [facility] BMI 2023-06-29 21:11:00 34.73 kg/m2 [facility] Systolic blood pressure 2023-06-04 15:11:00 125 mm[Hg] [facility] Diastolic blood pressure 2023-06-04 15:11:00 70 mm[Hg] [facility] Heart rate 2023-06-04 15:11:00 82 /min [facility] Body height 2023-06-04 15:11:00 172.7 cm [facility] Body weight 2023-06-04 15:11:00 104.554 kg [facility] BMI 2023-06-04 15:11:00 35.05 kg/m2 [facility] Oxygen saturation in Arterial blood by Pulse oximetry 2023-06-04 15:11:00 98 /min [facility] Systolic blood pressure 2023-05-16 16:09:00 134 mm[Hg] [facility] Diastolic blood pressure 2023-05-16 16:09:00 67 mm[Hg] [facility] Heart rate 2023-05-16 16:09:00 76 /min [facility] Respiratory rate 2023-05-16 16:09:00 18 /min [facility] Body height 2023-05-16 16:09:00 172.7 cm [facility] Body weight 2023-05-16 16:09:00 105.597 kg [facility] BMI 2023-05-16 16:09:00 35.40 kg/m2 [facility] Oxygen saturation in Arterial blood by Pulse oximetry 2023-05-16 16:09:00 97 /min [facility] Systolic blood pressure 2023-02-15 15:59:00 130 mm[Hg] [facility] Diastolic blood pressure 2023-02-15 15:59:00 63 mm[Hg] [facility] Heart rate 2023-02-15 15:59:00 74 /min [facility] Body height 2023-02-15 15:59:00 172.7 cm [facility] Body weight 2023-02-15 15:59:00 103.647 kg [facility] BMI 2023-02-15 15:59:00 34.74 kg/m2 [facility] Oxygen saturation in Arterial blood by Pulse oximetry 2023-02-15 15:59:00 95 /min [facility] Systolic blood pressure 2023-01-04 21:40:00 129 mm[Hg] [facility] Diastolic blood pressure 2023-01-04 21:40:00 70 mm[Hg] [facility] Heart rate 2023-01-04 21:40:00 68 /min [facility] Body temperature 2023-01-04 21:40:00 36.89 Yaneth [facility] Respiratory rate 2023-01-04 21:40:00 14 /min [facility] Body height 2023-01-04 21:40:00 172.7 cm [facility] Body weight 2023-01-04 21:40:00 102.286 kg [facility] BMI 2023-01-04 21:40:00 34.29 kg/m2 [facility] Oxygen saturation in Arterial blood by Pulse oximetry 2023-01-04 21:40:00 97 /min [facility] Systolic blood pressure 2022-12-26 13:12:00 146 mm[Hg] [facility] Diastolic blood pressure 2022-12-26 13:12:00 74 mm[Hg] [facility] Systolic blood pressure 2022-12-26 13:12:00 146 mm[Hg] [facility] Diastolic blood pressure 2022-12-26 13:12:00 74 mm[Hg] [facility] Heart rate 2022-12-26 13:07:00 69 /min [facility] Body height 2022-12-26 13:07:00 172.7 cm [facility] Body weight 2022-12-26 13:07:00 104.645 kg [facility] BMI 2022-12-26 13:07:00 35.08 kg/m2 [facility] Oxygen saturation in Arterial blood by Pulse oximetry 2022-12-26 13:07:00 97 /min [facility] Heart rate 2022-12-26 13:07:00 69 /min [facility] Body height 2022-12-26 13:07:00 172.7 cm [facility] Body weight 2022-12-26 13:07:00 104.645 kg [facility] BMI 2022-12-26 13:07:00 35.08 kg/m2 [facility] Oxygen saturation in Arterial blood by Pulse oximetry 2022-12-26 13:07:00 97 /min [facility] Systolic blood pressure 2022-11-27 14:56:00 126 mm[Hg] [facility] Diastolic blood pressure 2022-11-27 14:56:00 66 mm[Hg] [facility] Heart rate 2022-11-27 14:56:00 70 /min [facility] Body height 2022-11-27 14:56:00 172.7 cm [facility] Body weight 2022-11-27 14:56:00 102.967 kg [facility] BMI 2022-11-27 14:56:00 34.52 kg/m2 [facility] Oxygen saturation in Arterial blood by Pulse oximetry 2022-11-27 14:56:00 97 /min [facility] Systolic blood pressure 2022-09-29 18:47:00 141 mm[Hg] [facility] Diastolic blood pressure 2022-09-29 18:47:00 76 mm[Hg] [facility] Heart rate 2022-09-29 18:47:00 65 /min [facility] Body temperature 2022-09-29 18:47:00 37.11 Yaneth [facility] Respiratory rate 2022-09-29 18:47:00 20 /min [facility] Body height 2022-09-29 18:47:00 172.7 cm [facility] Body weight 2022-09-29 18:47:00 101.152 kg [facility] BMI 2022-09-29 18:47:00 33.91 kg/m2 [facility] Oxygen saturation in Arterial blood by Pulse oximetry 2022-09-29 18:47:00 98 /min [facility] Systolic blood pressure 2022-09-29 18:19:00 133 mm[Hg] [facility] Diastolic blood pressure 2022-09-29 18:19:00 73 mm[Hg] [facility] Heart rate 2022-09-29 18:19:00 62 /min [facility] Body temperature 2022-09-29 18:19:00 36.33 Yaneth [facility] Respiratory rate 2022-09-29 18:19:00 16 /min [facility] Body weight 2022-09-29 18:19:00 101.152 kg [facility] BMI 2022-09-29 18:19:00 33.91 kg/m2 [facility] Oxygen saturation in Arterial blood by Pulse oximetry 2022-09-29 18:19:00 97 /min [facility] Systolic blood pressure 2022-08-15 14:36:00 117 mm[Hg] [facility] Diastolic blood pressure 2022-08-15 14:36:00 67 mm[Hg] [facility] Heart rate 2022-08-15 14:36:00 67 /min [facility] Body height 2022-08-15 14:36:00 172.7 cm [facility] Body weight 2022-08-15 14:36:00 101.787 kg [facility] BMI 2022-08-15 14:36:00 34.12 kg/m2 [facility] Oxygen saturation in Arterial blood by Pulse oximetry 2022-08-15 14:36:00 94 /min [facility] Systolic blood pressure 2022-06-22 16:28:00 109 mm[Hg] [facility] Diastolic blood pressure 2022-06-22 16:28:00 65 mm[Hg] [facility] Heart rate 2022-06-22 16:28:00 76 /min [facility] Body temperature 2022-06-22 16:28:00 37 Yaneth [facility] Body height 2022-06-22 16:28:00 172.7 cm [facility] Body weight 2022-06-22 16:28:00 101.606 kg [facility] BMI 2022-06-22 16:28:00 34.06 kg/m2 [facility] Oxygen saturation in Arterial blood by Pulse oximetry 2022-06-22 16:28:00 97 /min [facility] Systolic blood pressure 2022-05-26 15:37:00 116 mm[Hg] [facility] Diastolic blood pressure 2022-05-26 15:37:00 70 mm[Hg] [facility] Heart rate 2022-05-26 15:37:00 83 /min [facility] Body height 2022-05-26 15:37:00 172.7 cm [facility] Body weight 2022-05-26 15:37:00 101.878 kg [facility] BMI 2022-05-26 15:37:00 34.15 kg/m2 [facility] Oxygen saturation in Arterial blood by Pulse oximetry 2022-05-26 15:37:00 94 /min [facility] Systolic blood pressure 2022-04-14 15:09:00 138 mm[Hg] [facility] Diastolic blood pressure 2022-04-14 15:09:00 74 mm[Hg] [facility] Heart rate 2022-04-14 15:09:00 72 /min [facility] Respiratory rate 2022-04-14 15:09:00 19 /min [facility] Body height 2022-04-14 15:09:00 172.7 cm [facility] Body weight 2022-04-14 15:09:00 101.969 kg [facility] BMI 2022-04-14 15:09:00 34.18 kg/m2 [facility] Oxygen saturation in Arterial blood by Pulse oximetry 2022-04-14 15:09:00 94 /min [facility] Systolic blood pressure 2022-02-15 21:27:00 111 mm[Hg] [facility] Diastolic blood pressure 2022-02-15 21:27:00 59 mm[Hg] [facility] Heart rate 2022-02-15 21:27:00 75 /min [facility] Body temperature 2022-02-15 21:27:00 37.11 Yaneth [facility] Respiratory rate 2022-02-15 21:27:00 18 /min [facility] Body height 2022-02-15 21:27:00 172.7 cm [facility] Body weight 2022-02-15 21:27:00 101.923 kg [facility] BMI 2022-02-15 21:27:00 34.17 kg/m2 [facility] Oxygen saturation in Arterial blood by Pulse oximetry 2022-02-15 21:27:00 96 /min [facility] Systolic blood pressure 2022-01-13 16:05:00 136 mm[Hg] [facility] Diastolic blood pressure 2022-01-13 16:05:00 69 mm[Hg] [facility] Heart rate 2022-01-13 16:05:00 84 /min [facility] Respiratory rate 2022-01-13 16:05:00 21 /min [facility] Body height 2022-01-13 16:05:00 165.1 cm [facility] Body weight 2022-01-13 16:05:00 102.468 kg [facility] BMI 2022-01-13 16:05:00 37.59 kg/m2 [facility] Oxygen saturation in Arterial blood by Pulse oximetry 2022-01-13 16:05:00 96 /min [facility] Systolic blood pressure 2022-01-12 18:12:00 123 mm[Hg] [facility] Diastolic blood pressure 2022-01-12 18:12:00 74 mm[Hg] [facility] Heart rate 2022-01-12 18:12:00 74 /min [facility] Body temperature 2022-01-12 18:04:00 35.61 Yaneth [facility] Respiratory rate 2022-01-12 18:04:00 16 /min [facility] Body height 2022-01-12 18:04:00 165.3 cm verified ht & wt with Hannah Bruner MA [facility] Body weight 2022-01-12 18:04:00 101.515 kg verified ht & wt with Hannah Bruner MA [facility] BMI 2022-01-12 18:04:00 37.15 kg/m2 [facility] Oxygen saturation in Arterial blood by Pulse oximetry 2022-01-12 18:04:00 98 /min [facility] Systolic blood pressure 2021-12-29 20:00:00 134 mm[Hg] [facility] Diastolic blood pressure 2021-12-29 20:00:00 77 mm[Hg] [facility] Heart rate 2021-12-29 20:00:00 75 /min [facility] Body temperature 2021-12-29 20:00:00 36.83 Yaneth [facility] Body height 2021-12-29 20:00:00 170.2 cm [facility] Body weight 2021-12-29 20:00:00 102.513 kg [facility] BMI 2021-12-29 20:00:00 35.40 kg/m2 [facility] Oxygen saturation in Arterial blood by Pulse oximetry 2021-12-29 20:00:00 95 /min [facility] Systolic blood pressure 2021-12-26 14:40:00 143 mm[Hg] [facility] Diastolic blood pressure 2021-12-26 14:40:00 74 mm[Hg] [facility] Heart rate 2021-12-26 14:32:00 102 /min [facility] Body height 2021-12-26 14:32:00 170.2 cm [facility] Body weight 2021-12-26 14:32:00 103.193 kg [facility] BMI 2021-12-26 14:32:00 35.63 kg/m2 [facility] Oxygen saturation in Arterial blood by Pulse oximetry 2021-12-26 14:32:00 94 /min [facility] Procedures Procedure Date / Time Performed Performing Clinician Source URINALYSIS 2024-10-27 14:51:00 Armond Medina [facility] SMALL BOWEL SERIES 2024-07-30 16:04:50 Requisition, Paper [facility] US ABDOMEN LIMITED 2024-07-14 16:16:32 Requisition, Pa per [facility] DME/SUPPLY JUSTIFICATION 2024-04-07 20:44:36 Doc tor Unassigned, [place] [facility] DME/SUPPLY JUSTIFICATION 2024-03-18 21:37:46 Doc tor Unassigned, [place] [facility] VENOUS REFLUX DUPLEX BILATERAL - BY VASCULAR LAB 2024-03-03 16:22:03 Cedric Francis [facility] HB ECG ROUTINE & RHYTHM STRIP 2024-02-14 16:07:22 Cedric Francis [facility] SARS-COV-2 COVID 19 MATT SUCROSE VACCINE 12+, , 0.3 ML (30 MCG), IM PFIZER (KELLEY TOP) 2024-02-12 16:12:47 Anirudh Chaparro [facility] FLU VACC(),65+YR,0.5 ML,IM,ADJUVANTED,TIV(FLUA D) 2024-02-12 16:07:08 Anirudh Chaparro [facility] PHYSICIAN ORDERS 2023-11-06 17:21:52 Doctor Unas signed, [place] [facility] CT ABDOMEN PELVIS W CONTRAST 2023-09-25 15:38:10 Requisition, Paper [facility] HB CREATININE SERUM/BLOOD FOR IMAGING 2023-09-25 15:28:00 Armond Medina [facility] EYAL,POST-VOID RES,US,NON-IMAGING 2023-06-29 00:00:00 Mikhail Wu [facility] POCT URINALYSIS W/O SPECIFIC GRAVITY 2023-06-29 00:00:00 Mikhail Wu [facility] DME/SUPPLY JUSTIFICATION 2023-06-25 05:01:00 Doc tor Unassigned, [place] [facility] US ABDOMEN LIMITED 2023-04-20 19:49:26 Requisition, Pa per [facility] CBC WITH DIFF 2023-04-17 15:40:00 Armond Medina [facility] BI SCREENING TOMOSYNTHESIS BILATERAL 2023-03-15 16:55:53 Daysi [facility] TRANSTHORACIC ECHO (TTE) COMPLETE 2023-03-07 22:25:56 Cedric Francis [facility] INSURANCE CORRESPONDENCE 2023-02-26 06:01:00 Doc tor Unassigned, [place] [facility] XR CHEST 2 VW 2023-01-04 22:20:14 [facility] POCT MOLECULAR FLU 2023-01-04 22:00:00 Unknown, Attend ing [facility] POCT SARS-COV-2 ANTIGEN (BINAX NOW) 2023-01-04 21:59:00 Andry Juárez [facility] POCT MOLECULAR STREP 2023-01-04 21:57:00 Unknown, Atte nding [facility] CBC WITH DIFF 2022-10-30 14:23:00 [facility] 2022-10-30 05:01:00 Doctor Unas signed, [place] [facility] ASSIGNMENT OF BENEFITS 2022-09-29 22:14:17 Docto r Unassigned, [place] [facility] XR CHEST 2 VW 2022-09-29 21:30:00 Ja Winter [facility] NOTICE OF PRIVACY PRACTICES 2022-09-29 18:33:03 Doctor Unassigned, [place] [facility] CONSENT/REFUSAL FOR DIAGNOSIS AND TREATMENT 2022-09-29 18:31:59 Doctor Unassigned, [place] [facility] US ABDOMEN LIMITED 2022-08-24 16:36:38 Anirudh Chaparro [facility] PATIENT FINANCIAL POLICY 2022-07-24 19:00:26 Doctor Unassigned, [place] [facility] EXTERNAL PROVIDER RECORDS 2022-07-07 05:01:00 Do ctor Unassigned, [place] [facility] POCT GLUCOSE (AUTOMATED) 2022-06-12 18:52:00 Naseem Chaparro nthikaty [facility] ASSIGNMENT OF BENEFITS 2022-05-26 15:19:23 Docto r Unassigned, [place] [facility] CT LOW DOSE LUNG NODULE 2022-04-20 20:14:00 Jorge Chaves [facility] EXTERNAL PROVIDER - ADC CARDIOLOGY 2022-02-16 06:01:00 Doctor Unassigned, [place] [facility] PULMONARY FUNCTION TEST (RESULTS) 2022-02-02 19:09:05 Marge Chaves [facility] FLU VACC([id number]),65+YR,0.5 ML,IM,ADJUVANTED,QUAD(FLU AD) 2022-01-13 16:09:02 Marge Chaves [facility] EXTERNAL PROVIDER RECORDS 2022-01-10 05:01:00 Do ctor Unassigned, [place] [facility] SARS-COV-2 COVID-19 VACCINE 18 YRS+, BIVALENT 0.5ML, IM (MODERNA BOOSTER) 2022-01-09 19:46:45 Doctor Unassigned, [place] [facility] AUTHORIZATION TO RELEASE PHI TO [facility] 2021-12-13 05:01:00 Doctor Unassigned, [place] [facility] Encounters Start Date/Time End Date/Time Encounter Type Admission Type Attending [facility] Facility Care Department Encounter ID Source 2025-02-16 10:30:00 2025-02-16 10:30:00 Outpatient ANIRUDH BRADEN [facility] [id number] [facility] 2024-12-10 15:00:00 2024-12-10 15:26:54 [facility] 1.84.114 350.1.13.10 4.2.7.2.686 [id number] [facility] 2024-10-30 09:40:00 2024-10-30 09:40:00 [facility]patient [facility] [id number] [facility] 2024-10-27 09:30:00 2024-10-27 09:45:00 Fur Stylist Visit Elsa Verduzco, [facility] Main Dilcia Sheikh, [facility] Main [facility] 1..114 350.1.13.10 4.2.7.2.686 [id number] [facility] 2024-10-24 08:40:00 2024-10-24 09:19:28 Office Visit Gloria José [facility] 1.284.114 350.1.13.10 4.2.7.2.686 [id number] [facility] 2024-10-22 00:00:00 2024-10-23 10:26:19 [facility] 1.84.114 350.1.13.10 4.2.7.2.686 [id number] [facility] 2024-09-26 08:45:00 2024-09-26 09:00:00 Fur Stylist Visit Elsa Verduzco, Adc Lab Main Armond Medina, [facility]c Lab Main [facility] 1.2840.114 350.1.13.10 4.2.7.2.686 [id number] [facility] 2024-08-14 12:15:00 2024-08-14 12:30:00 Fur Stylist Visit Lab, Ang - Db Anirudh Chaparro Lab, Ang - Db [facility] 1..840.114 350.1.13.10 4.2.7.2.686 [id number] [facility] 2024-08-14 11:30:00 2024-08-14 12:01:42 Outpatient ANIRUDH BRADEN [facility] [id number] [facility] 2024-08-14 11:30:00 2024-08-14 12:01:42 [facility] 1.2.840.114 350.1.13.10 4.2.7.2.686 [id number] [facility] 2024-08-05 00:00:00 2024-08-06 08:50:25 Refill Shankar [facility] 1.2.840.114 350.1.13.10 4.2.7.2.686 [id number] [facility] 2024-07-30 08:16:03 2024-07-30 23:59:00 Outpatient ARMOND HYDE [facility] [id number] [facility] 2024-07-30 08:16:03 2024-07-30 23:59:00 Hospital Encounter Armond Medina [facility] 1.2.840.114 350.1.13.10 4.2.7.2.686 [id number] [facility] 2024-07-24 00:00:00 2024-07-24 14:44:14 Telephone Shankar [facility] 1.2840.114 350.1.13.10 4.2.7.2.686 [id number] [facility] 2024-07-21 00:00:00 2024-07-21 13:09:00 Telephone Shankar [facility] 1.2840.114 350.1.13.10 4.2.7.2.686 [id number] [facility] 2024-07-14 10:32:47 2024-07-14 23:59:00 Outpatient ARMOND HYDE [facility] [id number] [facility] 2024-07-14 10:32:47 2024-07-14 23:59:00 [facility] Encounter Armond Medina [facility] 1.2840.114 350.1.13.10 4.2.7.2.686 [id number] [facility] 2024-07-14 11:30:00 2024-07-14 11:45:00 Fur Stylist Visit Pob, Adc Lab Main Armond Medina, Adc Lab Main [facility] 1.2840.114 350.1.13.10 4.2.7.2.686 [id number] [facility] 2024-07-11 00:00:00 2024-07-11 00:00:00 Outpatient ARMOND HYDE [facility] [id number] [facility] 2023-11-06 00:00:00 2024-05-24 07:13:19 Orders Only Doctor Unassigned, [place] Doctor Unassigned, [place] [facility] 1.2.840.114 350.1.13.10 4.2.7.2.686 [id number] [facility] 2024-03-18 00:00:00 2024-05-24 06:30:23 Orders Only Doctor Unassigned, [place] Doctor Unassigned, [place] [facility] 1.2.840.114 350.1.13.10 4.2.7.2.686 [id number] [facility] 2024-04-07 00:00:00 2024-05-24 06:24:44 Orders Only Doctor Unassigned, [place] Doctor Unassigned, [place] [facility] 1.2.840.114 350.1.13.10 4.2.7.2.686 [id number] [facility] 2017-05-21 00:00:00 2024-05-24 03:26:35 Orders Only Doctor Unassigned, [place] Doctor Unassigned, [place] [facility] 1.2.840.114 350.1.13.10 4.2.7.2.686 [id number] [facility] 2024-04-04 00:00:00 2024-04-04 15:51:56 Case Management [place] Crespo [facility] BUILDING 1.2.840.114 350.1.13.10 4.2.7.2.686 [id number] [facility] 2024-03-24 00:00:00 2024-03-25 13:42:26 Telephone [facility] 1.2.840.114 350.1.13.10 4.2.7.2.686 [id number] [facility] 2024-03-24 15:45:00 2024-03-24 16:45:33 Outpatient R [place] CRESPO [facility] [id number] [facility] 2024-03-24 15:45:00 2024-03-24 16:45:33 Office Visit [place] Crespo Beth [facility] BUILDING 1.2.840.114 350.1.13.10 4.2.7.2.686 [id number] [facility] 2024-03-11 14:00:00 2024-03-11 14:17:34 Outpatient R MARGE CHAVES SHIKYYokasta [facility] [id number] [facility] 2024-03-11 14:00:00 2024-03-11 14:17:34 Office Visit Marge Chaves [facility] BUILDING 1.2.840.114 350.1.13.10 4.2.7.2.686 [id number] [facility] 2024-03-04 00:00:00 2024-03-04 12:13:58 [facility] 1.2.840.114 350.1.13.10 4.2.7.2.686 [id number] [facility] 2024-03-03 09:44:26 2024-03-03 23:59:00 [id number] 2024-03-03 09:44:26 2024-03-03 23:59:00 [facility] 1.2.840.114 350.1.13.10 4.2.7.2.686 [id number] [facility] 2024-02-27 00:00:00 2024-02-28 15:42:07 Telephone ShankarAnirudh [facility] 1.2.840.114 350.1.13.10 4.2.7.2.686 [id number] [facility] 2022-01-13 00:00:00 2024-02-25 13:06:51 Marge Merrill [facility] BUILDING 1.2.840.114 350.1.13.10 4.2.7.2.686 [id number] [facility] 2024-02-14 00:00:00 2024-02-14 13:11:57 Telephone It[facility]Daysi [facility] 1.2.840.114 350.1.13.10 4.2.7.2.686 [id number] [facility] 2024-02-14 10:20:00 2024-02-14 10:25:59 Outpatient R [facility]O [facility] [id number] [facility] 2024-02-14 10:20:00 2024-02-14 10:25:59 [facility] 1.2.840.114 350.1.13.10 4.2.7.2.686 [id number] [facility] 2024-02-12 10:45:00 2024-02-12 11:00:00 Fur Stylist Visit Lab, Anirudh Celis Lab, Mik Kaba [facility] 1.2.840.114 350.1.13.10 4.2.7.2.686 [id number] [facility] 2024-02-12 09:30:00 2024-02-12 10:36:24 Outpatient R ANIRUDH CHAPARRO [facility] [id number] [facility] 2024-02-12 09:30:00 2024-02-12 10:36:24 Office Visit Anirudh Chaparro [facility] JOIE?[facility] BUILDING 1.2.840.114 350.1.13.10 4.2.7.2.686 [id number] [facility] 2024-02-05 00:00:00 2024-02-08 13:36:52 Telephone Anirudh Chaparro [facility] JOIE?[facility] BU[facility] 1.2.840.114 350.1.13.10 4.2.7.2.686 [id number] [facility] 2023-12-29 00:00:00 2023-12-31 11:54:09 Refill Anirudh Chaparro [facility] JOIE?[facility] OFF[facility] BUILDING 1.2.840.114 350.1.13.10 4.2.7.2.686 [id number] [facility] 2023-12-14 00:00:00 2023-12-14 15:56:39 [facility] 1.2.840.114 350.1.13.10 4.2.7.2.686 [id number] [facility] 2023-12-03 13:30:00 2023-12-03 13:30:00 Outpatient R ANIRUDH CHAPARRO [facility] [id number] [facility] 2023-10-29 10:15:00 2023-10-29 10:30:00 Fur Stylist Visit Pob, Magd[facility] Armond Med[facility] 1.2.840.114 350.1.13.10 4.2.7.2.686 [id number] [facility] 2023-10-29 10:15:00 2023-10-29 10:15:00 Outpatient ARMOND HYDE [facility] [id number] [facility] 2023-09-25 09:56:24 2023-09-25 23:59:00 Outpatient ARMOND HYDE [facility] [id number] [facility] 2023-09-25 09:56:24 2023-09-25 23:59:00 Hospital Encounter Armond Medina [facility] 1.2.840.114 350.1.13.10 4.2.7.2.686 [id number] [facility] 2023-08-24 00:00:00 2023-08-28 09:15:11 Telephone Anirudh Chaparro [facility] 1..840.114 350.1.13.10 4.2.7.2.686 [id number] [facility] 2023-08-24 17:00:00 2023-08-24 17:20:00 Urgent Care nAdry Juárez Unknown, Attending [facility] 1..840.114 350.1.13.10 4.2.7.2.686 [id number] [facility] 2023-08-24 17:00:00 2023-08-24 17:00:00 Outpatient ANDRY PRIETO [facility] [id number] [facility] 2023-08-14 10:00:00 2023-08-14 10:48:09 Outpatient R GULSHAN YEE [facility] [id number] [facility] 2023-08-14 10:00:00 2023-08-14 10:48:09 Urgent Care Gulshan Yee Unknown, Attending [facility] MEDICAL OFFICE BUILDING 1..840.114 350.1.13.10 4.2.7.2.686 [id number] [facility] 2023-07-25 14:30:00 2023-07-25 14:30:00 Office Visit Terrelljose raul Nancy Barkley [facility] 1.2.840.114 350.1.13.10 4.2.7.2.686 [id number] 085 [id number] [facility] 2023-07-25 14:30:00 2023-07-25 14:23:41 Outpatient R NANCY REYES, STRAHIL [facility] [id number] [facility] 2023-07-23 00:00:00 2023-07-23 00:00:00 Telephone Mikhail Wu [facility] 1.2.840.114 350.1.13.10 4.2.7.2.686 [id number] 098 [id number] [facility] 2023-07-13 15:00:00 2023-07-13 16:18:54 [id number] 2023-07-13 15:00:00 2023-07-13 16:18:54 Office Visit Mikhail Wu [facility] 1.2.840.114 350.1.13.10 4.2.7.2.686 [id number] 098 [id number] [facility] 2023-07-04 20:00:00 2023-07-04 22:30:00 Fur Stylist Visit 1, [facility] Bed Nancy Reyes [facility] 1.2.840.114 350.1.13.10 4.2.7.2.686 [id number] [facility] 2023-07-04 20:00:00 2023-07-04 20:00:00 Outpatient R NANCY REYES, STRAHIL [facility] [id number] [facility] 2023-06-29 15:30:00 2023-06-29 17:02:15 Outpatient R MIKHAIL WU MIKHAIL [facility] [id number] [facility] 2023-06-29 15:30:00 2023-06-29 17:02:15 Office Visit Mikhail Wu [facility] BUILDING 1.2.840.114 350.1.13.10 4.2.7.2.686 [id number] 098 [id number] [facility] 2023-06-25 00:00:00 2023-06-25 00:00:00 Orders Only Doctor Unassigned, [place] [facility] 1.840.114 350.1.13.10 4.2.7.2.686 [id number] [id number] [facility] 2023-06-21 00:00:00 2023-06-21 00:00:00 Telephone Marge Chaves [facility] BUILDING 1..840.114 350.1.13.10 4.2.7.2.686 [id number] 085 [id number] [facility] 2023-06-04 10:45:00 2023-06-04 11:00:00 Fur Stylist Visit Lab, Mik Chaparro [facility] 1..840.114 350.1.13.10 4.2.7.2.686 [id number] 353 [id number] [facility] 2023-06-04 09:30:00 2023-06-04 09:37:19 Outpatient R ANIRUDH CHAPARRO [facility] [id number] [facility] 2023-06-04 09:30:00 2023-06-04 09:37:19 Office Visit Daysi ChaparroCounts include 234 beds at the [facility] MEDICAL OFFICE BUILDING 1..840.114 350.1.13.10 4.2.7.2.686 [id number] 044 [id number] [facility] 2023-05-16 10:00:00 2023-05-16 10:30:00 Office Visit [facility] 1.2.840.114 350.1.13.10 4.2.7.2.686 [id number] 085 [id number] [facility] 2023-05-16 10:00:00 2023-05-16 10:28:41 Outpatient R NANCY REYES STRAWIBucky [facility] [id number] [facility] 2023-05-13 00:00:00 2023-05-13 00:00:00 Valeill Anirudh Chaparro [facility] 1..840.114 350.1.13.10 4.2.7.2.686 [id number] 044 [id number] [facility] 2023-04-25 00:00:00 2023-04-25 00:00:00 Telephone Cedric Francis [facility] BUILDING 1..840.114 350.1.13.10 4.2.7.2.686 [id number] 059 [id number] [facility] 2023-04-20 13:16:36 2023-04-20 23:59:00 [id number] 13:16:36 2023-04-20 23:59:00 [facility] 1..840.114 350.1.13.10 4.2.7.2.686 [id number] [id number] [facility] 2023-04-17 10:00:00 2023-04-17 10:15:00 Fur Stylist Visit Pob, Adc Lab Main [facility] BU[facility] 1..840.114 350.1.13.10 4.2.7.2.686 [id number] [facility] 2023-04-17 09:30:00 2023-04-17 09:45:00 Fur Stylist Visit [facility], [facility] TerrelljeaninechidiThacheryl Barkley [facility] 1.84.114 350.1.13.10 4.2.7.2.686 [id number] [facility] 2023-04-17 09:30:00 2023-04-17 09:30:00 Outpatient R NANCY REYES STRAWIBucky [facility] [id number] [facility] 2023-03-15 10:32:54 2023-03-15 23:59:00 Outpatient R ANIRUDH CHAPARRO [facility] [id number] [facility] 2023-03-15 10:20:00 2023-03-15 23:59:00 Hospital Encounter Daysi Chaparrothia [facility] 1.84.114 350.1.13.10 4.2.7.2.686 [id number] [facility] 2023-03-08 00:00:00 2023-03-08 00:00:00 [facility] 1..840.114 350.1.13.10 4.2.7.2.686 [id number] 059 [id number] [facility] 2023-03-07 15:38:21 2023-03-07 23:59:00 Outpatient R MILA FRANCISCAROLINAS [facility] [id number] [facility] 2023-03-07 15:38:21 2023-03-07 23:59:00 Hospital [facility] 1..840.114 350.1.13.10 4.2.7.2.686 [id number] [id number] [facility] 2023-02-26 00:00:00 2023-02-26 00:00:00 Orders Only Doctor Unassigned, [place] [facility] 1.2.840.114 350.1.13.10 4.2.7.2.686 [id number] [id number] [facility] 2023-02-15 10:00:00 2023-02-15 10:13:20 Outpatient R TITOMILACAROLINAS [facility] [id number] [facility] 2023-02-15 10:00:00 2023-02-15 10:13:20 [facility] 1..840.114 350.1.13.10 4.2.7.2.686 [id number] 059 [id number] [facility] 2023-01-26 00:00:00 2023-01-26 00:00:00 Telephone Anirudh Chaparro [facility] JOIE?[facility] MEDICAL OFFICE BUILDING 1.2.840.114 350.1.13.10 4.2.7.2.686 [id number] 044 [id number] [facility] 2023-01-05 00:00:00 2023-01-05 00:00:00 Telephone Kayodesoledadyara Andry [facility] JOIE?[facility] MEDICAL OFFICE BUILDING 1.2.840.114 350.1.13.10 4.2.7.2.686 [id number] [facility] 2023-01-04 17:11:36 2023-01-04 23:59:00 Hospital Encounter KayodeAndry schreiber [facility] JOIE?[facility] MEDICAL OFFICE BUILDING 1.2.840.114 350.1.13.10 4.2.7.2.686 [id number] [facility] 2023-01-04 16:20:00 2023-01-04 17:18:41 Outpatient R ANDRY JUÁREZ [facility] [id number] [facility] 2023-01-04 16:20:00 2023-01-04 17:18:41 Urgent Care Andry Juárez Unknown, Attending [facility] 1.2840.114 350.1.13.10 4.2.7.2.686 [id number] [facility] 2022-12-30 00:00:00 2022-12-30 00:00:00 Telephone Daysi Chaparrothia [facility] MED[facility] BUILD[facility] 1.2840.114 350.1.13.10 4.2.7.2.686 [id number] 044 [id number] [facility] 2022-12-26 09:30:00 2022-12-26 09:45:00 Fur Stylist Visit Lab, Mik Kaba [facility] BU[facility] 1.840.114 350.1.13.10 4.2.7.2.686 [id number] 353 [id number] [facility] 2022-12-26 08:00:00 2022-12-26 09:04:03 Outpatient R DAYSI CHAPARROTHIA [facility] [id number] [facility] 2022-12-26 08:00:00 2022-12-26 09:04:03 [facility] MEDICAL OFFICE BUILDING 1.840.114 350.1.13.10 4.2.7.2.686 [id number] 044 [id number] [facility] 2022-12-06 00:00:00 2022-12-06 00:00:00 Refill Cedric Francis [facility] 1.2840.114 350.1.13.10 4.2.7.2.686 [id number] 059 [id number] [facility] 2022-11-27 09:30:00 2022-11-27 10:42:27 Outpatient R ANIRUDH CHAPARRO [facility] [id number] [facility] 2022-11-27 09:30:00 2022-11-27 10:42:27 Office Visit Anirudh Chaparro [facility] OFF[facility] BUILD[facility] 1.114 350.1.13.10 4.2.7.2.686 [id number] 044 [id number] [facility] 2022-10-30 09:15:00 2022-10-30 09:30:00 Fur Stylist Visit Pomalissa, Adc Lab Saleem Armond Medina Yara [facility] 1.114 350.1.13.10 4.2.7.2.686 [id number] [facility] 2022-10-30 09:15:00 2022-10-30 09:15:00 Outpatient ARMOND HYDE [facility] [id number] [facility] 2022-10-30 00:00:00 2022-10-30 00:00:00 Orders Only Doctor Unassigned, [place] [facility] 1.114 350.1.13.10 4.2.7.2.686 [id number] 009 [id number] [facility] 2022-09-29 13:49:00 2022-09-29 17:38:00 Emergency MoyJa [facility] 1.114 350.1.13.10 4.2.7.2.686 [id number] 084 [id number] [facility] 2022-09-29 13:00:00 2022-09-29 13:22:43 Nurse Visit Nurse, Mik Kaba Urgent Care Unknown, Attending Genevieve Vee [facility] MED[facility] OFFICE BUILDING 1.114 350.1.13.10 4.2.7.2.686 [id number] [facility] 2022-09-29 13:00:00 2022-09-29 13:22:43 Outpatient GENEVIEVE SANCHEZ [facility] ERT [id number] [facility] 2022-09-29 13:00:00 2022-09-29 13:00:00 Outpatient Elsa VEE AMANDA [facility] [id number] [facility] 2022-09-28 00:00:00 2022-09-28 00:00:00 Telephone Cedric Francis [facility] BUILDING 1..840.114 350.1.13.10 4.2.7.2.686 [id number] [id number] [facility] 2022-08-24 10:47:38 2022-08-24 23:59:00 Outpatient JESSICA HYDEYara [facility] RAD [id number] [facility] 2022-08-24 10:47:38 2022-08-24 23:59:00 Hospital Encounter Armond Medina [facility] 1..840.114 350.1.13.10 4.2.7.2.686 [id number] [facility] 2022-08-23 11:30:00 2022-08-23 11:45:00 Fur Stylist Visit Pob, Adc Lab Main Dilcia Sheikh [facility] BUILDING 1.2.840.114 350.1.13.10 4.2.7.2.686 [id number] [facility] 2022-08-23 11:30:00 2022-08-23 11:30:00 Outpatient DILCIA PETTY [facility] [id number] [facility] 2022-08-23 00:00:00 2022-08-23 00:00:00 Telephone Marge Chaves [facility] BUILDING 1.840.114 350.1.13.10 4.2.7.2.686 [id number] 085 [id number] [facility] 2022-08-21 10:30:00 2022-08-21 10:45:00 Fur Stylist Visit Pob, Adc Lab Main Armond Medina [facility] 1.2840.114 350.1.13.10 4.2.7.2.686 [id number] [facility] 2022-08-21 10:30:00 2022-08-21 10:30:00 Outpatient R ARMOND MEDINA [facility] [id number] [facility] 2022-08-15 09:30:00 2022-08-15 10:06:38 Outpatient R MARGE CHAVES [facility] [id number] [facility] 2022-08-15 09:30:00 2022-08-15 10:06:38 Office Visit Marge Chaves [facility] BUILDING 1.0.114 350.1.13.10 4.2.7.2.686 [id number] [id number] [facility] 2022-07-24 13:30:00 2022-07-24 13:30:00 Outpatient R MILA FRANCISCAROLINAS [facility] [id number] [facility] 2022-07-24 00:00:00 2022-07-24 00:00:00 [facility] 1.20.114 350.1.13.10 4.2.7.2.686 [id number] 059 [id number] [facility] 2022-07-24 00:00:00 2022-07-24 00:00:00 Orders Only Doctor Unassigned, [place] [facility] 1.840.114 350.1.13.10 4.2.7.2.686 [id number] [facility] 2022-07-24 00:00:00 2022-07-24 00:00:00 Telephone Cedric Francis [facility] BUILDING 1.2840.114 350.1.13.10 4.2.7.2.686 [id number] 059 [id number] [facility] 2022-07-20 00:00:00 2022-07-20 00:00:00 [facility] 1.840.114 350.1.13.10 4.2.7.2.686 [id number] 059 [id number] [facility] 2022-07-07 00:00:00 2022-07-07 00:00:00 Orders Only Doctor Unassigned, [place] [facility] 1.84.114 350.1.13.10 4.2.7.2.686 [id number] [id number] [facility] 2022-06-22 11:30:00 2022-06-22 12:50:10 Outpatient R DAYA PEÑA [facility] [id number] [facility] 2022-06-22 11:30:00 2022-06-22 12:50:10 Office Visit Daya Peña [facility] MEDICAL OFFICE BUILDING 1..840.114 350.1.13.10 4.2.7.2.686 [id number] 044 [id number] [facility] 2022-06-22 00:00:00 2022-06-22 00:00:00 Telephone [facility]udh Chap[facility] MED[facility] OFF[facility] BUILDING 1.840.114 350.1.13.10 4.2.7.2.686 [id number] 044 [id number] [facility] 2022-06-15 00:00:00 2022-06-15 00:00:00 Telephone Anirudh Chaparro [facility] 1.2.840.114 350.1.13.10 4.2.7.2.686 [id number] 044 [id number] [facility] 2022-06-12 11:57:55 2022-06-12 23:59:00 Outpatient R ANIRUDH CHAPARRO [facility] [id number] [facility] 2022-06-12 11:57:55 2022-06-12 23:59:00 [facility] 1.2840.114 350.1.13.10 4.2.7.2.686 [id number] [facility] 2022-06-12 11:57:27 2022-06-12 23:59:00 Hospital Encounter [facility] 1.2.840.114 350.1.13.10 4.2.7.2.686 [id number] [facility] 2022-05-31 00:00:00 2022-05-31 00:00:00 Telephone Provider, Mik Kaba Urgent Care [facility] 1.2.840.114 350.1.13.10 4.2.7.2.686 [id number] [facility] 2022-05-31 00:00:00 2022-05-31 00:00:00 Letter (Out) Amador Hernandez [facility] 1.2.840.114 350.1.13.10 4.2.7.2.686 [id number] 019 [id number] [facility] 2022-05-30 09:15:00 2022-05-30 09:35:50 Outpatient R GENEVIEVE VEE [facility] [id number] [facility] 2022-05-30 09:15:00 2022-05-30 09:30:00 Laboratory Only Only, Ang Db Test Unknown, Attending [facility] 1.2840.114 350.1.13.10 4.2.7.2.686 [id number] [facility] 2022-05-30 00:00:00 2022-05-30 00:00:00 [facility] 1.2840.114 350.1.13.10 4.2.7.2.686 [id number] 044 [id number] [facility] 2022-05-26 09:30:00 2022-05-26 10:19:49 [facility] [id number] [facility] 2022-05-26 09:30:00 2022-05-26 10:19:49 [facility] 1.2840.114 350.1.13.10 4.2.7.2.686 [id number] 044 [id number] [facility] 2022-05-26 00:00:00 2022-05-26 00:00:00 Orders Only Doctor Unassigned, [place] [facility] 1.2840.114 350.1.13.10 4.2.7.2.686 [id number] [id number] [facility] 2022-04-21 00:00:00 2022-04-21 00:00:00 Telephone [facility] 1.2840.114 350.1.13.10 4.2.7.2.686 [id number] [id number] [facility] 2022-04-20 13:47:57 2022-04-20 23:59:00 Outpatient R MARGE CHAVES SHIWAN [facility] [id number] [facility] 2022-04-20 13:47:57 2022-04-20 23:59:00 Hospital Encounter Marge Chaves [facility] 1.2840.114 350.1.13.10 4.2.7.2.686 [id number] [facility] 2022-04-14 09:00:00 2022-04-14 09:40:35 Outpatient R MARGE CHAVES [facility] [id number] [facility] 2022-04-14 09:00:00 2022-04-14 09:40:35 Office Visit Marge Chaves [facility] BUILDING 1.2840.114 350.1.13.10 4.2.7.2.686 [id number] 085 [id number] [facility] 2022-02-16 00:00:00 2022-02-16 00:00:00 Orders Only Doctor Unassigned, [place] [facility] 1.2840.114 350.1.13.10 4.2.7.2.686 [id number] [id number] [facility] 2022-02-15 15:20:00 2022-02-15 15:52:32 Outpatient R TITOCEDRIC [facility] [id number] [facility] 2022-02-15 15:20:00 2022-02-15 15:52:32 [facility] 1.2840.114 350.1.13.10 4.2.7.2.686 [id number] [facility] 2022-02-02 14:30:00 2022-02-02 15:34:15 Fur Stylist Visit Therapist, Usman Ash [facility] 1.2840.114 350.1.13.10 4.2.7.2.686 [id number] 083 [id number] [facility] 2022-02-02 14:30:00 2022-02-02 14:30:00 Outpatient R GOLDUSMAN HENSLEY [facility] [id number] [facility] 2022-02-02 00:00:00 2022-02-02 00:00:00 Orders Only Marge Chaves [facility] 1.2.840.114 350.1.13.10 4.2.7.2.686 [id number] 084 [id number] [facility] 2022-01-30 00:00:00 2022-01-30 00:00:00 Telephone [facility] BU[facility] 1.2.840.114 350.1.13.10 4.2.7.2.686 [id number] [facility] 2022-01-17 14:40:00 2022-01-17 14:40:00 Outpatient R CEDRIC FRANCIS [facility] [id number] [facility] 2022-01-13 11:00:00 2022-01-13 11:28:23 Outpatient R MARGE CHAVES SHIKYYokasta [facility] [id number] [facility] 2022-01-13 11:00:00 2022-01-13 11:28:23 Office Visit [facility] BUILD[facility] 1.2.840.114 350.1.13.10 4.2.7.2.686 [id number] [facility] 2022-01-12 13:00:00 2022-01-12 14:00:00 Office Visit Lora Edwards BUILDING 1.2.840.114 350.1.13.10 4.2.7.2.686 [id number] [facility] 2022-01-12 13:00:00 2022-01-12 13:00:00 Outpatient R LORA EDWARDS [facility] [id number] [facility] 2022-01-12 13:00:00 2022-01-12 13:00:00 Outpatient R LORA EDWARDS [facility] [id number] [facility] 2022-01-10 00:00:00 2022-01-10 00:00:00 Orders Only Doctor Unassigned, [place] [facility] 1.2.114 350.1.13.10 4.2.7.2.686 [id number] [id number] [facility] 2022-01-09 13:00:00 2022-01-09 14:45:30 Imm/Inj Visit Vaccine, Adc Family Medicine Roberto Buckner [facility] 1.84.114 350.1.13.10 4.2.7.2.686 [id number] 044 [id number] [facility] 2022-01-09 13:00:00 2022-01-09 13:00:00 Outpatient ROBERTO PALMA [facility] [id number] [facility] 2022-01-05 00:00:00 2022-01-05 00:00:00 [facility] BUILDING 1.84.114 350.1.13.10 4.2.7.2.686 [id number] 044 [id number] [facility] 2021-12-30 00:00:00 2021-12-30 00:00:00 Tele[facility] 1.84.114 350.1.13.10 4.2.7.2.686 [id number] [id number] [facility] 2021-12-29 15:30:00 2021-12-29 16:03:37 Outpatient R OSCAR MORFIN [facility] [id number] [facility] 2021-12-29 15:30:00 2021-12-29 16:03:37 Office Visit Oscar Morfin [facility] 1..114 350.1.13.10 4.2.7.2.686 [id number] [facility] 2021-12-26 09:30:00 2021-12-26 11:02:10 Outpatient R ANIRUDH CHAPARRO [facility] [id number] [facility] 2021-12-26 09:30:00 2021-12-26 11:02:10 [facility] 1.2.840.114 350.1.13.10 4.2.7.2.686 [id number] [facility] 2021-12-19 00:00:00 2021-12-19 00:00:00 [facility] 1.2.840.114 350.1.13.10 4.2.7.2.686 [id number] [facility] 2021-12-14 13:53:08 2021-12-14 23:59:00 Hospital Encounter Anirudh Chaparro [facility] 1.2.840.114 350.1.13.10 4.2.7.2.686 [id number] [facility] 2021-12-14 13:52:52 2021-12-14 13:52:52 Outpatient R ANIRUDH CHAPARRO [facility] [id number] [facility] 2021-12-14 13:52:52 2021-12-14 13:52:52 Hospital Encounter Anirudh Chaparro [facility] 1.2.840.114 350.1.13.10 4.2.7.2.686 [id number] [facility] 2021-12-14 00:00:00 2021-12-14 00:00:00 Outpatient R ANIRUDH CHAPARRO [facility] [id number] [facility] 2021-12-13 00:00:00 2021-12-13 00:00:00 Orders Only Doctor Unassigned, [place] [facility] 1..840.114 350.1.13.10 4.2.7.2.686 [id number] [facility] 2021-12-01 10:15:00 2021-12-01 10:53:32 Outpatient BASSAM JACOBO [facility] [id number] [facility] 2021-12-01 10:15:00 2021-12-01 10:53:32 Office Visit Bassam Sorto [facility] 1.840.114 350.1.13.10 4.2.7.2.686 [id number] [facility] 2021-12-01 10:15:00 2021-12-01 10:15:00 Outpatient BASSAM JACOBO [facility] [id number] [facility] 2021-11-21 11:00:00 2021-11-21 11:15:00 Fur Stylist Visit Lab, Mik Chaparro [facility] 1.2.840.114 350.1.13.10 4.2.7.2.686 [id number] [facility] 2021-11-21 10:00:00 2021-11-21 10:54:37 Outpatient R ANIRUDH CHAPARRO [facility] [id number] [facility] 2021-11-21 10:00:00 2021-11-21 10:54:37 Office Visit ShankarCounts include 234 beds at the [facility] 1.2.840.114 350.1.13.10 4.2.7.2.686 [id number] [facility] 2021-11-21 10:00:00 2021-11-21 10:00:00 [facility] [id number] [facility] 2021-11-14 00:00:00 2021-11-14 00:00:00 Orders Only Doctor Unassigned, [place] [facility] 1.84.114 350.1.13.10 4.2.7.2.686 [id number] [facility] 2021-11-05 00:00:00 2021-11-05 00:00:00 Letter (Out) MarlynAlix alamo [facility] 1.114 350.1.13.10 4.2.7.2.686 [id number] [facility] 2021-11-04 16:30:00 2021-11-04 16:45:00 Laboratory Only Only, Ang Db Test Gail Hilliard [facility] 1.840.114 350.1.13.10 4.2.7.2.686 [id number] [facility] 2021-11-04 16:30:00 2021-11-04 16:30:00 Outpatient R GAIL HILLIARD [facility] [id number] [facility] 2021-11-04 00:00:00 2021-11-04 00:00:00 Letter (Out) Doctor Unassigned, [place] [facility] 1.84.114 350.1.13.10 4.2.7.2.686 [id number] [facility] 2021-07-14 16:00:00 2021-07-14 16:10:00 Imm/Inj Visit Vaccine, Adc Family Medicine Roberto Buckner [facility] 1.84.114 350.1.13.10 4.2.7.2.686 [id number] [facility] 2021-07-14 16:00:00 2021-07-14 16:00:00 Outpatient R ROBERTO BUCKNER [facility] [id number] [facility] 2021-05-23 10:30:00 2021-05-23 10:45:00 Fur Stylist Visit Lab, Ang - Db Michele [facility]ed [facility] 1.2.840.114 350.1.13.10 4.2.7.2.686 [id number] [facility] 2021-05-23 10:30:00 2021-05-23 10:30:00 [facility] [id number] [facility] 2021-05-23 10:00:00 2021-05-23 10:24:55 [facility] [id number] [facility] 2021-05-23 10:00:00 2021-05-23 10:24:55 Office [facility] 1..840.114 350.1.13.10 4.2.7.2.686 [id number] [facility] 2021-05-23 00:00:00 2021-05-23 00:00:00 Orders Only Doctor Unassigned, [place] [facility] 1..840.114 350.1.13.10 4.2.7.2.686 [id number] [facility] 2021-04-16 16:58:00 2021-04-16 21:49:00 Emergency X RADHA BURGESS [facility] ERT [id number] [facility] 2021-04-16 16:58:00 2021-04-16 21:49:00 Emergency SiriRadha ocampo [facility] 1..840.114 350.1.13.10 4.2.7.2.686 [id number] [facility] 2021-04-16 16:00:00 2021-04-16 16:22:38 Outpatient R GENEVIEVE VEE [facility] [id number] [facility] 2021-04-16 16:00:00 2021-04-16 16:22:38 Urgent Care Arelis [facility] JOIE?[facility] 1.2840.114 350.1.13.10 4.2.7.2.686 [id number] [facility] 2021-04-13 00:00:00 2021-04-13 00:00:00 Telephone Michele Syed [facility], [facility] JOIE?[facility] 1.2840.114 350.1.13.10 4.2.7.2.686 [id number] [facility] 2021-04-11 15:45:00 2021-04-11 15:45:00 Outpatient R ROBERTO BUCKNER [facility] [id number] [facility] 2021-04-11 15:45:00 2021-04-11 15:45:00 Laboratory Only Only, Adc Pob2 Test Roberto Buckner [facility] BUILD[facility] 1.2840.114 350.1.13.10 4.2.7.2.686 [id number] [facility] 2021-03-14 00:00:00 2021-03-14 00:00:00 Telephone Michele Syed [facility], [facility] JOIE?[facility] BU[facility] 1.2840.114 350.1.13.10 4.2.7.2.686 [id number] [facility] 2021-03-10 00:00:00 2021-03-10 00:00:00 Case Management Michele Syed [facility], [facility] JOIE?[facility] 1.2840.114 350.1.13.10 4.2.7.2.686 [id number] [facility] 2021-03-08 11:50:00 2021-03-08 23:59:00 Outpatient R MICHELE SYED [facility] [id number] [facility] 2021-03-08 11:50:00 2021-03-08 23:59:00 Hospital En[facility] 1.840.114 350.1.13.10 4.2.7.2.686 [id number] [facility] 2021-03-08 11:15:00 2021-03-08 11:59:26 Outpatient R MICHELE SYED [facility] [id number] [facility] 2021-03-08 11:11:33 2021-03-08 11:59:26 Office Visit [facility]ed [facility] 1.840.114 350.1.13.10 4.2.7.2.686 [id number] [facility] 2021-01-24 09:40:00 2021-01-24 09:40:00 Outpatient R ROBERTO BUCKNER [facility] [id number] [facility] 2021-01-24 09:38:09 2021-01-24 09:38:16 Imm/Inj Visit Nurse, Magdiel Pomalissa Immunizatio Roberto Rico [facility] nal Building 1.840.114 350.1.13.10 4.2.7.2.686 [id number] [facility] 2021-01-04 00:00:00 2021-01-04 00:00:00 Telephone [facility] Medical Office Building 1.840.114 350.1.13.10 4.2.7.2.686 [id number] [facility] 2021-01-03 10:19:57 2021-01-03 10:34:57 Fur Stylist Visit Therapist, Usman Ash [facility] 1..840.114 350.1.13.10 4.2.7.2.686 [id number] [facility] 2021-01-03 10:00:00 2021-01-03 10:00:00 Outpatient USMAN TAY [facility] [id number] [facility] 2021-01-03 00:00:00 2021-01-03 00:00:00 [facility] Building 1.2.840.114 350.1.13.10 4.2.7.2.686 [id number] [facility] 2020-12-31 14:00:00 2020-12-31 14:00:00 Outpatient [facility] [id number] 2020-12-31 00:00:00 2020-12-31 00:00:00 Orders Only Doctor Unassigned, [place] [facility] 1.2.840.114 350.1.13.10 4.2.7.2.686 [id number] [facility] 2020-12-08 00:00:00 2020-12-08 00:00:00 Case Management Kunal [facility]myrom [facility] Medical Office Building 1.2.840.114 350.1.13.10 4.2.7.2.686 [id number] [facility] 2020-11-29 09:00:00 2020-11-29 09:00:00 Outpatient Elsa [facility] [id number] [facility] 2020-11-24 00:00:00 2020-11-24 00:00:00 Orders Only Doctor Unassigned, [place] [facility] 1.2.840.114 350.1.13.10 4.2.7.2.686 [id number] [facility] 2020-11-22 09:00:00 2020-11-22 09:00:00 Outpatient R MICHELE SYED [facility] [id number] [facility] 2020-11-02 12:23:40 2020-11-02 23:59:00 Hospital Encounter Unknown, Attending [facility] 1.2.840.114 350.1.13.10 4.2.7.2.686 [id number] [facility] 2020-11-02 12:22:53 2020-11-02 12:22:53 Hospital Encounter Unknown, Attending [facility] 1.2840.114 350.1.13.10 4.2.7.2.686 [id number] [facility] 2020-11-02 00:00:00 2020-11-02 00:00:00 Outpatient R [facility] [id number] [facility] 2020-09-15 11:59:28 2020-09-15 23:59:00 Hospital Encounter Radiology [facility] 1.2.840.114 350.1.13.10 4.2.7.2.686 [id number] [facility] 2020-09-15 00:00:00 2020-09-15 00:00:00 Outpatient R [facility] [id number] [facility] 2020-09-15 00:00:00 2020-09-15 00:00:00 Orders Only Doctor Unassigned, [place] [facility] 1.2.840.114 350.1.13.10 4.2.7.2.686 [id number] [facility] 2020-06-02 10:20:00 2020-06-02 10:20:00 Outpatient R DAYANA BAILEY [facility] [id number] [facility] 2020-06-02 10:20:00 2020-06-02 10:18:44 Outpatient DAYANA BELLE [facility] [id number] [facility] 2020-05-05 09:50:00 2020-05-05 09:50:00 Outpatient DAYANA BELLE [facility] [id number] [facility] Results Test Description Test Time Test Comments Results Result Comments Source [place] Small bowel series 16:13:14 HISTORY: Crampy abdominal pain. TECHNIQUE: 2 AP supine abdominal radiographs were initially obtained andreviewed by me. Subsequently barium is administered orally and serial filmsof the abdominal and pelvis are obtained. Digital spot images of smallbowel loops including terminal ileum were obtained by me. FINDINGS: Preliminary abdominal radiographs are unremarkable. Barium flow through the small bowel appears unobstructed with the rightside of the colon visualized within 1 hour and 30 minutes. Entire smallbowel including spot films of the terminal ileum show normal mucosalpattern, caliber as well as distribution of small bowel loops in theabdominal and pelvis. CONCLUSIONS: Normal small bowel series. [facility] US Abdomen limited 18:58:43 EXAM: ABDOMINAL ULTRASOUND, LIMITED HISTORY: Non-alcoholic fatty liver disease Primary biliary cirrhosis Abnormal findings on diagnostic imaging of other parts of digestive tractFaxed order. COMPARISON: CT abdomen pelvis with contrast 09/25/2023. TECHNIQUE: Limited ultrasound imaging of the abdomen was performedincluding color Doppler evaluation of the main portal vein withrepresentative images obtained. FINDINGS: LIVER: Nodular surface, consistent with cirrhosis. Scattered echogenic fociwithin the right hepatic lobe. Normal hepatopetal ?flow within the mainportal vein. GALLBLADDER: No cholelithiasis, pericholecystic fluid, or gallbladderdistention. No sonographic Sorto's sign. The common bile duct measures 3mm. PANCREAS: Evaluation limited by overlying bowel gas. The visualizedportions of the pancreas are normal. SPLEEN: The spleen is normal in size, measuring 9.3 cm. OTHER: No visualized ascites. The visualized portions of the abdominal aorta are normal in caliber,measuring 2.4 cm [facility] DME/SUPPLY JUSTIFICATION 20:44:36 Ordered by an unspecified provider. [facility] DME/SUPPLY JUSTIFICATION 21:37:46 Ordered by an unspecified provider. [facility] PHYSICIAN ORDERS 17:21:52 Ordered by an unspecified provider. [facility] CT ABDOMEN PELVIS W CONTRAST 22:09:19 ORDERING [...] disc disease is seen in the spine. [facility] [place] [facility] ResourcesMEAS,POST-VOID RES,US,[id number] 21:26:00* Test Item Value Reference Range Interpretation Comme nts PVR (URINE VOLUME) (test code = 5193) 0 ml 0-100 [facility]-VOID RES,US,[id number] 21:26:00* Test Item Value Reference Range Interpretation Comme nts PVR (URINE VOLUME) (test code = 5193) 0 ml 0-100 [facility],POST-VOID RES,US,[id number] 21:26:00* Test Item Value Reference Range Interpretation Comme nts PVR (URINE VOLUME) (test code = 5193) 0 ml 0-100 [facility]PO[facility] Urinalysis w/o Specific [id number] 21:24:00* Test Item Value Reference Range Interpretation [...] = 3257) 50 Negative - Negati ve [facility] w/o Specific [id number] 21:24:00* Test Item Value Reference Range Interpretation [...] = 3257) 50 Negative - Negati ve [facility]PO[facility] Urinalysis w/o Specific [id number] 21:24:00* Test Item Value Reference Range Interpretation [...] = 3257) 50 Negative - Negati ve [facility] Center[facility]EN [id number] 20:34:50EXAM: US ABDOMEN LIMITED HISTORY: 77 years-old Female with Biliary cirrhosis . TECHNIQUE: Abdomen ultrasound was performed focused on the right upperquadrant. Main portal vein was evaluated with color Doppler imaging.[employer] images were obtained for the record. COMPARISON: [...] is normal in appearance where visualized. OTHER: None.[facility] with [id number] 15:44:00* Test Item Value Reference Range Interpretation Comme nts WBC (test code = 6690-2) 5.98 See_Comment [[facility]] The system which generated this result transmitted reference range: 4.30 - 11.10 10*3/?L. The reference range was not used to interpret this result as normal/abnormal. RBC (test code = 789-8) 4.24 See_Comment [[facility]] The system which generated this result transmitted [...] 32.7 g/dL 31.6-35.1 RDW-SD (test code = 19828-1) 47.0 fL 39.0-49.9 RDW-CV (test code = 788-0) 14.1 % 12.0-15.5 PLT (test code = 777-3) 155 See_Comment L [Automated messa ge] The system which generated this result transmitted reference range: 166 - 358 10*3/?L. The reference range was not used to interpret this result as normal/abnormal. MPV (test code = 62097-5) 10.5 fL 9.5-12.9 NRBC/100 WBC (test code = 9533449667) 0.0 See_Comment [Automated me ssage] The system which generated this result transmitted reference range: 0.0 - 10.0 /100 WBCs. The reference range was not used to interpret this result as normal/abnormal. NRBC x10^3 (test code = 1659440361) See_Comment [Automated messa ge] The system which generated this result transmitted reference range: 10*3/?L. The reference range was not used to interpret this result as normal/abnormal. GRAN MAT (NEUT) % (test code = 770-8) 50.6 % IMM GRAN % (test code = 0679831909) 0.50 % LYMPH % (test code = 736-9) 34.1 % MONO % (test code = 5905-5) 11.2 % EOS % (test code = 713-8) 2.3 % BASO % (test code = 706-2) 1.3 % GRAN MAT x10^3(ANC) (test code = 3356923649) 3.02 10*3/uL 1.88-7.09 IMM GRAN x10^3 (test code = 2456061052) 0.03 10*3/uL 0.00-0.06 LYMPH x10^3 (test code = 731-0) 2.04 10*3/uL 1.32-3.29 MONO x10^3 (test code = 742-7) 0.67 10*3/uL 0.33-0.92 EOS x10^3 (test code = 711-2) 0.14 10*3/uL 0.03-0.39 BASO x10^3 (test code = 704-7) 0.08 10*3/uL 0.01-0.07 H Lab Interpretation (test code = 86500-1) Abnormal [facility]2023-[facility]-08 03:27:49* Test Item Value Reference Range Interpretation Comme nts Height (test code = 0210489216) 68 in Weight (test code = 5877125813) 228 lbs Systolic BP (test code = 1444684522) 163 mmHg Diastolic BP (test code = 1101642555) 72 mmHg Heart Rate (test code = 6313337997) 90 bpm BSA (test code = 7579936560) 2.16 m2 LVIDD (test code = 7752366007) 4.80 cm Left Ventricular End Diastolic Volume by Teichholz Method (test code = 0208084) 106.6 mL IVS (test code = 2243412094) 1.36 cm Interventricular Septum Diastolic Thickness by 2D (test code = 7796093) 1.36 cm LVPWD (test code = 4981570404) 1.27 cm PW (test code = 1188156153) 1.27 cm 0.6-1.1 EF(Teich) (test code = 5436446091) 59.80 % LVIDS (test code = 6275191736) 3.30 cm Left Ventricular End Systolic Volume by Teichholz Method (test code = 3543500) 42.9 mL FS (test code = 8701969880) 32 % EF - 2D (test code = 85313797) 59.80 % LVOT diameter (test code = 9045916758) 1.98 cm LVOT area (test code = 0413583001) 3.10 cm2 TR Peak Bunny (test code = 4864220692) 320.8 cm/s Triscuspid Valve Regurgitation Peak Gradient (test code = 9086008433) 41.2 mmHg ACS (test code = 9884979034) 1.83 cm Ao root diam (test code = 8885145906) 3.10 cm Aortic root (test code = 0890037803) 3.1 cm Ao root annulus (test code = 7135030599) 3.1 cm LA size (test code = 8698817306) 5.2 cm Pulmonic Regurgitant End Max Velocity (test code = 1299816495) 125.5 cm/s E wave decelartion time (test code = 9597484224) 0.25 s MV Peak E Bunny (test code = 9528180302) 89.6 cm/s MV Peak A Bunny (test code = 0099750780) 88.0 cm/s E/A ratio (test code = 6690205981) 1.02 ratio MV Prop V (test code = 3515119870) 30.40 cm/s Tapse (test code = 8874047761) 2.8 cm LVOT stroke volume (test code = 8554899649) 88.50 cm3 LVOT peak bunny (test code = 9084338080) 109.0 cm/s LVOT mn grad (test code = 9793287557) 2.2 mmHg AV LVOT peak gradient (test code = 4514802904) 4.8 mmHg LVOT peak VTI (test code = 7560639628) 28.7 cm LV V1 mean (test code = 9279117032) 67.40 cm/s MR max PG (test code = 5921890382) 45.60 mm[Hg] MR max bunny (test code = 4109907766) 337.60 cm/s Mr max bunny (test code = 6691240661) 337.6 m/s AV regurgitation pressure 1/2 time (test code = 7522486872) 490.9 ms AI dec slope (test code = 3546816406) 241.80 cm/s2 AI max bunny (test code = 8814686846) 405.30 cm/s AI max PG (test code = 2481227241) 65.70 mm[Hg] Aortic valve mean velocity (test code = 0722068473) 120.8 cm/s Ao peak bunny (test code = 1218327091) 200.4 cm/s Ao VTI (test code = 6463770506) 47.2 cm AV area by cont VTI (test code = 7484820997) 1.9 cm2 AV area peak bunny (test code = 2154622794) 1.7 cm2 Ao max PG (test code = 7400938342) 16.10 mm[Hg] AV peak gradient (test code = 3768096979) 16.1 mmHg AV valve area (test code = 0164807832) 1.88 cm2 AV mean gradient (test code = 1587893331) 7.1 mmHg LAV(MOD-sp4) (test code = 7457494118) 86.50 mL LA Volume Index (BP) (test code = 4366323261) 42.7 mL/m2 LA volume (BP) (test code = 6530745282) 92.4 mL LAV(MOD-sp2) (test code = 9785058369) 93.80 mL Radiology Study observation (narrative) (test code = 14703-1) FEDERICO (test code = FEDERICO) ?Left?Ventricle: Left [...] parasternal, subcostal and suprasternal views were obtained. [facility] MOLECULAR [id number] 22:12:19* Test Item Value Reference Range Interpretation Comme nts POCT Molecular FluA (test co de = 28589-0) Negative Negative POCT Molecular FluB (test co de = 52534-9) Negative Negative Lab Interpretation (test cod e = 07777-5) Normal [facility] MOLECULAR [id number] 22:05:27* Test Item Value Reference Range Interpretation Comme nts POCT Molecular Strep (test c ode = 68154-1) Negative Negative Lab Interpretation (test cod e = 75840-3) Normal [facility] SARS-COV-2 ANTIGEN (BINAX NOW)2023-01-04 22:00:00* Test Item Value Reference Range Interpretation Comme nts POCT SARS-COV-2 ANTIGEN (selina t code = 28721-0) Not Detected Not Detected On board controls acceptable with C Line (test code = 3574) Yes [facility] [id number] 14:26:20* Test Item Value Reference Range Interpretation Comme nts WBC (test code = 6690-2) 6.23 See_Comment [Automated messa ge] The system which generated this result transmitted reference range: 4.30 - 11.10 10*3/?L. The reference range was not used to interpret this result as normal/abnormal. RBC (test code = 789-8) 4.31 See_Comment [Automated messa ge] The system which [...] 33.2 g/dL 31.6-35.1 RDW-SD (test code = 99676-6) 45.5 fL 39.0-49.9 RDW-CV (test code = 788-0) 13.9 % 12.0-15.5 PLT (test code = 777-3) 149 See_Comment L [Automated messa ge] The system which generated this result transmitted reference range: 166 - 358 10*3/?L. The reference range was not used to interpret this result as normal/abnormal. MPV (test code = 55245-2) 9.7 fL 9.5-12.9 NRBC/100 WBC (test code = 9495678798) 0.0 See_Comment [Automated me ssage] The system which generated this result transmitted reference range: 0.0 - 10.0 /100 WBCs. The reference range was not used to interpret this result as normal/abnormal. NRBC x10^3 (test code = 3836691257) See_Comment [Automated messa ge] The system which generated this result transmitted reference range: 10*3/?L. The reference range was not used to interpret this result as normal/abnormal. GRAN MAT (NEUT) % (test code = 770-8) 46.7 % IMM GRAN % (test code = 8536279627) 0.30 % LYMPH % (test code = 736-9) 37.9 % MONO % (test code = 5905-5) 11.1 % EOS % (test code = 713-8) 2.2 % BASO % (test code = 706-2) 1.8 % GRAN MAT x10^3(ANC) (test code = 3739353951) 2.91 10*3/uL 1.88-7.09 IMM GRAN x10^3 (test code = 4508756443) 0.00-0.06 LYMPH x10^3 (test code = 731-0) 2.36 10*3/uL 1.32-3.29 MONO x10^3 (test code = 742-7) 0.69 10*3/uL 0.33-0.92 EOS x10^3 (test code = 711-2) 0.14 10*3/uL 0.03-0.39 BASO x10^3 (test code = 704-7) 0.11 10*3/uL 0.01-0.07 H Lab Interpretation (test code = 82665-1) Abnormal [facility] WITH [id number] 14:26:20* Test Item Value Reference Range Interpretation Comme nts WBC (test code = 6690-2) 6.23 See_Comment [Automated messa ge] The system which generated this result transmitted reference range: 4.30 - 11.10 10*3/?L. The reference range was not used to interpret this result as normal/abnormal. RBC (test code = 789-8) 4.31 See_Comment [Automated messa ge] The system which [...] 33.2 g/dL 31.6-35.1 RDW-SD (test code = 57305-3) 45.5 fL 39.0-49.9 RDW-CV (test code = 788-0) 13.9 % 12.0-15.5 PLT (test code = 777-3) 149 See_Comment L [Automated messa ge] The system which generated this result transmitted reference range: 166 - 358 10*3/?L. The reference range was not used to interpret this result as normal/abnormal. MPV (test code = 92740-1) 9.7 fL 9.5-12.9 NRBC/100 WBC (test code = 3343423766) 0.0 See_Comment [Automated me ssage] The system which generated this result transmitted reference range: 0.0 - 10.0 /100 WBCs. The reference range was not used to interpret this result as normal/abnormal. NRBC x10^3 (test code = 3185756548) See_Comment [Automated messa ge] The system which generated this result transmitted reference range: 10*3/?L. The reference range was not used to interpret this result as normal/abnormal. GRAN MAT (NEUT) % (test code = 770-8) 46.7 % IMM GRAN % (test code = 9729384426) 0.30 % LYMPH % (test code = 736-9) 37.9 % MONO % (test code = 5905-5) 11.1 % EOS % (test code = 713-8) 2.2 % BASO % (test code = 706-2) 1.8 % GRAN MAT x10^3(ANC) (test code = 0800083411) 2.91 10*3/uL 1.88-7.09 IMM GRAN x10^3 (test code = 7859736468) 0.00-0.06 LYMPH x10^3 (test code = 731-0) 2.36 10*3/uL 1.32-3.29 MONO x10^3 (test code = 742-7) 0.69 10*3/uL 0.33-0.92 EOS x10^3 (test code = 711-2) 0.14 10*3/uL 0.03-0.39 BASO x10^3 (test code = 704-7) 0.11 10*3/uL 0.01-0.07 H Lab Interpretation (test code = 29687-5) [facility]2022-06-12 19:03:26* Test Item Value Reference Range Interpretation Comme nts POCT GLU (test code = 3138362959) 85 mg/dL 70-110 Lab Interpretation (test cod e = 52511-7) Normal [facility] (RESULTS)2022-02-02 19:09:05* Test Item Value Reference Range Interpretation Comme nts FVC Actual (test code = 3994) 2.40 L FEV1 Actual (test code = 3993) 1.88 L FEV1/FVC Actual (test code = 3995) 79 % [facility]- US PELVIS [id number] 08:43:00Patient Name: CLARA BRICE Unit No: [id number] EXAMS: CPT CODE: [id number] US PELVIS COMPLETE 77477 Pelvic US performed June 06, 2018. COMPARISON: [...] and signed by: Leanne Shetty MD CC: Alexandre Gray III, MD; Ld Jolly MD Techn ologist: Nalini Hensley RDMS Probe: Trnscrbd D/ (0843) t.SDR.NMG Orig Print D/T: S: 06/06/2018 (0846) [facility] NAME: CLARA BIRCE Radiology Department PHYS: Alexandre Shah III, MD [address] : 1945 AGE: 73 SEX: F [place], [place] [address] LOC: Jer[facility].RAD PHONE #: [phone] EXAM DATE: 06/06/2018 STATUS: REG CLI FAX #: [phone] RAD NO: [id number] Page 1 Signed Report Patient Name: CLARA BRICE Unit No: [id number]: CPT CODE: [id number] US PELVIS COMPLETE 56417 (Continued) [facility] NAME:CLARA BRICE Radiology Department PHYS: Alexandre Shah III, MD [address] : 1945 AGE: 73 SEX: F [place], [place] [address] LOC: [facility].RAD PHONE #: [phone] EXAM DATE: 06/06/2018 STATUS: REG CLI FAX #: [phone] RAD NO: [id number] Page 2 Signed Report- US TRANSVAGINAL [id number] 08:43:00 Patient Name: CLARA BRICE Unit No: [id number] EXAMS: CPT CODE: [id number] US TRANSVAGINAL W/PELVIS 61313 Pelvic US performed June 06, 2018. COMPARISON: [...] and signed by: Leanne Shetty MD CC: Alexandre Gray III, MD; Ld Jolly MD Technologist: Nalini Hensley RDMS Probe: [id number] Trnscrbd D/ (0843) RumaR.NMG Orig Print D/T: S: 06/06/2018 (0846) [facility] NAME: CLARA BRICE Radiology Department PHYS: Alexandre Shah III, MD [address] : 1945 AGE: 73 SEX: F [place], [place] [address] LOC: [email or web address]RAD PHONE #: [phone] EXAM DATE: 06/06/2018 STATUS: REG CLI FAX #: [phone] RAD NO: [id number] Page 1 Signed Report Patient Name: CLARA BRICE Unit No: [id number] EXAMS: CPT CODE: [id number] US TRANSVAGINAL W/PELVIS 45072 (Continued) [facility] NAME: CLARA BRICE Radiology Department PHYS: Alexandre Shah III, MD [address] : 1945 AGE: 73 SEX: F [place] [address] LOC: [facility] PHONE#: [phone] EXAM DATE: 06/06/2018 STATUS: REG CLI FAX #: [phone] RAD NO: [id number] Page 2 Signed Report- US ABDOMEN COMPLETE 2018-06-06 08:42:00Patient Name: CLARA BRICE Unit No: [id number] EXAMS: CPT CODE: [id number] US ABDOMEN COMPLETE 19971 US of the abdomen performed June 06, 2018 . CLINICAL HISTORY: Biliary cirrhosis. Right lower quadrant pain . COMPARISON: None available . DISCUSSION: Real time kelley scale sonography wasperformed of the abdomen. The liver is normal in size, measuring 13.4 cm. Coarse echogenicity to the liver without focal mass seen. There is no evidence of intra or extra hepatic ductal dilatation. Common bile duct measures 4 mm. No sonographic evidence of cholelithiasis. There is no gallbladder wall thickening or pericholecystic fluid. Gallbladder wall measures 2 mm. The spleen is normal in sizeand echogenicity, measuring 9.8 cm . The body and proximal tail of the pancreas are sonographicallynormal in appearance. The remainder is poorly seen [...] and signed by: Leanne Shetty MD CC: Alexandre Gray III, MD; Ld Jolly MD Technologist: Nalini Hensley RDMS Probe: Trnscrbd D/ (0842) t.SDR.NMG Orig Print D/T: S: 06/06/2018 (0845) [facility] NAME: CLARA BRICE Radiology Department PHYS: Alexandre Shah III, MD [address] : 1945 AGE: 73 SEX: [place] [address] LOC: Jer[place].RAD PHONE #: [phone] EXAM DATE: 06/06/2018 STATUS: REG CLI FAX #: [phone] RAD NO: [id number] Page 1 Signed Report Patient Name: CLARA BRICE Unit No: [id number] EXAMS: CPT CODE: [id number] US ABDOMEN COMPLETE [id number] (Continued) [facility] PHYS: Alexandre Shah III, MD [address] : 1945 AGE: 73 SEX: F [place] [address] LOC: [place].RAD PHONE #: [phone] EXAM DATE: 06/06/2018 STATUS: REG CLI FAX #: [phone] RAD NO: [id number] Page 2 Signed Report Notes Date/Time Note Provider Source 2024-10-27 09:30:00 Images from the original note were not included. Venipuncture collection performed by clean technique on the left anticubitus. Total of 1 attempts were made. Slight pressure and a bandage/dressing were applied to the site(s). The patient experienced no complications. The following specimens were processed according to instructions and sent to [facility] laboratories per lab order on 10/27/2024 : LT BLUE SST RED 1 LAV PPT DK GREEN (LiHep) DK GREEN (SodH) KELLEY DK BLUE (K2) DK BLUE (S) ACD Blood Culture NIPT/NTD Patient has been identified by and name and was provided with cup, antiseptic towelette, and clean catch instructions. 3 urine specimen(s) sent. Unpreserved 2 Urine Culture 1 Aptima tube Other urine Patient was given a 24 hour collection container with instructions on what not to eat for the next 72 hours before collection. T [facility] 2024-10-27 09:30:00 Patient presented with specimen for drop-off and was identified by and name. Collection information/ total volume were documented accordingly. The following specimens were sent to [facility] laboratories per lab order on 10/28/2024 : 24 hour urine 1 Random urine Stool Swab Other Patient collected 24 hour urine from 1100 10/27/24- 1100 10/28/24. Jenna Cabrera 10/28/2024 11:52 AM [facility] 2024-10-23 09:37:35 Attempted to contact patient by phone; however, there was no answer. Left a voicemail requesting a return call to schedule an appointment. This is for documentation purposes, please close this encounter. Genevieve Francis [facility] 2024-10-22 13:46:49 Will need in office visit for surgery clearance Marlee Gerard MA [facility] 2024-10-22 13:36:31 Copied from [facility] #[id number]. Topic: Clinical - Medical Advice >> Oct 22, 2024 1:32 PM Patient Titrator wrote: Pt is wanting to know if Anejodie, PROGRAM MANAGER RN have received a surgery clearence to have a teeth extracted and said was faxed last week. The facilty name will be [facility] in [place]. Fax : unavailable Sima Zhou [facility] 2024-09-26 08:45:00 Images from the original note were not included. Venipuncture collection performed by clean technique on the left anticubitus. Total of 1 attempts were made. Slight pressure and a bandage/dressing were applied to the site(s). The patient experienced no complications. The following specimens were processed according to instructions and sent to [facility] laboratories per lab order on 09/26/2024 : LT BLUE SST 3 RED LAV PPT DK GREEN (LiHep) DK GREEN (SodH) KELLEY DK BLUE (K2) DK BLUE (S) ACD Blood Culture NIPT/NTD T [facility] 2024-08-14 12:15:00 Images from the original note were not included. Venipuncture collection performed by clean technique on the right anticubitus. Total of 2 attempts were made. Slight pressure and a bandage/dressing were applied to the site(s). The patient experienced no complications. The following specimens were processed according to instructions and sent to [facility] laboratories per lab order on today: LT BLUE SST 1 RED LAV 2 PPT DK GREEN (LiHep) DK GREEN (SodH) KELLEY DK BLUE (K2) DK BLUE (S) ACD Blood Culture NIPT/NTD [facility] 2024-08-05 11:22:06 Images from the original note were not included. Notes: 02/12/24 Last Refilled: [facility] - [place], [place] - [address] Recent Visits Date Type Provider Dept 02/12/24 Office Visit Shankar SUSU Duke [facility] 06/04/23 Office Visit Shankar Anirudh, SUSU [facility] Showing recent visits within past 540 days with a meds authorizing provider and meeting all other requirements Future Appointments Date Type Provider Dept 08/14/24 Appointment Shankar Anirudh SUSU [facility] Showing future appointments within next 150 days with a meds authorizing provider and meeting all other requirements metoprolol succinate XL 100 mg 24 hr tablet Sig: Take 1 tablet by mouth in the morning. Disp: 90 tablet Refills: 1 Start: 08/05/2024 Class: eRX For: Essential hypertension Last ordered: 5 months ago (02/12/2024) by SUSU Solorio Cardiovascular: Beta Blockers [id number]/05/2024 09:20 AM Protocol Details Valid encounter within last 12 months Heart rate within normal limits and completed in the last 12 months amLODIPine 5 mg tablet Sig: Take 1 tablet by mouth in the morning. Disp: 90 tablet Refills: 1 Start: 08/05/2024 Class: eRX For: Essential hypertension Last ordered: 5 months ago (02/12/2024) by SUSU Solorio Calcium Channel Blockers [id number]/05/2024 09:20 AM Protocol Details Valid encounter within last 12 months To be filled at: [address] [facility] [employer] 2024-07-24 14:43:11 Received fax from [facility], placed in providers box. 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 Venipuncture collection performed by clean technique on the left anticubitus. Total of 1 attempts were made. Slight pressure and a bandage/dressing were applied to the site(s). The patient experienced no complications. The following specimens were processed according to instructions and sent to [facility] laboratories per lab order on 07/14/2024 : LT BLUE SST 3 RED LAV 1 PPT DK GREEN (LiHep) DK GREEN (SodH) KELLEY DK BLUE (K2) DK BLUE (S) ACD Blood Culture NIPT/NTD [facility] 2024-03-25 13:39:15 The appt was with Dr Crespo 03/24. We were needing a generic referral to attach to the appt. CONE INSPECTOR Amarjit Stone [facility] 2024-03-25 09:25:41 Please advise what referral is needed. No appt is noted/scheduled for today. CONE INSPECTOR Rebekah Trejo LVN [facility] 2024-03-24 15:45:00 Addended by: [place] CRESPO MD on: 03/25/2024 04:31 PM Modules accepted: Level of Service [facility] 2024-03-24 11:11:12 Routing call to correct clinic. CONE INSPECTOR Tiffanie Alnoso V RN [facility] 2024-03-24 08:21:18 The pt has an appt today at 3:45 and is needing a generic referral. Please Assist [facility] 2024-03-04 12:13:45 Patient has been scheduled. Thank you. CONE INSPECTOR Tracey Fry [facility] 2024-03-04 10:28:00 Images from the original note were not included. Below results given. Agreeable to proceed with [facility] Appt. Will forward to PSS for assistance with appt. Cedric Francis MD P Cardiology Nurse Plkulwinder make appt with [facility] surgery for Venous insufficiency [facility] 2024-02-28 15:41:37 .Notified Patient of Test Results and Recommendations SUSU Miller 02/13/2024 6:50 AM HAT CONE INSPECTOR CMP stable CBC stable A1C 5.5 normal Lipids normal TSH normal CONE INSPECTOR Lashell Vora MA [facility] 2024-02-27 14:53:35 Clara Brice is a 78 year old female. Patient is calling regarding results of her lab work. CONE INSPECTOR Lisandra Ramos [facility] 2024-02-14 10:20:00 Addended by: CEDRIC FRANCIS MD on: 03/03/2024 05:05 PM Modules accepted: Orders [facility] 2024-02-14 10:02:13 Patient is scheduled with Pulmonary for a f/u visit with Dr. Chaves on 03/12 and is needing a generic referral due to insurance. Please advise HOSPITAL Tiffanie Moreno [facility] 2024-02-12 10:45:00 Images from the original note were not included. Venipuncture collection performed by clean technique on the left anticubitus. Total of 1 attempts were made. Slight pressure and a bandage/dressing were applied to the site(s). The patient experienced no complications. The following specimens were processed according to instructions and sent to [facility] laboratories per lab order on 02/12/2024 : LT BLUE SST 1 RED LAV 2 PPT DK GREEN (LiHep) DK GREEN (SodH) KELLEY DK BLUE (K2) DK BLUE (S) ACD Blood Culture NIPT/NTD [facility] 2024-02-06 14:22:54 Attempted to contact [facility] to clarify the statement. No answer, left message. Anuja Mcguire RN [facility] 2024-02-06 14:17:18 What type of assistance is needed? [facility] 2024-02-05 16:33:27 Clara Brice is a 78 year old female Ruthann, nurse calling in to report pt's A1C was 5.7 this morning. Please assist. Vickie Gann [facility] 2023-12-31 11:53:18 Images from the original note were not included. Notes: 06/04/23 Last Refilled: [facility] - [address] Recent Visits Date Type Provider Dept 06/04/23 Office Visit Anirudh Chaparro FNP [facility] 12/26/22 Office Visit Anirudh Chaparro FNP [facility] 11/27/22 Office Visit Anirudh Chaparro FNP [facility] Showing recent visits within past 540 days with a meds authorizing provider and meeting all other requirements Future Appointments Date Type Provider Dept 02/12/24 Appointment Anirudh Chaparro FNP [facility] Showing future appointments within next 150 days with a meds authorizing provider and meeting all other requirements metoprolol succinate XL 100 mg 24 hr tablet Sig: Take 1 tablet by mouth in the morning. Disp: 90 tablet Refills: 1 Start: 12/29/2023 Class: eRX For: Essential hypertension Last ordered: 7 months ago (06/04/2023) by SUSU Solorio Cardiovascular: Beta Blockers Ayovbl6712/29/2023 10:26 AM Protocol Details Valid encounter within last 12 months Heart rate within normal limits and completed in the last 12 months amLODIPine 5 mg tablet Sig: Take 1 tablet by mouth in the morning. Disp: 90 tablet Refills: 1 Start: 12/29/2023 Class: eRX For: Essential hypertension Last ordered: 7 months ago (06/04/2023) by SUSU Solorio Calcium Channel Blockers Cqfrqc2212/29/2023 10:26 AM Protocol Details Valid encounter within last 12 months To be filled at: [facility] [address] Vicenta Bernal MA [facility] 2023-12-14 15:55:54 Images from the original note were not included. Radiology report.// placed in provider basket. Arelis Flowers [facility] 2023-10-29 10:15:00 Images from the original note were not included. Venipuncture collection performed by clean technique on the left anticubitus. Total of 1 attempts were made. Slight pressure and a bandage/dressing were applied to the site(s). The patient experienced no complications. The following specimens were processed according to instructions and sent to [facility] laboratories per lab order on 10/29/2023 : LT BLUE 1 SST 2 RED LAV 1 PPT DK GREEN (LiHep) DK GREEN (SodH) KELLEY DK BLUE (K2) DK BLUE (S) ACD Blood Culture NIPT/NTD [facility] 2023-08-28 09:14:35 Patient stated that already taken care of this Closing encounter Nika Harrison [facility] 2023-08-27 11:15:30 Please assist with scheduling. Thank you Rebekah Trejo LVN [facility] 2023-08-25 07:24:11 Please f/u in clinic [facility] 2023-08-24 13:50:28 Please review and advise. -UC visit 08/14/23 Patient reports cont dry cough, chest congestion, and chest soreness r/t coughing. She has cont to take Mucinex and uses the albuterol via nebulizer as needed. Please review and advise. T [facility] 2023-08-24 13:29:41 Clara Brice is a 78 year old female Patient is calling to request chest xray to see if Pneumonia or fluid is present. Please contact when available T Sandrine Clayton [facility] 2023-07-23 16:06:01 Spoke with pharmacy. Pharmacy states patient did not diamond picker medication. Cost will be 100$. Attempted to contact patient. No answer, VM left. Damon Titus RN 07/23/2023 4:06 PM T [facility] 2023-07-23 16:05:27 Images from the original note were not included. Mikhail Wu MD Collins, Kinsley, RN; P Adc Pob Womens Nurse Recommend Myrbetriq 50 mg if unable to get Gemtessa due to costs. Please send prescription if needed. Pt advised to check bps daily while taking Myrbetriq Thank you! T [facility] 2023-07-13 15:00:00 Addended by: MIKHAIL WU MD on: 07/13/2023 06:08 PM Modules accepted: Orders T [facility] 2023-06-21 10:32:26 Forms from specialty pharmacy received. Placed in MDs inbox folder for review and signature. T [facility] 2023-06-04 10:45:00 Images from the original note were not included. Venipuncture collection performed by clean technique on the left anticubitus. Total of 1 attempts were made. Slight pressure and a bandage/dressing were applied to the site(s). The patient experienced no complications. The following specimens were processed according to instructions and sent to [facility] laboratories per lab order on 06/04/2023 : LT BLUE SST 1 RED LAV 2 PPT DK GREEN (LiHep) DK GREEN (SodH) KELLEY DK BLUE (K2) DK BLUE (S) ACD Blood Culture NIPT/NTD [facility] 2023-05-15 11:22:21 Images from the original note [...] (11/27/2022) by SUSU Solorio Calcium Channel Blockers Icmdrg6205/13/2023 09:37 AM Protocol Details Valid encounter within last 12 months metoprolol succinate XL 100 mg 24 hr tablet Sig: Take 1 tablet by mouth in the morning. Disp: 90 tablet Refills: 1 Start: 05/13/2023 Class: eRX For: Essential hypertension Last ordered: 5 months ago (11/27/2022) by SUSU Solorio Cardiovascular: Beta Blockers Jlyfhs3805/13/2023 09:37 AM Protocol Details Valid encounter within last 12 months Heart rate within normal limits and completed in the last 12 months To be filled at: [facility] - [address] Recent Visits Date Type Provider Dept 12/26/22 Office Visit Anirudh Chaparro FNP [facility] 11/27/22 Office Visit Anirudh Chaparro FNP [facility] 06/22/22 Office Visit Daya Peña PA [facility] 05/26/22 Office Visit Anirudh Chaparro FNP [facility] 12/26/21 Office Visit Anirudh Chaparro FNP [facility] 11/21/21 Office Visit Anirudh Chaparro FNP [facility] Showing recent visits within past 540 days with a meds authorizing provider and meeting all other requirements Future Appointments Date Type Provider Dept 06/04/23 Appointment Anirudh Chaparro FNP [facility] Showing future appointments within next 150 days with a meds authorizing provider and meeting all other requirements [facility] 2023-04-25 16:37:32 Patient notified of results. She verbalized understanding of results/recommendations via teach back. No further questions or concerns at this time. She is scheduled with Dr. Reyes 05/16/23 HOSPITAL Viji Bishop RN [facility] 2023-04-17 10:00:00 Images from the original note were not included. Venipuncture collection performed by clean technique on the right anticubitus. Total of 1 attempts were made. Slight pressure and a bandage/dressing were applied to the site(s). The patient experienced no complications. The following specimens were processed according to instructions and sent to [facility] laboratories per lab order on 04/17/2023: LT BLUE 1 SST 2 RED LAV 1 PPT DK GREEN (LiHep) DK GREEN (SodH) KELLEY DK BLUE (K2) DK BLUE (S) ACD Blood Culture NIPT/NTD [facility] 2023-02-15 10:00:00 Addended by: CEDRIC FRANCIS MD on: 04/24/2023 04:17 PM Modules accepted: Orders [facility] 2023-01-05 09:01:05 Called patient in regards to XR patient verified by name and informed patient of results. Felix Dietz MA [facility] 2022-12-26 09:30:00 Formatting of this n ote is different from the original. Images from the original note were not included. Venipuncture collection performed by clean technique on the left anticubitus. Total of 1 attempts were made. Slight pressure and a bandage/dressing were applied to the site(s). The patient experienced no complications. The following specimens were processed according to instructions and sent to [facility] laboratories per lab order on 12/26/2022 : LT BLUE SST 2 RED LAV 2 PPT DK GREEN (LiHep) DK GREEN (SodH) KELLEY DK BLUE (K2) DK BLUE (S) ACD Blood Culture NIPT/NTD [facility] 2022-12-06 08:16:05 Formatting of this n ote is different from the original. Images from the original note were not included. Refill approved per cardiology protocol: Cardiovascular: ?Loop Diuretics Passed 12/06/2022 08:13 AM Protocol Details Valid encounter within last 12 months K in normal range and within 180 days Cr in normal range and within 180 days Wandy Alonso MA [facility] 2022-10-30 09:15:00 Formatting of this n ote is different from the original. Images from the original note were not included. Venipuncture collection performed by clean technique on the right anticubitus. Total of 1 attempts were made. Slight pressure and a bandage/dressing were applied to the site(s). The patient experienced no complications. The following specimens were processed according to instructions and sent to [facility] laboratories per lab order on 10/30/2022: LT BLUE SST RED LAV 1 PPT DK GREEN (LiHep) DK GREEN (SodH) KELLEY DK BLUE (K2) DK BLUE (S) ACD Blood Culture NIPT/NTD [facility]
--- NOTE | 2024-12-30 15:24 | RAD REPORT ---
EXAM: Chest Single View HISTORY: 79 years Female CHEST PAIN COMPARISON: 11/28/2019 FINDINGS: LUNGS/PLEURA: The lungs are clear. No pleural effusions or pneumothorax. No pulmonary edema. Prominen t central pulmonary vasculature may reflect chronic venous hypertension. CARDIAC/MEDIASTINUM: Mild cardiomegaly UPPER ABDOMEN: No significant abnormality. BONES: No acute abnormality. LINES/TUBES/OTHER: N/A IMPRESSION: No evidence of acute cardiopulmonary disease.
[2024-12-30 15:58] LABS: Absolute Lymphocytes (CBC) 2.3 K/uL (0.7-4.9); Hematocrit 37.5 % (36.0-45.0); Hemoglobin 12.5 g/dL (12.0-15.0); MCH 29.3 pg (27.0-35.0); MCHC 33.4 g/dL (32.0-36.0); MCV 87.8 fL (80-100); MPV 8.4 fL (7.6-11.3); Nucleated RBC Absolute Count 0.0 (0-0); Nucleated Red Blood Cells % 0.3 % (0-0); RBC Red Blood Cell Count 4.27 M/uL (3.86-4.86); White Blood Count 6.50 thou/uL (4.3-10.9)
[2024-12-30 16:11] LABS: ALT/SGPT 22.0 U/L (13-56); AST/SGOT 29.0 U/L (15-37); Albumin 3.0 g/dL (3.4-5.0); Albumin/Globulin Ratio 0.8 (1.1-1.8); Alkaline Phosphatase 158.0 U/L (45-117); Anion Gap 6.6 mEq/L (5.0-15.0); BUN Blood Urea Nitrogen 10.0 mg/dL (7-18); Bilirubin Indirect, Calculated 0.4 mg/dL (0.2-0.8); Globulin 4.0 g/dL (2.3-3.5); Glucose Level 81.0 mg/dL (74-106); Magnesium 2.3 mg/dL (1.6-2.4); NT PRO-BNP 146.0 pg/mL (<450); Potassium 3.6 mEq/L (3.5-5.1); Troponin High Sensitivity 30.8 pg/mL (<58.9)
--- NOTE | 2024-12-30 16:28 | ER ---
Nurse's Notes [facility] Name: Clara Bucio Age: 79 yrs Sex: Female : 1945 Arrival Date: 12/30/2024 Time: 13:41 Bed 2 Private MD: Diagnosis: Chest pain, unspecified Presentation: 12/30 13:52 Chief complaint: Patient states: Constant chest pressure that radiates into back since ll1 Sunday. Coronavirus screen: Client denies travel out of the [place] in the last 14 days. At this time, the client does not indicate any symptoms associated with coronavirus-19. Ebola Screen: Patient denies travel to an Ebola-affected area in the 21 days before illness onset. Initial Sepsis Screen: Does the patient meet any 2 criteria? No. Patient's initial sepsis screen is negative. Does the patient have a suspected source of infection? No. Patient's initial sepsis screen is negative. Risk Assessment: Do you want to hurt yourself or someone else? Patient reports no desire to harm self or others. Onset of symptoms was December 28, 2024. 13:52 Method Of Arrival: Ambulatory ll1 13:52 Acuity: DORINA 3 ll1 Triage Assessment: 13:53 General: Appears uncomfortable, Behavior is calm, cooperative, appropriate for age. ll1 Pain: Complains of pain in chest Pain radiates to back. Cardiovascular: Reports chest pain. Historical: - Allergies: 13:53 Codeine; ll1 13:53 Sulfa (Sulfonamide Antibiotics); ll1 - PMHx: 13:53 Cirrhosis; Hypertension; ll1 - PSHx: 13:53 R knee replacement (Hypertension); hysterectomy (Hypertension); heart stent ll1 (Hypertension); - Immunization history:: Adult Immunizations up to date. - Social history:: Smoking status: Patient denies any tobacco usage or history of. Screenin:39 Abuse screen: Denies threats or abuse. Nutritional screening: No deficits noted. ap3 Tuberculosis screening: No symptoms or risk factors identified. Assessment: 15:53 Reassessment: Patient and/or family updated on plan of care and expected duration. Pain ll1 level reassessed. 16:38 Reassessment: Patient and/or family updated on plan of care and expected duration. Pain ap3 level reassessed. Patient is alert, oriented x 3, equal unlabored respirations, skin warm/dry/pink. General: Appears in no apparent distress. Behavior is calm, cooperative, appropriate for age. Pain: Complains of pain in back and chest Pain currently is 7 out of 10 on a pain scale. Neuro: Level of Consciousness is awake, alert, obeys commands, Oriented to person, place, time, situation, Appropriate for age. Cardiovascular: Patient's skin is warm and dry. Respiratory: Airway is patent Respiratory effort is even, unlabored, Respiratory pattern is regular, symmetrical. 16:40 Pain: Pain began 2-3 days ago. ap3 Vital Signs: 13:52 BP 142 / 62; Pulse 75; Resp 17; Temp 97.5; Pulse Ox 97% on R/A; Weight 97.52 kg; Height ll1 5 ft. 8 in. ; Pain 7/10; 16:40 BP 166 / 90; Pulse 62; Resp 17; Pulse Ox 100% on R/A; ap3 13:52 Body Mass Index 32.69 (97.52 kg, 172.72 cm) ll1 13:52 Pain Scale: Adult ll1 ED Course: 13:43 Patient arrived in ED. mr 13:46 Yvonne Wu, SOUMYA [facility] kb 13:46 Cameron Ferreira MD is Attending Physician. kb 13:53 Triage completed. ll1 13:54 Arm band placed on. ll1 14:51 XRAY Chest (1 view) In Process Unspecified. EDMS 15:35 Basic Metabolic Panel Sent. ss 15:35 CBC with Diff Sent. ss 15:35 LFT's Sent. ss 15:35 Magnesium Sent. ss 15:35 NT PRO-BNP Sent. ss 15:36 Troponin HS Sent. ss 15:36 Initial lab(s) drawn, by ED staff, sent to lab. BY COMMERCIAL TECHNICIAN KARLA. Inserted saline lock: ss 20 gauge in right antecubital area, using aseptic technique. Blood collected. Flushed with 10 mL NS. 15:53 Patient placed in an exam room, on a stretcher. ll1 16:27 Tee Newton MD is Hospitalizing Provider. kb 16:38 Genevieve Resendiz, RN is Primary Nurse. ap3 16:39 Patient has correct armband on for positive identification. Provided Education on: call ap3 light education. Client placed on continuous cardiac and pulse oximetry monitoring. NIBP monitoring applied. fur feeder on. Pulse ox on. NIBP on. 16:39 Patient maintains SpO2 saturation greater than 95% on room air. ap3 Administered Medications: No medications were administered Outcome: 16:27 Decision to Hospitalize by Provider. kb 19:29 Patient left the ED. tb4 Signatures: Dispatcher [employer] EDIL Yvonne Wu, SUSU-C POINTER HELPER-Julianne Mcclendon, Reg Reg mr Doris Kolb, RN RN ss Genevieve Resendiz RN RN ap3 Fernanda Ray, RN RN ll1 Gloria Morales RN RN tb4
--- NOTE | 2024-12-30 16:28 | EDPHYS ---
Physician Documentation [facility] Name: Clara Bucio Age: 79 yrs Sex: Female : 1945 Arrival Date: 12/30/2024 Time: 13:41 Bed 2 Private MD: ED Physician Cameron Ferreira HPI: 12/30 15:38 This 79 yrs old Black Female presents to ER via Ambulatory with complaints of Chest kb Tightness. 15:38 Pt is a 79 year old female who presents for chest tightness that has been constant kb since onset 3 days ago. Reports shortness of breath on exertion. States she thinks it could be due to COPD. Denies nausea, vomiting. . Historical: - Allergies: 13:53 Codeine; ll1 13:53 Sulfa (Sulfonamide Antibiotics); ll1 - PMHx: 13:53 Cirrhosis; Hypertension; ll1 - PSHx: 13:53 R knee replacement (Hypertension); hysterectomy (Hypertension); heart stent ll1 (Hypertension); - Immunization history:: Adult Immunizations up to date. - Social history:: Smoking status: Patient denies any tobacco usage or history of. ROS: 15:38 Constitutional: As per HPI kb Exam: 15:38 Constitutional: This is a well developed, well nourished patient who is awake, alert, kb and in no acute distress. Head/Face: Normocephalic, atraumatic. ENT: Moist Mucous membranes Cardiovascular: Regular rate Respiratory: Respirations even and unlabored. No increased work of breathing. Talking in full sentences Skin: Warm, dry with normal turgor. Normal color. MS/ Extremity: Pulses equal, no cyanosis. Neurovascular intact. Full, normal range of motion. Neuro: Awake and alert, GCS 15, oriented to person, place, time, and situation. 15:38 Cardiovascular: Edema: 1+ edema to level of bilateral lower extremities, 16:03 ECG was reviewed by the Attending Physician. kb Vital Signs: 13:52 BP 142 / 62; Pulse 75; Resp 17; Temp 97.5; Pulse Ox 97% on R/A; Weight 97.52 kg; Height ll1 5 ft. 8 in. ; Pain 7/10; 16:40 BP 166 / 90; Pulse 62; Resp 17; Pulse Ox 100% on R/A; ap3 13:52 Body Mass Index 32.69 (97.52 kg, 172.72 cm) ll1 13:52 Pain Scale: Adult ll1 MDM: 13:46 Medical Screening Exam initiated kb 15:40 Data reviewed: vital signs, nurses notes. kb 16:26 Differential diagnosis: acute mi, arrhythmia, pulmonary edema, CHF. Consideration of kb Admission/Observation Patient was admitted/placed on observation. Escalation of care including admission/observation considered. Management of patient was discussed with the following: Hospitalist: Hospitalist team, pt accepted under Dr Newton. Counseling: I had a detailed discussion with the patient and/or guardian regarding the historical points, exam findings, and any diagnostic results supporting the discharge/admit diagnosis, lab results, radiology results, the need for further work-up and treatment in the hospital. ED course: HEART score 4. 12/30 13:47 Order name: Basic Metabolic Panel; Complete Time: 16:11 kb 12/30 13:47 Order name: CBC with Diff; Complete Time: 16:01 kb 12/30 13:47 Order name: LFT's; Complete Time: 16:11 kb 12/30 13:47 Order name: Magnesium; Complete Time: 16:11 kb 12/30 13:47 Order name: NT PRO-BNP; Complete Time: 16:11 kb 12/30 13:47 Order name: Troponin HS; Complete Time: 16:11 kb 12/30 17:53 Order name: T4 Free [facility] 12/30 17:53 Order name: Thyroid Stimulating Hormone [facility] 12/30 17:53 Order name: Basic Metabolic Panel [facility] 12/30 17:53 Order name: Basic Metabolic Panel [facility] 12/30 17:53 Order name: Basic Metabolic Panel [facility] 12/30 17:53 Order name: CBC with Automated Diff EDMT 12/30 17:53 Order name: CBC with Automated Diff EDMT 12/30 17:53 Order name: CBC with Automated Diff [facility] 12/30 17:53 Order name: Protime (+INR) EDMT 12/30 17:53 Order name: Protime (+INR) [facility] 12/30 17:53 Order name: Troponin High Sensitivity [facility] 12/30 17:53 Order name: Troponin High Sensitivity EDMT 12/30 17:53 Order name: Troponin High Sensitivity [facility] 12/30 17:53 Order name: Troponin High Sensitivity [facility] 12/30 13:47 Order name: XRAY Chest (1 view); Complete Time: 15:27 kb 12/30 17:48 Order name: CONS Physician Consult EDMT 12/30 13:47 Order name: Cardiac monitoring; Complete Time: 16:03 kb 12/30 13:47 Order name: EKG - Nurse/Tech; Complete Time: 16:03 kb 12/30 13:47 Order name: IV Saline Lock; Complete Time: 15:35 kb 12/30 13:47 Order name: Labs collected and sent; Complete Time: 15:35 kb 12/30 13:47 Order name: O2 Per Protocol; Complete Time: 16:30 kb 12/30 13:47 Order name: O2 Sat Monitoring; Complete Time: 16:30 kb EC:03 Rate is 64 beats/min. Rhythm is regular. QRS Big Bar is Normal. WI interval is prolonged kb at 216 msec. QRS interval is normal at 96 msec. QT interval is normal at 429 msec. Administered Medications: No medications were administered Disposition Summary: 12/30/24 16:27 Hospitalization Ordered Notes: Hospitalization Status: Observation kb Provider: Tee Newton Location: Telemetry/MedSurg (observation) kb Condition: Stable kb Problem: new kb Symptoms: are unchanged kb Bed/Room Type: Standard Room Assignment: 407(12/30/24 17:55) Diagnosis - Chest pain, unspecified kb Forms: - Medication Reconciliation Form kb - SBAR form kb - Leadership Thank You Letter kb Signatures: Dispatcher [employer] EDMT Yvonne Wu, TABLEAU ADMINISTRATOR-C TABLEAU ADMINISTRATOR-Carlosb Doris Kolb RN RN ss Fernanda Ray RN RN ll1 Corrections: (The following items were deleted from the chart) 13:48 13:48 BASIC METABOLIC PANEL+C.LAB.BRZ ordered. EDMS EDMS 13:48 13:48 CBC+H.LAB.BRZ ordered. EDMS EDMS 13:48 13:48 HEPATIC FUNCTION+C.LAB.BRZ ordered. EDMS EDMS 13:48 13:48 MAGNESIUM+C.LAB.BRZ ordered. EDMS EDMS 13:48 13:48 PROBNP+C.LAB.BRZ ordered. EDMS EDMS 13:48 13:48 Troponin High Sensitivity+C.LAB.BRZ ordered. EDMS EDMS 13:48 13:48 Chest Single View+RAD.RAD.BRZ ordered. EDMS EDMS 17:55 16:27 kb ss
[2024-12-30] MEDS ORDERED: IBUPROFEN 400 MG TAB PO PRN (17:46)
--- NOTE | 2024-12-30 17:58 | P.HP ---
Certification for Inpatient Patient admitted to: Inpatient With expected LOS: >2 Midnights Patient will require the following post-hospital care: None Practitioner: I am a practitioner with admitting privileges, knowledge of patient current condition, hospital course, and medical plan of care. Services: Services provided to patient in accordance with Admission requirements found in Title 42 Section 412.3 of the Code of Federal Regulations Patient History Date of Service: 12/30/24 Reason for admission: ACS r/o for CP History of Present Illness: 79-year-old black female with prior medical history of cirrhosis and hypertension presented for complaints of chest tightness x 3 days described as constant accompanied by shortness of breath on exertion. Denies NVD. States that she believes it is related to COPD with acute exacerbation. COPD? History? ER Course: Patient arrived to ED via POV. Upon arrival patient received chest x-ray no concern for acute cardiopulmonary process. Additionally labs were drawn and are nonconcerning including normal troponin and BNP. EKG was completed showing first-degree heart block, otherwise within normal limits. Patient was maintained on cardiac telemonitoring. LFTs noted to be elevated with cholestatic pattern, but patient with known history of cirrhosis. Allergies codeine Allergy (Verified 12/30/24 17:52) Sulfa (Sulfonamide Antibiotics) Allergy (Verified 12/30/24 17:52) Home medications list reviewed: No (pt unable to recall) - Past Medical/Surgical History Has patient received pneumonia vaccine in the past: No Diabetic: No -: Cirrhosis -: Hypertension -: Right knee replacement -: Hysterectomy -: Cardiac stent - Social History Smoking Status: Never smoker Alcohol use: No CD- Drugs: No Caffeine use: Yes Place of Residence: Home Review of Systems 10-point ROS is otherwise unremarkable Physical Examination - Physical Exam General: Alert, Oriented x3, Cooperative, Obese HEENT: Atraumatic, Normocephalic, Mucous membr. moist/pink Neck: Supple, 2+ carotid pulse no bruit, JVD not distended, No Thyromegaly, No LAD Respiratory: Clear to auscultation bilaterally, Diminished (bases) Cardiovascular: Regular rate/rhythm, Normal S1 S2, No gallops, No rubs, No murmurs, Edema (+2) Capillary refill: <2 Seconds Gastrointestinal: Normal bowel sounds, Soft and benign, Non-distended Musculoskeletal: No clubbing, No contractures, No erythema, No tenderness Integumentary: No rashes, No breakdown, No significant lesion Neurological: Normal speech, Normal tone, Sensation intact, Cranial nerves 3-12 intact, Normal affect External genitalia: Deferred Rectal: Deferred - Studies Laboratory Data (last 24 hrs) 12/30/24 12/30/24 15:33 15:33 WBC 6.50 Hgb 12.5 Hct 37.5 Plt Count 158 Sodium 140 Potassium 3.6 BUN 10 Creatinine 0.59 Glucose 81 Magnesium 2.3 Total Bilirubin 0.7 AST 29 ALT 22 Alkaline Phosphatase 158 H Assessment and Plan - Plan Assessment: Plan: Chest pain ACS rule out, NSTEMI versus unstable angina Chest x-ray 12/30 reviewed showing no acute cardiopulmonary disease Troponin 30 on admission, will trend BNP 146 Serial EKGs Cardiology consulted TSH/T4 Ordered Telemetry monitoring Supplemental O2 to keep SpO2 greater than 94% as needed Heart score 4 aspirin 81 mg Heparin 5000 3 times daily BLE edema Concern for CHF - Echo as above - +1 on exam bilaterally below the knee Lasix IV 40 mg x 1 Assess response to therapy Discharge Plan: Home Plan to discharge in: 48 Hours - Advance Directives Does patient have a Living Will: No Does patient have a Durable POA for Healthcare: No - Code Status/Comfort Care Code Status Assessed: Yes (Full code) Critical Care: No
[2024-12-30] MEDS: FUROSEMIDE 40 MG/4 ML VIAL ONE (20:46)
[2024-12-30] MEDS: FUROSEMIDE 40 MG/4 ML VIAL IV ONE (21:45)
[2024-12-30 21:56] VITALS: BMI 32.6
[2024-12-30 23:03] LABS: Thyroid Stimulating Hormone 0.669 uIU/mL (0.358-3.740)
[2024-12-31] MEDS: HEPARIN 5000 UNIT/ML 1 ML VIAL SQ SCH (00:23)
[2024-12-31 05:49] LABS: Absolute Lymphocytes (CBC) 2.0 K/uL (0.7-4.9); Hematocrit 39.7 % (36.0-45.0); Hemoglobin 13.5 g/dL (12.0-15.0); MCH 29.8 pg (27.0-35.0); MCHC 33.9 g/dL (32.0-36.0); MCV 87.9 fL (80-100); MPV 9.2 fL (7.6-11.3); Nucleated RBC Absolute Count 0.0 (0-0); Nucleated Red Blood Cells % 0.1 % (0-0); RBC Red Blood Cell Count 4.51 M/uL (3.86-4.86); White Blood Count 7.10 thou/uL (4.3-10.9)
[2024-12-31 05:57] LABS: PT Prothrombin Time 12.7 SECONDS (10-13.0); Protime INR 1.13
[2024-12-31 06:03] LABS: Anion Gap 9.5 mEq/L (5.0-15.0); BUN Blood Urea Nitrogen 10.0 mg/dL (7-18); Glucose Level 97.0 mg/dL (74-106); Potassium 3.5 mEq/L (3.5-5.1)
[2024-12-31] MEDS ORDERED: SODIUM CHLORIDE 0.9% 10ML INJ IV PRN (07:20)
[2024-12-31] MEDS: PANTOPRAZOLE 40 MG INJ IVP ONE (08:57)
--- NOTE | 2024-12-31 10:52 | P.CNS ---
Date of Consult: 12/31/24 Chief Complaint: ACS r/o for CP History of Present Illness: Patient with PMH of HTN, presented with chest pain that happened yesterday, sharp, no radiation, no other associated symptoms, she denies palpitations, no syncope but report chronic [place]. Allergies codeine Allergy (Verified 12/30/24 17:52) Sulfa (Sulfonamide Antibiotics) Allergy (Verified 12/30/24 17:52) Home medications list reviewed: Yes - Past Medical/Surgical History Diabetic: No -: Cirrhosis -: Hypertension -: Right knee replacement -: Hysterectomy -: Cardiac stent - Social History Smoking Status: Unknown if ever smoked Alcohol use: No CD- Drugs: No Caffeine use: No Place of Residence: Home Review of Systems 10-point ROS is otherwise unremarkable Physical Examination Temp Pulse Resp BP Pulse Ox 98.3 F 70 16 124/60 96 12/31/24 08:00 12/31/24 08:00 12/31/24 08:00 12/31/24 08:00 12/31/24 08:00 General: Alert, In no apparent distress HEENT: Atraumatic, PERRLA, Mucous membr. moist/pink, EOMI, Sclerae nonicteric Neck: Supple, 2+ carotid pulse no bruit, No LAD, Without JVD or thyroid abnormality Respiratory: Clear to auscultation bilaterally, Normal air movement Cardiovascular: Regular rate/rhythm, Normal S1 S2 Gastrointestinal: Normal bowel sounds, No tenderness Musculoskeletal: No tenderness Integumentary: No rashes Neurological: Normal gait, Normal speech, Normal tone, Normal affect Lymphatics: No axilla or inguinal lymphadenopathy Laboratory Data (last 24 hrs) 12/30/24 12/30/24 15:33 15:33 WBC 6.50 Hgb 12.5 Hct 37.5 Plt Count 158 Sodium 140 Potassium 3.6 BUN 10 Creatinine 0.59 Glucose 81 Magnesium 2.3 Total Bilirubin 0.7 AST 29 ALT 22 Alkaline Phosphatase 158 H - Problems (1) Chest pain Current Visit: Yes Status: Acute Plan: atypical, troponin negative x3 no further inpatient cardiac work up needed follow up with cardiology as outpatient (2) HTN (hypertension) Current Visit: Yes Status: Acute Plan: think patient will benefit from HCTZ 25 mg daily as she complain of occasional fluid retention.
[2024-12-31 11:08] VITALS: O2SAT 96
[2024-12-31 12:10] VITALS: BP 144/69; TEMP 98.1
--- NOTE | 2024-12-31 12:56 | P.DS ---
Admission Date: 12/30/24 Discharge Date: 12/31/24 Disposition: ROUTINE DISCHARGE Discharge Condition: GOOD Reason for Admission: ACS r/o for CP Consultations: Cardiology Procedures: None Brief History of Present Illness: 79-year-old black female with prior medical history of cirrhosis and hypertension presented for complaints of chest tightness x 3 days described as constant accompanied by shortness of breath on exertion. Denies NVD. States that she believes it is related to COPD with acute exacerbation. COPD? History? Hospital Course: Chest pain ACS ruled out Chest x-ray 12/30 reviewed showing no acute cardiopulmonary disease Troponin 30 on admission, and maintain negative trend BNP 546, started on hydrochlorothiazide Serial EKGs, nonconcerning Cardiology consulted with recommendations above TSH/T4 normal Telemetry monitoring continue during admission Supplemental O2 to keep SpO2 greater than 94% as needed, not needed Heart score 4 aspirin 81 mg given Heparin 5000 3 times daily given during admission BLE edema - No echo recommended by cardiology - +1 on exam bilaterally below the knee Lasix IV 40 mg x 1 Edema improved on reassessment Discharge home with cardiology and PCP follow-up Vital Signs/Physical Exam: Temp Pulse Resp BP Pulse Ox 98.1 F 68 16 144/69 H 96 12/31/24 12:00 12/31/24 12:00 12/31/24 12:00 12/31/24 12:00 12/31/24 12:00 General: Alert, Oriented x3, Cooperative, Obese HEENT: Atraumatic, Normocephalic Neck: Supple, JVD not distended, No Thyromegaly Respiratory: Clear to auscultation bilaterally, Diminished (bases) Cardiovascular: Normal pulses, Regular rate/rhythm, Normal S1 S2, Edema (+1) Capillary refill: Brisk Gastrointestinal: Normal bowel sounds, Hypoactive, Non-distended, W/out hepatosplenomegaly Musculoskeletal: No clubbing, No contractures, No erythema Integumentary: No breakdown, No significant lesion, No erythema Neurological: Normal speech, Normal strength at 5/5 x4 extr, Normal tone, Normal affect External genitalia: Deferred Rectal: Deferred Laboratory Data at Discharge: WBC 7.10 thou/uL (4.3-10.9) 12/31/24 05:14 Hgb 13.5 g/dL (12.0-15.0) 12/31/24 05:14 Hct 39.7 % (36.0-45.0) 12/31/24 05:14 Plt Count 155 thou/uL (152-406) 12/31/24 05:14 PT 12.7 SECONDS (10-13.0) 12/31/24 05:14 INR 1.13 12/31/24 05:14 Sodium 140 mEq/L (136-145) 12/31/24 05:14 Potassium 3.5 mEq/L (3.5-5.1) 12/31/24 05:14 BUN 10 mg/dL (7-18) 12/31/24 05:14 Creatinine 0.56 mg/dL (0.55-1.02) 12/31/24 05:14 Glucose 97 mg/dL (74-106) 12/31/24 05:14 Magnesium 2.3 mg/dL (1.6-2.4) 12/30/24 15:33 Total Bilirubin 0.7 mg/dL (0.2-1.0) 12/30/24 15:33 AST 29 U/L (15-37) 12/30/24 15:33 ALT 22 U/L (13-56) 12/30/24 15:33 Alkaline Phosphatase 158 U/L (45-117) H 12/30/24 15:33 Home Medications: hydroCHLOROthiazide [Hydrochlorothiazide] 25 mg PO DAILY #30 tab 12/31/24 New Medications: hydroCHLOROthiazide [Hydrochlorothiazide] 25 mg PO DAILY #30 tab Physician Discharge Instructions: PROBLEM: Chest pain, leg swelling GOAL: Clear understanding of disease process, take medications daily, follow-up with financial services officer, follow-up with PCP INSTRUCTIONS: You were seen during hospital admission for chest pain by cardiology, Dr. Carter. He recommended starting hydrochlorothiazide 25 mg daily to help with bilateral lower extremity edema and follow-up in his cardiology clinic in the next 1 to 2 weeks. The prescription for hydrochlorothiazide has been sent to your pharmacy on file. Please ensure you take this medication daily. He will have increased urination at first. This will level out with time. Additionally, it is important to follow-up with your PCP in the next 2 to 3 days and let them know that this new medication has been started for you. Diet: Cardiac diet Activity: Resume normal activities as tolerated Diet: AHA Activity: Ad andrea Followup: Hermelindo Carter MD [ACTIVE - CAN ADMIT] - 1-2 Weeks Leilani Chaparro NP [Primary Care Provider] - 2-3 Days Time spent managing pt's care (in minutes): 37
[2024-12-31] MEDS ORDERED: PNEUMOCOCCAL VACCINE 0.5 ML IMVAC ONE (14:00)
== END 2024-12-31 15:21 | disposition home or self-care (01) ==
LOC: ER 13:41 → ERHOLD 17:45 → 4TH 19:15
PROVIDERS: ADMIT Hospitalist; ATTEND Hospitalist
DX: R07.9 Chest pain, unspecified (principal); K74.60 Unspecified cirrhosis of liver; I10 Essential (primary) hypertension; R06.02 Shortness of breath; Z88.5 Allergy status to narcotic agent; Z88.2 Allergy status to sulfonamides; R60.9 Edema, unspecified; Z23 Encounter for immunization
CPT/HCPCS: 93005; 85025 ×2; 80048 ×2; 36415 ×2; 83735; 85610; 80076; 84443; 84484 ×3; 84439; 83880; 71045; 99284; J1644 ×2; J1938; J2470; G0378 ×3